=== PATIENT | female | born 1950 | race Caucasian/White ===

== ENCOUNTER 2020-04-24 09:43 | Outpatient (REF) | payer MEDICARE, SELFPAY ==
[2020-04-24 11:15] LABS: MANUAL DIFF FLAG NO
[2020-04-24 11:26] LABS: Basophils Absolute Auto 0.1 X10*3/uL (0.0-0.2); Basophils Percent Auto 0.5 % (0-2); Eosinophils Absolute Auto 0.5 X10*3/uL (0.0-0.4); Eosinophils Percent Auto 4.5 % (0-4); Hematocrit 24.7 % (37-47); Hemoglobin 7.4 g/dl (12.0-16.0); Imm Gran Abs Auto 0.03 X10*3/uL (0.00-0.03); Imm Gran Pct Auto 0.3 % (0.0-0.4); Lymphocytes Absolute Auto 3.1 X10*3/uL (1.2-4.9); Lymphocytes Percent Auto 28.5 % (20-40); Mean Corpuscular Hemoglobin 21.4 pg (27.0-33.0); Mean Corpuscular Volume 71.6 fL (80-98); Mean Platelet Volume 11.3 fL (9.4-12.3); Monocytes Absolute Auto 1.2 X10*3/uL (0.1-1.2); Neutrophils Absolute Auto 6.1 X10*3/uL (2.0-8.3); Neutrophils Percent Auto 55.2 % (45-73); Platelet Count 468 X10*3/uL (160-400); Red Blood Count 3.45 X10*6/uL (4.20-5.50); Red Cell Distribution Width 17.4 % (11.0-16.0)
[2020-04-24 11:39] LABS: Alanine Aminotransferase 18 U/L (0-31); Albumin Level 3.8 g/dL (3.5-5.0); Alkaline Phosphatase 87 U/L (39-117); Anion Gap 11 (12-20); Aspartate Amino Transferase 22 U/L (5-31); Bilirubin Total 0.4 mg/dL (0.0-1.0); Blood Urea Nitrogen 19 mg/dL (9-16); Calcium 9.4 mg/dL (8.4-10.2); Carbon Dioxide 31 mmol/L (22-29); Chloride 101 mmol/L (96-108); Cholesterol 133 mg/dL; Estimated Glomerular Filt Rate > 60; Glucose Fasting 95 mg/dL (60-99); HDL Cholesterol 57 mg/dL; LDL Cholesterol Calculated 64 mg/dl; Potassium 4.6 mmol/l (3.3-5.1); Sodium 138 mmol/L (135-145); Total Protein 6.6 g/dL (6.5-8.0); Triglycerides 60 mg/dL
[2020-04-24 11:49] LABS: Creatinine Urine 53.61 mg/dL
[2020-04-24 12:02] LABS: T4 Thyroxine 9.7 ug/dL (4.5-12.0); Thyroid Stimulating Hormone 2.31 uIU/mL (0.32-4.0); Vitamin D 25-OH Total 76.7 ng/mL (>30)
[2020-04-24 12:51] LABS: Folate > 20.0 ng/mL (> or = 4.0); Vitamin B12 548 pg/mL (200-900)
== END 2020-04-24 09:44 | disposition home or self-care (01) ==
LOC: HO.HMGCLDS 09:43
PROVIDERS: PCP Internal Medicine; Visit Provider Internal Medicine
DX: E11.65 Type 2 diabetes mellitus with hyperglycemia (principal); E78.5 Hyperlipidemia, unspecified; E03.9 Hypothyroidism, unspecified; K21.9 Gastro-esophageal reflux disease without esophagitis; M51.37 Other intervertebral disc degeneration, lumbosacral region; E66.01 Morbid (severe) obesity due to excess calories; I10 Essential (primary) hypertension; M85.89 Other specified disorders of bone density and structure, multiple sites; J45.909 Unspecified asthma, uncomplicated; M19.90 Unspecified osteoarthritis, unspecified site
CPT/HCPCS: 36415; 80053; 80061; 82043; 82306; 82607; 82746; 84436; 84443; 85025

== ENCOUNTER 2020-04-24 20:56 | Emergency (ER) | payer MEDICARE, SELFPAY ==
[2020-04-24 21:09] VITALS: BP 145/69; PULSE 93; RESP 18; TEMP 36.4; O2SAT 98; BMI 48.4
--- NOTE | 2020-04-24 21:56 | ED_ITS ---
HPI - General Adult General Chief complaint: Recheck/Abnormal Lab/Rx <Jarod Tejeda MD - Last Filed: 04/26/20 12:54> Stated complaint: Blood transfusion <Jarod Tejeda MD - Last Filed: 04/26/20 12:54> Time Seen by Provider: 04/24/20 21:56 <Jarod Tejeda MD - Last Filed: 04/26/20 12:54> Source: patient <Jarod Tejeda MD - Last Filed: 04/26/20 12:54> Mode of arrival: ambulatory <Jarod Tejeda MD - Last Filed: 04/26/20 12:54> Limitations: no limitations <Jarod Tejeda MD - Last Filed: 04/26/20 12:54> History of Present Illness HPI narrative: patient has been feeling weak for last few days had lab workup done as outpatient which showed hemoglobin of 7.4 and hematocrit of 24.5, with MCV of 71. denies any black stool or any bleeding problems history of anemia in the past secondary to vaginal bleed but never had any blood transfusion, patient does have some shortness of breath on exertion denies any chest pain patient previous hemoglobin was 13.3 on 03/20. patient never had colonoscopy or endoscopy in the past does get stool for occult blood every year which were negative in the past <Jarod Tejeda MD - Last Filed: 04/26/20 12:54> Related Data Home medications: Previous Rx's Medication Instructions Recorded blood sugar diagnostic 1 strip MISCELLANEOUS TID 90 Days 03/03/20 #300 ea lancets #3 box 03/03/20 omeprazole 20 mg capsule,delayed 20 mg PO DAILY 90 Days #90 cap 03/07/20 release lisinopril 40 mg tablet 40 mg PO DAILY #90 tab 04/10/20 ferrous sulfate 325 mg PO DAILY #30 tab 04/25/20 <Jarod Tejeda MD - Last Filed: 04/26/20 12:54> Allergies/adverse reactions: Allergies Allergy/AdvReac Type Severity Reaction Status Date / Time benzocaine [Benzocaine] Allergy Intermediate HIVES Verified 04/24/20 21:09 Sulfa (Sulfonamide Allergy Intermediate HIVES Verified 04/24/20 21:09 Antibiotics) Penicillins Allergy Mild RASH Verified 04/24/20 21:09 metformin Allergy Unknown diarrhea Verified 04/24/20 21:09 Novocain Allergy Unknown unknown Verified 04/24/20 21:09 oxycodone [OXYCODONE] Allergy Unknown SEVERE Verified 04/24/20 21:09 NAUSEA Vitamin B 12 Allergy Unknown COMPLEX Uncoded 02/02/20 00:00 <Jarod Tejeda MD - Last Filed: 04/26/20 12:54> Review of Systems Review of Systems: REVIEW OF SYSTEMS: Pertinent positives and negatives are stated above in the history. GEN: no fevers, chills, fatigue HEENT: no nasal congestion, sore throat, ear pain NEURO: no headache, dizziness, focal weakness PULM: no cough, mild shortness of breath on exertion CV: no chest pain, palpitations, LE edema ABD: no abdominal pain, nausea, vomiting, diarrhea : no dysuria, urgency, frequency SKIN: no rash ROS otherwise negative x 10 <Jarod Tejeda MD - Last Filed: 04/26/20 12:54> PMF Past Medical History Medical History: Medical History GERD (gastroesophageal reflux disease) <Jarod Tejeda MD - Last Filed: 04/26/20 12:54> Surgical History: Surgical History Back pain with history of spinal surgery History of arthroplasty of left knee History of arthroscopy of left knee History of hysteroscopy History of knee replacement procedure of right knee History of removal of cyst History of splenectomy <Jarod Tejeda MD - Last Filed: 04/26/20 12:54> Family History Family History: Family History Father Diabetes Hypertension Mother Hypertension Liver cancer Brother Liver cancer <Jarod Tejeda MD - Last Filed: 04/26/20 12:54> Social History Social History: Social History Alcohol intake: never Smoking Status: Never smoker Use of substances other than those prescribed or required for medical reasons: No Advance Directives: No Advance Directives Information Provided: Yes <Jarod Tejeda MD - Last Filed: 04/26/20 12:54> Physical Exam Vital Signs: Vital Signs: Last Vital Signs Temp 98.3 F 04/25/20 05:21 Pulse 84 04/25/20 05:21 Resp 14 04/25/20 05:21 BP 135/64 04/25/20 05:21 Pulse Ox 97 04/25/20 05:21 Body Mass Index 48.4 <Jarod Tejeda MD - Last Filed: 04/26/20 12:54> Vital Signs: Last Vital Signs Temp 98.3 F 04/25/20 05:21 Pulse 84 04/25/20 05:21 Resp 14 04/25/20 05:21 BP 135/64 04/25/20 05:21 Pulse Ox 97 04/25/20 05:21 Body Mass Index 48.4 <Waldo Pleitez DO - Last Filed: 04/25/20 04:24> Appearance: Alert. Oriented X3. No acute distress. Eyes: Pupils equal, round and reactive to light. pallor++ ENT: Pharynx normal. Neck: Normal inspection. Neck supple. CVS: Normal heart rate and rhythm. Pulses normal. Respiratory: No respiratory distress. Breath sounds normal. Abdomen: Soft and nontender. no hepatosplenomegaly no mass bowel sounds are present rectal exam; nontender brown color stool, no blood , hemeoccult +ve Skin: Skin warm and dry. Normal skin color. Normal skin turgor. Extremities: No lower extremity edema. Good range of movement Neuro: Oriented X 3. No motor deficit. No sensory deficit. <Jarod Tejeda MD - Last Filed: 04/26/20 12:54> Medical Decision Making MDM Narrative Medical decision making narrative: patient with acute anemia with tiredness and weakness hemoglobin 7.4 guaiac is positive for Hemoccult. Will give patient 1 unit of blood and IV Protonix. Patient orthostatics are stable, patient feeling much better now, blood pressure stable will discharge her home after blood transfusion advised to follow with refractory worker <Jarod Tejeda MD - Last Filed: 04/26/20 12:54> Lab Data Result diagrams: : 04/24/20 22:34 04/24/20 22:34 <Jarod Tejeda MD - Last Filed: 04/26/20 12:54> Labs: Lab Results 11/23/20 11/23/20 11/23/20 Range/Units 22:34 22:34 22:34 WBC 12.4 H (4.8-10.8) X10*3/uL RBC 3.43 L (4.20-5.50) X10*6/uL Hgb 7.4 L (12.0-16.0) g/dl Hct 24.5 L (37-47) % MCV 71.4 L (80-98) fL MCH 21.6 L (27.0-33.0) pg MCHC 30.2 L (31.0-35.0) g/dl RDW 17.7 H (11.0-16.0) % Plt Count 481 H (160-400) X10*3/uL MPV 10.7 (9.4-12.3) fL Immature Gran % (Auto) 0.3 (0.0-0.4) % Neut % (Auto) 58.5 (45-73) % Lymph % (Auto) 23.8 (20-40) % Hawkins % (Auto) 12.2 H (2-11) % Eos % (Auto) 4.6 H (0-4) % Baso % (Auto) 0.6 (0-2) % Lymph # (Auto) 2.9 (1.2-4.9) X10*3/uL Hawkins # (Auto) 1.5 H (0.1-1.2) X10*3/uL Eos # (Auto) 0.6 H (0.0-0.4) X10*3/uL Baso # (Auto) 0.1 (0.0-0.2) X10*3/uL Abs Immat Gran (auto) 0.04 H (0.00-0.03) X10*3/uL Absolute Neuts (auto) 7.2 (2.0-8.3) X10*3/uL Absolute Nucleated RBC 0.000 (0.0-0.012) X10*3/uL Nucleated RBC % (auto) 0.0 (0.0-0.2) /100WBC Smear Tech's Comments VERIFIED PT 11.6 (10.8-13.0) SEC INR 1.0 (0.9-1.1) Sodium 140 (135-145) mmol/L Potassium 4.5 (3.3-5.1) mmol/l Chloride 102 (96-108) mmol/L Carbon Dioxide 29 (22-29) mmol/L Anion Gap 14 (12-20) BUN 24 H (9-16) mg/dL Creatinine 0.93 (0.5-1.4) mg/dL Estim Creat Clear Calc 69.4 Estimated GFR 60 Random Glucose 139 H (60-115) mg/dL Calcium 9.3 (8.4-10.2) mg/dL Iron 18 L (30-160) mcg/dL TIBC 467 H (228-428) mcg/dL % Saturation 4 L (15-50) % Unsat Iron Binding 449 ug/dL Stool Occult Blood (NEG) Blood Type Antibody Screen Crossmatch 04/24/20 04/24/20 Range/Units 22:34 23:33 WBC (4.8-10.8) X10*3/uL RBC (4.20-5.50) X10*6/uL Hgb (12.0-16.0) g/dl Hct (37-47) % MCV (80-98) fL MCH (27.0-33.0) pg MCHC (31.0-35.0) g/dl RDW (11.0-16.0) % Plt Count (160-400) X10*3/uL MPV (9.4-12.3) fL Immature Gran % (Auto) (0.0-0.4) % Neut % (Auto) (45-73) % Lymph % (Auto) (20-40) % Hawkins % (Auto) (2-11) % Eos % (Auto) (0-4) % Baso % (Auto) (0-2) % Lymph # (Auto) (1.2-4.9) X10*3/uL Hawkins # (Auto) (0.1-1.2) X10*3/uL Eos # (Auto) (0.0-0.4) X10*3/uL Baso # (Auto) (0.0-0.2) X10*3/uL Abs Immat Gran (auto) (0.00-0.03) X10*3/uL Absolute Neuts (auto) (2.0-8.3) X10*3/uL Absolute Nucleated RBC (0.0-0.012) X10*3/uL Nucleated RBC % (auto) (0.0-0.2) /100WBC Smear Tech's Comments PT (10.8-13.0) SEC INR (0.9-1.1) Sodium (135-145) mmol/L Potassium (3.3-5.1) mmol/l Chloride (96-108) mmol/L Carbon Dioxide (22-29) mmol/L Anion Gap (12-20) BUN (9-16) mg/dL Creatinine (0.5-1.4) mg/dL Estim Creat Clear Calc Estimated GFR Random Glucose (60-115) mg/dL Calcium (8.4-10.2) mg/dL Iron (30-160) mcg/dL TIBC (228-428) mcg/dL % Saturation (15-50) % Unsat Iron Binding ug/dL Stool Occult Blood POS (NEG) Blood Type A Negative Antibody Screen NEGATIVE Crossmatch See Detail <Jarod Tejeda MD - Last Filed: 04/26/20 12:54> Lab Results 04/24/20 04/24/20 04/24/20 Range/Units 22:34 22:34 22:34 WBC 12.4 H (4.8-10.8) X10*3/uL RBC 3.43 L (4.20-5.50) X10*6/uL Hgb 7.4 L (12.0-16.0) g/dl Hct 24.5 L (37-47) % MCV 71.4 L (80-98) fL MCH 21.6 L (27.0-33.0) pg MCHC 30.2 L (31.0-35.0) g/dl RDW 17.7 H (11.0-16.0) % Plt Count 481 H (160-400) X10*3/uL MPV 10.7 (9.4-12.3) fL Immature Gran % (Auto) 0.3 (0.0-0.4) % Neut % (Auto) 58.5 (45-73) % Lymph % (Auto) 23.8 (20-40) % Hawkins % (Auto) 12.2 H (2-11) % Eos % (Auto) 4.6 H (0-4) % Baso % (Auto) 0.6 (0-2) % Lymph # (Auto) 2.9 (1.2-4.9) X10*3/uL Hawkins # (Auto) 1.5 H (0.1-1.2) X10*3/uL Eos # (Auto) 0.6 H (0.0-0.4) X10*3/uL Baso # (Auto) 0.1 (0.0-0.2) X10*3/uL Abs Immat Gran (auto) 0.04 H (0.00-0.03) X10*3/uL Absolute Neuts (auto) 7.2 (2.0-8.3) X10*3/uL Absolute Nucleated RBC 0.000 (0.0-0.012) X10*3/uL Nucleated RBC % (auto) 0.0 (0.0-0.2) /100WBC Smear Tech's Comments VERIFIED PT 11.6 (10.8-13.0) SEC INR 1.0 (0.9-1.1) Sodium 140 (135-145) mmol/L Potassium 4.5 (3.3-5.1) mmol/l Chloride 102 (96-108) mmol/L Carbon Dioxide 29 (22-29) mmol/L Anion Gap 14 (12-20) BUN 24 H (9-16) mg/dL Creatinine 0.93 (0.5-1.4) mg/dL Estim Creat Clear Calc 69.4 Estimated GFR 60 Random Glucose 139 H (60-115) mg/dL Calcium 9.3 (8.4-10.2) mg/dL Iron 18 L (30-160) mcg/dL TIBC 467 H (228-428) mcg/dL % Saturation 4 L (15-50) % Unsat Iron Binding 449 ug/dL Stool Occult Blood (NEG) Blood Type Antibody Screen Crossmatch 04/24/20 04/24/20 Range/Units 22:34 23:33 WBC (4.8-10.8) X10*3/uL RBC (4.20-5.50) X10*6/uL Hgb (12.0-16.0) g/dl Hct (37-47) % MCV (80-98) fL MCH (27.0-33.0) pg MCHC (31.0-35.0) g/dl RDW (11.0-16.0) % Plt Count (160-400) X10*3/uL MPV (9.4-12.3) fL Immature Gran % (Auto) (0.0-0.4) % Neut % (Auto) (45-73) % Lymph % (Auto) (20-40) % Hawkins % (Auto) (2-11) % Eos % (Auto) (0-4) % Baso % (Auto) (0-2) % Lymph # (Auto) (1.2-4.9) X10*3/uL Hawkins # (Auto) (0.1-1.2) X10*3/uL Eos # (Auto) (0.0-0.4) X10*3/uL Baso # (Auto) (0.0-0.2) X10*3/uL Abs Immat Gran (auto) (0.00-0.03) X10*3/uL Absolute Neuts (auto) (2.0-8.3) X10*3/uL Absolute Nucleated RBC (0.0-0.012) X10*3/uL Nucleated RBC % (auto) (0.0-0.2) /100WBC Smear Tech's Comments PT (10.8-13.0) SEC INR (0.9-1.1) Sodium (135-145) mmol/L Potassium (3.3-5.1) mmol/l Chloride (96-108) mmol/L Carbon Dioxide (22-29) mmol/L Anion Gap (12-20) BUN (9-16) mg/dL Creatinine (0.5-1.4) mg/dL Estim Creat Clear Calc Estimated GFR Random Glucose (60-115) mg/dL Calcium (8.4-10.2) mg/dL Iron (30-160) mcg/dL TIBC (228-428) mcg/dL % Saturation (15-50) % Unsat Iron Binding ug/dL Stool Occult Blood POS (NEG) Blood Type A Negative Antibody Screen NEGATIVE Crossmatch See Detail <Waldo Pleitez, DO - Last Filed: 04/25/20 04:24> Discharge Plan Discharge Clinical Impression: Anemia, GI (gastrointestinal bleed) <Jarod Tejeda MD - Last Filed: 04/26/20 12:54> Patient Disposition: Home, Self-Care <Jarod Tejeda MD - Last Filed: 04/26/20 12:54> Instructions: Gastrointestinal Bleeding (ED), Iron Deficiency Anemia (ED) <Jarod Tejeda MD - Last Filed: 04/26/20 12:54> Additional Instructions: take iron tablets Daily as advised. see refractory worker for further workup including endoscopy and colonoscopy to find the cause of anemia report to the ER if black stool or bleeding from rectum or increased shortness of breath or weakness follow-up with your PCP within a week <Jarod Tejeda MD - Last Filed: 04/26/20 12:54> Prescriptions: New ferrous sulfate 325 mg (65 mg iron) tablet 325 mg PO DAILY Qty: 30 RF: 2 No Action blood sugar diagnostic [OneTouch Ultra Blue Test Strip] Strip 1 strip miscellaneous TID 90 Days Qty: 300 RF: 3 (DME) lancets [OneTouch UltraSoft Lancets] Misc See Rx Instructions .ROUTE .MEDSUPPLY Qty: 3 RF: 3 omeprazole 20 mg capsule,delayed release(DR/EC) 20 mg PO DAILY 90 Days Qty: 90 RF: 0 lisinopril 40 mg tablet 40 mg PO DAILY Qty: 90 RF: 3 <Jarod Tejeda MD - Last Filed: 04/26/20 12:54> Referrals: Cristina Martinez MD [Physician] - 1 week <Jarod Tejeda MD - Last Filed: 04/26/20 12:54> Interventions: ED Discharge Assessment Last Done: 04/25/20 05:22 <Jarod Tejeda MD - Last Filed: 04/26/20 12:54> Discharge Date/Time: 04/25/20 05:24 <Jarod Tejeda MD - Last Filed: 04/26/20 12:54>
[2020-04-24 22:47] LABS: Basophils Absolute Auto 0.1 X10*3/uL (0.0-0.2); Basophils Percent Auto 0.6 % (0-2); Eosinophils Absolute Auto 0.6 X10*3/uL (0.0-0.4); Eosinophils Percent Auto 4.6 % (0-4); Hematocrit 24.5 % (37-47); Hemoglobin 7.4 g/dl (12.0-16.0); Imm Gran Abs Auto 0.04 X10*3/uL (0.00-0.03); Imm Gran Pct Auto 0.3 % (0.0-0.4); Lymphocytes Absolute Auto 2.9 X10*3/uL (1.2-4.9); Lymphocytes Percent Auto 23.8 % (20-40); MANUAL DIFF FLAG SCAN; Mean Corpuscular HGB Conc 30.2 g/dl (31.0-35.0); Mean Corpuscular Hemoglobin 21.6 pg (27.0-33.0); Mean Corpuscular Volume 71.4 fL (80-98); Mean Platelet Volume 10.7 fL (9.4-12.3); Monocytes Absolute Auto 1.5 X10*3/uL (0.1-1.2); Monocytes Percent Auto 12.2 % (2-11); Neutrophils Absolute Auto 7.2 X10*3/uL (2.0-8.3); Neutrophils Percent Auto 58.5 % (45-73); Platelet Count 481 X10*3/uL (160-400); Red Blood Count 3.43 X10*6/uL (4.20-5.50); Red Cell Distribution Width 17.7 % (11.0-16.0); SCAN SMEAR FLAG 1; White Blood Count 12.4 X10*3/uL (4.8-10.8)
[2020-04-24 22:59] LABS: Prothrombin Time 11.6 SEC (10.8-13.0)
[2020-04-24 23:05] LABS: SLIDE REVIEW VERIFIED
[2020-04-24 23:22] VITALS: BP 134/65; BP 141/58; PULSE 89; PULSE 93
[2020-04-24 23:23] VITALS: BP 155/65; PULSE 96
[2020-04-24 23:24] VITALS: BP 134/65; PULSE 89; RESP 16; O2SAT 96
[2020-04-24 23:39] LABS: OBS Int Ctl Valid YES; OBS1 POS (NEG)
[2020-04-24 23:53] LABS: Anion Gap 14 (12-20); Blood Urea Nitrogen 24 mg/dL (9-16); Calcium 9.3 mg/dL (8.4-10.2); Carbon Dioxide 29 mmol/L (22-29); Chloride 102 mmol/L (96-108); Creatinine Clr Calc Pharmacy 69.4; Estimated Glomerular Filt Rate 60; Glucose Random 139 mg/dL (60-115); Iron 18 mcg/dL (30-160); Percent Iron Saturation 4 % (15-50); Potassium 4.5 mmol/l (3.3-5.1); Sodium 140 mmol/L (135-145); Total Iron Binding Capacity 467 mcg/dL (228-428); Unsaturated Iron Binding 449 ug/dL
[2020-04-25] VITALS (11 sets, daily range): BP systolic 100–135; BP diastolic 55–67; PULSE 84–92; RESP 14–16; TEMP 36.7–37.1; O2SAT 95–97
[2020-04-25] MEDS: Pantoprazole Sodium 40 MG/10 ML VIAL 80 MG IVPUSH (00:45)
[2020-04-25] MEDS: Ferrous Sulfate 324 MG TABLET.DR PO (02:19)
== END 2020-04-25 05:24 | disposition home or self-care (01) ==
PROVIDERS: Emergency Provider Internal Medicine; PCP Internal Medicine
DX: K92.2 Gastrointestinal hemorrhage, unspecified (principal); D50.0 Iron deficiency anemia secondary to blood loss (chronic); Z79.899 Other long term (current) drug therapy
CPT/HCPCS: 36415; 80048; 82272; 83540; 85025; 85610; 86850; 86900; 86901; 86920; 86923; 96374; 99284; P9016

== ENCOUNTER 2020-05-09 11:25 | Outpatient (REF) | payer MEDICARE, SELFPAY ==
[2020-05-09 13:52] LABS: MANUAL DIFF FLAG NO
[2020-05-09 13:58] LABS: Basophils Absolute Auto 0.1 X10*3/uL (0.0-0.2); Basophils Percent Auto 0.7 % (0-2); Eosinophils Absolute Auto 0.3 X10*3/uL (0.0-0.4); Eosinophils Percent Auto 3.2 % (0-4); Hematocrit 31.1 % (37-47); Hemoglobin 9.4 g/dl (12.0-16.0); Imm Gran Abs Auto 0.09 X10*3/uL (0.00-0.03); Imm Gran Pct Auto 0.9 % (0.0-0.4); Immature Retic Fraction 35.6 % (3.0-15.9); Lymphocytes Absolute Auto 2.7 X10*3/uL (1.2-4.9); Mean Corpuscular HGB Conc 30.2 g/dl (31.0-35.0); Mean Corpuscular Hemoglobin 23.5 pg (27.0-33.0); Mean Corpuscular Volume 77.8 fL (80-98); Mean Platelet Volume 11.6 fL (9.4-12.3); Monocytes Absolute Auto 1.3 X10*3/uL (0.1-1.2); Monocytes Percent Auto 12.3 % (2-11); Neutrophils Absolute Auto 5.8 X10*3/uL (2.0-8.3); Neutrophils Percent Auto 56.9 % (45-73); Platelet Count 415 X10*3/uL (160-400); Red Cell Distribution Width 25.1 % (11.0-16.0); Retic HGB Equivalent 28.1 pg (30.0-35.0); Reticulocyte Percent 2.3 % (0.5-1.8); Reticulocytes Absolute 0.092 X10*6/uL (0.026-0.095); White Blood Count 10.3 X10*3/uL (4.8-10.8)
[2020-05-09 14:23] LABS: Iron 21 mcg/dL (30-160); Percent Iron Saturation 5 % (15-50); Total Iron Binding Capacity 408 mcg/dL (228-428); Unsaturated Iron Binding 387 ug/dL
[2020-05-09 14:48] LABS: Ferritin 49 ng/mL (10-250)
[2020-05-09 15:16] LABS: Folate > 20.0 ng/mL (> or = 4.0); Vitamin B12 524 pg/mL (200-900)
== END 2020-05-09 11:26 | disposition home or self-care (01) ==
LOC: HO.HMGCLDS 11:25
PROVIDERS: PCP Internal Medicine; Visit Provider Internal Medicine
DX: K92.2 Gastrointestinal hemorrhage, unspecified (principal); D64.9 Anemia, unspecified
CPT/HCPCS: 36415; 82607; 82728; 82746; 83540; 85025; 85045

== ENCOUNTER 2020-06-09 11:48 | Outpatient (REF) | payer MEDICARE, SELFPAY | END 2020-06-09 11:49 | disposition home or self-care (01) | LOC: HO.HMGCX 11:48 | PROVIDERS: PCP Internal Medicine; Visit Provider Internal Medicine | DX: Z13.89 Encounter for screening for other disorder (principal) ==

== ENCOUNTER 2020-06-12 09:24 | Outpatient (REF) | payer MEDICARE, SELFPAY ==
--- NOTE | 2020-06-12 09:30 | XR_ITS ---
EXAMINATION: XR SHOULDER, RIGHT CLINICAL INFORMATION: Fall, pain. COMPARISON: None TECHNIQUE: AP external rotation, Grashey, scapular Y, and axillary views of the right shoulder. FINDINGS: There is no visible acute fracture, dislocation or subluxation seen. There are 2 sclerotic densities in the central right humeral head likely small bone islands. The soft tissues are normal. XR/XR shoulder RT min 2V IMPRESSION: Unremarkable right shoulder exam.
== END 2020-06-12 09:25 | disposition home or self-care (01) ==
LOC: HO.HMGCX 09:24
PROVIDERS: PCP Internal Medicine; Visit Provider Internal Medicine
DX: Z91.81 History of falling (principal)
CPT/HCPCS: 73030

== ENCOUNTER 2020-10-18 07:56 | Outpatient (REF) | payer MEDICARE, SELFPAY ==
[2020-10-18 11:13] LABS: MANUAL DIFF FLAG NO
[2020-10-18 11:44] LABS: Basophils Percent Auto 0.6 % (0-2); Eosinophils Absolute Auto 0.2 X10*3/uL (0.0-0.4); Hemoglobin 11.7 g/dl (12.0-16.0); Imm Gran Abs Auto 0.02 X10*3/uL (0.00-0.03); Imm Gran Pct Auto 0.3 % (0.0-0.4); Immature Retic Fraction 22.4 % (3.0-15.9); Lymphocytes Absolute Auto 1.8 X10*3/uL (1.2-4.9); Lymphocytes Percent Auto 25.3 % (20-40); Mean Corpuscular HGB Conc 31.6 g/dl (31.0-35.0); Mean Corpuscular Volume 85.3 fL (80-98); Mean Platelet Volume 12.2 fL (9.4-12.3); Monocytes Absolute Auto 0.8 X10*3/uL (0.1-1.2); Monocytes Percent Auto 10.9 % (2-11); Neutrophils Absolute Auto 4.4 X10*3/uL (2.0-8.3); Neutrophils Percent Auto 59.9 % (45-73); Platelet Count 376 X10*3/uL (160-400); Red Blood Count 4.34 X10*6/uL (4.20-5.50); Red Cell Distribution Width 15.6 % (11.0-16.0); Retic HGB Equivalent 28.8 pg (30.0-35.0); Reticulocyte Percent 1.8 % (0.5-1.8); Reticulocytes Absolute 0.078 X10*6/uL (0.026-0.095); White Blood Count 7.3 X10*3/uL (4.8-10.8)
[2020-10-18 12:23] LABS: Creatinine Urine 44.37 mg/dL; Microalbumin Urine < 5.0 mg/L
[2020-10-18 12:50] LABS: Folate > 20.0 ng/mL (> or = 4.0); Vitamin B12 430 pg/mL (200-900)
[2020-10-18 13:05] LABS: Alanine Aminotransferase 18 U/L (0-31); Alkaline Phosphatase 86 U/L (39-117); Anion Gap 12 (12-20); Aspartate Amino Transferase 19 U/L (5-31); Bilirubin Total 0.3 mg/dL (0.0-1.0); Blood Urea Nitrogen 27 mg/dL (9-16); Calcium 9.9 mg/dL (8.4-10.2); Carbon Dioxide 31 mmol/L (22-29); Chloride 102 mmol/L (96-108); Cholesterol 142 mg/dL; Estimated Glomerular Filt Rate > 60; Glucose Random 131 mg/dL (60-115); HDL Cholesterol 59 mg/dL; Iron 48 mcg/dL (30-160); LDL Cholesterol Calculated 69 mg/dl; Percent Iron Saturation 13 % (15-50); Potassium 4.8 mmol/L (3.3-5.1); Sodium 140 mmol/L (135-145); Total Iron Binding Capacity 364 mcg/dL (228-428); Triglycerides 74 mg/dL; Unsaturated Iron Binding 316 ug/dL
[2020-10-18 13:08] LABS: Ferritin 34 ng/mL (10-250); Free T4 (Free Thyroxine) 1.21 ng/dL (0.71-1.85); Thyroid Stimulating Hormone 2.92 uIU/mL (0.32-4.0); Vitamin D 25-OH Total 73.1 ng/mL (>30)
== END 2020-10-18 07:57 | disposition home or self-care (01) ==
LOC: HO.HMGCLDS 07:56
PROVIDERS: PCP Internal Medicine; Visit Provider Internal Medicine
DX: I10 Essential (primary) hypertension (principal); D64.9 Anemia, unspecified; E11.65 Type 2 diabetes mellitus with hyperglycemia; E78.00 Pure hypercholesterolemia, unspecified; E03.9 Hypothyroidism, unspecified
CPT/HCPCS: 36415; 80053; 80061; 82043; 82306; 82607; 82728; 82746; 83540; 84439; 84443; 85025; 85045

== ENCOUNTER 2020-11-29 14:18 | Outpatient (REF) | payer MEDICARE, SELFPAY ==
--- NOTE | ~2020-11-29 | US_ITS ---
EXAMINATION: US THYROID CLINICAL INFORMATION: Nontoxic single thyroid nodule. COMPARISON: Ultrasound thyroid soft tissues 08/20/2016. TECHNIQUE: Linear transducer grayscale and color Doppler examination with attention to the region of the thyroid. FINDINGS: SIZE: Measurements of the thyroid lobes and nodules are given in sagittal, anteroposterior and transverse dimensions respectively. Right Thyroid Lobe: 5.72 x 3.73 x 4.26 cm, volume 47.5 mL. Previously 4.2 x 2.7 x 3.8 cm, volume 21.9 mL. Parenchyma: The gland echotexture is heterogeneous. Thyroid vascularity is unknown. Left Thyroid Lobe: 4.80 x 1.72 x 1.26 cm, volume 5.43 mL. Previously 4.6 x 1.9 x 1.4 cm, volume 6.4 mL. Parenchyma: The gland echotexture is heterogeneous. Thyroid vascularity is increased. Isthmus: 0.70 cm in maximum AP dimension. Previously 0.20 cm. Estimated total number of nodules greater than or equal to 1 cm: 2. [employer] nodules are described as follows: 1. Location: Right lobe (entire). Size: 5.5 x 3.3 x 3.9 cm, volume 37.3 mL. Previously: 3.6 x 2.1 x 2.8 cm, volume 11.1 mL. Nodule characteristics: Composition: Mixed cystic and solid (1). Echogenicity: Hypoechoic (2). Shape: Not taller than wide (0). Margins: Smooth (0). Echogenic Foci: None (0). ACR TI-RADS total points: 3 ACR TI-RADS category: 3 Significant change in size (>/= 20% in 2 dimensions and minimal increase of 2 mm or 50% or greater increase in volume): Yes Change in features: No Change in ACR TI-RADS risk category: No 2. Location: Left midpole. Size: 1.0 x 0.5 x 0.6 cm, volume 0.2 mL. Previously: 1.1 x 0.8 x 0.7 cm, volume 0.3 mL. Nodule characteristics: Composition: Solid (2). Echogenicity: Hyperechoic (1). Shape: Not taller than wide (0). Margins: Smooth (0). Echogenic Foci: Punctate echogenic foci (3). ACR TI-RADS total points: 6 ACR TI-RADS category: 4 Significant change in size (>/= 20% in 2 dimensions and minimal increase of 2 mm or 50% or greater increase in volume): No Change in features: No Change in ACR TI-RADS risk category: No NODES: No lymphadenopathy is seen in the tissue surrounding the thyroid gland. US/US thyroid IMPRESSION: 1. There is interim increase in size of a previously biopsied (08/20/2016) complex cystic nodule within the right thyroid lobe. A further left thyroid lobe nodule appears relatively stable from prior. 2. There is heterogeneous thyroid echotexture, which can be associated with thyroiditis. ACR TI-RADS RECOMMENDATION REFERENCE: Ultrasound-guided fine-needle aspiration, followup ultrasound, no further follow up. * TR1 (0 point) and TR 2 (2 points): No FNA or follow up * TR3 (3 points): FNA if more than or equal to 2.5 cm in maximum dimension, followup ultrasound in 1, 3 and 5 years if 1.5 to 2.4 cm in maximum dimension. * TR4 (4-6 points): FNA if more than or equal to 1.5 cm in maximum dimension, followup ultrasound in 1, 2, 3 and 5 years if 1 to 1.4 cm in maximum dimension. * TR5 (more than or equal to 7 points): FNA if more than or equal to 1 cm in maximum dimension, followup ultrasound every year for 5 years if 0.5 to 0.9 cm in maximum dimension. * TR3, TR4 or TR5 nodules that are below the size threshold for follow up receive no follow up.
== END 2020-11-29 14:19 | disposition home or self-care (01) ==
LOC: HO.HMGCX 14:18
PROVIDERS: PCP Internal Medicine; Visit Provider Internal Medicine
DX: E04.1 Nontoxic single thyroid nodule (principal)
CPT/HCPCS: 76536

== ENCOUNTER 2021-03-12 09:10 | Outpatient (REF) | payer MEDICARE, SELFPAY ==
[2021-03-12 11:54] LABS: MANUAL DIFF FLAG NO
[2021-03-12 12:13] LABS: Basophils Absolute Auto 0.1 X10*3/uL (0.0-0.2); Basophils Percent Auto 0.7 % (0-2); Eosinophils Absolute Auto 0.2 X10*3/uL (0.0-0.4); Eosinophils Percent Auto 2.4 % (0-4); Hematocrit 37.2 % (37-47); Hemoglobin 11.8 g/dl (12.0-16.0); Imm Gran Abs Auto 0.03 X10*3/uL (0.00-0.03); Imm Gran Pct Auto 0.4 % (0.0-0.4); Lymphocytes Absolute Auto 2.3 X10*3/uL (1.2-4.9); Lymphocytes Percent Auto 27.9 % (20-40); Mean Corpuscular HGB Conc 31.7 g/dl (31.0-35.0); Mean Corpuscular Hemoglobin 26.9 pg (27.0-33.0); Mean Corpuscular Volume 84.9 fL (80-98); Mean Platelet Volume 12.6 fL (9.4-12.3); Monocytes Absolute Auto 0.9 X10*3/uL (0.1-1.2); Monocytes Percent Auto 10.6 % (2-11); Neutrophils Absolute Auto 4.8 X10*3/uL (2.0-8.3); Platelet Count 367 X10*3/uL (160-400); Red Blood Count 4.38 X10*6/uL (4.20-5.50); Red Cell Distribution Width 15.9 % (11.0-16.0); White Blood Count 8.3 X10*3/uL (4.8-10.8)
[2021-03-12 12:23] LABS: Estimated Average Glucose 128 mg/dL; Hemoglobin A1c % 6.1 %
[2021-03-12 13:09] LABS: Alanine Aminotransferase 19 U/L (0-31); Albumin Level 4.2 g/dL (3.5-5.0); Alkaline Phosphatase 83 U/L (39-117); Anion Gap 9 (12-20); Aspartate Amino Transferase 21 U/L (5-31); Bilirubin Total 0.7 mg/dL (0.0-1.0); Blood Urea Nitrogen 18 mg/dL (9-16); Calcium 9.9 mg/dL (8.4-10.2); Carbon Dioxide 32 mmol/L (22-29); Chloride 104 mmol/L (96-108); Cholesterol 160 mg/dL; Estimated Glomerular Filt Rate > 60; Glucose Fasting 129 mg/dL (60-99); HDL Cholesterol 63 mg/dL; LDL Cholesterol Calculated 82 mg/dl; Potassium 4.2 mmol/L (3.3-5.1); Sodium 141 mmol/L (135-145); Total Protein 7.1 g/dL (6.5-8.0); Triglycerides 78 mg/dL
== END 2021-03-12 09:11 | disposition home or self-care (01) ==
LOC: HO.HMGCLDS 09:10
PROVIDERS: PCP Internal Medicine; Visit Provider Nurse Practitioner Family
DX: D64.9 Anemia, unspecified (principal); E04.1 Nontoxic single thyroid nodule; E78.00 Pure hypercholesterolemia, unspecified; I10 Essential (primary) hypertension; R00.2 Palpitations; E11.9 Type 2 diabetes mellitus without complications
CPT/HCPCS: 36415; 80053; 80061; 83036; 84443; 85025

== ENCOUNTER 2021-03-31 10:21 | Outpatient (REF) | payer MEDICARE, SELFPAY ==
--- NOTE | ~2021-03-31 | MM_ITS ---
EXAMINATION: MM SCREENING DIGITAL BREAST TOMOSYNTHESIS, BILATERAL CLINICAL INFORMATION: Screening. Asymptomatic. Left lumpectomy, 2009. Due for yearly. COMPARISON: Mammography: 02/11/2020, 11/10/2018, 05/11/2018, 10/28/2017 TECHNIQUE: Digital breast tomosynthesis is performed in both the craniocaudal and mediolateral oblique views along with computer-aided detection (CAD). Synthesized 2D images are generated from the tomosynthesis. FINDINGS: There are scattered areas of fibroglandular density (ACR BI-RADS breast composition Category b). There are no significant masses, abnormal calcifications, or other abnormalities. Parenchymal pattern is similar to prior studies. The left breast has post therapy changes with reduced breast size, stable scarring, and benign dystrophic calcification within the scar. There is a biopsy clip marker anterior central scar left breast. Scattered bilateral benign coarse and rim calcifications again seen. No significant changes. MM/MM tomosynthesis screening BI IMPRESSION: No mammographic evidence of malignancy. Post therapy changes left breast. ASSESSMENT: BI-RADS 2: Benign RECOMMENDATION: Routine annual mammography screening. This patient's information was entered into a reminder system with a target due date for their next mammogram.
== END 2021-03-31 10:22 | disposition home or self-care (01) ==
LOC: HO.MAMMO 10:21
PROVIDERS: Visit Provider Internal Medicine
DX: Z12.31 Encounter for screening mammogram for malignant neoplasm of breast (principal)
CPT/HCPCS: 77063; 77067

== ENCOUNTER → 2021-05-18 11:22 | Outpatient (REF) | payer MEDICARE, SELFPAY ==
--- NOTE | 2021-05-18 11:29 | HM_ITS ---
Total monitoring time 3 days and 1 hour. Underlying rhythm is sinus. Minimum heart rate 60/Min. Maximum 112/Min. Average 76/Min. No atrial fibrillation or flutter or AV blocks or pauses. Rare supraventricular ectopy with minimal burden. Rare ventricular ectopy with minimal burden. No sustained arrhythmias. No patient events. MTDD
== END ==
LOC: HO.CARD 11:22
PROVIDERS: PCP Internal Medicine; Visit Provider Internal Medicine
DX: R00.2 Palpitations (principal)
CPT/HCPCS: 93242

== ENCOUNTER 2022-02-14 08:02 | Outpatient (REF) | payer MEDICARE, SELFPAY ==
[2022-02-14 11:04] LABS: MANUAL DIFF FLAG NO
[2022-02-14 11:29] LABS: Basophils Absolute Auto 0.1 X10*3/uL (0.0-0.2); Basophils Percent Auto 1.1 % (0-2); Eosinophils Absolute Auto 0.3 X10*3/uL (0.0-0.4); Eosinophils Percent Auto 3.9 % (0-4); Hematocrit 32.3 % (37.0-47.0); Imm Gran Abs Auto 0.02 X10*3/uL (0.00-0.03); Imm Gran Pct Auto 0.3 % (0.0-0.4); Immature Retic Fraction 30.7 % (3.0-15.9); Lymphocytes Absolute Auto 2.1 X10*3/uL (1.2-4.9); Lymphocytes Percent Auto 30.1 % (20-40); Mean Corpuscular Hemoglobin 24.4 pg (27.0-33.0); Mean Platelet Volume 12.1 fL (9.4-12.3); Monocytes Absolute Auto 0.8 X10*3/uL (0.1-1.2); Monocytes Percent Auto 11.7 % (2-11); Neutrophils Absolute Auto 3.7 x10*3/uL (2.0-8.3); Neutrophils Percent Auto 52.9 % (45-73); Platelet Count 439 X10*3/uL (160-400); Red Blood Count 4.09 X10*6/uL (4.20-5.50); Red Cell Distribution Width 14.5 % (11.0-16.0); Retic HGB Equivalent 25.6 pg (30.0-35.0); Reticulocyte Percent 1.7 % (0.5-1.8); Reticulocytes Absolute 0.071 X10*6/uL (0.026-0.095)
[2022-02-14 11:38] LABS: Alanine Aminotransferase 17 U/L (0-31); Albumin Level 4.1 g/dL (3.5-5.0); Alkaline Phosphatase 81 U/L (39-117); Anion Gap 16 (12-20); Aspartate Amino Transferase 22 U/L (5-31); Bilirubin Total 0.2 mg/dL (0.0-1.0); Blood Urea Nitrogen 22 mg/dL (9-16); Calcium 10.3 mg/dL (8.4-10.2); Carbon Dioxide 27 mmol/L (22-29); Chloride 102 mmol/L (96-108); Estimated Glomerular Filt Rate > 60; Glucose Random 134 mg/dL (60-115); Iron 25 mcg/dL (30-160); Percent Iron Saturation 6 % (15-50); Potassium 4.7 mmol/L (3.3-5.1); Sodium 140 mmol/L (135-145); Total Iron Binding Capacity 454 mcg/dL (228-428); Unsaturated Iron Binding 429 ug/dL
[2022-02-14 12:03] LABS: Ferritin 7 ng/mL (10-250); Free T4 (Free Thyroxine) 1.19 ng/dL (0.71-1.85); Thyroid Stimulating Hormone 2.38 uIU/mL (0.32-4.0); Vitamin D 25-OH Total 88.5 ng/mL (>30)
[2022-02-14 12:04] LABS: Microalbum/Creatinine Ratio Ur 11.9 ug/mg cr
[2022-02-14 12:34] LABS: Folate > 20.0 ng/mL (> or = 4.0); Vitamin B12 492 pg/mL (200-900)
[2022-02-14 12:51] LABS: Estimated Average Glucose 137 mg/dL; Hemoglobin A1c % 6.4 %
== END 2022-02-14 08:03 | disposition home or self-care (01) ==
LOC: HO.HMGCLDS 08:02
PROVIDERS: PCP Internal Medicine; Visit Provider Internal Medicine
DX: E78.00 Pure hypercholesterolemia, unspecified (principal); E11.65 Type 2 diabetes mellitus with hyperglycemia; M81.0 Age-related osteoporosis without current pathological fracture
CPT/HCPCS: 36415; 80053; 82043; 82306; 82607; 82728; 82746; 83036; 83540; 84439; 84443; 85025; 85045

== ENCOUNTER 2022-04-13 10:16 | Outpatient (REF) | payer MEDICARE, SELFPAY ==
--- NOTE | ~2022-04-13 | MM_ITS ---
EXAMINATION: MM SCREENING DIGITAL BREAST TOMOSYNTHESIS, BILATERAL CLINICAL INFORMATION: Screening. Asymptomatic. History left breast cancer status post lumpectomy, 2009. COMPARISON: Mammography: 03/31/2021, 02/11/2020, 11/10/2018 TECHNIQUE: Digital breast tomosynthesis is performed in both the craniocaudal and mediolateral oblique views along with computer-aided detection (CAD). Synthesized 2D images are generated from the tomosynthesis. FINDINGS: There are scattered areas of fibroglandular density (ACR BI-RADS breast composition Category b). Left breast has stable post therapy changes with mild reduced breast size, scarring, biopsy clip marker, and dystrophic calcifications in the scar. Neither breast shows interval mass or architectural abnormality or abnormal calcifications. There are no significant changes from prior studies. MM/MM tomosynthesis screening BI IMPRESSION: -No mammographic evidence of malignancy. -Post therapy changes left breast. ASSESSMENT: BI-RADS 2: Benign RECOMMENDATION: Routine annual mammography screening. This patient's information was entered into a reminder system with a target due date for their next mammogram.
== END 2022-04-13 10:17 | disposition home or self-care (01) ==
LOC: HO.MAMMO 10:16
PROVIDERS: PCP Internal Medicine; Visit Provider Internal Medicine
DX: Z12.31 Encounter for screening mammogram for malignant neoplasm of breast (principal)
CPT/HCPCS: 77063; 77067

== ENCOUNTER 2022-04-18 13:54 | Outpatient (REF) | payer MEDICARE, SELFPAY ==
--- NOTE | ~2022-04-18 | MM_ITS ---
EXAMINATION: BONE DENSITOMETRY CLINICAL INDICATION: Hyperparathyroidism, unspecified. COMPARISON: Previous BD dated 02/11/2020 and baseline BD dated 11/11/2006 for the spine and left hip; this is the baseline for the left forearm radius 33%. TECHNIQUE: Using a [employer] DXA System (software version: 13.1) manufactured by [employer], dual-energy x-ray absorptiometry was performed of the lumbar spine and left hip and left forearm radius 33%. The images are of good technical quality. Summary results are attached. FINDINGS: AP SPINE L1-L4 (excluding L3): The data of L1-L4 has been changed to exclude the L3 vertebral body, because degenerative sclerosis at this level may cause overestimation of lumbar spine density. Current: BMD 1.393 g/cm2, Z-score 2.4, T-score 1.9, normal, 2.7% decrease from previous, 2.5% decrease from baseline (<5% change is not significant). Prior: BMD 1.431 g/cm2. Baseline: BMD 1.428 g/cm2. LEFT FEMUR, NECK: Current: BMD 0.675 g/cm2, Z-score -1.6, T-score -2.6, osteoporosis. Prior: BMD 0.779 g/cm2. Baseline: BMD 0.943 g/cm2. LEFT FEMUR, TOTAL: Current: BMD 0.654 g/cm2, Z-score -2.0, T-score -2.8, osteoporosis, 17.8% decrease from previous, 38.5% decrease from baseline (<5% change is not significant). Prior: BMD 0.796 g/cm2. Baseline: BMD 1.064 g/cm2. LEFT FOREARM RADIUS 33%: BMD 0.840 g/cm2, Z-score 1.6, T-score -0.4, normal. IDENTIFIED RISK FACTORS: Height loss, hyperparathyroid, low calcium intake, menopause, thiazide. HISTORY OF FRACTURE: None listed. MEDICATIONS: Multivitamin. MM/XR DEXA appendicular skeleton IMPRESSION: 1. DIAGNOSIS: Osteoporosis based on the lowest T-score value of -2.8 in the total femur applying World Health Organization criteria. 2. 10-YEAR FRACTURE RISK PREDICTION, FRAX: According to the guidelines, FRAX calculation should only be performed on patients in the osteopenia bone density category. Therefore, FRAX was not performed on this patient. 3. Treatment Recommendations: NOF guidelines recommend consideration for treatment in postmenopausal women and men age 50 and older presenting with the following: -A hip or vertebral (clinical or morphometric) fracture. -T-score less than or equal to -2.5 at the femoral neck or spine after appropriate evaluation to exclude secondary causes. -Low bone mass at the hip or spine and a 10-year fracture probability by FRAX of greater than or equal to 3% for hip fracture or greater than or equal to 20% for major osteoporotic fracture based on the [place] adapted WHO algorithm. 4. Other Recommendations: All treatment decisions require clinical judgment and consideration of individual patient factors, including patient preferences, comorbidities, previous drug use, risk factors not captured in the FRAX model (e.g. frailty, falls, vitamin D deficiency, increased bone turnover, interval significant decline in bone density) and possible under or overestimation of fracture risk by FRAX. Additional medical evaluation for secondary cause of low bone mineral density may be appropriate. FUTURE SCAN RECOMMENDATION: People with diagnosed cases of osteoporosis or at high risk for fracture should have regular bone mineral density tests. For patients eligible for Medicare, routine testing is allowed once every 2 years. The testing frequency can be increased to one year for patients who have rapidly progressing disease, those who are receiving or discontinuing medical therapy to restore bone mass, or have additional risk factors.
== END 2022-04-18 13:55 | disposition home or self-care (01) ==
LOC: HO.MAMMO 13:54
PROVIDERS: PCP Internal Medicine; Visit Provider Internal Medicine Endocrinology, Diabetes & Metabolism
DX: Z13.820 Encounter for screening for osteoporosis (principal); Z78.0 Asymptomatic menopausal state
CPT/HCPCS: 77081

== ENCOUNTER 2022-05-22 14:53 | Outpatient (REF) | payer MEDICARE, SELFPAY ==
--- NOTE | ~2022-05-22 | XR_ITS ---
EXAMINATION: XR CERVICAL SPINE CLINICAL INFORMATION: M54.2 - Cervicalgia COMPARISON: None TECHNIQUE: 7 views of the cervical spine were obtained. FINDINGS: There is rightward tilting cervical spine on coronal view. There is mild reversal cervical lordosis. No vertebral compression or destructive process or prevertebral soft tissue swelling. The odontoid appears intact. There are multilevel degenerative facet changes with bulky osteophytes particularly left mid cervical spine and right lower cervical spine. Prominent degenerative disc changes are present at C5-C6 and lesser at C4/C5 and C6-C7. There is mild spondylolisthesis at C3-C4 and C4-C5 likely related to the changes. Oblique view suggests variable foraminal narrowing left C3 and perhaps C6 and right foraminal spurring greatest at C5. XR/XR cervical spine 3V IMPRESSION: 1. Prominent multilevel degenerative disc and degenerative facet changes with mild spondylolisthesis C3-C4 and C4-C5. 2. No vertebral compression or destructive process.
== END 2022-05-22 14:54 | disposition home or self-care (01) ==
LOC: HO.HMGCX 14:53
PROVIDERS: PCP Internal Medicine; Visit Provider Internal Medicine
DX: M54.2 Cervicalgia (principal)
CPT/HCPCS: 72040

== ENCOUNTER 2022-09-12 11:32 | Outpatient (REF) | payer MEDICARE, SELFPAY ==
[2022-09-12 13:53] LABS: MANUAL DIFF FLAG NO
[2022-09-12 14:06] LABS: Basophils Percent Auto 0.5 % (0-2); Eosinophils Absolute Auto 0.2 X10*3/uL (0.0-0.4); Eosinophils Percent Auto 2.7 % (0-4); Hemoglobin 9.8 g/dl (12.0-16.0); Imm Gran Abs Auto 0.03 X10*3/uL (0.00-0.03); Imm Gran Pct Auto 0.4 % (0.0-0.4); Lymphocytes Absolute Auto 2.4 X10*3/uL (1.2-4.9); Lymphocytes Percent Auto 28.4 % (20-40); Mean Corpuscular HGB Conc 30.6 g/dl (31.0-35.0); Mean Corpuscular Hemoglobin 22.3 pg (27.0-33.0); Mean Corpuscular Volume 72.9 fL (80.0-98.0); Mean Platelet Volume 11.4 fL (9.4-12.3); Monocytes Percent Auto 12.2 % (2-11); Neutrophils Absolute Auto 4.7 x10*3/uL (2.0-8.3); Neutrophils Percent Auto 55.8 % (45-73); Platelet Count 442 X10*3/uL (160-400); Red Blood Count 4.39 X10*6/uL (4.20-5.50); Red Cell Distribution Width 20.1 % (11.0-16.0); White Blood Count 8.5 X10*3/uL (4.8-10.8)
[2022-09-12 14:28] LABS: Alanine Aminotransferase 18 U/L (0-31); Alkaline Phosphatase 93 U/L (39-117); Anion Gap 11 (12-20); Aspartate Amino Transferase 23 U/L (5-31); Bilirubin Total 0.4 mg/dL (0.0-1.0); Blood Urea Nitrogen 22 mg/dL (9-16); Calcium 9.9 mg/dL (8.4-10.2); Carbon Dioxide 29 mmol/L (22-29); Chloride 106 mmol/L (96-108); Cholesterol 143 mg/dL; Estimated Glomerular Filt Rate > 60; Glucose Random 106 mg/dL (60-115); HDL Cholesterol 56 mg/dL; Iron 24 mcg/dL (30-160); LDL Cholesterol Calculated 66 mg/dl; Percent Iron Saturation 6 % (15-50); Potassium 4.4 mmol/L (3.3-5.1); Sodium 142 mmol/L (135-145); Total Iron Binding Capacity 377 mcg/dL (228-428); Total Protein 6.6 g/dL (6.5-8.0); Triglycerides 109 mg/dL; Unsaturated Iron Binding 353 ug/dL
[2022-09-12 14:47] LABS: Ferritin 7 ng/mL (10-250); Folate 16.8 ng/mL (> or = 4.0); Free T4 (Free Thyroxine) 1.47 ng/dL (0.71-1.85); Thyroid Stimulating Hormone 0.72 uIU/mL (0.32-4.0); Vitamin B12 532 pg/mL (200-900)
== END 2022-09-12 11:33 | disposition home or self-care (01) ==
LOC: HO.HMGCLDS 11:32
PROVIDERS: Absent Provider Internal Medicine Endocrinology, Diabetes & Metabolism; PCP Internal Medicine; Referring Provider Internal Medicine Hematology & Oncology; Visit Provider Internal Medicine
DX: E21.0 Primary hyperparathyroidism (principal); E11.65 Type 2 diabetes mellitus with hyperglycemia; C73 Malignant neoplasm of thyroid gland; E78.00 Pure hypercholesterolemia, unspecified
CPT/HCPCS: 36415; 80053; 80061; 82607; 82728; 82746; 83540; 84439; 84443; 85025

== ENCOUNTER 2022-09-13 10:50 | Outpatient (REF) | payer MEDICARE, SELFPAY ==
[2022-09-13 14:35] LABS: Creatinine Urine 105.36 mg/dL
[2022-09-13 14:37] LABS: Creatinine Urine 104.56 mg/dL; Microalbum/Creatinine Ratio Ur 11.4 ug/mg cr
== END 2022-09-13 10:51 | disposition home or self-care (01) ==
LOC: HO.HMGCLNP 10:50
PROVIDERS: PCP Internal Medicine; Visit Provider Internal Medicine
DX: E11.65 Type 2 diabetes mellitus with hyperglycemia (principal)
CPT/HCPCS: 82043

== ENCOUNTER 2022-09-30 08:50 | Outpatient (REF) | payer MEDICARE, SELFPAY ==
--- NOTE | ~2022-09-30 | XR_ITS ---
EXAMINATION: XR LUMBOSACRAL SPINE CLINICAL INFORMATION: Lower back pain. COMPARISON: None available. TECHNIQUE: AP and lateral views of the lumbar spine and lateral view of the lumbosacral junction. FINDINGS: There is bony demineralization. There is a moderate lumbar dextroscoliosis. There is marked degenerative disc disease extending from T12-L1 through L5-S1. At L5-S1, there is a 4 mm anterolisthesis. No acute fracture or spondylolisthesis is seen. There is multi-level thoracolumbar spondylosis and facet arthropathy. There are pelvic phleboliths. Right upper quadrant surgical clips are noted. XR/XR lumbar spine 2-3V IMPRESSION: 1. A moderate lumbar dextroscoliosis is seen. 2. There is multi-level marked degenerative disc disease extending from T11-T12 through L5-S1. 3. There is multi-level thoracolumbar spondylosis and facet arthropathy.
== END 2022-09-30 08:51 | disposition home or self-care (01) ==
LOC: HO.HMGCX 08:50
PROVIDERS: PCP Internal Medicine; Visit Provider Internal Medicine
DX: M54.50 Low back pain, unspecified (principal)
CPT/HCPCS: 72100

== ENCOUNTER 2022-12-12 10:33 | Outpatient (REF) | payer MEDICARE, SELFPAY ==
[2022-12-12 13:14] LABS: MANUAL DIFF FLAG NO
[2022-12-12 13:40] LABS: Basophils Absolute Auto 0.1 X10*3/uL (0.0-0.2); Basophils Percent Auto 0.8 % (0-2); Eosinophils Absolute Auto 0.4 X10*3/uL (0.0-0.4); Eosinophils Percent Auto 4.6 % (0-4); Hematocrit 32.1 % (37.0-47.0); Hemoglobin 10.1 g/dl (12.0-16.0); Imm Gran Abs Auto 0.02 X10*3/uL (0.00-0.03); Imm Gran Pct Auto 0.3 % (0.0-0.4); Immature Retic Fraction 23.5 % (3.0-15.9); Lymphocytes Absolute Auto 2.1 X10*3/uL (1.2-4.9); Lymphocytes Percent Auto 27.4 % (20-40); Mean Corpuscular HGB Conc 31.5 g/dl (31.0-35.0); Mean Corpuscular Volume 82.7 fL (80.0-98.0); Mean Platelet Volume 11.6 fL (9.4-12.3); Monocytes Percent Auto 12.6 % (2-11); Neutrophils Absolute Auto 4.1 x10*3/uL (2.0-8.3); Neutrophils Percent Auto 54.3 % (45-73); Platelet Count 385 X10*3/uL (160-400); Red Blood Count 3.88 X10*6/uL (4.20-5.50); Red Cell Distribution Width 17.9 % (11.0-16.0); Reticulocyte Percent 1.8 % (0.5-1.8); Reticulocytes Absolute 0.068 X10*6/uL (0.026-0.095); White Blood Count 7.6 X10*3/uL (4.8-10.8)
[2022-12-12 13:57] LABS: Alanine Aminotransferase 17 U/L (0-31); Albumin Level 3.9 g/dL (3.5-5.0); Alkaline Phosphatase 83 U/L (39-117); Anion Gap 9 (12-20); Aspartate Amino Transferase 21 U/L (5-31); Bilirubin Total 0.3 mg/dL (0.0-1.0); Blood Urea Nitrogen 23 mg/dL (9-16); Carbon Dioxide 30 mmol/L (22-29); Chloride 105 mmol/L (96-108); Estimated Glomerular Filt Rate > 60; Glucose Random 123 mg/dL (60-115); Iron 31 mcg/dL (30-160); Percent Iron Saturation 9 % (15-50); Potassium 4.3 mmol/L (3.3-5.1); Sodium 140 mmol/L (135-145); Total Iron Binding Capacity 333 mcg/dL (228-428); Total Protein 6.8 g/dL (6.5-8.0); Unsaturated Iron Binding 302 ug/dL
[2022-12-12 14:14] LABS: Ferritin 16 ng/mL (10-250); Free T4 (Free Thyroxine) 1.12 ng/dL (0.71-1.85); Thyroid Stimulating Hormone 3.66 uIU/mL (0.32-4.0)
[2022-12-12 14:29] LABS: Folate 16.2 ng/mL (> or = 4.0); Vitamin B12 463 pg/mL (200-900)
== END 2022-12-12 10:34 | disposition home or self-care (01) ==
LOC: HO.HMGCLDS 10:33
PROVIDERS: PCP Internal Medicine; Visit Provider Internal Medicine
DX: E11.65 Type 2 diabetes mellitus with hyperglycemia (principal); D64.9 Anemia, unspecified; C73 Malignant neoplasm of thyroid gland; E21.0 Primary hyperparathyroidism
CPT/HCPCS: 36415; 80053; 82607; 82728; 82746; 83540; 84439; 84443; 85025; 85045

== ENCOUNTER 2022-12-17 09:45 | Outpatient (REF) | payer MEDICARE, SELFPAY ==
[2022-12-17 14:15] LABS: Creatinine Urine 75.49 mg/dL
== END 2022-12-17 09:46 | disposition home or self-care (01) ==
LOC: HO.HMGCLNP 09:45
PROVIDERS: PCP Internal Medicine; Visit Provider Internal Medicine
DX: Z13.89 Encounter for screening for other disorder (principal)

== ENCOUNTER 2023-01-31 12:20 | Outpatient (AMB) | payer MEDICARE, SELFPAY ==
[2023-01-31 12:30] VITALS: BP 132/78; PULSE 75; O2SAT 96; BMI 42.4
--- NOTE | 2023-01-31 12:30 | A.OFFPC_ITS ---
Vital Signs 01/31/23 12:30 Height 5 ft 4 in Weight 112.037 kg BMI 42.4 BP 132/78 Blood Pressure Location Lt brachial Position Sitting Pulse 75 Pulse Source Pulse Oximeter Pulse Oximetry (%) 96 Oxygen Delivery Method Room Air Intake Visit Reasons: DM Allergies benzocaine [Benzocaine] Allergy (Intermediate, Verified 01/31/23 12:31) HIVES Sulfa (Sulfonamide Antibiotics) Allergy (Intermediate, Verified 01/31/23 12:31) HIVES Penicillins Allergy (Mild, Verified 01/31/23 12:31) RASH cyanocobalamin (vitamin B12) [Vitamin B12] Allergy (Unknown, Verified 01/31/23 12:31) Complex metformin Allergy (Unknown, Verified 01/31/23 12:31) diarrhea oxycodone [OXYCODONE] Allergy (Unknown, Verified 01/31/23 12:31) SEVERE NAUSEA procaine [From Novocain] Allergy (Unknown, Verified 01/31/23 12:31) Unknown Medication List - Last Reconciled 01/31/23 by Ziggy Garcia MD albuterol sulfate 2.5 mg (3 mL) inhalation TID 90 days biotin 5,000 mcg PO DAILY blood sugar diagnostic 1 strip miscellaneous TID 90 days [Diabetic shoes and 3 custom inserts As directed] [DIABETIC SHOES WITH CUSTOM INSERTS As directed] fexofenadine (Adrianne Allergy) 180 mg PO DAILY 90 days gabapentin 300 mg PO BID glimepiride 2 mg PO QAM hydrochlorothiazide 25 mg PO DAILY lancets (OneTouch Delica Lancets) As directed check the BS once a day lancets ([employer]Touch UltraSoft Lancets) check the blood sugars 3 times a day levothyroxine 150 mcg PO DAILY 90 days levothyroxine 150 mcg PO DAILY 90 days lidocaine 5% 1 appl topical QID PRN lisinopril 40 mg PO DAILY metoprolol succinate ER take 100 mg with 50 mg =150 mg daily; metoprolol succinate ER 50 mg PO DAILY miconazole nitrate 2% (Zeasorb AF) 1 appl topical BID montelukast 10 mg PO QPM multivitamin 1 tab PO DAILY nystatin (Nyamyc) 1 appl topical BID-TID omeprazole 20 mg PO BID oxycodone-acetaminophen 5-325 mg (Percocet) 1 tab PO Q6H PRN simvastatin 5 mg PO BEDTIME Tobacco use date assessed: 10/11/22 Fall risk assessment: No Falls in past year Last assessed Fall Risk: 01/31/23 Dental Screening Dental Screen Date: 01/31/23 Did you have a dental visit in the last 12 months?: No Did you have a dental problem in the last 6 months where you did not have access to dental care?: No Was dental information given to patient?: No HPI DM HPI Details 72-year-old morbidly obese female with controlled diabetes mellitus GERD hypertension hypothyroidism hypercholesterolemia asthma with thyroid cancer last seen in September 2022. Patient also has a history of splenectomy. 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 As for the parathyroid consistent with adenoma thyroid cancer had a right lobectomy plan for her is Feraheme 510 mg x 2 1 week apart. For her low back pain with lumbar radiculopathy patient is considering surgical consultation versus for possible lumbar interlaminar injection on the L4-L5 on the left. MRI done October 2022 showing postsurgical changes lumbar spine with central canal stenosis L3-L4 with neural foraminal narrowing most severe on the L eft L3-4 and right L4-5 with compression of exiting left L3 and right L4 nerve roots PFSH Medical History (Updated 10/09/22 @ 18:05 by Ziggy Garcia MD) Asthma DDD (degenerative disc disease), lumbosacral GERD (gastroesophageal reflux disease) History of breast cancer History of cataract History of ITP History of renal calculi Hypercholesterolemia Hypertension Hypothyroid Insomnia Low back pain Obesity Osteoarthritis Peripheral vascular disease Restless leg syndrome Skin cancer Thyroid nodule Surgical History Back pain with history of spinal surgery History of arthroplasty of left knee History of arthroscopy of left knee History of hysteroscopy History of knee replacement procedure of right knee History of removal of cyst History of splenectomy Family History (Updated 03/09/21 @ 14:28 by Misty Nelson) Father Diabetes Hypertension Mother Hypertension Liver cancer Brother Liver cancer Social History Housing: House Alcohol intake: never Patient Tobacco Use Status: Never used Tobacco e-Cigarette/Vaping Use: Never Used Second Hand Smoke Exposure: No service: No Current occupational status: retired Cognitive needs: No Hearing needs: No Vision needs: Yes Questionnaire PHQ-9 Over the last 2 weeks, how often have you been bothered by any of the following problems? 1. Little interest or pleasure in doing things: not at all 2. Feeling down, depressed, or hopeless: not at all 3. Trouble falling or staying asleep, or sleeping too much: not at all 4. Feeling tired or having little energy: not at all 5. Poor appetite or overeating: not at all 6. Feeling bad about yourself - or that you are a failure or have let yourself or your family down: not at all 7. Trouble concentrating on things, such as reading the newspaper or watching television: not at all 8. Moving or speaking so slowly that other people could have noticed. Or the opposite - being so fidgety or restless that you have been moving around a lot more than usual: not at all 9. Thoughts that you would be better off or of hurting yourself in some way: not at all Total score: 0 Depression Screening Interpretation: Negative Source: Developed by Drs. Marlon Carcamo, Jackie Chávez, Luis Jessica and colleagues, with an educational yandel from [employer]. Thrive Questionnaire Date Thrive assessed: 07/05/22 AUDIT C Alcohol Use Questionnaire (AUDIT-C) 1. How often do you have a drink containing alcohol?: Never 2. How many drinks containing alcohol do you have on a typical day when you are drinking?: 1 or 2 3. How often do you have six or more drinks on one occasion?: Never Total Score: 0 ELIO-7 AMB Questionnaire ELIO-7 Date ELIO - 7 assessed: 07/05/22 Source: Developed by Drs. Marlon Carcamo, Jackie Chávez, Luis Jessica and colleagues, with an educational yandel from [employer]. Physical exam (Primary Care) Vital Signs: Last Vital Signs Pulse 75 01/31/23 12:30 BP 132/78 01/31/23 12:30 Pulse Ox 96 01/31/23 12:30 Oxygen Delivery Method Room Air 01/31/23 12:30 BMI result Body Mass Index 42.4 Tobacco/Smoking Status: Tobacco use Status Tobacco use date assessed 10/11/22 01/31/23 12:32 Patient Tobacco Use Status Never used Tobacco 01/31/23 12:32 e-Cigarette/Vaping Use Never Used 01/31/23 12:32 PHQ-9: PHQ-9 Score PHQ-9: Total score 0 01/31/23 12:53 Depression Screening Interpretation: Negative Thrive Assessment: Date of Thrive Assessment Date Thrive assessed 07/05/22 01/31/23 12:32 Const General: alert; No acute distress Eyes Conjunctivae: conjunctivae normal Resp Auscultation: clear to auscultation bilaterally Cardio Rate: regular rate Rhythm: regular rhythm GI Inspection: Yes normal to inspection Extrem General: Yes normal to inspection and No edema Results AMB Hemoglobin A1c AMB Hemoglobin A1c 5.7 % Last Edit by Ava Celaya CMA on 01/31/23 13 :10 Assessment and Plan Assessment & Plan (1) Type 2 diabetes mellitus with hyperglycemia: Code(s): E11.65 - Type 2 diabetes mellitus with hyperglycemia Qualifiers: Diabetes mellitus exterminator termite insulin use: without [place] [facility] use Qualified Code(s): E11.65 - Type 2 diabetes mellitus with hyperglycemia Plan: Decrease the amount of carbohydrate intake, pasta, bread, rice and potatoes are all sugar and that is aside from all the sweet stuff, remember that fruits are good but they are Sweet also. Hemoglobin A1c goal of less than 7.0 patient is on glimepiride 2 mg once a day (2) GERD (gastroesophageal reflux disease): Code(s): K21.9 - Gastro-esophageal reflux disease without esophagitis Qualifiers: Esophagitis presence: without esophagitis Qualified Code(s): K21.9 - Gastro-esophageal reflux disease without esophagitis Plan: Avoid the foods that causes that usually spicy foods, tomato products, juices, coffee, soda and foods that your sensitive to. After eating do not lie down, allow 3-4 hours before in lie down. And keep the head of bed above 30 degrees to avoid the acid from going up. Continue with omeprazole 20 mg twice a day (3) Hypertension: Code(s): I10 - Essential (primary) hypertension Qualifiers: Hypertension type: essential hypertension Qualified Code(s): I10 - Essential (primary) hypertension Plan: Continue with blood pressure medication. Decrease salt intake and exercise patient is taking metoprolol 50 mg once a day lisinopril 40 mg once a day hydrochlorothiazide 25 mg once a day (4) Asthma: Code(s): J45.909 - Unspecified asthma, uncomplicated Plan: Continue with inhaler as needed (5) Obesity: Code(s): E66.9 - Obesity, unspecified Qualifiers: Body mass index: BMI 45.0-49.9 Obesity classification: adult class 3 (BMI >= 40) Obesity type: due to excess calories Serious obesity comorbidity presence: with serious comorbidity Qualified Code(s): E66.01 - Morbid (severe) obesity due to excess calories; Z68.42 - Body mass index [BMI] 45.0-49.9, adult Plan: Diet and exercise (6) Hypothyroid: Comment: Status post right thyroidectomy Code(s): E03.9 - Hypothyroidism, unspecified Qualifiers: Hypothyroidism type: acquired Qualified Code(s): E03.9 - Hypothyroidism, unspecified Plan: Continue with the thyroid medication (7) Hypercholesterolemia: Code(s): E78.00 - Pure hypercholesterolemia, unspecified Plan: Avoid fried foods, chicken skin, eggs, butter margarine, pastries and meat. Be it pork or beef they have a lot of cholesterol LDL goal of less than 100 and triglyceride of less than 150 patient is taking simvastatin 5 mg once a day (8) Thyroid cancer: Comment: s/p R thyroidectomy 02/19/2022 Code(s): C73 - Malignant neoplasm of thyroid gland Plan: Patient follows up with endocrinology and monitoring/surveillance (9) Lumbar degenerative disc disease: Comment: September 2022 A moderate lumbar dextroscoliosis is seen. 2. There is multi-level marked degenerative disc disease extending from T11-T12 through L5-S1. 3. There is multi-level thoracolumbar spondylosis and facet arthropathy. Code(s): M51.36 - Other intervertebral disc degeneration, lumbar region Plan: [facility] notes appreciated considering surgical intervention Orders: Orders AMB Hemoglobin A1c Today Z13.9 - Encounter for screening, unspecified Medications: New levothyroxine 150 mcg PO DAILY 90 days 90 tabs 3RF E03.9 - Hypothyroidism, unspecified fexofenadine (Adrianne Allergy) 180 mg PO DAILY 90 days 90 tabs 3RF Refilled oxycodone-acetaminophen 5-325 mg (Percocet) 1 tab PO Q6H PRN 75 tabs 0RF pain M51.37 - Other intervertebral disc degeneration, lumbosacral region [Diabetic shoes and 3 custom inserts] As directed 1 ea 0RF E11.65 - Type 2 diabetes mellitus with hyperglycemia Coding Level of Care Code Est Pt Level 4 (71391) Diagnoses Type 2 diabetes mellitus with hyperglycemia E11.65 Diabetes mellitus exterminator termite insulin use: without exterminator termite use GERD (gastroesophageal reflux disease) K21.9 Esophagitis presence: without esophagitis Hypertension I10 Hypertension type: essential hypertension Asthma J45.909 Obesity E66.01; Z68.42 Body mass index: BMI 45.0-49.9 Obesity classification: adult class 3 (BMI >= 40) Obesity type: due to excess calories Serious obesity comorbidity presence: with serious comorbidity Hypothyroid E03.9 Hypothyroidism type: acquired Hypercholesterolemia E78.00 Thyroid cancer C73 Lumbar degenerative disc disease M51.36
== END 2023-01-31 13:23 | disposition home or self-care (01) ==
PROVIDERS: PCP Internal Medicine; Visit Provider Internal Medicine
DX: E11.65 Type 2 diabetes mellitus with hyperglycemia (principal); K21.9 Gastro-esophageal reflux disease without esophagitis; I10 Essential (primary) hypertension; E03.9 Hypothyroidism, unspecified; J45.909 Unspecified asthma, uncomplicated; E66.01 Morbid (severe) obesity due to excess calories; Z68.42 Body mass index [BMI] 45.0-49.9, adult; C73 Malignant neoplasm of thyroid gland; E78.00 Pure hypercholesterolemia, unspecified; M51.36 Other intervertebral disc degeneration, lumbar region
CPT/HCPCS: 83036; 99214

== ENCOUNTER 2023-04-01 08:20 | Outpatient (REF) | payer MEDICARE, SELFPAY ==
[2023-04-01 11:10] LABS: MANUAL DIFF FLAG NO
[2023-04-01 11:15] LABS: Basophils Absolute Auto 0.1 X10*3/uL (0.0-0.2); Eosinophils Absolute Auto 0.3 X10*3/uL (0.0-0.4); Hematocrit 30.6 % (37.0-47.0); Hemoglobin 9.3 g/dl (12.0-16.0); Imm Gran Abs Auto 0.04 X10*3/uL (0.00-0.03); Imm Gran Pct Auto 0.6 % (0.0-0.4); Lymphocytes Absolute Auto 1.9 X10*3/uL (1.2-4.9); Lymphocytes Percent Auto 27.2 % (20-40); Mean Corpuscular HGB Conc 30.4 g/dl (31.0-35.0); Mean Corpuscular Hemoglobin 25.9 pg (27.0-33.0); Mean Corpuscular Volume 85.2 fL (80.0-98.0); Monocytes Absolute Auto 0.9 X10*3/uL (0.1-1.2); Monocytes Percent Auto 12.5 % (2-11); Neutrophils Absolute Auto 3.9 x10*3/uL (2.0-8.3); Neutrophils Percent Auto 54.7 % (45-73); Platelet Count 417 X10*3/uL (160-400); Red Blood Count 3.59 X10*6/uL (4.20-5.50); Red Cell Distribution Width 16.2 % (11.0-16.0); Retic HGB Equivalent 24.1 pg (30.0-35.0); Reticulocyte Percent 1.9 % (0.5-1.8); White Blood Count 7.1 X10*3/uL (4.8-10.8)
[2023-04-01 11:37] LABS: Alanine Aminotransferase 14 U/L (0-31); Albumin Level 3.9 g/dL (3.5-5.0); Alkaline Phosphatase 80 U/L (39-117); Anion Gap 13 (12-20); Aspartate Amino Transferase 19 U/L (5-31); Bilirubin Total 0.3 mg/dL (0.0-1.0); Blood Urea Nitrogen 19 mg/dL (9-16); Carbon Dioxide 28 mmol/L (22-29); Chloride 106 mmol/L (96-108); Cholesterol 152 mg/dL (<200); Estimated Glomerular Filt Rate > 60; Glucose Random 131 mg/dL (60-115); HDL Cholesterol 57 mg/dL (>40); Iron 44 mcg/dL (30-160); LDL Cholesterol Calculated 79 mg/dL (<100); Percent Iron Saturation 13 % (15-50); Potassium 4.1 mmol/L (3.3-5.1); Sodium 143 mmol/L (135-145); Total Iron Binding Capacity 345 mcg/dL (228-428); Total Protein 6.6 g/dL (6.5-8.0); Triglycerides 83 mg/dL (<150); Unsaturated Iron Binding 301 ug/dL
[2023-04-01 12:01] LABS: Ferritin 13 ng/mL (10-250); Free T4 (Free Thyroxine) 0.98 ng/dL (0.71-1.85); Thyroid Stimulating Hormone 6.87 uIU/mL (0.32-4.0); Vitamin D 25-OH Total 52.2 ng/mL (>30)
[2023-04-01 12:05] LABS: Folate 14.8 ng/mL (> or = 4.0); Vitamin B12 382 pg/mL (200-900)
== END 2023-04-01 08:21 | disposition home or self-care (01) ==
LOC: HO.HMGCLDS 08:20
PROVIDERS: PCP Internal Medicine; Visit Provider Internal Medicine
DX: C73 Malignant neoplasm of thyroid gland (principal); E78.00 Pure hypercholesterolemia, unspecified; E11.65 Type 2 diabetes mellitus with hyperglycemia; M85.80 Other specified disorders of bone density and structure, unspecified site; E55.9 Vitamin D deficiency, unspecified
CPT/HCPCS: 36415; 80053; 80061; 82306; 82607; 82728; 82746; 83540; 84439; 84443; 85025; 85045

== ENCOUNTER 2023-05-13 11:34 | Outpatient (REF) | payer MEDICARE, SELFPAY ==
--- NOTE | ~2023-05-13 | MM_ITS ---
EXAMINATION: MM SCREENING DIGITAL BREAST TOMOSYNTHESIS, BILATERAL CLINICAL INFORMATION: Screening. Asymptomatic. The patient is status post left breast cancer surgery from 2009. COMPARISON: Mammography: This study is compared with prior exams dating back to 2017. TECHNIQUE: Digital breast tomosynthesis is performed in both the craniocaudal and mediolateral oblique views along with computer-aided detection (CAD). Synthesized 2D images are generated from the tomosynthesis. FINDINGS: There are scattered areas of fibroglandular density (ACR BI-RADS breast composition Category b). There are no significant masses, abnormal calcifications, or other abnormalities. There are postsurgical changes in the retroareolar and inferior portions of the left breast. There is dystrophic calcification in the resection bed which is benign. There is a tissue marker in the lower inner quadrant of the left breast from prior percutaneous biopsy. MM/MM tomosynthesis screening BI IMPRESSION: No mammographic evidence of malignancy. ASSESSMENT: BI-RADS BI-RADS 2 - Benign Findings RECOMMENDATION: Routine annual mammography screening. 1 year F/U This examination should not preclude the clinical evaluation of a suspicious palpable abnormality. This patient's information was entered into a reminder system with a target due date for their next mammogram.
== END 2023-05-13 11:35 | disposition home or self-care (01) ==
LOC: HO.MAMMO 11:34
PROVIDERS: PCP Internal Medicine; Visit Provider Internal Medicine
DX: Z12.31 Encounter for screening mammogram for malignant neoplasm of breast (principal)
CPT/HCPCS: 77063; 77067

== ENCOUNTER → 2023-05-13 11:45 | Outpatient (BNV) | payer MEDICARE, SELFPAY | PROVIDERS: PCP Internal Medicine; Visit Provider Radiology Diagnostic Radiology | DX: Z12.31 Encounter for screening mammogram for malignant neoplasm of breast (principal) | CPT/HCPCS: 77063; 77067 ==

== ENCOUNTER 2023-05-21 09:39 | Outpatient (REF) | payer MEDICARE, SELFPAY ==
--- NOTE | ~2023-05-21 | XR_ITS ---
EXAMINATION: XR HIP, RIGHT CLINICAL INFORMATION: Degenerative joint disease COMPARISON: None available. TECHNIQUE: AP view the pelvis and Two views of the right hip. FINDINGS: No fracture. Alignment is anatomic. There is moderate cartilage space loss of the superior-lateral aspect and central aspect of the right hip joint. The minimal narrowing of the superior-lateral aspect cartilage space of the left hip joint. There is marked enthesopathic changes involving the greater trochanters of both femurs. Soft tissues are unremarkable. Cigarette joints and symphysis pubis are within normal limits. There is marked degenerative change in the lower lumbar spine. XR/XR hip RT w PEL1V IMPRESSION: 1. Moderate osteoarthritis of the right hip. 2. Minimal osteoarthritis of the left hip.
== END 2023-05-21 09:40 | disposition home or self-care (01) ==
LOC: HO.HMGCX 09:39
PROVIDERS: PCP Internal Medicine; Visit Provider Physical Medicine & Rehabilitation
DX: M16.11 Unilateral primary osteoarthritis, right hip (principal)
CPT/HCPCS: 73502

== ENCOUNTER 2023-05-30 12:15 | Outpatient (AMB) | payer MEDICARE, SELFPAY ==
[2023-05-30 12:17] VITALS: BP 112/68; PULSE 84; O2SAT 98; BMI 43.9
--- NOTE | 2023-05-30 12:17 | A.OFFPC_ITS ---
Vital Signs 05/30/23 12:17 Height 5 ft 4 in Weight 255 lb 11.779 oz BMI 43.9 BP 112/68 Blood Pressure Location Lt brachial Position Sitting Pulse 84 Pulse Source Pulse Oximeter Pulse Oximetry (%) 98 Oxygen Delivery Method Room Air Intake Visit Reasons: 3 month f/u Intake Note: Patient is here to follow up on [employer] Required: No Allergies benzocaine [Benzocaine] Allergy (Intermediate, Verified 05/30/23 12:38) HIVES Sulfa (Sulfonamide Antibiotics) Allergy (Intermediate, Verified 05/30/23 12:38) HIVES Penicillins Allergy (Mild, Verified 05/30/23 12:38) RASH cyanocobalamin (vitamin B12) [Vitamin B12] Allergy (Unknown, Verified 05/30/23 12:38) Complex metformin Allergy (Unknown, Verified 05/30/23 12:38) diarrhea oxycodone [OXYCODONE] Allergy (Unknown, Verified 05/30/23 12:38) SEVERE NAUSEA procaine [From Novocain] Allergy (Unknown, Verified 05/30/23 12:38) Unknown Tobacco use date assessed: 05/30/23 Fall risk assessment: No Falls in past year Last assessed Fall Risk: 05/30/23 HPI 3 month f/u HPI Details 72-year-old morbidly obese female with c ontrolled diabetes mellitus GERD hypertension asthma hypothyroidism hypercholesterolemia history of thyroid cancer and lumbar degenerative disc disease last seen in January 2023. Last pneumonia shot was done in July 2018. Patient does have splenectomy history for ITP. Mammograms up-to-date colonoscopy is up-to-date. Patient follows up with [facility] with recent worsening of the right groin pain x- rays requested. X-rays did show moderate right hip minimal osteoarthritis left hip patient also had some blood work done in [facility] 05/07/2023 showing anemia of 8.7 iron showing low. Patient did see orthopedics also for the back pain lumbar degenerative disc problem no radicular symptoms referred to [facility]. [facility] Medical History (Updated 05/30/23 @ 13:06 by Ziggy Garcia MD) Low back pain Skin cancer History of ITP History of cataract History of renal calculi Hypercholesterolemia Hypothyroid Insomnia History of breast cancer Thyroid nodule Obesity DDD (degenerative disc disease), lumbosacral Asthma Restless leg syndrome Osteoarthritis Peripheral vascular disease Hypertension GERD (gastroesophageal reflux disease) Surgical History Back pain with history of spinal surgery History of splenectomy History of arthroplasty of left knee History of removal of cyst History of hysteroscopy History of arthroscopy of left knee History of knee replacement procedure of right knee Family History (Updated 03/09/21 @ 14:28 by Misty Nelson) Father Diabetes Hypertension Mother Hypertension Liver cancer Brother Liver cancer Social History Housing: House Alcohol intake: never Patient Tobacco Use Status: Never used Tobacco e-Cigarette/Vaping Use: Never Used Second Hand Smoke Exposure: No service: No Current occupational status: retired Cognitive needs: No Hearing needs: No Vision needs: Yes Questionnaire Thrive Questionnaire Date Thrive assessed: 07/05/22 AUDIT C Alcohol Use Questionnaire (AUDIT-C) 1. How often do you have a drink containing alcohol?: Never 2. How many drinks containing alcohol do you have on a typical day when you are drinking?: 1 or 2 3. How often do you have six or more drinks on one occasion?: Never Total Score: 0 ELIO-7 AMB Questionnaire ELIO-7 Date ELIO - 7 assessed: 07/05/22 Source: Developed by Drs. Marlon Carcamo, Jackie Chávez, Luis Jessica and colleagues, with an educational yandel from [employer]. Physical exam (Primary Care) Vital Signs: Last Vital Signs Pulse 84 05/30/23 12:17 BP 112/68 05/30/23 12:17 Pulse Ox 98 05/30/23 12:17 Oxygen Delivery Method Room Air 05/30/23 12:17 BMI result Body Mass Index 43.9 Tobacco/Smoking Status: Tobacco use Status Tobacco use date assessed 05/30/23 05/30/23 12:18 Patient Tobacco Use Status Never used Tobacco 05/30/23 12:18 e-Cigarette/Vaping Use Never Used 05/30/23 12:18 Thrive Assessment: Date of Thrive Assessment Date Thrive assessed 07/05/22 05/30/23 12:18 Const General: alert; No acute distress Eyes Conjunctivae: conjunctivae normal Resp Auscultation: clear to auscultation bilaterally Cardio Rate: regular rate Rhythm: regular rhythm GI Inspection: Yes normal to inspection Extrem General: Yes normal to inspection and No edema Results AMB Hemoglobin A1c AMB Hemoglobin A1c 6.2 % Last Edit by MILTON Ferrer on 05/30/23 12:43 Results Reviewed Results Reviewed: Laboratory Last Values Hgb A1c (Clinic) 6.2 % (4.0-6.0) H 05/30/23 12:19 Assessment and Plan Assessment & Plan (1) Type 2 diabetes mellitus with hyperglycemia: Code(s): E11.65 - Type 2 diabetes mellitus with hyperglycemia Qualifiers: Diabetes mellitus bed bug exterminator insulin use: without bed bug exterminator use Qualified Code(s): E11.65 - Type 2 diabetes mellitus with hyperglycemia Plan: Decrease the amount of carbohydrate intake, pasta, bread, rice and potatoes are all sugar and that is aside from all the sweet stuff, remember that fruits are good but they are Sweet also. Hemoglobin A1c goal of less than 7 point (2) GERD (gastroesophageal reflux disease): Code(s): K21.9 - Gastro-esophageal reflux disease without esophagitis Qualifiers: Esophagitis presence: without esophagitis Qualified Code(s): K21.9 - Ga stro-esophageal reflux disease without esophagitis Plan: Avoid the foods that causes that usually spicy foods, tomato products, juices, coffee, soda and foods that your sensitive to. After eating do not lie down, allow 3-4 hours before in lie down. And keep the head of bed above 30 degrees to avoid the acid from going up. (3) Obesity: Code(s): E66.9 - Obesity, unspecified Qualifiers: Obesity type: due to excess calories Obesity classification: adult class 3 (BMI >= 40) Serious obesity comorbidity presence: with serious comorbidity Body mass index: BMI 45.0-49.9 Qualified Code(s): E66.01 - Morbid (severe) obesity due to excess calories; Z68.42 - Body mass index [BMI] 45.0- 49.9, adult Plan: Diet and exercise (4) Asthma: Code(s): J45.909 - Unspecified asthma, uncomplicated Plan: Continue with inhalers (5) Hypothyroid: Comment: Status post right thyroidectomy Code(s): E03.9 - Hypothyroidism, unspecified Qualifiers: Hypothyroidism type: acquired Qualified Code(s): E03.9 - Hypothyroidism, unspecified Plan: Continue with the thyroid Medicaid (6) Hypercholesterolemia: Code(s): E78.00 - Pure hypercholesterolemia, unspecified Plan: Avoid fried foods, chicken skin, eggs, butter margarine, pastries and meat. Be it pork or beef they have a lot of cholesterol LDL goal of less than 100 and triglyceride of less than 150 (7) DDD (degenerative disc disease), lumbosacral: Comment: 11/13/2015 L3 for disc bulge with compression of L4 nerve root Code(s): M51.37 - Other intervertebral disc degeneration, lumbosacral region Plan: Patient has been referred to [facility] (8) Osteoarthritis, hip, bilateral: Comment: Left more than the right Code(s): M16.0 - Bilateral primary osteoarthritis of hip Plan: Keep active patient needs to lose the weight Orders: Orders AMB Hemoglobin A1c Today E11.65 - Type 2 diabetes mellitus with hyperglycemia Medications: New tramadol 50 mg PO TID 30 days PRN 90 tabs 2RF pain M17.9 - Osteoarthritis of knee, unspecified, M51.36 - Other intervertebral disc degeneration, lumbar region Discontinued oxycodone-acetaminophen 5-325 mg (Percocet) Discontinued Reason: Doctor's Order 1 tab PO Q6H PRN 75 tabs 0RF pain M51.37 - Other intervertebral disc degeneration, lumbosacral region Coding Level of Care Code Est Pt Level 4 (74703) Diagnoses Type 2 diabetes mellitus with hyperglycemia, without long-term current use of insulin E11.65 Diabetes mellitus bed bug exterminator insulin use: without bed bug exterminator use Gastroesophageal reflux disease without esophagitis K21.9 Esophagitis presence: without esophagitis Class 3 severe obesity due to excess calories with serious comorbidity and body mass index (BMI) of 45.0 to 49.9 in adult E66.01; Z68.42 Obesity type: due to excess calories Obesity classification: adult class 3 (BMI >= 40) Serious obesity comorbidity presence: with serious comorbidity Body mass index: BMI 45.0-49.9 Asthma J45.909 Acquired hypothyroidism E03.9 Hypothyroidism type: acquired Hypercholesterolemia E78.00 DDD (degenerative disc disease), lumbosacral M51.37 Osteoarthritis, hip, bilateral M16.0
== END 2023-05-30 13:40 | disposition home or self-care (01) ==
PROVIDERS: PCP Internal Medicine; Visit Provider Internal Medicine
DX: E11.65 Type 2 diabetes mellitus with hyperglycemia (principal); K21.9 Gastro-esophageal reflux disease without esophagitis; E66.01 Morbid (severe) obesity due to excess calories; Z68.42 Body mass index [BMI] 45.0-49.9, adult; J45.909 Unspecified asthma, uncomplicated; E03.9 Hypothyroidism, unspecified; E78.00 Pure hypercholesterolemia, unspecified; M51.37 Other intervertebral disc degeneration, lumbosacral region; M16.0 Bilateral primary osteoarthritis of hip
CPT/HCPCS: 83036; 99214

== ENCOUNTER 2023-08-29 12:20 | Outpatient (AMB) | payer MEDICARE, SELFPAY ==
[2023-08-29 12:33] VITALS: BP 112/60; PULSE 75; O2SAT 96; BMI 42.2
--- NOTE | 2023-08-29 12:33 | MHC.PC.OV ---
Vital Signs 08/29/23 12:33 Height 5 ft 4 in Weight 246 lb 0.4 oz BMI 42.2 BP 112/60 Blood Pressure Location Lt brachial Position Sitting Pulse 75 Pulse Source Pulse Oximeter Pulse Oximetry (%) 96 Oxygen Delivery Method Room Air Intake Visit Reasons: DM Small Electric Engine Technician Required: No Allergies benzocaine [Benzocaine] Allergy (Intermediate, Verified 08/29/23 12:33) HIVES Sulfa (Sulfonamide Antibiotics) Allergy (Intermediate, Verified 08/29/23 12:33) HIVES Penicillins Allergy (Mild, Verified 08/29/23 12:33) RASH cyanocobalamin (vitamin B12) [Vitamin B12] Allergy (Unknown, Verified 08/29/23 12:33) Complex metformin Allergy (Unknown, Verified 08/29/23 12:33) diarrhea oxycodone [OXYCODONE] Allergy (Unknown, Verified 08/29/23 12:33) SEVERE NAUSEA procaine [From Novocain] Allergy (Unknown, Verified 08/29/23 12:33) Unknown Medication List - Last Reconciled 08/29/23 by Ziggy Garcia MD albuterol sulfate 2.5 mg (3 mL) inhalation TID 90 days biotin 5,000 mcg PO DAILY blood sugar diagnostic 1 strip miscellaneous TID 90 days blood sugar diagnostic (OneTouch Ultra Test strips) test once per day blood-glucose meter (AlediaTouch Ultra2 Meter) test once per day [Diabetic shoes and 3 custom inserts As directed] [DIABETIC SHOES WITH CUSTOM INSERTS As directed] fexofenadine (Adrianne Allergy) 180 mg PO DAILY 90 days gabapentin 300 mg PO BID glimepiride 2 mg PO QAM hydrochlorothiazide 25 mg PO DAILY lancets (AquaGenesisuch Delica Plus Lancet) As directed check the BS once a day levothyroxine 150 mcg PO DAILY 90 days levothyroxine 150 mcg PO DAILY 90 days lidocaine 5% 1 appl topical QID PRN lisinopril 40 mg PO DAILY metoprolol succinate ER take 100 mg with 50 mg =150 mg daily; metoprolol succinate ER 50 mg PO DAILY miconazole nitrate 2% (Zeasorb AF) 1 appl topical BID montelukast 10 mg PO QPM multivitamin 1 tab PO DAILY nystatin (Nyamyc) 1 appl topical BID-TID omeprazole 20 mg PO BID oxycodone-acetaminophen 5-325 mg (Percocet) 1 tab PO Q6H PRN simvastatin 5 mg PO BEDTIME Tobacco use date assessed: 08/29/23 Fall risk assessment: No Falls in past year Last assessed Fall Risk: 08/29/23 Dental Screening Dental Screen Date: 01/31/23 HPI DM HPI Details 73-year-old morbidly obese female with controlled diabetes mellitus GERD asthma hypothyroid hypercholesterolemia lumbar degenerative disc disease with bilateral hip osteoarthritis last seen in May 2023. Patient has a history of splenectomy for ITP last pneumonia shot 2018. Patient will need 1 today. Mammogram is up-to-date with the low back pain met with [facility] August 2023 advised stimulator trial consultation. PAtient just had an EGD done under Dr. Sharp July 2023 showing medium-sized hiatal hernia with gastric antral vascular ectasia without bleeding and treated with photocoagulation patient was advised repeat upper endoscopy in November 2023. patient is thinking about the spinal stimulator. [facility] Medical History (Updated 05/30/23 @ 13:06 by Ziggy Garcia MD) Low back pain Skin cancer History of ITP History of cataract History of renal calculi Hypercholesterolemia Hypothyroid Insomnia History of breast cancer Thyroid nodule Obesity DDD (degenerative disc disease), lumbosacral Asthma Restless leg syndrome Osteoarthritis Peripheral vascular disease Hypertension GERD (gastroesophageal reflux disease) Surgical History Back pain with history of spinal surgery History of splenectomy History of arthroplasty of left knee History of removal of cyst History of hysteroscopy History of arthroscopy of left knee History of knee replacement procedure of right knee Family History (Updated 03/09/21 @ 14:28 by Misty Nelson) Father Diabetes Hypertension Mother Hypertension Liver cancer Brother Liver cancer Social History Housing: House Alcohol intake: never Patient Tobacco Use Status: Never used Tobacco e-Cigarette/Vaping Use: Never Used Second Hand Smoke Exposure: No service: No Current occupational status: retired Cognitive needs: No Hearing needs: No Vision needs: Yes Questionnaire Thrive Questionnaire Date Thrive assessed: 07/05/22 AUDIT C Alcohol Use Questionnaire (AUDIT-C) 1. How often do you have a drink containing alcohol?: Never 2. How many drinks containing alcohol do you have on a typical day when you are drinking?: 1 or 2 3. How often do you have six or more drinks on one occasion?: Never Total Score: 0 ELIO-7 AMB Questionnaire ELIO-7 Date ELIO - 7 assessed: 07/05/22 Source: Developed by Drs. Marlon Carcamo, Jackie Chávez, Luis Jessica and colleagues, with an educational yandel from [employer]. Physical exam (Primary Care) Vital Signs: Last Vital Signs Pulse 75 08/29/23 12:33 BP 112/60 08/29/23 12:33 Pulse Ox 96 08/29/23 12:33 Oxygen Delivery Method Room Air 08/29/23 12:33 BMI result Body Mass Index 42.2 Tobacco/Smoking Status: Tobacco use Status Tobacco use date assessed 08/29/23 08/29/23 12:34 Patient Tobacco Use Status Never used Tobacco 08/29/23 12:34 e-Cigarette/Vaping Use Never Used 08/29/23 12:34 Thrive Assessment: Date of Thrive Assessment Date Thrive assessed 07/05/22 08/29/23 12:34 Const General: alert; No acute distress Eyes Conjunctivae: conjunctivae normal Resp Auscultation: clear to auscultation bilaterally Cardio Rate: regular rate Rhythm: regular rhythm GI Inspection: Yes normal to inspection Extrem General: Yes normal to inspection and No edema Results AMB Hemoglobin A1c AMB Hemoglobin A1c 6.1 % Last Edit by MILTON Ferrer on 08/29/23 12:44 Immunizations pneumoc 20-young conj-dip cr(PF) 0.5 mL IM syringe Performing Provider: Ziggy Garcia MD [facility] Administered by: Ava Celaya CMA on 08/29/23 13:21 Dose Route Admin Location Dispensed Lot Number Expiration Date NDC Bridal Consultant 0.5 mL IM Left Deltoid 0.5 mL [id number] 07/31/24 6509-3575-17 [employer] VIS Given Date VIS Provided VIS Publication Date 08/29/23 Single Vaccine 21 Eligibility Eligibility Date Funding Source Not VFC Eligible 08/29/23 Private Results Reviewed Results Reviewed: Laboratory Last Values Hgb A1c (Clinic) 6.1 % (4.0-6.0) H 08/29/23 12:34 Assessment and Plan Assessment & Plan (1) Lumbar degenerative disc disease: Comment: September 2022 A moderate lumbar dextroscoliosis is seen. 2. There is multi-level marked degenerative disc disease extending from T11-T12 through L5-S1. 3. There is multi-level thoracolumbar spondylosis and facet arthropathy. Code(s): M51.36 - Other intervertebral disc degeneration, lumbar region Plan: Patient has been seen by [facility] and planned spinal stimulator trial. (2) Type 2 diabetes mellitus with hyperglycemia: Code(s): E11.65 - Type 2 diabetes mellitus with hyperglycemia Qualifiers: Diabetes mellitus termite technician insulin use: without shelter use Qualified Code(s): E11.65 - Type 2 diabetes mellitus with hyperglycemia Plan: Decrease the amount of carbohydrate intake, pasta, bread, rice and potatoes are all sugar and that is aside from all the sweet stuff, remember that fruits are good but they are Sweet also. Hemoglobin A1c goal of less than 7.0 patient is on glimepiride 2 mg once a day and no hypoglycemia episode (3) GERD (gastroesophageal reflux disease): Code(s): K21.9 - Gastro-esophageal reflux disease without esophagitis Qualifiers: Esophagitis presence: without esophagitis Qualified Code(s): K21.9 - Gastro-esophageal reflux disease without esophagitis Plan: Avoid the foods that causes that usually spicy foods, tomato products, juices, coffee, soda and foods that your sensitive to. After eating do not lie down, allow 3-4 hours before in lie down. And keep the head of bed above 30 degrees to avoid the acid from going up. (4) Hypertension: Code(s): I10 - Essential (primary) hypertension Qualifiers: Hypertension type: essential hypertension Qualified Code(s): I10 - Essential (primary) hypertension Plan: Continue with blood pressure medication. Decrease salt intake and exercise patient takes metoprolol 50 mg once a day lisinopril 40 mg once a day hydrochlorothiazide 25 mg once a day (5) Asthma: Code(s): J45.909 - Unspecified asthma, uncomplicated Plan: Continue with the inhaler as needed (6) Hypothyroid: Comment: Status post right thyroidectomy Code(s): E03.9 - Hypothyroidism, unspecified Qualifiers: Hypothyroidism type: acquired Qualified Code(s): E03.9 - Hypothyroidism, unspecified Plan: Continue with thyroid medication (7) Hypercholesterolemia: Code(s): E78.00 - Pure hypercholesterolemia, unspecified Plan: Avoid fried foods, chicken skin, eggs, butter margarine, pastries and meat. Be it pork or beef they have a lot of cholesterol LDL goal of less than 100 and triglyceride of less than 150. March 2023 blood work Orders: Orders AMB Hemoglobin A1c Today E11.65 - Type 2 diabetes mellitus with hyperglycemia Comprehensive Met. Panel Today C73 - Malignant neoplasm of thyroid gland Complete Blood Count Auto Diff Today C73 - Malignant neoplasm of thyroid gland Pneumococcal 20 Immunization Today Z23 - Encounter for immunization Medications: Refilled [DIABETIC SHOES WITH CUSTOM INSERTS] As directed 1 ea 0RF E11.65 - Type 2 diabetes mellitus with hyperglycemia levothyroxine 150 mcg PO DAILY 90 days 90 caps 3RF E03.9 - Hypothyroidism, unspecified glimepiride 2 mg PO QAM 90 tabs 3RF montelukast 10 mg PO QPM 90 tabs 3RF simvastatin 5 mg PO BEDTIME 90 tabs 3RF nystatin (Nyamyc) 1 appl topical BID-TID 6 ea 3RF B35.4 - Tinea corporis gabapentin 300 mg PO BID 180 caps 3RF C73 - Malignant neoplasm of thyroid gland lidocaine 5% 1 appl topical QID PRN 3 ea 3RF pain M51.36 - Other intervertebral disc degeneration, lumbar region Coding Level of Care Code Est Pt Level 4 (08096) Diagnoses Lumbar degenerative disc disease M51.36 Type 2 diabetes mellitus with hyperglycemia, without long-term current use of insulin E11.65 Diabetes mellitus termite technician insulin use: without shelter use Gastroesophageal reflux disease without esophagitis K21.9 Esophagitis presence: without esophagitis Essential hypertension I10 Hypertension type: essential hypertension Asthma J45.909 Acquired hypothyroidism E03.9 Hypothyroidism type: acquired Hypercholesterolemia E78.00
== END 2023-08-29 13:27 | disposition home or self-care (01) ==
PROVIDERS: PCP Internal Medicine; Visit Provider Internal Medicine
DX: M51.36 Other intervertebral disc degeneration, lumbar region (principal); E11.65 Type 2 diabetes mellitus with hyperglycemia; K21.9 Gastro-esophageal reflux disease without esophagitis; I10 Essential (primary) hypertension; J45.909 Unspecified asthma, uncomplicated; E03.9 Hypothyroidism, unspecified; E78.00 Pure hypercholesterolemia, unspecified; Z23 Encounter for immunization
CPT/HCPCS: 83036; 90471; 90677; 99214

== ENCOUNTER 2023-09-08 13:52 | Outpatient (REF) | payer MEDICARE, SELFPAY ==
[2023-09-08 16:06] LABS: MANUAL DIFF FLAG NO
[2023-09-08 16:08] LABS: Basophils Absolute Auto 0.1 X10*3/uL (0.0-0.2); Basophils Percent Auto 0.5 % (0-2); Eosinophils Absolute Auto 0.2 X10*3/uL (0.0-0.4); Eosinophils Percent Auto 1.6 % (0-4); Hematocrit 33.3 % (37.0-47.0); Hemoglobin 10.6 g/dl (12.0-16.0); Imm Gran Abs Auto 0.03 X10*3/uL (0.00-0.03); Imm Gran Pct Auto 0.3 % (0.0-0.4); Lymphocytes Absolute Auto 2.5 X10*3/uL (1.2-4.9); Lymphocytes Percent Auto 26.9 % (20-40); Mean Corpuscular HGB Conc 31.8 g/dl (31.0-35.0); Mean Corpuscular Hemoglobin 25.9 pg (27.0-33.0); Mean Corpuscular Volume 81.4 fL (80.0-98.0); Mean Platelet Volume 11.4 fL (9.4-12.3); Monocytes Absolute Auto 0.9 X10*3/uL (0.1-1.2); Monocytes Percent Auto 9.2 % (2-11); Neutrophils Absolute Auto 5.7 x10*3/uL (2.0-8.3); Neutrophils Percent Auto 61.5 % (45-73); Platelet Count 405 X10*3/uL (160-400); Red Blood Count 4.09 X10*6/uL (4.20-5.50); Red Cell Distribution Width 16.8 % (11.0-16.0); White Blood Count 9.2 X10*3/uL (4.8-10.8)
[2023-09-08 16:49] LABS: Creatinine Urine 82.49 mg/dL; Microalbum/Creatinine Ratio Ur 10.9 ug/mg cr (<30)
[2023-09-08 17:02] LABS: Alanine Aminotransferase 15 U/L (0-31); Albumin Level 3.6 g/dL (3.5-5.0); Alkaline Phosphatase 83 U/L (39-117); Anion Gap 10 (12-20); Aspartate Amino Transferase 17 U/L (5-31); Bilirubin Total 0.1 mg/dL (0.0-1.0); Blood Urea Nitrogen 23 mg/dL (9-16); Calcium 9.9 mg/dL (8.4-10.2); Carbon Dioxide 29 mmol/L (22-29); Chloride 104 mmol/L (96-108); Estimated Glomerular Filt Rate 51; Glucose Random 185 mg/dL (60-115); Potassium 3.9 mmol/L (3.3-5.1); Sodium 139 mmol/L (135-145); Total Protein 6.6 g/dL (6.5-8.0)
[2023-09-08 17:19] LABS: Free T4 (Free Thyroxine) 1.14 ng/dL (0.71-1.85); Thyroid Stimulating Hormone 0.84 uIU/mL (0.32-4.0)
== END 2023-09-08 13:53 | disposition home or self-care (01) ==
LOC: HO.HMGCLDS 13:52
PROVIDERS: PCP Internal Medicine; Visit Provider Internal Medicine
DX: C73 Malignant neoplasm of thyroid gland (principal); E03.9 Hypothyroidism, unspecified; E11.65 Type 2 diabetes mellitus with hyperglycemia
CPT/HCPCS: 36415; 80053; 82043; 82570; 84439; 84443; 85025

== ENCOUNTER 2023-11-27 15:20 | Outpatient (AMB) | payer MEDICARE, SELFPAY ==
[2023-11-27 15:03] VITALS: BP 106/68; PULSE 76; O2SAT 95; BMI 42.7
--- NOTE | 2023-11-27 15:03 | A.OFFPC_ITS ---
Vital Signs 11/27/23 15:03 Height 5 ft 4 in Weight 249 lb 0.2 oz BMI 42.7 BP 106/68 Blood Pressure Location Lt brachial Position Sitting Pulse 76 Pulse Source Pulse Oximeter Pulse Oximetry (%) 95 Oxygen Delivery Method Room Air Intake Visit Reasons: Follow Up Public Administration Teacher Required: No Allergies benzocaine [Benzocaine] Allergy (Intermediate, Verified 11/27/23 15:03) HIVES Sulfa (Sulfonamide Antibiotics) Allergy (Intermediate, Verified 11/27/23 15:03) HIVES Penicillins Allergy (Mild, Verified 11/27/23 15:03) RASH cyanocobalamin (vitamin B12) [Vitamin B12] Allergy (Unknown, Verified 11/27/23 15:03) Complex metformin Allergy (Unknown, Verified 11/27/23 15:03) diarrhea oxycodone [OXYCODONE] Allergy (Unknown, Verified 11/27/23 15:03) SEVERE NAUSEA procaine [From Novocain] Allergy (Unknown, Verified 11/27/23 15:03) Unknown Tobacco use date assessed: 08/29/23 Fall risk assessment: No Falls in past year Last assessed Fall Risk: 11/27/23 Dental Screening Dental Screen Date: 01/31/23 HPI Follow Up HPI Details 73-year-old morbidly obese female with c ontrolled diabetes mellitus lumbar degenerative disc disease GERD hypertension asthma hypothyroid and hypercholesterolemia last seen in 08/20/2023 patient also has a history of splenectomy. Mammogram is up-to-date colonoscopy is up-to-date 06/21/2020. Patient follows up with [facility] for the post laminectomy syndrome has had the spinal cord stimulator patient also follows up with Hematology-Oncology self-referral history of left breast cancer 2010 status post lumpectomy and radiation and 5 years of tamoxifen advised left mammogram diagnostic and ultrasound patient also follows up with orthopedics right hip pain diagnosis of right hip osteoarthritis advised conservative treatment anti- inflammatories with low-impact exercises. And follow-up for possible injection. Patient did have an MRI of the spine 09/20/2023 showing degenerative changes of the thoracic spine with reverse S shaped curvature central canal and foraminal narrowing no cord compression mass within the posterior mediastinal representing paraesophageal hernia. US and mammo done will monitor for now. for the back stimulator- 6 days only but the pain persist. - will see surgeon Dr. Mcguire for the stimulator to be placed in. for the hip injection done. [facility] Medical History (Updated 11/27/23 @ 16:18 by Ziggy Garcia MD) Low back pain Skin cancer History of ITP History of cataract History of renal calculi Hypercholesterolemia Hypothyroid Insomnia History of breast cancer Thyroid nodule Obesity DDD (degenerative disc disease), lumbosacral Asthma Restless leg syndrome Osteoarthritis Peripheral vascular disease Hypertension GERD (gastroesophageal reflux disease) Surgical History Back pain with history of spinal surgery History of splenectomy History of arthroplasty of left knee History of removal of cyst History of hysteroscopy History of arthroscopy of left knee History of knee replacement procedure of right knee Family History (Updated 03/09/21 @ 14:28 by Misty Nelson) Father Diabetes Hypertension Mother Hypertension Liver cancer Brother Liver cancer Social History Housing: House Alcohol intake: never Patient Tobacco Use Status: Never used Tobacco e-Cigarette/Vaping Use: Never Used Second Hand Smoke Exposure: No service: No Current occupational status: retired Cognitive needs: No Hearing needs: No Vision needs: Yes Questionnaire PHQ-9 Over the last 2 weeks, how often have you been bothered by any of the following problems? 1. Little interest or pleasure in doing things: not at all 2. Feeling down, depressed, or hopeless: not at all 3. Trouble falling or staying asleep, or sleeping too much: not at all 4. Feeling tired or having little energy: not at all 5. Poor appetite or overeating: not at all 6. Feeling bad about yourself - or that you are a failure or have let yourself or your family down: not at all 7. Trouble concentrating on things, such as reading the newspaper or watching television: not at all 8. Moving or speaking so slowly that other people could have noticed. Or the opposite - being so fidgety or restless that you have been moving around a lot more than usual: not at all 9. Thoughts that you would be better off or of hurting yourself in some way: not at all Total score: 0 Depression Screening Interpretation: Negative Depression Screening Done: Yes 40456 - PHQ-9 Billing: Yes Source: Developed by Drs. Marlon Carcamo, Jackie Chávez, Luis Jessica and colleagues, with an educational yandel from [employer]. Thrive Questionnaire Date Thrive assessed: 11/27/23 I am a: Patient What is your living situation today?: I have a steady place to live Within the past 12 months, did the food you bought not last and you didn't have the money to get more?: Never true Within the past 12 months, did you worry whether your food would run out before you got money to buy more?: Never true Do you have trouble paying for medicines?: No Do you have trouble getting transportation to medical appointments?: No Do you have trouble paying your heating and electricity bill?: No Do you have trouble taking care of your child, family member or friend?: No Do you have trouble with day-to-day activities such as bathing, preparing meals, shopping, managing finances, etc.?: No Are you currently unemployed and looking for a job?: No Are you interested in more education?: No Please select the resources that you would like help with: None Currently or been in a relationship where the following occur: No concerns reported THRIVE Score: 0 AUDIT C Alcohol Use Questionnaire (AUDIT-C) 1. How often do you have a drink containing alcohol?: Never 2. How many drinks containing alcohol do you have on a typical day when you are drinking?: 1 or 2 3. How often do you have six or more drinks on one occasion?: Never Total Score: 0 ELIO-7 AMB Questionnaire ELIO-7 Date ELIO - 7 assessed: 11/27/23 Feeling nervous, anxious, or on edge: 0 = Not at all Not being able to stop or control worryin = Not at all Worrying too much about different things: 0 = Not at all Trouble relaxin = Not at all Being so restless that it is hard to sit still: 0 = Not at all Becoming easily annoyed or irritable: 0 = Not at all Feeling afraid as if something awful might happen: 0 = Not at all Total ELIO-7 score (0-4 normal; 5-9 mild; 10-14 moderate; 15-21 severe): 0 Source: Developed by Jackie Montes Kurt Kroenke and colleagues, with an educational yandel from [employer]. ELIO-7 Assessment Billing ELIO-7 Assessment Tool: ELIO-7 Assessment 98928 Physical exam (Primary Care) Vital Signs: Last Vital Signs Pulse 76 11/27/23 15:03 BP 106/68 11/27/23 15:03 Pulse Ox 95 11/27/23 15:03 Oxygen Delivery Method Room Air 11/27/23 15:03 BMI result Body Mass Index 42.7 Tobacco/Smoking Status: Tobacco use Status Tobacco use date assessed 08/29/23 11/27/23 15:04 Patient Tobacco Use Status Never used Tobacco 11/27/23 15:04 e-Cigarette/Vaping Use Never Used 11/27/23 15:04 PHQ-9: PHQ-9 Score PHQ-9: Total score 0 11/27/23 15:34 Depression Screening Interpretation: Negative Thrive Assessment: Date of Thrive Assessment Date Thrive assessed 11/27/23 11/27/23 15:04 Currently or been in a relationship where the following occur: No concerns reported Const General: alert; No acute distress Eyes Conjunctivae: conjunctivae normal Resp Auscultation: clear to auscultation bilaterally Cardio Rate: regular rate Rhythm: regular rhythm GI Inspection: Yes normal to inspection Extrem General: Yes normal to inspection and No edema Results AMB Hemoglobin A1c AMB Hemoglobin A1c 5.8 % Last Edit by MILTON Ferrer on 11/27/23 15:36 Results Reviewed Results Reviewed: Laboratory Last Values Hgb A1c (Clinic) 5.8 % (4.0-6.0) 11/27/23 15:01 Assessment and Plan Assessment & Plan (1) Osteoarthritis, hip, bilateral: Comment: Left more than the right Code(s): M16.0 - Bilateral primary osteoarthritis of hip Plan: Patient being followed up by orthopedics conservative management 1st as well as injections considered. (2) Lumbar degenerative disc disease: Comment: September 2022 A moderate lumbar dextroscoliosis is seen. 2. There is multi-level marked degenerative disc disease extending from T11-T12 through L5-S1. 3. There is multi-level thoracolumbar spondylosis and facet arthropathy. Code(s): M51.36 - Other intervertebral disc degeneration, lumbar region Plan: Spinal cord stimulator placed in by [facility] (3) Type 2 diabetes mellitus with hyperglycemia: Code(s): E11.65 - Type 2 diabetes mellitus with hyperglycemia Qualifiers: Diabetes mellitus ferry terminal supervisor insulin use: without half-way use Qualified Code(s): E11.65 - Type 2 diabetes mellitus with hyperglycemia Plan: Decrease the amount of carbohydrate intake, pasta, bread, rice and potatoes are all sugar and that is aside from all the sweet stuff, remember that fruits are good but they are Sweet also. Hemoglobin A1c goal of less than 7.0 on glimepiride 2 mg once a day controlled (4) GERD (gastroesophageal reflux disease): Code(s): K21.9 - Gastro-esophageal reflux disease without esophagitis Qualifiers: Esophagitis presence: without esophagitis Qualified Code(s): K21.9 - Gastro-esophageal reflux disease without esophagitis Plan: Avoid the foods that causes that usually spicy foods, tomato products, juices, coffee, soda and foods that your sensitive to. After eating do not lie down, allow 3-4 hours before in lie down. And keep the head of bed above 30 degrees to avoid the acid from going up. (5) Hypertension: Code(s): I10 - Essential (primary) hypertension Qualifiers: Hypertension type: essential hypertension Qualified Code(s): I10 - Essential (primary) hypertension Plan: Continue with blood pressure medication. Decrease salt intake and exercise on metoprolol lisinopril hydrochlorothiazide (6) Obesity: Code(s): E66.9 - Obesity, unspecified Qualifiers: Obesity type: due to excess calories Obesity classification: adult class 3 (BMI >= 40) Serious obesity comorbidity presence: with serious comorbidity Body mass index: BMI 45.0-49.9 Qualified Code(s): E66.01 - Morbid (severe) obesity due to excess calories; Z68.42 - Body mass index [BMI] 45.0- 49.9, adult Plan: Diet and exercise (7) Hypothyroid: Comment: Status post right thyroidectomy Code(s): E03.9 - Hypothyroidism, unspecified Qualifiers: Hypothyroidism type: acquired Qualified Code(s): E03.9 - Hypothyroidism, unspecified Plan: Continue with thyroid medication (8) Hypercholesterolemia: Code(s): E78.00 - Pure hypercholesterolemia, unspecified Plan: Avoid fried foods, chicken skin, eggs, butter margarine, pastries and meat. Be it pork or beef they have a lot of cholesterol LDL goal of less than 100 and triglyceride of less than 150 on simvastatin 5 mg once a day (9) History of breast cancer: Comment: Lumpectomy with radiation and tamoxifen July 2009 Code(s): Z85.3 - Personal history of malignant neoplasm of breast Plan: Patient has seen hematology oncology and planned mammogram diagnostic and ultrasound Orders: Orders AMB Hemoglobin A1c Today E11.65 - Type 2 diabetes mellitus with hyperglycemia Medications: Refilled oxycodone-acetaminophen 5-325 mg (Percocet) 1 tab PO Q6H PRN 180 tabs 0RF pain M51.37 - Other intervertebral disc degeneration, lumbosacral region Coding Level of Care Code Est Pt Level 4 (76201) Complex EM visit Add On G2211 Diagnoses Osteoarthritis, hip, bilateral M16.0 Lumbar degenerative disc disease M51.36 Type 2 diabetes mellitus with hyperglycemia, without long-term current use of insulin E11.65 Diabetes mellitus ferry terminal supervisor insulin use: without ferry terminal supervisor use Gastroesophageal reflux disease without esophagitis K21.9 Esophagitis presence: without esophagitis Essential hypertension I10 Hypertension type: essential hypertension Class 3 severe obesity due to excess calories with serious comorbidity and body mass index (BMI) of 45.0 to 49.9 in adult E66.01; Z68.42 Obesity type: due to excess calories Obesity classification: adult class 3 (BMI >= 40) Serious obesity comorbidity presence: with serious comorbidity Body mass index: BMI 45.0-49.9 Acquired hypothyroidism E03.9 Hypothyroidism type: acquired Hypercholesterolemia E78.00 History of breast cancer Z85.3 Additional Codes ELIO-7 Assessment Billing - ELIO-7 Assessment Tool: ELIO-7 Assessment [id number] ([id number])
== END 2023-11-27 16:53 | disposition home or self-care (01) ==
PROVIDERS: PCP Internal Medicine; Visit Provider Internal Medicine
DX: M16.0 Bilateral primary osteoarthritis of hip (principal); E11.65 Type 2 diabetes mellitus with hyperglycemia; E66.01 Morbid (severe) obesity due to excess calories; Z68.42 Body mass index [BMI] 45.0-49.9, adult; M51.36 Other intervertebral disc degeneration, lumbar region; K21.9 Gastro-esophageal reflux disease without esophagitis; I10 Essential (primary) hypertension; E03.9 Hypothyroidism, unspecified; E78.00 Pure hypercholesterolemia, unspecified; Z85.3 Personal history of malignant neoplasm of breast
CPT/HCPCS: 83036; 99214; G2211

== ENCOUNTER 2024-04-05 13:02 | Outpatient (AMB) | payer MEDICARE, SELFPAY ==
[2024-04-05 13:07] VITALS: BP 122/60; PULSE 72; O2SAT 98; BMI 41.2
--- NOTE | 2024-04-05 13:07 | A.OFFPC_ITS ---
Vital Signs 3 04/05/24 13:07 Height 5 ft 4 in Weight 240 lb BMI 41.2 BP 122/60 Blood Pressure Location Lt brachial Position Sitting Pulse 72 Pulse Source Pulse Oximeter Pulse Oximetry (%) 98 Oxygen Delivery Method Room Air Intake Visit Reasons: DM Follow Up Intake Note: Patient is here to follow up on [symptoms]. Allergies benzocaine [Benzocaine] Allergy (Intermediate, Verified 04/05/24 13:07) HIVES Sulfa (Sulfonamide Antibiotics) Allergy (Intermediate, Verified 04/05/24 13:07) HIVES Penicillins Allergy (Mild, Verified 04/05/24 13:07) RASH cyanocobalamin (vitamin B12) [Vitamin B12] Allergy (Unknown, Verified 04/05/24 13:07) Complex metformin Allergy (Unknown, Verified 04/05/24 13:07) diarrhea oxycodone [OXYCODONE] Allergy (Unknown, Verified 04/05/24 13:07) SEVERE NAUSEA procaine [From Novocain] Allergy (Unknown, Verified 04/05/24 13:07) Unknown Tobacco use date assessed: 08/29/23 Fall risk assessment: No Falls in past year Last assessed Fall Risk: 04/05/24 Dental Screening Dental Screen Date: 04/05/24 HPI DM Follow Up 2 HPI0 Details 73-year-old morbidly obese female with m ultiple medical problems from diabetes mellitus controlled GERD hypertension hypothyroid hypercholesterolemia history of breast cancer lumbar degenerative disc disease bilateral hip osteoarthritis coming in for follow-up. 11/20/2023 last seen patient had history of splenectomy for ITP mammogram is up-to-date colonoscopy up-to-date in 2020. Aware that patient is very anxious as is very sick. Spinal Stimulator [address] Granados. neuropathy better, EGD 06/2024. [facility] Medical History (Updated 04/05/24 @ 13:38 by Ziggy Garcia MD) Low back pain Skin cancer History of ITP History of cataract History of renal calculi Hypercholesterolemia Hypothyroid Insomnia History of breast cancer Thyroid nodule DDD (degenerative disc disease), lumbosacral Asthma Restless leg syndrome Osteoarthritis Peripheral vascular disease Hypertension GERD (gastroesophageal reflux disease) Surgical History (Updated 04/05/24 @ 13:18 by Ziggy Garcia MD) Back pain with history of spinal surgery History of splenectomy History of arthroplasty of left knee History of removal of cyst History of hysteroscopy History of arthroscopy of left knee History of knee replacement procedure of right knee Family History (Updated 03/09/21 @ 14:28 by Misty Nelson) Father Diabetes Hypertension Mother Hypertension Liver cancer Brother Liver cancer Social History Housing: House Alcohol intake: never Patient Tobacco Use Status: Never used Tobacco e-Cigarette/Vaping Use: Never Used Second Hand Smoke Exposure: No service: No Current occupational status: retired Cognitive needs: No Hearing needs: No Vision needs: Yes Questionnaire Thrive Questionnaire Date Thrive assessed: 11/27/23 AUDIT C Alcohol Use Questionnaire (AUDIT-C) 1. How often do you have a drink containing alcohol?: Never 2. How many drinks containing alcohol do you have on a typical day when you are drinking?: 1 or 2 3. How often do you have six or more drinks on one occasion?: Never Total Score: 0 ELIO-7 AMB Questionnaire ELIO-7 Date ELIO - 7 assessed: 11/27/23 Source: Developed by Drs. Marlon Carcamo, Jackie Chávez, Luis Jessica and colleagues, with an educational yandel from [employer]. Physical exam (Primary Care) Vital Signs: Last Vital Signs Pulse 72 04/05/24 13:07 BP 122/60 04/05/24 13:07 Pulse Ox 98 04/05/24 13:07 Oxygen Delivery Method Room Air 04/05/24 13:07 BMI result Body Mass Index 41.2 Tobacco/Smoking Status: Tobacco use Status Tobacco use date assessed 08/29/23 04/05/24 13:08 Patient Tobacco Use Status Never used Tobacco 04/05/24 13:08 e-Cigarette/Vaping Use Never Used 04/05/24 13:08 Thrive Assessment: Date of Thrive Assessment Date Thrive assessed 11/27/23 04/05/24 13:08 Const General: alert; No acute distress Eyes Conjunctivae: conjunctivae normal Resp Auscultation: clear to auscultation bilaterally Cardio Rate: regular rate Rhythm: regular rhythm GI Inspection: Yes normal to inspection Skin Full body images: 2 1. Incisional scars for the spinal stimulators. 2. Extrem Other: Bilateral lower extremity edema +2 General: Yes edema Results AMB Hemoglobin A1c 2 AMB Hemoglobin A1c 5.8 % Last Edit by MILTON Ferrer on 04/05/24 13:20 Coding Level of Care Code Est Pt Level 4 (65539) Complex EM visit Add On G2211 Diagnoses Thyroid cancer C73 Acquired hypothyroidism E03.9 Hypothyroidism type: acquired History of breast cancer Z85.3 Morbid obesity E66.01 Type 2 diabetes mellitus with hyperglycemia, without long-term current use of insulin E11.65 Diabetes mellitus termite exterminator helper insulin use: without residential use Gastroesophageal reflux disease without esophagitis K21.9 Esophagitis presence: without esophagitis Essential hypertension I10 Hypertension type: essential hypertension Mild intermittent asthma without complication J45.20 Asthma complication type: uncomplicated Asthma persistence: intermittent Asthma severity: mild Anemia, unspecified type D64.9 Anemia type: unspecified type History of splenectomy Z90.81 Degeneration of intervertebral disc of lumbar region with discogenic back pain and lower extremity pain M51.362 Disc-related pain type: discogenic back pain and lower extremity pain Peripheral vascular disease I73.9 Assessment & Plan Assessment & Plan (1) Thyroid cancer: Comment: s/p R thyroidectomy 02/19/2022 Code(s): C73 - Malignant neoplasm of thyroid gland Category: Medical Plan: Continuing to monitor thyroid (2) Hypothyroid: Comment: Status post right thyroidectomy Code(s): E03.9 - Hypothyroidism, unspecified Category: Medical Qualifiers: Hypothyroidism type: acquired Qualified Code(s): E03.9 - Hypothyroidism, unspecified Plan: Request for blood work done (3) History of breast cancer: Comment: Lumpectomy with radiation and tamoxifen July 2009 Code(s): Z85.3 - Personal history of malignant neoplasm of breast Category: Medical Plan: Up-to-date with mammogram (4) Morbid obesity: Code(s): E66.01 - Morbid (severe) obesity due to excess calories Category: Medical Plan: Diet and exercise (5) Type 2 diabetes mellitus with hyperglycemia: Comment: [facility] Code(s): E11.65 - Type 2 diabetes mellitus with hyperglycemia Category: Medical Qualifiers: Diabetes mellitus residential insulin use: without termite exterminator helper use Q ualified Code(s): E11.65 - Type 2 diabetes mellitus with hyperglycemia Plan: Decrease the amount of carbohydrate intake, pasta, bread, rice and potatoes are all sugar and that is aside from all the sweet stuff, remember that fruits are good but they are Sweet also. Hemoglobin A1c goal of less than 7.0 patient on glimepiride 2 mg once a day only and discussed about hypoglycemia (6) GERD (gastroesophageal reflux disease): Code(s): K21.9 - Gastro-esophageal reflux disease without esophagitis Category: Medical Qualifiers: Esophagitis presence: without esophagitis Qualified Code(s): K21.9 - Gastro-esophageal reflux disease without esophagitis Plan: Avoid the foods that causes that usually spicy foods, tomato products, juices, coffee, soda and foods that your sensitive to. After eating do not lie down, allow 3-4 hours before in lie down. And keep the head of bed above 30 degrees to avoid the acid from going up. (7) Hypertension: Code(s): I10 - Essential (primary) hypertension Category: Medical Qualifiers: Hypertension type: essential hypertension Qualified Code(s): I10 - Essential (primary) hypertension Plan: Continue with blood pressure medication. Decrease salt intake and exercise metoprolol , lisinopril 40 mg once a day (8) Asthma: Code(s): J45.909 - Unspecified asthma, uncomplicated Category: Medical Qualifiers: Asthma complication type: uncomplicated Asthma persistence: i ntermittent Asthma severity: mild Qualified Code(s): J45.20 - Mild intermittent asthma, uncomplicated Plan: On albuterol inhaler as needed and montelukast (9) Anemia: Code(s): D64.9 - Anemia, unspecified Category: Medical Qualifiers: Anemia type: unspecified type Qualified Code(s): D64.9 - Anemia, unspecified Plan: Chronic and will need follow-up blood work (10) History of splenectomy: Comment: ITP Code(s): Z90.81 - Acquired absence of spleen Category: Surgical Plan: Up-to-date with pneumonia shot 08/20/2023 (11) Lumbar degenerative disc disease: Comment: September 2022 A moderate lumbar dextroscoliosis is seen. 2. There is multi-level marked degenerative disc disease extending from T11-T12 through L5-S1. 3. There is multi-level thoracolumbar spondylosis and facet arthropathy. Spinal stimulator Dr. Granados 03/2024 Code(s): M51.36 - Other intervertebral disc degeneration, lumbar region Category: Medical Qualifiers: Disc-related pain type: discogenic back pain and lower extremity pain Q ualified Code(s): M51.362 - Other intervertebral disc degeneration, lumbar region with discogenic back pain and lower extremity pain Plan: Seeing Dr. Granados and spinal stimulator placed (12) Peripheral vascular disease: Code(s): I73.9 - Peripheral vascular disease, unspecified Category: Medical Plan: When sitting down elevate the legs, exercise, and support stockings will also refer to the vascular surgeon Orders: Orders 2 AMB Hemoglobin A1c Today E11.65 - Type 2 diabetes mellitus with hyperglycemia Thyroid Stimulating Hormone Today E11.65 - Type 2 diabetes mellitus with hyperglycemia Lipid Panel Today E11.65 - Type 2 diabetes mellitus with hyperglycemia, E78.00 - Pure hypercholesterolemia, unspecified Ferritin Today E11.65 - Type 2 diabetes mellitus with hyperglycemia IRON PROFILE Today E11.65 - Type 2 diabetes mellitus with hyperglycemia Vitamin D 25-OH Total Today E11.65 - Type 2 diabetes mellitus with hyperglycemia UA CC w/rflx Micro + Cult Today E11.65 - Type 2 diabetes mellitus with hyperglycemia, R30.0 - Dysuria Microalbumin, Random (w Creat) Today E11.65 - Type 2 diabetes mellitus with hyperglycemia Magnesium Today E11.65 - Type 2 diabetes mellitus with hyperglycemia Complete Blood Count Auto Diff Today E11.65 - Type 2 diabetes mellitus with hyperglycemia Comprehensive Met. Panel Today E11.65 - Type 2 diabetes mellitus with hyperglycemia Free T4 (Free Thyroxine) Today E11.65 - Type 2 diabetes mellitus with hyperglycemia Vitamin B12 and Folate Today E11.65 - Type 2 diabetes mellitus with hyperglycemia Hemoglobin A1c Today E11.65 - Type 2 diabetes mellitus with hyperglycemia Reticulocyte Count Today E11.65 - Type 2 diabetes mellitus with hyperglycemia Creatinine Urine Today E11.65 - Type 2 diabetes mellitus with hyperglycemia B Type Natriuretic Peptide Today E11.65 - Type 2 diabetes mellitus with hyperglycemia Referrals 2 Vascular Surgery Referral I73.9 - Peripheral vascular disease, unspecified
== END 2024-04-05 13:41 | disposition home or self-care (01) ==
LOC: HO.HMCH 13:05
PROVIDERS: PCP Internal Medicine; Visit Provider Internal Medicine
DX: E11.65 Type 2 diabetes mellitus with hyperglycemia (principal); C73 Malignant neoplasm of thyroid gland; Z68.41 Body mass index [BMI] 40.0-44.9, adult; E66.01 Morbid (severe) obesity due to excess calories; I73.9 Peripheral vascular disease, unspecified; E03.9 Hypothyroidism, unspecified; Z85.3 Personal history of malignant neoplasm of breast; K21.9 Gastro-esophageal reflux disease without esophagitis; I10 Essential (primary) hypertension; J45.20 Mild intermittent asthma, uncomplicated; D64.9 Anemia, unspecified; Z90.81 Acquired absence of spleen

== ENCOUNTER → 2024-04-05 13:02 | Outpatient (BNVA) | payer MEDICARE, SELFPAY | PROVIDERS: PCP Internal Medicine; Visit Provider Internal Medicine | DX: E11.65 Type 2 diabetes mellitus with hyperglycemia (principal); C73 Malignant neoplasm of thyroid gland; E03.9 Hypothyroidism, unspecified; E66.01 Morbid (severe) obesity due to excess calories; K21.9 Gastro-esophageal reflux disease without esophagitis; I10 Essential (primary) hypertension; Z85.3 Personal history of malignant neoplasm of breast | CPT/HCPCS: 83036; 99212 ==

== ENCOUNTER 2024-04-19 07:43 | Outpatient (REF) | payer MEDICARE, SELFPAY ==
[2024-04-19 10:02] LABS: MANUAL DIFF FLAG NO
[2024-04-19 10:05] LABS: Appearance Urine Clear; Color Urine Yellow; Glucose Urine UA Negative (Negative); Leukocyte Esterase Urine Small (1+) (Negative); Nitrite Urine Negative (Negative); PH 6.5 (5.0-9.0); UMIC TRIGGER UACC YES; Urine Blood Negative (Negative); Urine Ketones Negative (Negative); Urine Protein Negative (Neg-Trace)
[2024-04-19 10:20] LABS: Bacteria Urine None Seen (None Seen); Hyaline Casts Urine 0-2 /LPF (0-2); RBC Urine 0-2 /HPF (0-2); UACC Culture Trigger YES; WBC Urine 0-5 /HPF (0-5)
[2024-04-19 10:23] LABS: Basophils Absolute Auto 0.1 X10*3/uL (0.0-0.2); Basophils Percent Auto 0.8 % (0-2); Eosinophils Absolute Auto 0.3 X10*3/uL (0.0-0.4); Eosinophils Percent Auto 3.5 % (0-4); Hematocrit 23.7 % (37.0-47.0); Hemoglobin 7.3 g/dl (12.0-16.0); Imm Gran Abs Auto 0.02 X10*3/uL (0.00-0.03); Imm Gran Pct Auto 0.3 % (0.0-0.4); Immature Retic Fraction 29.7 % (3.0-15.9); Lymphocytes Absolute Auto 1.5 X10*3/uL (1.2-4.9); Lymphocytes Percent Auto 19.4 % (20-40); Mean Corpuscular HGB Conc 30.8 g/dl (31.0-35.0); Mean Corpuscular Volume 87.8 fL (80.0-98.0); Monocytes Absolute Auto 0.9 X10*3/uL (0.1-1.2); Monocytes Percent Auto 11.8 % (2-11); Neutrophils Percent Auto 64.2 % (45-73); Platelet Count 418 X10*3/uL (160-400); Red Cell Distribution Width 15.9 % (11.0-16.0); Retic HGB Equivalent 23.5 pg (30.0-35.0); Reticulocyte Percent 3.8 % (0.5-1.8); Reticulocytes Absolute 0.102 X10*6/uL (0.026-0.095); White Blood Count 7.7 X10*3/uL (4.8-10.8)
[2024-04-19 10:27] LABS: Estimated Average Glucose 117 mg/dL; Hemoglobin A1C 76.6386 umol/L; Hemoglobin A1c % 5.7 % (<6.0); Total Hemoglobin (HGBA1C) 1989.3874 umol/L
[2024-04-19 10:38] LABS: Alanine Aminotransferase 10 U/L (0-31); Albumin Level 3.7 g/dL (3.5-5.0); Alkaline Phosphatase 69 U/L (39-117); Anion Gap 9 (12-20); Aspartate Amino Transferase 19 U/L (5-31); Bilirubin Total 0.3 mg/dL (0.0-1.0); Blood Urea Nitrogen 31 mg/dL (9-16); Calcium 10.3 mg/dL (8.4-10.2); Carbon Dioxide 30 mmol/L (22-29); Chloride 105 mmol/L (96-108); Cholesterol 123 mg/dL (<200); Estimated Glomerular Filt Rate 55; Glucose Random 106 mg/dL (60-115); HDL Cholesterol 49 mg/dL (>40); Iron 30 mcg/dL (30-160); LDL Cholesterol Calculated 61 mg/dL (<100); Magnesium 1.8 mg/dL (1.6-2.6); Percent Iron Saturation 10 % (15-50); Potassium 4.4 mmol/L (3.3-5.1); Sodium 140 mmol/L (135-145); Total Iron Binding Capacity 306 mcg/dL (228-428); Total Protein 6.4 g/dL (6.5-8.0); Triglycerides 68 mg/dL (<150); Unsaturated Iron Binding 276 ug/dL
[2024-04-19 10:53] LABS: B Type Natriuretic Peptide 221 pg/mL (<100)
[2024-04-19 10:58] LABS: Folate 12.4 ng/mL (> or = 4.0); Vitamin B12 349 pg/mL (200-900)
[2024-04-19 11:01] LABS: Ferritin 38 ng/mL (10-250); Free T4 (Free Thyroxine) 1.19 ng/dL (0.71-1.85); Thyroid Stimulating Hormone 1.77 uIU/mL (0.32-4.0); Vitamin D 25-OH Total 40.3 ng/mL (>30)
[2024-04-19 11:08] LABS: Creatinine Urine 72.66 mg/dL
== END 2024-04-19 07:44 | disposition home or self-care (01) ==
LOC: HO.HMGCLDS 07:43
PROVIDERS: PCP Internal Medicine; Visit Provider Internal Medicine
DX: E11.65 Type 2 diabetes mellitus with hyperglycemia (principal); E78.00 Pure hypercholesterolemia, unspecified
CPT/HCPCS: 36415; 80053; 80061; 81001; 81003; 82043; 82306; 82570; 82607; 82728; 82746; 83036; 83540; 83735; 83880; 84439; 84443; 85025; 85045; 87086

== ENCOUNTER 2024-04-20 08:56 | Emergency (ER) | payer MEDICARE, SELFPAY ==
[2024-04-20] VITALS (7 sets, daily range): BP systolic 106–120; BP diastolic 40–66; PULSE 64–77; RESP 15–18; TEMP 36.6–36.7; O2SAT 98–99; BMI 44.2
[2024-04-20 09:38] LABS: MANUAL DIFF FLAG NO
[2024-04-20 09:39] LABS: Basophils Absolute Auto 0.1 X10*3/uL (0.0-0.2); Basophils Percent Auto 0.6 % (0-2); Eosinophils Absolute Auto 0.2 X10*3/uL (0.0-0.4); Eosinophils Percent Auto 2.8 % (0-4); Hematocrit 23.8 % (37.0-47.0); Hemoglobin 7.5 g/dl (12.0-16.0); Imm Gran Abs Auto 0.03 X10*3/uL (0.00-0.03); Imm Gran Pct Auto 0.4 % (0.0-0.4); Lymphocytes Absolute Auto 1.4 X10*3/uL (1.2-4.9); Lymphocytes Percent Auto 17.3 % (20-40); Mean Corpuscular HGB Conc 31.5 g/dl (31.0-35.0); Mean Corpuscular Hemoglobin 27.1 pg (27.0-33.0); Mean Corpuscular Volume 85.9 fL (80.0-98.0); Mean Platelet Volume 10.8 fL (9.4-12.3); Monocytes Absolute Auto 0.8 X10*3/uL (0.1-1.2); Monocytes Percent Auto 10.5 % (2-11); Neutrophils Absolute Auto 5.5 x10*3/uL (2.0-8.3); Neutrophils Percent Auto 68.4 % (45-73); Platelet Count 415 X10*3/uL (160-400); Red Blood Count 2.77 X10*6/uL (4.20-5.50); Red Cell Distribution Width 15.9 % (11.0-16.0)
[2024-04-20 09:53] LABS: Anion Gap 10 (12-20); Blood Urea Nitrogen 26 mg/dL (9-16); Carbon Dioxide 29 mmol/L (22-29); Chloride 107 mmol/L (96-108); Creatinine Clr Calc Pharmacy 61.9; Estimated Glomerular Filt Rate 59; Glucose Random 136 mg/dL (60-115); Potassium 4.5 mmol/L (3.3-5.1); Sodium 141 mmol/L (135-145)
--- NOTE | 2024-04-20 10:48 | ECG_ITS ---
Test Reason : anemia Blood Pressure : / mmHG Vent. Rate : 062 BPM Atrial Rate : 062 BPM P-R Int : 176 ms QRS Dur : 118 ms QT Int : 400 ms P-R-T Axes : 036 007 -15 degrees QTc Int : 406 ms Normal sinus rhythm Incomplete right bundle branch block Nonspecific ST abnormality Abnormal ECG When compared with ECG of 11-AUG-2017 14:29, No significant change was found Referred By: Darya Persaud Electronically Signed By:LIZZ FREEMAN MD
--- NOTE | 2024-04-20 10:57 | ED_ITS ---
HPI - Recheck/Abnormal Lab/Rx General Chief Complaint: Recheck/Abnormal Lab/Rx Stated Complaint: Sent by for blood transfusion Time Seen by Provider: 04/20/24 10:47 Source: patient and old records reviewed Mode of arrival: ambulatory Limitations: no limitations History of Present Illness ED Provider: AVIVA TRIVEDI narrative: 73 yo female with PMH of PVD, back pain, hyperparathyroidism, splenectomy, anemia, GI bleed from stomach lesions - sees [facility] due for another EGD with argon laser in June, HLD, asthma, HTN, GERD, DM2 here with c/o weakness, fatigue PCP demond blood yesterday and hemoglobin 7.3. Ching has dark stools at baseline, she reports ROSAS and fatigue. Referred here by PCP. She is on Fe but no thinners,nsaids,aspirin. She plans to follow up closer with her [facility]. She is refusing admission and states she has to leave by 130pm no matter what to get her grandson. complaint: abnormal lab Initial visit (ago): day(s) (1) Initial visit for: other Returns today for: called because of abnormal lab/test Description of abnormal result: hemoglobin 7.3 Symptoms since prior visit: no new symptoms Context: called for abnormal lab result Associated symptoms: other (ROSAS) Related Data Home Medications ?Medication ?Instructions ?Recorded ?Confirmed biotin 5,000 mcg disintegrating 5,000 mcg PO DAILY 05/03/20 08/29/23 tablet multivitamin 1 tab PO DAILY 05/03/20 08/29/23 Previous Rx's ?Medication ?Instructions ?Recorded albuterol sulfate 2.5 mg/3 mL 2.5 mg (3 mL) inhalation TID 09/13/20 (0.083 %) solution for nebulization days #810 mL blood sugar diagnostic 1 strip miscellaneous TID 90 days 04/29/22 #300 ea miconazole nitrate 2 % topical 1 appl topical BID #85 grams 01/10/23 powder (Zeasorb AF) Diabetic shoes and 3 custom #1 ea 01/31/23 inserts fexofenadine 180 mg tablet 180 mg PO DAILY 90 days #90 tabs 01/31/23 (Adrianne Allergy) blood sugar diagnostic (OneTouch #100 ea 04/18/23 Ultra Test strips) blood-glucose meter (OneTouch #1 ea 04/18/23 Ultra2 Meter) hydrochlorothiazide 25 mg tablet 25 mg PO DAILY #90 tabs 06/17/23 metoprolol succinate 100 mg See Rx Instructions .Route DAILY 06/17/23 tablet,extended release 24 hr #90 tabs metoprolol succinate 50 mg 50 mg PO DAILY #90 tabs 06/17/23 tablet,extended release 24 hr DIABETIC SHOES WITH CUSTOM INSERTS #1 ea 08/29/23 gabapentin 300 mg capsule 300 mg PO BID #180 caps 08/29/23 glimepiride 2 mg tablet 2 mg PO QAM #90 tabs 08/29/23 levothyroxine 150 mcg capsule 150 mcg PO DAILY 90 days #90 caps 08/29/23 lidocaine 5 % topical ointment 1 appl topical QID PRN pain #3 ea 08/29/23 montelukast 10 mg tablet 10 mg PO QPM #90 tabs 08/29/23 nystatin 100,000 unit/gram topical 1 appl topical BID-TID #6 ea 08/29/23 [place] [place] simvastatin 5 mg tablet 5 mg PO BEDTIME #90 tabs 08/29/23 lancets 33 gauge (OneTouch Delica #100 ea 10/01/23 Plus Lancet) levothyroxine 150 mcg tablet 150 mcg PO DAILY 90 days #90 tabs 02/20/24 oxycodone-acetaminophen 5 mg-325 1 tab PO Q6H PRN pain #180 tabs 02/20/24 mg tablet (Percocet) lisinopril 40 mg tablet 40 mg PO DAILY #90 tabs 04/15/24 omeprazole 20 mg capsule,delayed 20 mg PO BID #180 caps 04/15/24 release Allergies Allergy/AdvReac Type Severity Reaction Status Date / Time benzocaine [Benzocaine] Allergy Intermediate HIVES Verified 04/20/24 09:19 Sulfa (Sulfonamide Allergy Intermediate HIVES Verified 04/20/24 09:19 Antibiotics) Penicillins Allergy Mild RASH Verified 04/20/24 09:19 cyanocobalamin (vitamin B12) Allergy Unknown Complex Verified 04/20/24 09:19 [Vitamin B12] metformin Allergy Unknown diarrhea Verified 04/20/24 09:19 oxycodone [OXYCODONE] Allergy Unknown SEVERE Verified 04/20/24 09:19 NAUSEA procaine [From Novocain] Allergy Unknown Unknown Verified 04/20/24 09:19 Review of Systems 2 Review of Systems: Constitutional : No Fever, No Chills, pos Fatigue ENT/Mouth : No sore throat, No Rhinorrhea Eyes: No Eye Pain, No Swelling, No Redness Cardiovascular : No Chest Pain, No SOB, pos Dyspnea on Exertion Respiratory : No Cough, No Sputum Gastrointestinal : No Nausea, No Vomiting, No Diarrhea, No abdominal Pain, pos melena Genitourinary : No Dysuria, No Urinary Frequency, No Hematuria, Musculoskeletal : No joint pain, No Myalgias, No Joint Swelling Skin : No Skin Lesions, No rash Neuro : No Weakness, No Numbness, No Dizziness, no Headache Psych : No Anxiety/Panic, No Depression All other systems reviewed and are negative PMFSH Past Medical History Attestation statement: The following information was validated with the patient. Source: old records reviewed Medical History Low back pain Skin cancer History of ITP History of cataract History of renal calculi Hypercholesterolemia Hypothyroid Insomnia History of breast cancer Thyroid nodule DDD (degenerative disc disease), lumbosacral Asthma Restless leg syndrome Osteoarthritis Peripheral vascular disease Hypertension GERD (gastroesophageal reflux disease) Surgical History Back pain with history of spinal surgery History of splenectomy History of arthroplasty of left knee History of removal of cyst History of hysteroscopy History of arthroscopy of left knee History of knee replacement procedure of right knee Family History Family History (Updated 03/09/21 @ 14:28 by Misty Nelson) Father Diabetes Hypertension Mother Hypertension Liver cancer Brother Liver cancer Social History Social History Housing: House Alcohol intake: never Patient Tobacco Use Status: Never used Tobacco Smoked in Last 30 Days: No e-Cigarette/Vaping Use: Never Used Second Hand Smoke Exposure: No Use of substances other than those prescribed or required for medical reasons: No Advance Directives: Yes Advance Directives Information Provided: Yes Advance Directives on File: No Do you have a plan to hurt others: No Plan service: No Current occupational status: retired Cognitive needs: No Hearing needs: No Vision needs: Yes Physical Exam 2 Vital Signs: Vital Signs: Last Vital Signs Temp 97.9 F 04/20/24 14:02 Pulse 67 04/20/24 14:02 Resp 15 04/20/24 14:02 BP 114/66 04/20/24 14:02 Pulse Ox 99 04/20/24 11:07 O2 Del Method Room Air 04/20/24 11:07 BMI result Body Mass Index 44.2 Appearance: Alert. Oriented X3. No acute distress. Eyes: Pupils equal, round and reactive to light. ENT: Pharynx normal. Neck: Normal inspection. Neck supple. CVS: Normal heart rate and rhythm. Pulses normal. Respiratory: No respiratory distress. Breath sounds normal. Abdomen: Soft and nontender. Skin: Skin warm and dry. pale skin color. Normal skin turgor. Extremities: No lower extremity edema. No calf ttp Neuro: Oriented X 3. No motor deficit. No sensory deficit. Course Course Course Narrative: no GI bleed here appropriate rise in hemoglobin feels much better stable for DC Medical Decision Making Medical Decision Making MDM Narrative: 73 yo female with PMH of PVD, back pain, hyperparathyroidism, splenectomy, anemia, GI bleed, HLD, asthma, HTN, GERD, DM2 here with c/o chronic anemia from chronic GI bleed managed by [facility] - she is not on any thinners c/o ROSAS and found to have hemoglobin 7.3 yesterday. She does not want admission states her symptoms are chronic and she wants to follow up with her GI at [facility]. Will transfuse 1UPRBC. She also wants to leave to get her grandson so we are trying to help her with finding a ride for him Differential Diagnosis Differential Diagnoses: The differential diagnosis associated with the presentation includes chronic blood loss, UGIB, anemia Admission/Observation Consideration of admission/observation: Escalation of care including admission/observation considered has had transfusions before refuses admission states she has to leave at 130pm Lab Data MDM Lab Attestation statement: I reviewed the patient's lab results. 04/20/24 14:50 04/20/24 09:32 Labs: Lab Results 04/20/24 04/20/24 04/20/24 Range/Units 09:32 09:33 14:50 WBC 8.0 9.6 (4.8-10.8) X10*3/uL RBC 2.77 L 3.02 L (4.20-5.50) X10*6/uL Hgb 7.5 L 8.4 L (12.0-16.0) g/dl Hct 23.8 L 26.0 L (37.0-47.0) % MCV 85.9 86.1 (80.0-98.0) fL MCH 27.1 27.8 (27.0-33.0) pg MCHC 31.5 32.3 (31.0-35.0) g/dl RDW 15.9 15.3 (11.0-16.0) % Plt Count 415 H 395 (160-400) X10*3/uL MPV 10.8 11.1 (9.4-12.3) fL Immature Gran % (Auto) 0.4 (0.0-0.4) % Neut % (Auto) 68.4 (45-73) % Lymph % (Auto) 17.3 L (20-40) % Braxton % (Auto) 10.5 (2-11) % Eos % (Auto) 2.8 (0-4) % Baso % (Auto) 0.6 (0-2) % Lymph # (Auto) 1.4 (1.2-4.9) X10*3/uL Braxton # (Auto) 0.8 (0.1-1.2) X10*3/uL Eos # (Auto) 0.2 (0.0-0.4) X10*3/uL Baso # (Auto) 0.1 (0.0-0.2) X10*3/uL Abs Immat Gran (auto) 0.03 (0.00-0.03) X10*3/uL Absolute Neuts (auto) 5.5 (2.0-8.3) x10*3/uL Absolute Nucleated RBC 0.000 0.000 (0.0-0.012) X10*3/uL Nucleated RBC % (auto) 0.0 0.0 (0.0-0.2) /100WBC Sodium 141 (135-145) mmol/L Potassium 4.5 (3.3-5.1) mmol/L Chloride 107 (96-108) mmol/L Carbon Dioxide 29 (22-29) mmol/L Anion Gap 10 L (12-20) BUN 26 H (9-16) mg/dL Creatinine 0.93 (0.5-1.4) mg/dL Estim Creat Clear Calc 61.9 Estimated GFR 59 Random Glucose 136 H (60-115) mg/dL Calcium 10.0 (8.4-10.2) mg/dL Blood Type A Negative Antibody Screen NEGATIVE Crossmatch See Detail Independent Interpretation I performed an independent interpretation of an: EKG Interpretation: Rate: 62 Rhythm: NSR Volin: left Normal P waves. Normal MAIDA. RBBB ST T wave : inverted t waves V1, V3, III, no JAMIL qTC: 406 prior studies: no change from prior The study has been interpreted contemporaneously by me. . External Record Review External record reviewed: Outpatient record and Prior outpatient labs Discharge Plan Discharge Clinical Impression: Anemia in chronic illness Patient Disposition: Home, Self-Care Instructions: Anemia (ED), Blood Transfusion (DC) Additional Instructions: hemoglobin today 7.5 you were offered admission for further work up and management but declined repeat blood count improved would check next count by you are welcome to return any time call your doctor and your GI doctor please return for weakness pain dizziness faitning or any other concerns Prescriptions: No Action albuterol sulfate 2.5 mg /3 mL (0.083 %) solution for nebulization 2.5 mg inhalation TID 90 Days Qty: 810 3RF blood sugar diagnostic Strip 1 strip miscellaneous TID 90 Days Qty: 300 3RF miconazole nitrate [Zeasorb AF] 2 % powder 1 appl topical BID Qty: 85 11RF (DME) blood-glucose meter [OneTouch Ultra2 Meter] Mis See Rx Instructions .Route Qty: 1 0RF Rx Instructions: test once per day (DME) OneTouch Ultra Test Strip See Rx Instructions .Route Qty: 100 4RF Rx Instructions: test once per day hydrochlorothiazide 25 mg tablet 25 mg PO DAILY Qty: 90 3RF metoprolol succinate 100 mg tablet extended release 24 hr See Rx Instructions .ROUTE DAILY Qty: 90 3RF Rx Instructions: take 100 mg with 50 mg =150 mg daily; metoprolol succinate 50 mg tablet extended release 24 hr 50 mg PO DAILY Qty: 90 3RF (DME) lancets [OneTouch Delica Plus Lancet] 33 gauge misc See Rx Instructions .Route Qty: 100 3RF Rx Instructions: As directed check the BS once a day levothyroxine 150 mcg tablet 150 mcg PO DAILY 90 Days Qty: 90 3RF oxycodone-acetaminophen [Percocet] 5-325 mg tablet 1 tab PO Q6H PRN (Reason: pain) Qty: 180 0RF omeprazole 20 mg capsule,delayed release(DR/EC) 20 mg PO BID Qty: 180 2RF lisinopril 40 mg tablet 40 mg PO DAILY Qty: 90 3RF multivitamin Tablet 1 tab PO DAILY biotin 5,000 mcg tablet,disintegrating 5,000 mcg PO DAILY (DME) Diabetic shoes and 3 custom inserts See Rx Instructions .Route .MEDSUPPLY Qty: 1 0RF Rx Instructions: As directed fexofenadine [Adrianne Allergy] 180 mg tablet 180 mg PO DAILY 90 Days Qty: 90 3RF (DME) DIABETIC SHOES WITH CUSTOM INSERTS See Rx Instructions .Route .MEDSUPPLY Qty: 1 0RF Rx Instructions: As directed levothyroxine 150 mcg capsule 150 mcg PO DAILY 90 Days Qty: 90 3RF glimepiride 2 mg tablet 2 mg PO QAM Qty: 90 3RF montelukast 10 mg tablet 10 mg PO QPM Qty: 90 3RF simvastatin 5 mg tablet 5 mg PO BEDTIME Qty: 90 3RF gabapentin 300 mg capsule 300 mg PO BID Qty: 180 3RF lidocaine 5 % ointment 1 appl topical QID PRN (Reason: pain) Qty: 3 3RF nystatin [Nyamyc] 100,000 unit/gram powder 1 appl topical BID-TID Qty: 6 3RF Referrals: Po,Ziggy Antunez MD [Primary Care Provider] - 1 Week Print Language: Martiniquais
--- NOTE | 2024-04-20 11:41 | PC.NURSE ---
Pt alert and oriented, breathing even and unlabored, skin pale. No pain. Reports her doctor told her to come in due to low H/H, has had blood transfusions in the past.
--- NOTE | 2024-04-20 11:44 | PC.NURSE ---
2 IVs started, NSR on bedside monitor. VSS. Blood transfusions started with 2 RNs verifying.
--- NOTE | 2024-04-20 11:55 | PC.NURSE ---
This RN remained in room with first 15 mins blood transfusion, tolerating well, no transfusion related reactions. VSS
[2024-04-20 14:56] LABS: Hemoglobin 8.4 g/dl (12.0-16.0); Mean Corpuscular HGB Conc 32.3 g/dl (31.0-35.0); Mean Corpuscular Hemoglobin 27.8 pg (27.0-33.0); Mean Corpuscular Volume 86.1 fL (80.0-98.0); Mean Platelet Volume 11.1 fL (9.4-12.3); Platelet Count 395 X10*3/uL (160-400); Red Blood Count 3.02 X10*6/uL (4.20-5.50); Red Cell Distribution Width 15.3 % (11.0-16.0); White Blood Count 9.6 X10*3/uL (4.8-10.8)
== END 2024-04-20 15:40 | disposition home or self-care (01) ==
PROVIDERS: Emergency Provider Emergency Medicine; PCP Internal Medicine
DX: K92.2 Gastrointestinal hemorrhage, unspecified (principal); D63.8 Anemia in other chronic diseases classified elsewhere; R53.1 Weakness; E11.9 Type 2 diabetes mellitus without complications; I10 Essential (primary) hypertension; E78.00 Pure hypercholesterolemia, unspecified; K21.9 Gastro-esophageal reflux disease without esophagitis; E21.0 Primary hyperparathyroidism; Z90.81 Acquired absence of spleen; Z85.3 Personal history of malignant neoplasm of breast; Z85.850 Personal history of malignant neoplasm of thyroid; Z79.899 Other long term (current) drug therapy; Z79.02 Long term (current) use of antithrombotics/antiplatelets
CPT/HCPCS: 36415; 36430; 80048; 85025; 85027; 86850; 86900; 86901; 86923; 93005; 99285; P9016

== ENCOUNTER → 2024-04-20 10:48 | Outpatient (BNV) | payer MEDICARE, SELFPAY | PROVIDERS: Emergency Provider Emergency Medicine; PCP Internal Medicine; Visit Provider Internal Medicine Cardiovascular Disease | DX: D64.9 Anemia, unspecified (principal) | CPT/HCPCS: 93010 ==

== ENCOUNTER 2024-04-23 10:47 | Outpatient (REF) | payer MEDICARE, SELFPAY ==
[2024-04-23 13:05] LABS: MANUAL DIFF FLAG NO
[2024-04-23 13:19] LABS: Basophils Absolute Auto 0.1 X10*3/uL (0.0-0.2); Basophils Percent Auto 0.6 % (0-2); Eosinophils Absolute Auto 0.4 X10*3/uL (0.0-0.4); Eosinophils Percent Auto 3.9 % (0-4); Hematocrit 27.5 % (37.0-47.0); Hemoglobin 8.8 g/dl (12.0-16.0); Imm Gran Abs Auto 0.03 X10*3/uL (0.00-0.03); Imm Gran Pct Auto 0.3 % (0.0-0.4); Immature Retic Fraction 29.5 % (3.0-15.9); Lymphocytes Percent Auto 21.2 % (20-40); Mean Corpuscular Hemoglobin 27.8 pg (27.0-33.0); Mean Platelet Volume 11.8 fL (9.4-12.3); Monocytes Absolute Auto 1.2 X10*3/uL (0.1-1.2); Monocytes Percent Auto 12.4 % (2-11); Neutrophils Absolute Auto 5.7 x10*3/uL (2.0-8.3); Neutrophils Percent Auto 61.6 % (45-73); Platelet Count 406 X10*3/uL (160-400); Red Blood Count 3.16 X10*6/uL (4.20-5.50); Red Cell Distribution Width 15.5 % (11.0-16.0); Retic HGB Equivalent 23.3 pg (30.0-35.0); Reticulocyte Percent 3.7 % (0.5-1.8); Reticulocytes Absolute 0.115 X10*6/uL (0.026-0.095); White Blood Count 9.3 X10*3/uL (4.8-10.8)
[2024-04-23 13:51] LABS: Alanine Aminotransferase 11 U/L (0-31); Albumin Level 3.8 g/dL (3.5-5.0); Alkaline Phosphatase 72 U/L (39-117); Anion Gap 10 (12-20); Aspartate Amino Transferase 21 U/L (5-31); Bilirubin Total 0.2 mg/dL (0.0-1.0); Blood Urea Nitrogen 31 mg/dL (9-16); Calcium 10.1 mg/dL (8.4-10.2); Carbon Dioxide 27 mmol/L (22-29); Chloride 105 mmol/L (96-108); Estimated Glomerular Filt Rate 52; Glucose Random 88 mg/dL (60-115); Iron 19 mcg/dL (30-160); Percent Iron Saturation 6 % (15-50); Potassium 4.1 mmol/L (3.3-5.1); Sodium 138 mmol/L (135-145); Total Iron Binding Capacity 324 mcg/dL (228-428); Total Protein 6.5 g/dL (6.5-8.0); Unsaturated Iron Binding 305 ug/dL
[2024-04-23 13:54] LABS: Ferritin 33 ng/mL (10-250); Free T4 (Free Thyroxine) 1.23 ng/dL (0.71-1.85); Thyroid Stimulating Hormone 3.12 uIU/mL (0.32-4.0)
[2024-04-23 14:09] LABS: Folate 12.9 ng/mL (> or = 4.0); Vitamin B12 419 pg/mL (200-900)
== END 2024-04-23 10:48 | disposition home or self-care (01) ==
LOC: HO.HMGCLDS 10:47
PROVIDERS: PCP Internal Medicine; Visit Provider Internal Medicine
DX: C73 Malignant neoplasm of thyroid gland (principal)
CPT/HCPCS: 36415; 80053; 82607; 82728; 82746; 83540; 84439; 84443; 85025; 85045

== ENCOUNTER 2024-05-20 11:49 | Outpatient (REF) | payer MEDICARE, SELFPAY ==
--- OUTSIDE RECORDS SUMMARY | 2024-05-20 11:51 | XMS_ITS | Continuity of Care Document ---
Author Organization [facility] Address [address] [place] [address]- Care Team Providers Care Underwear Welter Name Role Phone Ziggy Garcia MD Primary Care Physician [phone] [id number] Date(s): 04/14/24 - 04/21/24 [facility] [address] [place] [id number] [[email or web address]] Encounter Diagnosis Leg swelling(Discharge Diagnosis) - 04/14/24 Attending Physician: Jonathan Jauregui MD Admitting Physician: Jonathan Jauregui MD Referring Physician: Ziggy Garcia MD Encounter Type: Office Visit Allergies, Adverse Reactions, Alerts Substance Criticality Severity Reaction Reaction Severity Status sulfa drugs Itching Hives Active penicillins Hives Active Novocain Itching Hives Active Benzocaine RASH, BLISTER Activ e metFORMIN upset stomach Active Immunizations Given and Recorded Vaccine Date Status Refusal Reason pneumococcal 23-valent vaccine 08/04/13 Given Medications acetaminophen-oxyCODONE 325 mg-5 mg oral tablet See Instructions, PRN, 1- 2 tablet By Mouth Every 6 hours not to exceed 4000 mg acetaminophen per day, # 56 tablet, Refills 0, Tot. Refills 0, Maintenance, Pain , Moderate, 12/07/15 10:04:31 AM EDT, Instructions Replace Required Details, Print Requisition, Tablet Start Date: 12/07/15 Status: Ordered Quantity: 56.0 Unit: tablet Repeat number: 1 Biotin By Mouth, Daily, 0 Refills, Maintenance, 06/22/21 9:59:00 AM EST, Partial fill upon patient request if the prescription is for a schedule II opioid drug. Start Date: 06/22/21 Status: Ordered Repeat number: 1 Calcium 600 +D oral tablet 1 tablet, By Mouth, Daily in AM, 0 Refills, Maintenance, 06/22/21 9:58:00 AM EST, Partial fill upon patient request if the prescription is for a schedule II opioid drug. Start Date: 06/22/21 Status: Ordered Repeat number: 1 Colace Liquid By Mouth, 2 times a day, 0 Refills, Maintenance, 09/22/23 12:58:00 PM EDT, Partial fill upon patientrequest if the prescription is for a schedule II opioid drug. Start Date: 09/22/23 Status: Ordered Repeat number: 1 gabapentin 300 mg oral capsule 300 mg, 1, capsule, By Mouth, 2 times a day, # 60 tablet, Refills 1, Tot. Refills 1, Maintenance, 12/29/15 9:58:49 AM EDT, Route to Pharmacy Electronically, [facility] [id number] Start Date: 12/29/15 Status: Ordered Quantity: 60.0 Unit: tablet Repeat number: 2 glimepiride 2 mg oral tablet 1 tablet = 2 mg, By Mouth, Daily, # 30 tablet, 0 Refills, Maintenance, 10/11/21 8:39:00 AM EDT, Tablet, Partial fill upon patient request if the prescription is for a schedule II opioid drug. Start Date: 10/11/21 Status: Ordered Quantity: 30.0 Unit: tablet Repeat number: 1 lisinopril 40 mg oral tablet 1 tablet = 40 mg, By Mouth, Daily at supper, 0 Refills, Maintenance, 07/12/13 10:21:39 AM EST Start Date: 07/12/13 Status: Ordered Repeat number: 1 Metoprolol Succinate ER 100 mg oral tablet, extended release 1.5 tablet = 150 mg, By Mouth, Daily, 0 Refills, Maintenance, 09/21/21 9:53:00 AM EDT, Partial fill upon patient request if the prescription is for a schedule II opioid drug. Start Date: 09/21/21 Status: Ordered Repeat number: 1 Nystop 632386 u/gm powder 1 application, Topically, 2 times a day, # 15 Gm, 0 Refills, Maintenance, 11/23/15 3:58:49 PM EDT, Powder Start Date: 11/23/15 Status: Ordered Quantity: 15.0 Unit: g Repeat number: 1 omeprazole 20 mg oral enteric coated capsule 1 capsule = 20 mg, By Mouth, 2 times a day, # 30 capsule, 0 Refills, Maintenance, 06/22/21 9:57:00 AM EST, EC Capsule, Partial fill upon patient request if the prescription is for a schedule II opioiddrug. Start Date: 06/22/21 Status: Ordered Quantity: 30.0 Unit: capsule Repeat number: 1 Oretic = 25 mg, By Mouth, Daily in AM, 0 Refills, Maintenance, 07/12/13 10:22:01 AM EST Start Date: 07/12/13 Status: Ordered Repeat number: 1 Simvastatin = 5 mg, By Mouth, Daily at bedtime, 0 Refills, Maintenance, 11/23/15 3:56:25 PM EDT Start Date: 11/23/15 Status: Ordered Repeat number: 1 Singulair 10 mg oral tablet 1 tablet = 10 mg, By Mouth, Daily in AM, 0 Refills, Maintenance, 07/12/13 10:20:53 AM EST Start Date: 07/12/13 Status: Ordered Repeat number: 1 Synthroid 157 mcg, By Mouth, Daily, Maintenance, 07/12/13 10:23:17 AM EST Start Date: 07/12/13 Status: Ordered Repeat number: 1 Vitamin D3 = 1,000 International_Units, By Mouth, Daily, 0 Refills, Maintenance, 07/12/13 10:26:34 AM EST Start Date: 07/12/13 Status: Ordered Repeat number: 1 ZyrTEC 10 mg oral tablet 1 tablet = 10 mg, By Mouth, Daily, 0 Refills, Maintenance, 10/29/23 2:44:00 PM EDT, Partial fill upon patient request if the prescription is for a schedule II opioid drug. Start Date: 10/29/23 Status: Ordered Repeat number: 1 Problem List Condition Confirmation Course Effective Dates Status H ealth Status Informant Asthma Confirmed Active Diabetes mellitus type 2 1 Confirmed Active Disorder of lower leg Confirmed Active Gastroesophageal reflux disease Confirmed Active Hypertensive disorder Confirmed Active Hypothyroidism Confirmed Active Low back pain Confirmed Active Breast cancer 2 Confirmed Active Morbid obesity Confirmed Active Osteoarthritis Confirmed Active Severe obesity Confirmed Active 1diet controlled 2Lef2009 Diagnosis Diagnosis Type Effective Dates [facility] Informant Leg swelling Discharge Diagnosis 04/14/24 Vital Signs Most recent to oldest [Reference Range]: 1 Height 158 cm (04/14/24 1:18 PM) Weight 109 kg (04/14/24 1:18 PM) Oxygen Saturation [94-100 %] 98 % (04/14/24 1:18 PM) Pulse Rate [55-90 bpm] 81 bpm (04/14/24 1:18 PM) Body Mass Index [18.5-24.99 kg/m2] 43.66 kg/m2 *>HHI* (04/14/24 1:18 PM) Blood Pressure [90-138/55-84 mm Hg] 100/ 60mm Hg (04/14/24 1:18 PM) Weight Obtained Via Patient/family state d (04/14/24 1:18 PM) Social History Social History Type Response Smoking Status Never smoker entered on: 10/18/13 Sex Sex Representation Female (finding) Note * Lia Castillo: PERFORM Event Display: Patient Education/Instruction Authored Date: Ambulatory Adult Visit Summary [address] [address] Name: EPIFANIO HUNTLEY : 1950?? Visit: 04/14/2024 12:49?? Ambulatory Visit Instructions ?? Your Care Team Primary Care Provider Ziggy Garcia MD? This Visit Provider Jonathan Jauregui MD Your Diagnosis Leg swelling Vitals Signs Pulse Rate: 81 bpm Height: 158 cm Systolic Blood Pressure: 100 mm Hg Weight: 109 kg Diastolic Blood Pressure: 60 mm Hg Body Mass Index:??43.66 kg/m2??Critical Oxygen Saturation: 98 % Body surface area: 2.19 What to do next Scheduled Follow-Up Appointments Friday 10:45 AM EST ?? Where: [facility] Radiology [facility] [address] [place] [address], [address] [place] [address]- Status: Pending Friday 8:30 AM EST ?? With: Gladys MARTINEZ, Charleen Singh Where: [facility] [address] [place] [address]- Status: Pending Friday 10:30 AM EST ?? Where: [facility] [address] [place] [address]- Status: Pending Friday 1:40 PM EST ?? With: Shania QUILES, Jonathan Covarrubias Where: [facility] [address] [facility] [place] [address]- Status: Pending Future Orders CBC w/ Differential - Once, *Est. 08/01/23 every 2 months (+/- 14 days) for 4 months, Single or Recurring Future Order?? Iron + Iron Binding Capacity - Once, *Est. 08/01/23 every 2 months (+/- 14 days) for 4 months, Single or Recurring Future Order?? Ferritin - Once, *Est. 08/01/23 every 2 months (+/- 14 days) for 4 months, Single or Recurring Future Order?? CBC - Routine, Once, 03/17/24 3:00:00 EDT, Single or Recurring Future Order, [facility], Blood?? Iron + Iron Binding Capacity - Routine, Once, 03/17/24 3:00:00 EDT, Single or Recurring Future Order, [facility], Blood?? Ferritin - Routine, Once, 03/17/24 3:00:00 EDT, Single or Recurring Future Order, [facility], Blood?? Medications The list below reflects the information in our records and provided by you today along with any changes made during this visit. Please continue your medications until treatment is completed or stopped by your provider. If this is different from the information you have or there are other questions,please contact the prescribing provider. What How Much When Instructions Unchanged Biotin Oral Daily Unchanged Calcium And Vitamin D Combination (Calcium 600 +D oral tablet) 1 tab(s) Oral Daily in the morning Unchanged Cetirizine (ZyrTEC 10 mg oral tablet) 1 tab(s) Oral Daily Unchanged Cholecalciferol (Vitamin D3) 1,000 International Unit Oral Daily Unchanged Docusate (Colace Liquid) Oral Twice a day Unchanged Gabapentin (gabapentin 300 mg oral capsule) 1 capsule Oral Twice a day Unchanged Glimepiride (glimepiride 2 mg oral tablet) 1 tab(s) Oral Daily Unchanged Hydrochlorothiazide (Oretic) 25 Milligram Oral Daily in the morning Unchanged Levothyroxine (Synthroid) 157 Microgram Oral Daily Unchanged Lisinopril (lisinopril 40 mg oral tablet) 1 tab(s) Oral Daily at supper Unchanged Metoprolol (Metoprolol Succinate ER 100 mg oral tablet, extended release) 1.5 tab(s) Oral Daily Unchanged Montelukast (Singulair 10 mg oral tablet) 1 tab(s) Oral Daily in the morning Unchanged Nystatin Topical (Nystop 880658 u/ gm powder) 1 taya Topically Twice a day Unchanged Omeprazole (omeprazole 20 mg oral enteric coated capsule) 1 capsule Oral Twice a day Unchanged Oxycodone / Acetaminophen (acetaminophen-oxyCODONE 325 mg-5 mg oral tablet) See instructions 1- 2 tablet By Mouth Every 6 hours not to exceed 4000 mg acetaminophen per day, As needed for Pain , Moderate ?? Unchanged Senna (Senna 8.6 mg oral tablet) 1 tab(s) Oral Daily at Bedtime with plenty of water. while taking narcotic ?? Unchanged Simvastatin 5 Milligram Oral Daily at Bedtime Medications and Immunizations Administered Medications Given During Visit No medications given during this visit.?? Allergies (NKA means No Known Allergies) Benzocaine??(RASH, BLISTER) Novocain??(Itching, Hives) metFORMIN??(upset stomach) penicillins??(Hives) sulfa drugs??(Itching, Hives) Common Emergency Awareness Tips IS IT A STROKE? Act FAST and Check for these signs: FACE Does the face look uneven? ARM Does one arm drift down? SPEECH Does their speech sound strange? TIME Call at any sign of stroke ?? Heart Attack Signs Chest discomfort: Most heart attacks involve discomfort in the center of the chest and lasts more than a few minutes, or goes away and comes back. It can feel like uncomfortable pressure, squeezing, fullness or pain. Discomfort in upper body: Symptoms can include pain or discomfort in one or both arms, back, neck, jaw or stomach. Shortness of breath: With or without discomfort. Other signs: Breaking out in a cold sweat, nausea, or lightheaded. Remember, MINUTES DO MATTER. If you experience any of these heart attack warning signs, call to get immediate medical attention! ?? Smoking can increase your chances of developing chronic health problems and can cause harmful effects to other family members in your house. If you smoke, you are strongly encouraged to quit. Please call [employer] [facility] at [phone] or [phone] ([phone]) or log in to [email or web address] for referrals to smoking cessation programs. ?? The National Suicide Prevention Hotline is available 23/12 if you or someone you know needs to find a reason to keep living. By calling 5-144-442-[employer] (5815) you'll be connected to a skilled, trained counselor at a crisis center in your area. [facility] Hot Dot Portal You can view and manage your care through the patient portal or by using a health care taya of your choosing. Mint is a website that allows you to securely view your medical information including your hospital discharge summary, office visit summaries, medications and follow-up visits. You can also request appointments, renew medications, and request access to your medical information using a health care taya of your choosing, or just ask a question. You can enroll at [email or web address] or register during your next office visit. [facility], in keeping with [facility] guidance, no longer requires face masks for staff, patientsor visitors in most situations. Similiar to time spent indoors at other locations, there is the chance that you were exposed to repiratory viruses during your time with us (such as flu or COVID-19). If you develop symptoms concerning for a viral respiratory infection, please seek testing (and treatment if indicated) from your medical provider or home test kit. ?? Disclaimer: The information provided is of a general nature and is intended to be used in conjunction with the recommendations and advice of your health care practitioner. Every effort has been made to ensure that the information provided is accurate and complete at the time it is provided to you however, as your needs change, or, as new information becomes available, different or additional instructions may be required. ?? If you have questions, please consult with your primary care provider or pharmacist, as appropriate. This information is not intended to serve as substitution for assessment and evaluation by a qualified health care provider. If you do not have a primary care provider, you may find a [facility] provider by calling [employer] at [phone]. Patient Care team information Care Team Personnel Name: Bre Owens RN Position: [facility] RN Member Role: Primary Care Nurse Name: Ziggy Garcia MD Position: Reference Physician Member Role: PCP Address: [address] [place], [place] [address] [[email or web address]] Telecom: Name: Milady Art RN Position: [facility] Regional Planner Member Role: Primary Care Nurse Care Team Related Persons Name: KOMAL HUNTLEY Insurance Providers Guarantor name: EPIFANIO HUNTLEY Health Plan Information #: 1 Payer: NA Member Number: [id number] Policy Number: NA Group Number: [id number] Health Plan Information #: 2 Payer: NA Member Number: [id number] Policy Number: NA Group Number: [id number]
--- OUTSIDE RECORDS SUMMARY | 2024-05-20 11:51 | XMS_ITS | Patient Health Record ---
Author Organization [facility] Address [address] [place] [address] Care Team Providers Care Metal Tester Name Role Phone Ziggy Garcia Primary Care Provider Ra Greenwood Unavailable [phone] Allergies Allergen (clinical drug ingredient) Drug/Non Drug Allergy documented on EMR Reaction Allergy Type Onset Date Status Yogurt Yogurt (uncoded) Unknown Allergy Act juan Novocain welts, itching, ozzing...but states CAN have Lidocaine Drug Allergy Active Penicillin rash Drug Allergy Active Metformin ER & Diagnostic Test stomach upset Drug Allergy Active Substance with sulfonamide structure and antibacterial mechanism of action (substance) Sulfa Antibiotics Unknown Drug Allergy Active Reason For Referral No Information Medications Medication SIG (Take, Route, Frequency, Duration) Notes Start Date End Date Status Albuterol Active Magnesium 100 MG 1 tablet with food Orally Four times a day for 30 day(s) Not-Taking Advair Diskus Not-Ta damaris Erythromycin Not-Luis Antonio ing Probiotic Not-Taking Melatonin Not-Taking traMADol HCl Not-Luis Antonio ing Simvastatin Active oxyCODONE-Acetaminophen PRN Active Metoprolol Succinate 150 Active Pramipexole Dihydrochloride Not-Taking Lisinopril 40 MG Orally Act juan Tamoxifen Citrate No t-Taking hydroCHLOROthiazide Active tiZANidine HCl Not-T aking Gabapentin Active Vitamin B6 250 MG 1 tablet Orally Once a day for 30 day(s) Not-Taking Lidocaine 5 % as directed Externally Three times a day for 30 days Active Vitamin D3 Not-Takin g Vitamin C Not-Taking Iron Not-Taking Synthroid 150 MCG 1 tablet in the morning on an empty stomach Orally Active Singulair 10 MG 1 tablet in the evening Orally Once a day for 30 day(s) Active Cfggki-Ypdmxakdm-RSU Complex Orally Not-Taking metFORMIN HCl Not-Ta damaris Voltaren topical/oin tment Not-Taking CeleBREX 200 MG Orally Once a day Not-Taking Adrianne Not-Taking Extra Depth Diabetic Shoes with 3 Pair Custom heat-molded multi-density innersoles for 1 year Dx: 12/22/2019 Not-Taking Immunizations Vaccine Route Administration Date Status Comme nts COVID-19 Pfizer BioNTech Vaccine Unknown 01/13/2021 Administered 1st 12/23/2020 Influenza Unknown 03/06/2015 Administered Influenza Unknown 08/07/2015 Administered Influenza Unknown 04/02/2017 Administered Influenza Unknown 02/16/2018 Administered Influenza Unknown 02/16/2021 Administered Pneumococcal Unknown 03/31/2013 Administered Social History Tobacco Use: Social History Observation Description Date Details (start date - stop date) Never Smoker NA - NA Tobacco Use/Smoking Question Answer Notes Are you a: nonsmoker Additional Findings: Tobacco Non-User Current no n-smoker Alcohol Screen Question Answer Notes Did you have a drink containing alcohol in the p ast year? No Points 0 Interpretation Negative Tobacco use other than smoking: Question Answer Notes Are you an other tobacco user? No Problems Problem Type SNOMED Code ICD Code Onset Dates Problem Status W/U Status Risk Notes Problem Neurologic disorder associated with type II diabetes mellitus (723744242) Type 2 diabetes mellitus with other diabetic neurological complication (E11.49) Active confirmed Problem Localized, primary osteoarthritis of the ankle and/or foot (646601827) Primary osteoarthritis, right ankle and foot (M19.071) Active confirmed Problem Localized, primary osteoarthritis of the ankle and/or foot (139943040) Primary osteoarthritis, left ankle and foot (M19.072) Active confirmed Problem Acquired hammer toe of right foot (0029648526635865) Other hammer toe(s) (acquired), right foot (M20.41) Active confirmed Problem Acquired hammer toe of left foot (2902396838571218) Other hammer toe(s) (acquired), left foot (M20.42) Active confirmed Plan Of Treatment Pending Test Test Name Order Date X ray : Foot, left 2V 08/08/2016 X ray : Foot, right 2V 08/08/2016 X ray : Foot, left 3V 10/03/2021 X ray : Foot, right 3V 10/03/2021 X ray : Foot, right 3V 05/18/2018 X ray : Foot, right 3V 06/24/2018 X ray : Foot, right 3V 09/23/2018 X ray : Foot, right 3V 06/18/2011 X ray : Foot, right 3V 11/27/2012 23409-UBFNUTA NAIL, 6 OR MORE 02/26/2013 73664-LAUNQSL NAIL, 6 OR MORE 08/25/2012 64814-SIOPAQR NAIL, 6 OR MORE 11/27/2012 01281-NRLLKHX NAIL, 6 OR MORE 03/03/2012 68200-MMSEXEV NAIL, 6 OR MORE 05/19/2012 06146-KHLZTHV NAIL, 6 OR MORE 09/17/2011 47190-FKUQDBL NAIL, 6 OR MORE 12/17/2011 68856-JQSPGFE NAIL, 6 OR MORE 06/11/2013 05769-GALOGNP NAIL, 6 OR MORE 09/14/2013 90347-SZBMMYL NAIL, 6 OR MORE 03/29/2014 56901-EARXXNG NAIL, 6 OR MORE 12/21/2013 89877-KCZAGAL NAIL, 6 OR MORE 10/13/2014 16012-NMNEAYS NAIL, 6 OR MORE 02/13/2015 98180-TJRAERN NAIL, 6 OR MORE 05/18/2015 01305-QJMIGHV NAIL, 6 OR MORE 12/25/2017 33009-TTCISBF NAIL, 6 OR MORE 05/22/2017 95050-AYOIPOC NAIL, 6 OR MORE 09/22/2017 68750-ZBCMRJZ NAIL, 6 OR MORE 06/18/2011 84538-KWMJRHX NAIL, 6 OR MORE 12/11/2016 49587-UXRGUIT NAIL, 6 OR MORE 03/03/2017 00015-ILBVYMC NAIL, 6 OR MORE 08/23/2015 17018-EUKHHDM NAIL, 6 OR MORE 11/27/2015 52621-KQNDEFA NAIL, 6 OR MORE 04/08/2016 98916-XNXQDDY NAIL, 6 OR MORE 08/08/2016 11140-XSOTMZF NAIL, 6 OR MORE 04/06/2018 45954-Sweablgp Plate 02/13/2015 52105-Zfrleodv Plate 10/13/2014 68342-Ezctlunr Plate 12/21/2013 40632-Uxooltwu Plate 03/29/2014 73532-Ufonrofl Plate 09/14/2013 65025-Iqefcbgd Plate 06/11/2013 25736-Afyjhjcy Plate 12/17/2011 31439-Ndgtuoui Plate 05/19/2012 27445-Qeyynfzb Plate 09/17/2011 77660-Iaksoprh Plate 11/27/2012 71884-Czxuiwnt Plate 08/25/2012 49151-Ybtoujvr Plate 02/26/2013 16333-Nnvvcgat Plate Each Additional 36855-Hkudjmej Plate Each Additional 65040-Nrxkbvzn Plate Each Additional 30086-Rurmxamz Plate Each Additional 91372-Enfewkkk Plate Each Additional 03/2014 88897-Hghitqad Plate Each Additional 44678-Dsxtxcfr Plate Each Additional 90549-Slxxfwrb Plate Each Additional 36452-GOHP SKIN LESIONS, OVER 4 08/09/19 17 80294-TVKC SKIN LESIONS, OVER 4 04/08/20 16 09864-ZMVI SKIN LESIONS, OVER 4 11/27/19 16 74388-AXSH SKIN LESIONS, OVER 4 05/22/20 17 67125-VHIL SKIN LESIONS, OVER 4 03/03/20 17 34366-RITR SKIN LESIONS, OVER 4 12/12/19 17 75096-NFPP SKIN LESIONS, OVER 4 09/23/19 18 94250-CWQF SKIN LESIONS, OVER 4 04/06/20 18 20800-QPME SKIN LESIONS, OVER 4 06/24/19 19 26028-EGHU SKIN LESIONS, OVER 4 09/24/19 19 15293-JXFX SKIN LESIONS, OVER 4 12/22/19 19 88712-VZTX SKIN LESIONS, OVER 4 03/22/20 19 44990-ZKCM SKIN LESIONS, OVER 4 06/28/19 20 03109-TRFB SKIN LESIONS, OVER 4 12/22/19 20 37607-ECFA SKIN LESIONS, OVER 4 04/03/20 20 77251-AVWT SKIN LESIONS, OVER 4 08/01/19 21 18412-PQDT SKIN LESIONS, OVER 4 11/16/19 21 58402-MVED SKIN LESIONS, OVER 4 03/29/20 21 91600-CLAG SKIN LESIONS, OVER 4 06/28/19 22 64964-EJSM SKIN LESIONS, OVER 4 05/04/20 22 79007-ACZJ SKIN LESIONS, 2 TO 4 12/26/19 18 47230-YITG SKIN LESIONS, 2 TO 4 08/23/19 16 16635-OMRI SKIN LESIONS, 2 TO 4 10/14/19 15 81098-NVGD SKIN LESIONS, 2 TO 4 02/14/20 15 25407-TGSQ SKIN LESIONS, 2 TO 4 05/18/20 15 74589-VSVX SKIN LESIONS, 2 TO 4 03/29/20 14 15062,L0624-BXA TENDON SHEATH/LIGAMENT 0 12/25/2012 92153,O8390-ATM TENDON SHEATH/LIGAMENT 0 01/12/2013 Next Appt Details Provider Name:Ra Kruse , 07/20/2024 10:00:00 AM, [address] [place], [address], Insurance Providers Payer Name Payer Address Payer Phone Subscriber Number Group Number Insured Name Patient Relationship to Insured Coverage Start Date Coverage End Date [facility] Medicare Preferred [address] [place] [address] [phone] [id number] Rain Martinez Self - patient is the insured Medical (General) History Medical History History ICD Code Arthritis asthma back, knee pain cancer cataracts hypertension reflux sciatica sinus conditions thyroid disorder chicken pox Type 2 Diabetes (borderline) kidney stones Surgical History Surgery Date(Month/Year) breast cancer surgery 10/13/2009 back surgery 11/2008 gall bladder 1989 splenectomy 1968 kidney stones 04/2009, 04/2010 left and right meniscus 7735-5149 kidney surgery for kidney stones 01/2012 back surgery 08/03/2013 knee replacement surgery, right 02/08/20 14 knee replacement surgery, left 08/01/2014 Palp removed from uterus 11/18/2016 cataract surgery 09/09/2016 colonoscopy 06/13/2020 endoscopy 06/13/2020 Thyroid surgery 02/21 Hospitalization History Reason Date(Month/Year) [facility]- blood transfusion 04/24/2020
[2024-05-20 13:46] LABS: Basophils Absolute Auto 0.1 X10*3/uL (0.0-0.2); Basophils Percent Auto 0.4 % (0-2); Eosinophils Absolute Auto 0.4 X10*3/uL (0.0-0.4); Eosinophils Percent Auto 3.1 % (0-4); Hematocrit 21.8 % (37.0-47.0); Imm Gran Abs Auto 0.03 X10*3/uL (0.00-0.03); Imm Gran Pct Auto 0.2 % (0.0-0.4); Immature Retic Fraction 25.8 % (3.0-15.9); Lymphocytes Absolute Auto 2.8 X10*3/uL (1.2-4.9); Lymphocytes Percent Auto 23.1 % (20-40); MANUAL DIFF FLAG SCAN; Mean Corpuscular HGB Conc 30.7 g/dl (31.0-35.0); Mean Corpuscular Hemoglobin 24.9 pg (27.0-33.0); Mean Platelet Volume 11.7 fL (9.4-12.3); Monocytes Absolute Auto 1.3 X10*3/uL (0.1-1.2); Monocytes Percent Auto 10.9 % (2-11); NRBC Pct Auto 0.2 /100WBC (0.0-0.2); Neutrophils Absolute Auto 7.5 x10*3/uL (2.0-8.3); Neutrophils Percent Auto 62.3 % (45-73); Platelet Count 478 X10*3/uL (160-400); Red Blood Count 2.69 X10*6/uL (4.20-5.50); Red Cell Distribution Width 16.6 % (11.0-16.0); Retic HGB Equivalent 19.3 pg (30.0-35.0); Reticulocyte Percent 2.6 % (0.5-1.8); SCAN SMEAR FLAG 1; White Blood Count 12.1 X10*3/uL (4.8-10.8)
[2024-05-20 13:51] LABS: Hemoglobin 6.7 g/dl (12.0-16.0)
[2024-05-20 14:01] LABS: Iron 16 mcg/dL (30-160); Percent Iron Saturation 5 % (15-50); Total Iron Binding Capacity 330 mcg/dL (228-428); Unsaturated Iron Binding 314 ug/dL
[2024-05-20 14:13] LABS: SLIDE REVIEW VERIFIED
[2024-05-20 14:16] LABS: Ferritin 15 ng/mL (10-250)
[2024-05-20 14:27] LABS: Folate 14.2 ng/mL (> or = 4.0); Vitamin B12 342 pg/mL (200-900)
== END 2024-05-20 11:50 | disposition home or self-care (01) ==
LOC: HO.HMGCLR 11:49
PROVIDERS: PCP Internal Medicine; Visit Provider Internal Medicine
DX: D64.9 Anemia, unspecified (principal)
CPT/HCPCS: 36415; 82607; 82728; 82746; 83540; 85025; 85045

== ENCOUNTER 2024-05-21 09:00 | Emergency (ER) | payer MEDICARE, SELFPAY ==
[2024-05-21] VITALS (13 sets, daily range): BP systolic 88–142; BP diastolic 30–68; PULSE 63–78; RESP 14–20; TEMP 36.2–37.2; O2SAT 97–98; BMI 44.4
--- NOTE | ~2024-05-21 | XR_ITS ---
EXAMINATION: XR CHEST CLINICAL INFORMATION: Exertional dyspnea. Pedal edema COMPARISON: X-ray dated July 01, 2019 TECHNIQUE: 2 views of the chest were obtained. FINDINGS: Pulmonary reticular pattern. No gross consolidation pleural effusion or pneumothorax. Cardiomediastinal silhouette demonstrates a tortuous thoracic aorta with the questionable hiatal hernia. Altered level thoracic spondylosis. XR/XR chest 2V IMPRESSION: No acute airspace disease. Hiatal hernia. Electronically signed by: Bart Damon MD 05/21/2024 12:54 PM EST
--- OUTSIDE RECORDS SUMMARY | 2024-05-21 09:28 | XMS_ITS | Patient Health Record ---
[facility] Address [address] [place] [address] Care Team Providers Care Design Engineer Products Name Role Phone Ziggy Garcia Primary Care Provider Ra Greenwood Unavailable [phone] Allergies Allergen (clinical drug ingredient) Drug/Non Drug [...] Once a day for 30 day(s) Active Osemzo-Xutaizbga-XSZ Complex Orally Not-Taking metFORMIN HCl Not-Ta damaris [...] disorder associated with type II diabetes mellitus (869038900) Type 2 diabetes mellitus with other diabetic neurological complication (E11.49) Active confirmed Problem Localized, primary osteoarthritis of the ankle and/or foot (064954785) Primary osteoarthritis, right ankle and foot (M19.071) Active confirmed Problem Localized, primary osteoarthritis of the ankle and/or foot (963094106) Primary osteoarthritis, left ankle and foot (M19.072) Active confirmed Problem Acquired hammer toe of right foot (8729186423008063) Other hammer toe(s) (acquired), right foot (M20.41) Active confirmed Problem Acquired hammer toe of left foot (2512559798904209) Other hammer toe(s) (acquired), left foot (M20.42) [...] X ray : Foot, right 3V 11/27/2012 64720-NWRWXVR NAIL, 6 OR MORE 02/26/2013 32621-BKUUXSX NAIL, 6 OR MORE 08/25/2012 40331-XNXWDKD NAIL, 6 OR MORE 11/27/2012 13433-NAVUZMA NAIL, 6 OR MORE 03/03/2012 93519-OLEKGQD NAIL, 6 OR MORE 05/19/2012 54583-EGAFWET NAIL, 6 OR MORE 09/17/2011 82734-PJUWLOR NAIL, 6 OR MORE 12/17/2011 97293-XAHUJRN NAIL, 6 OR MORE 06/11/2013 94086-SMPEWZE NAIL, 6 OR MORE 09/14/2013 55607-MTZZSHO NAIL, 6 OR MORE 03/29/2014 27694-YFFJNKR NAIL, 6 OR MORE 12/21/2013 19881-DNGNHHQ NAIL, 6 OR MORE 10/13/2014 94330-SVKDTRC NAIL, 6 OR MORE 02/13/2015 12390-QVCZQQA NAIL, 6 OR MORE 05/18/2015 09473-AJCHKXU NAIL, 6 OR MORE 12/25/2017 05074-BRCEPMR NAIL, 6 OR MORE 05/22/2017 33256-JXPQYLH NAIL, 6 OR MORE 09/22/2017 10924-MSHWSTU NAIL, 6 OR MORE 06/18/2011 83739-GDGMIBH NAIL, 6 OR MORE 12/11/2016 69053-LFLZPVR NAIL, 6 OR MORE 03/03/2017 83564-GJIUCYA NAIL, 6 OR MORE 08/23/2015 66276-FFVTZYK NAIL, 6 OR MORE 11/27/2015 83677-CWISOBN NAIL, 6 OR MORE 04/08/2016 71139-TPDGMHI NAIL, 6 OR MORE 08/08/2016 77815-BFXWYRA NAIL, 6 OR MORE 04/06/2018 13604-Empkdkmq Plate 02/13/2015 51190-Yindkvdb Plate 10/13/2014 48042-Gpphawov Plate 12/21/2013 29138-Vkjdoufa Plate 03/29/2014 50935-Gcvojyqf Plate 09/14/2013 33761-Tpmzggte Plate 06/11/2013 98926-Ptlohmxa Plate 12/17/2011 23942-Euxhqncm Plate 05/19/2012 83030-Xxkcelnz Plate 09/17/2011 89385-Zpyybndc Plate 11/27/2012 28473-Jizxcane Plate 08/25/2012 43059-Uovlcscc Plate 02/26/2013 75334-Jdugawnl Plate Each Additional 55932-Sifpefhd Plate Each Additional 80879-Ahuykxgm Plate Each Additional 37518-Yfbnzfhr Plate Each Additional 67915-Duzyuggj Plate Each Additional 03/2014 45922-Jkjpqifw Plate Each Additional 44487-Vahxftya Plate Each Additional 25280-Ejnkiafx Plate Each Additional 59401-RKCQ SKIN LESIONS, OVER 4 08/09/19 17 53720-NONX SKIN LESIONS, OVER 4 04/08/20 16 33056-YMVH SKIN LESIONS, OVER 4 11/27/19 16 09965-UGQZ SKIN LESIONS, OVER 4 05/22/20 17 62292-JHII SKIN LESIONS, OVER 4 03/03/20 17 98893-ZEDJ SKIN LESIONS, OVER 4 12/12/19 17 31835-TVDS SKIN LESIONS, OVER 4 09/23/19 18 73057-AIRS SKIN LESIONS, OVER 4 04/06/20 18 50992-BINI SKIN LESIONS, OVER 4 06/24/19 19 84736-ONIT SKIN LESIONS, OVER 4 09/24/19 19 83713-SSFG SKIN LESIONS, OVER 4 12/22/19 19 48106-IROR SKIN LESIONS, OVER 4 03/22/20 19 15279-UPDG SKIN LESIONS, OVER 4 06/28/19 20 35476-TAVH SKIN LESIONS, OVER 4 12/22/19 20 03481-RMIH SKIN LESIONS, OVER 4 04/03/20 20 89668-EWPF SKIN LESIONS, OVER 4 08/01/19 21 90266-VMKA SKIN LESIONS, OVER 4 11/16/19 21 14993-WQYR SKIN LESIONS, OVER 4 03/29/20 21 85885-VTGF SKIN LESIONS, OVER 4 06/28/19 22 43758-MNGP SKIN LESIONS, OVER 4 05/04/20 22 65133-GAJJ SKIN LESIONS, 2 TO 4 12/26/19 18 92642-WONN SKIN LESIONS, 2 TO 4 08/23/19 16 16526-JYJH SKIN LESIONS, 2 TO 4 10/14/19 15 05199-PLEN SKIN LESIONS, 2 TO 4 02/14/20 15 92117-FQOM SKIN LESIONS, 2 TO 4 05/18/20 15 58226-FXBO SKIN LESIONS, 2 TO 4 03/29/20 14 07495,S9900-LXI TENDON SHEATH/LIGAMENT 0 12/25/2012 99282,R0914-CMY TENDON SHEATH/LIGAMENT 0 01/12/2013 Next Appt Details Provider Name:Ra Kruse , 07/20/2024 10:00:00 AM, [address] [place], [address], Insurance Providers Payer Name Payer Address Payer Phone Subscriber Number Group Number Insured Name Patient Relationship to Insured Coverage Start Date Coverage End Date [facility] 65 Medicare Preferred [address] [place] [address] [id number] Rain Martinez Self - patient is the insured Medical (General) History Medical History History ICD Code Arthritis asthma back, knee pain cancer cataracts hypertension reflux sciatica sinus conditions thyroid disorder chicken pox Type 2 Diabetes (borderline) kidney stones Surgical History Surgery Date(Month/Year) breast cancer surgery 10/13/2009 back surgery 11/2008 gall bladder 1989 splenectomy 1968 kidney stones 04/2009, 04/2010 left and right meniscus [id number] kidney surgery for kidney stones 01/2012 back surgery 08/03/2013 knee replacement surgery, right 02/08/20 14 knee replacement surgery, left 08/01/2014 Palp removed from uterus 11/18/2016 cataract surgery 09/09/2016 colonoscopy 06/13/2020 endoscopy 06/13/2020 Thyroid surgery 02/21 Hospitalization History Reason Date(Month/Year) [facility]- blood transfusion 04/24/2020
--- NOTE | 2024-05-21 09:38 | PC.NURSE ---
18G to LAC. Tolerated well. Good blood return.
[2024-05-21 09:42] LABS: MANUAL DIFF FLAG NO
--- NOTE | 2024-05-21 09:48 | PC.NURSE ---
pt a&ox3, vss, iv inserted, labs drawn, monitoring analyst applied- sinus ajay on monitor, rr equal/non labored- lungs clear throughout. pt awaiting lab results and re-eval of provider.
--- NOTE | 2024-05-21 09:57 | ED.RECABL ---
HPI - Recheck/Abnormal Lab/Rx General Chief Complaint: Recheck/Abnormal Lab/Rx Stated Complaint: low iron Time Seen by Provider: 05/21/24 09:45 Source: patient, RN notes reviewed and old records reviewed History of Present Illness ED Provider: Nika Gaines PA-C HPI narrative: 73-year-old female with a past medical history of PVD, hyperparathyroidism, splenectomy, anemia, GI bleed from stomach lesions - follows with [facility], due for another EGD with argon laser at the end of this month, HLD, asthma, HTN, GERD, diabetes, presenting to the ED complaining of exertional dyspnea, LE edema, and low H&H (6.7/21.8) on outpatient labs yesterday. Reports last transfusion at our facility on 04/20/24. Denies bloody stools, melena, hematemesis, abdominal pain Related Data Home Medications ?Medication ?Instructions ?Recorded ?Confirmed biotin 5,000 mcg disintegrating 5,000 mcg PO DAILY 05/03/20 08/29/23 tablet multivitamin 1 tab PO DAILY 05/03/20 08/29/23 Previous Rx's ?Medication ?Instructions ?Recorded albuterol sulfate 2.5 mg/3 mL 2.5 mg (3 mL) inhalation TID 09/13/20 (0.083 %) solution for nebulization days #810 mL blood sugar diagnostic 1 strip miscellaneous TID 90 days 04/29/22 #300 ea miconazole nitrate 2 % topical 1 appl topical BID #85 grams 01/10/23 powder (Zeasorb AF) Diabetic shoes and 3 custom #1 ea 01/31/23 inserts fexofenadine 180 mg tablet 180 mg PO DAILY 90 days #90 tabs 01/31/23 (Adrianne Allergy) blood sugar diagnostic (OneTouch #100 ea 04/18/23 Ultra Test strips) blood-glucose meter (OneTouch #1 ea 04/18/23 Ultra2 Meter) hydrochlorothiazide 25 mg tablet 25 mg PO DAILY #90 tabs 06/17/23 metoprolol succinate 100 mg See Rx Instructions .Route DAILY 06/17/23 tablet,extended release 24 hr #90 tabs metoprolol succinate 50 mg 50 mg PO DAILY #90 tabs 06/17/23 tablet,extended release 24 hr DIABETIC SHOES WITH CUSTOM INSERTS #1 ea 08/29/23 gabapentin 300 mg capsule 300 mg PO BID #180 caps 08/29/23 glimepiride 2 mg tablet 2 mg PO QAM #90 tabs 08/29/23 levothyroxine 150 mcg capsule 150 mcg PO DAILY 90 days #90 caps 08/29/23 lidocaine 5 % topical ointment 1 appl topical QID PRN pain #3 ea 08/29/23 montelukast 10 mg tablet 10 mg PO QPM #90 tabs 08/29/23 nystatin 100,000 unit/gram topical 1 appl topical BID-TID #6 ea 08/29/23 powder (Wyamy) simvastatin 5 mg tablet 5 mg PO BEDTIME #90 tabs 08/29/23 lancets 33 gauge (OneTouch Delica #100 ea 10/01/23 Plus Lancet) levothyroxine 150 mcg tablet 150 mcg PO DAILY 90 days #90 tabs 02/20/24 oxycodone-acetaminophen 5 mg-325 1 tab PO Q6H PRN pain #180 tabs 02/20/24 mg tablet (Percocet) lisinopril 40 mg tablet 40 mg PO DAILY #90 tabs 04/15/24 omeprazole 20 mg capsule,delayed 20 mg PO BID #180 caps 04/15/24 release Allergies Allergy/AdvReac Type Severity Reaction Status Date / Time benzocaine [Benzocaine] Allergy Intermediate HIVES Verified 05/21/24 09:05 Sulfa (Sulfonamide Allergy Intermediate HIVES Verified 05/21/24 09:05 Antibiotics) Penicillins Allergy Mild RASH Verified 05/21/24 09:05 cyanocobalamin (vitamin B12) Allergy Unknown Complex Verified 05/21/24 09:05 [Vitamin B12] metformin Allergy Unknown diarrhea Verified 05/21/24 09:05 oxycodone [OXYCODONE] Allergy Unknown SEVERE Verified 05/21/24 09:05 NAUSEA procaine [From Novocain] Allergy Unknown Unknown Verified 05/21/24 09:05 Review of Systems Review of Systems: Yes all other systems are reviewed and are negative Constitutional: Constitutional: Reports as per [facility] Past Medical History Attestation statement: The following information was validated with the patient. Source: old records reviewed Medical History Low back pain Skin cancer History of ITP History of cataract History of renal calculi Hypercholesterolemia Hypothyroid Insomnia History of breast cancer Thyroid nodule DDD (degenerative disc disease), lumbosacral Asthma Restless leg syndrome Osteoarthritis Peripheral vascular disease Hypertension GERD (gastroesophageal reflux disease) Surgical History Back pain with history of spinal surgery History of splenectomy History of arthroplasty of left knee History of removal of cyst History of hysteroscopy History of arthroscopy of left knee History of knee replacement procedure of right knee Family History Family History Father Diabetes Hypertension Mother Hypertension Liver cancer Brother Liver cancer Social History Social History Housing: House Alcohol intake: never Patient Tobacco Use Status: Never used Tobacco Smoked in Last 30 Days: No e-Cigarette/Vaping Use: Never Used Second Hand Smoke Exposure: No Use of substances other than those prescribed or required for medical reasons: No Advance Directives: No Advance Directives Information Provided: Yes service: No Current occupational status: retired Cognitive needs: No Hearing needs: No Vision needs: Yes Physical Exam Vital Signs: Vital Signs: Last Vital Signs Temp 98.4 F 05/21/24 14:12 Pulse 70 05/21/24 14:12 Resp 18 05/21/24 14:12 BP 100/43 L 05/21/24 14:12 Pulse Ox 98 05/21/24 13:40 O2 Del Method Room Air 05/21/24 13:40 BMI result Body Mass Index 44.4 Const: Other: Mildly pale General: cooperative and no acute distress Nutritional Appearance: obese Orientation/consciousness: patient oriented x3 Limitations: no limitations HEENT: Head: Yes normal to inspection and Yes atraumatic Ears: hearing grossly normal bilaterally General nose exam: Normal external nose present Face and sinus: Yes normal facial exam Eyes: General: appearance normal, both eyes and all related structures EOM: EOMs intact bilaterally Neck: Neck: Yes normal visual inspection and Yes no meningeal signs Resp: Effort & Inspection: normal respiratory effort and no respiratory distress Auscultation: clear to auscultation bilaterally, no crackles and no wheezes Cardio: Rate: regular rate Heart sounds: S1 normal heart sound present and S2 normal heart sound present GI: Inspection: Yes normal to inspection Palpation (GI): Soft to palpation, nontender, no guarding and not rigid : General: Yes no CVA tenderness Back/Spine/Pelvis: Back: no CVA tenderness Skin: Rashes: no rashes Wounds: no wounds Neuro: General: patient oriented x3, tone normal and no meningeal signs Cranial nerves: Yes CN's II-XII intact bilaterally Gait exam (Neuro): Normal gait present Extrem: Other: + bilateral LE edema General: Yes normal to inspection Course Course Course Narrative: -1030--H/H low at 6.4/20.3 > drops from yesterday. Will transfuse 2 units RBCs. Blood consent signed & in inpatients chart. -labs otherwise reassuring -BNP 256 -1130--ED care transferred to [facility] pending CXR, transfusion, and re-evaluation. Reevaluation(s) Reevaluation #1: CXR unremarkable. No airspace disease. Hiatal hernia noted. Patient feeling better. Systolic pressure 111. Patient a & O x 4 no signs of hemodynamic instabillity. Will dc home after second unit. Time: 13:31 Reevaluation #2: Patient's CBC much improved hemoglobin 7.1, initially was 6.4 this was after 1 unit of PRBCs. Another unit is going to be hung at this time. Blood pressure improving. Patient feeling much better. Will discharge after she receives blood. Educated patient on diagnosis and treatment plan, answered all question, patient verbalizes understanding. At this time patient will be discharged home, advised to return with new or worsening symptoms. Educated on worrisome signs and symptoms and when to return. At this time I feel comfortable discharge home. Time: 14:56 Medical Decision Making Medical Decision Making MDM Narrative: 73-year-old female with a past medical history of PVD, hyperparathyroidism, splenectomy, anemia, GI bleed from stomach lesions - follows with [facility], due for another EGD with argon laser at the end of this month, HLD, asthma, HTN, GERD, diabetes, presenting to the ED complaining of exertional dyspnea, LE edema, and low H&H (6.7/21.8) on outpatient labs yesterday. On exam BP soft, NAD, nontoxic appearing, abdomen soft/nontender, bilateral LE edema appreciated, lungs CTA. Concern for acute on chronic GI bleed vs CHF. Lower suspicion for ACS/PE or DVT. Rule out pneumonia. Plan: EKG, labs, CXR, type and screen, transfusion Please refer to course for remaining clinical decision making, interpretation of labs/imaging results, and discussions with consultants and/or family members. Differential Diagnosis Differential Diagnoses: The differential diagnosis associated with the presentation includes As above Admission/Observation Consideration of admission/observation: Escalation of care including admission/observation considered Lab Data MDM Lab Attestation statement: I reviewed the patient's lab results. 05/21/24 14:43 05/21/24 09:36 Labs: Lab Results 05/21/24 05/21/24 05/21/24 Range/Units 09:36 10:25 14:43 WBC 8.9 8.8 (4.8-10.8) X10*3/uL RBC 2.54 L 2.74 L (4.20-5.50) X10*6/uL Hgb 6.4 L* 7.1 L (12.0-16.0) g/dl Hct 20.3 L* 22.4 L (37.0-47.0) % MCV 79.9 L 81.8 (80.0-98.0) fL MCH 25.2 L 25.9 L (27.0-33.0) pg MCHC 31.5 31.7 (31.0-35.0) g/dl RDW 16.3 H 16.1 H (11.0-16.0) % Plt Count 474 H 425 H (160-400) X10*3/uL MPV 11.3 10.7 (9.4-12.3) fL Immature Gran % (Auto) 0.5 H 0.5 H (0.0-0.4) % Neut % (Auto) 60.8 59.4 (45-73) % Lymph % (Auto) 23.3 24.9 (20-40) % Hamilton % (Auto) 11.4 H 10.7 (2-11) % Eos % (Auto) 3.2 3.7 (0-4) % Baso % (Auto) 0.8 0.8 (0-2) % Lymph # (Auto) 2.1 2.2 (1.2-4.9) X10*3/uL Hamilton # (Auto) 1.0 0.9 (0.1-1.2) X10*3/uL Eos # (Auto) 0.3 0.3 (0.0-0.4) X10*3/uL Baso # (Auto) 0.1 0.1 (0.0-0.2) X10*3/uL Abs Immat Gran (auto) 0.04 H 0.04 H (0.00-0.03) X10*3/uL Absolute Neuts (auto) 5.4 5.2 (2.0-8.3) x10*3/uL Absolute Nucleated RBC 0.020 H 0.020 H (0.0-0.012) X10*3/uL Nucleated RBC % (auto) 0.2 0.2 (0.0-0.2) /100WBC PT 11.8 (10.9-12.4) SEC INR 1.0 (0.9-1.1) Sodium 141 (135-145) mmol/L Potassium 4.0 (3.3-5.1) mmol/L Chloride 106 (96-108) mmol/L Carbon Dioxide 26 (22-29) mmol/L Anion Gap 13 (12-20) BUN 32 H (9-16) mg/dL Creatinine 1.14 (0.5-1.4) mg/dL Estim Creat Clear Calc 50.7 Estimated GFR 47 Random Glucose 108 (60-115) mg/dL Calcium 9.6 (8.4-10.2) mg/dL Magnesium 1.7 (1.6-2.6) mg/dL Total Bilirubin 0.2 (0.0-1.0) mg/dL AST 20 (5-31) U/L ALT 13 (0-31) U/L Alkaline Phosphatase 81 (39-117) U/L B-Natriuretic Peptide 256 H (<100) pg/mL Total Protein 6.3 L (6.5-8.0) g/dL Albumin 3.6 (3.5-5.0) g/dL Lipase 25 (8-78) U/L Blood Type A Negative Antibody Screen NEGATIVE Crossmatch See Detail Independent Interpretation I performed an independent interpretation of an: EKG Radiology Impression Discussion of test interpretation with radiology: I have reviewed the radiologist's reading. External Record Review External record reviewed: Inpatient record, Office record, Outpatient record, Prior outpatient labs, Prior outpatient radiology, Primary care record and Outside ED record Tests considered The following testing was considered but not selected: As above Prescription Management I considered prescription management with: Other Chronic Conditions Patient?s care impacted by: Diabetes, Hypertension and Other Social Determinants Patient?s care significantly limited by Social Determinants of Health including: Other Social Determinant of Health Critical Care Time Critical Care Time Critical Care Time: Yes Total Critical Care Time: 40 Attestation: I have personally provided critical care time exclusive of time spent on separately billable procedures. Time includes review of lab data, radiology results, discussion with consultants, and monitoring for potential decompensation. Intervention performed as documented. Discharge Plan Discharge Clinical Impression: Anemia, Hernia, hiatal Patient Disposition: Home, Self-Care Instructions: Anemia (ED) Additional Instructions: Take your medications as prescribed. If you were prescribed antibiotics today, it is important that you take your medication to their entirety, do not skip any doses, do not finish them early. Follow-up with your primary care provider this week. Return to the emergency department with new or worsening symptoms. Such as fevers, chills, chest pain, shortness of breath, nausea, vomiting, dizziness, headache, vision changes, lethargy In case of emergency call 911 Please follow-up with your PCP. XR/XR chest 2V IMPRESSION: No acute airspace disease. Hiatal hernia. Electronically signed by: Bart Damon MD 05/21/2024 12:54 PM [facility] [place] Prescriptions: No Action albuterol sulfate 2.5 mg /3 mL (0.083 %) solution for nebulization 2.5 mg inhalation TID 90 Days Qty: 810 3RF blood sugar diagnostic Strip 1 strip miscellaneous TID 90 Days Qty: 300 3RF miconazole nitrate [Zeasorb AF] 2 % powder 1 appl topical BID Qty: 85 11RF (DME) blood-glucose meter [OneTouch Ultra2 Meter] Mis See Rx Instructions .Route Qty: 1 0RF Rx Instructions: test once per day (DME) OneTouch Ultra Test Strip See Rx Instructions .Route Qty: 100 4RF Rx Instructions: test once per day hydrochlorothiazide 25 mg tablet 25 mg PO DAILY Qty: 90 3RF metoprolol succinate 100 mg tablet extended release 24 hr See Rx Instructions .ROUTE DAILY Qty: 90 3RF Rx Instructions: take 100 mg with 50 mg =150 mg daily; metoprolol succinate 50 mg tablet extended release 24 hr 50 mg PO DAILY Qty: 90 3RF (DME) lancets [OneTouch Delica Plus Lancet] 33 gauge misc See Rx Instructions .Route Qty: 100 3RF Rx Instructions: As directed check the BS once a day levothyroxine 150 mcg tablet 150 mcg PO DAILY 90 Days Qty: 90 3RF oxycodone-acetaminophen [Percocet] 5-325 mg tablet 1 tab PO Q6H PRN (Reason: pain) Qty: 180 0RF omeprazole 20 mg capsule,delayed release(DR/EC) 20 mg PO BID Qty: 180 2RF lisinopril 40 mg tablet 40 mg PO DAILY Qty: 90 3RF multivitamin Tablet 1 tab PO DAILY biotin 5,000 mcg tablet,disintegrating 5,000 mcg PO DAILY (DME) Diabetic shoes and 3 custom inserts See Rx Instructions .Route .MEDSUPPLY Qty: 1 0RF Rx Instructions: As directed fexofenadine [Adrianne Allergy] 180 mg tablet 180 mg PO DAILY 90 Days Qty: 90 3RF (DME) DIABETIC SHOES WITH CUSTOM INSERTS See Rx Instructions .Route .MEDSUPPLY Qty: 1 0RF Rx Instructions: As directed levothyroxine 150 mcg capsule 150 mcg PO DAILY 90 Days Qty: 90 3RF glimepiride 2 mg tablet 2 mg PO QAM Qty: 90 3RF montelukast 10 mg tablet 10 mg PO QPM Qty: 90 3RF simvastatin 5 mg tablet 5 mg PO BEDTIME Qty: 90 3RF gabapentin 300 mg capsule 300 mg PO BID Qty: 180 3RF lidocaine 5 % ointment 1 appl topical QID PRN (Reason: pain) Qty: 3 3RF nystatin [Nyamyc] 100,000 unit/gram powder 1 appl topical BID-TID Qty: 6 3RF Referrals: Po,Ziggy Antunez MD [Primary Care Provider] - 2 days Print Language: South Korean
--- NOTE | 2024-05-21 10:03 | ECG_ITS ---
Test Reason : EXERCIAL DYSPNEA Blood Pressure : / mmHG Vent. Rate : 063 BPM Atrial Rate : 063 BPM P-R Int : 158 ms QRS Dur : 112 ms QT Int : 430 ms P-R-T Axes : 043 012 -11 degrees QTc Int : 440 ms Normal sinus rhythm Incomplete right bundle branch block ST & T wave abnormality, consider inferior ischemia Abnormal ECG When compared with ECG of 20-APR-2024 11:00, No significant change was found Referred By: Nika Gaines Electronically Signed By:AMOS NELSON
[2024-05-21 10:05] LABS: Basophils Absolute Auto 0.1 X10*3/uL (0.0-0.2); Basophils Percent Auto 0.8 % (0-2); Eosinophils Absolute Auto 0.3 X10*3/uL (0.0-0.4); Eosinophils Percent Auto 3.2 % (0-4); Imm Gran Abs Auto 0.04 X10*3/uL (0.00-0.03); Imm Gran Pct Auto 0.5 % (0.0-0.4); Lymphocytes Absolute Auto 2.1 X10*3/uL (1.2-4.9); Lymphocytes Percent Auto 23.3 % (20-40); Mean Corpuscular HGB Conc 31.5 g/dl (31.0-35.0); Mean Corpuscular Hemoglobin 25.2 pg (27.0-33.0); Mean Corpuscular Volume 79.9 fL (80.0-98.0); Mean Platelet Volume 11.3 fL (9.4-12.3); Monocytes Percent Auto 11.4 % (2-11); NRBC Pct Auto 0.2 /100WBC (0.0-0.2); Neutrophils Absolute Auto 5.4 x10*3/uL (2.0-8.3); Neutrophils Percent Auto 60.8 % (45-73); Platelet Count 474 X10*3/uL (160-400); Red Blood Count 2.54 X10*6/uL (4.20-5.50); Red Cell Distribution Width 16.3 % (11.0-16.0); White Blood Count 8.9 X10*3/uL (4.8-10.8)
[2024-05-21 10:06] LABS: Albumin Level 3.6 g/dL (3.5-5.0); Anion Gap 13 (12-20); Aspartate Amino Transferase 20 U/L (5-31); Bilirubin Total 0.2 mg/dL (0.0-1.0); Blood Urea Nitrogen 32 mg/dL (9-16); Calcium 9.6 mg/dL (8.4-10.2); Carbon Dioxide 26 mmol/L (22-29); Chloride 106 mmol/L (96-108); Creatinine Clr Calc Pharmacy 50.7; Estimated Glomerular Filt Rate 47; Glucose Random 108 mg/dL (60-115); Sodium 141 mmol/L (135-145); Total Protein 6.3 g/dL (6.5-8.0)
[2024-05-21 10:11] LABS: Hemoglobin 6.4 g/dl (12.0-16.0)
[2024-05-21 10:12] LABS: Hematocrit 20.3 % (37.0-47.0)
[2024-05-21 10:32] LABS: Alanine Aminotransferase 13 U/L (0-31); Alkaline Phosphatase 81 U/L (39-117)
[2024-05-21 10:35] LABS: Lipase 25 U/L (8-78); Magnesium 1.7 mg/dL (1.6-2.6)
--- NOTE | 2024-05-21 10:39 | PC.NURSE ---
provider is aware of lower BP, pt asymptomatic of it and states she has been lower recently
[2024-05-21 10:41] LABS: Prothrombin Time 11.8 SEC (10.9-12.4)
[2024-05-21 10:53] LABS: B Type Natriuretic Peptide 256 pg/mL (<100)
--- NOTE | 2024-05-21 12:07 | PC.NURSE ---
blood was late being started as patient was moving around in the bed and this nurse was unable to obtain a BPx2, pt was asked to sit without moving until the BP was completed.
--- NOTE | 2024-05-21 12:34 | PC.NURSE ---
patient a&ox3, pt continues to be asymptomatic of the mild hypotension, personnel monitor intact, pt tolerating transfusion well, call grewal within reach, plan of care ongoing.
--- NOTE | 2024-05-21 13:17 | PC.NURSE ---
pt ambulated to bathroom with steady gait with wheeled walker that she uses at baseline. pt also asking if we can make the blood transfusions go quicker so she could get back home to her who she cares for. This nurse notified the patient of the procedure of getting the blood as well as the repeat blood work that will be required after she obtains the 2 units. pt agreeable to it at this time.
--- NOTE | 2024-05-21 13:41 | PC.NURSE ---
due to the patient wanting to discharge as soon as she can, the patient will have a repeat H&H after her 1st unit per request of provider, then a decision will be made if she needs the second unit at that point. will notify tech of this.
[2024-05-21 14:47] LABS: Basophils Absolute Auto 0.1 X10*3/uL (0.0-0.2); Basophils Percent Auto 0.8 % (0-2); Eosinophils Absolute Auto 0.3 X10*3/uL (0.0-0.4); Eosinophils Percent Auto 3.7 % (0-4); Hematocrit 22.4 % (37.0-47.0); Hemoglobin 7.1 g/dl (12.0-16.0); Imm Gran Abs Auto 0.04 X10*3/uL (0.00-0.03); Imm Gran Pct Auto 0.5 % (0.0-0.4); Lymphocytes Absolute Auto 2.2 X10*3/uL (1.2-4.9); Lymphocytes Percent Auto 24.9 % (20-40); MANUAL DIFF FLAG NO; Mean Corpuscular HGB Conc 31.7 g/dl (31.0-35.0); Mean Corpuscular Hemoglobin 25.9 pg (27.0-33.0); Mean Corpuscular Volume 81.8 fL (80.0-98.0); Mean Platelet Volume 10.7 fL (9.4-12.3); Monocytes Absolute Auto 0.9 X10*3/uL (0.1-1.2); Monocytes Percent Auto 10.7 % (2-11); NRBC Pct Auto 0.2 /100WBC (0.0-0.2); Neutrophils Absolute Auto 5.2 x10*3/uL (2.0-8.3); Neutrophils Percent Auto 59.4 % (45-73); Platelet Count 425 X10*3/uL (160-400); Red Blood Count 2.74 X10*6/uL (4.20-5.50); Red Cell Distribution Width 16.1 % (11.0-16.0); White Blood Count 8.8 X10*3/uL (4.8-10.8)
--- NOTE | 2024-05-21 15:44 | PC.NURSE ---
pt a&ox3, vss, pt 2nd unit rbc has been started, per request of provider, pts blood will run at 200 per hr. pt aware to ring if she begins having any sob or other s/s of reaction. frickertron checker intact, call grewal within reach, plan of care ongoing.
== END 2024-05-21 18:17 | disposition home or self-care (01) ==
PROVIDERS: Physician Assistant; Emergency Provider Emergency Medicine Emergency Medical Services; PCP Internal Medicine
DX: D64.9 Anemia, unspecified (principal); K44.9 Diaphragmatic hernia without obstruction or gangrene; R06.00 Dyspnea, unspecified; I10 Essential (primary) hypertension; E11.9 Type 2 diabetes mellitus without complications; K21.9 Gastro-esophageal reflux disease without esophagitis; I73.9 Peripheral vascular disease, unspecified; Z79.899 Other long term (current) drug therapy
CPT/HCPCS: 36415; 36430; 71046; 80053; 83690; 83735; 83880; 85025; 85610; 86850; 86900; 86901; 86923; 93005; 99285; P9016

== ENCOUNTER → 2024-05-21 10:00 | Outpatient (BNV) | payer MEDICARE, SELFPAY | PROVIDERS: Emergency Provider Emergency Medicine Emergency Medical Services; PCP Internal Medicine; Visit Provider Radiology Diagnostic Radiology | DX: K44.9 Diaphragmatic hernia without obstruction or gangrene (principal); R06.09 Other forms of dyspnea | CPT/HCPCS: 71046 ==

== ENCOUNTER → 2024-05-21 10:03 | Outpatient (BNV) | payer MEDICARE, SELFPAY | PROVIDERS: Emergency Provider Emergency Medicine Emergency Medical Services; PCP Internal Medicine; Visit Provider Internal Medicine | DX: R06.09 Other forms of dyspnea (principal); I45.19 Other right bundle-branch block; R94.31 Abnormal electrocardiogram [ECG] [EKG] | CPT/HCPCS: 93010 ==

== ENCOUNTER 2024-07-26 12:59 | Outpatient (AMB) | payer MEDICARE, SELFPAY ==
[2024-07-26 13:01] VITALS: BP 134/68; PULSE 74; O2SAT 96; BMI 44.6
--- NOTE | 2024-07-26 13:01 | A.OFFPC_ITS ---
Vital Signs 07/26/24 13:01 Height 5 ft 2 in Weight 244 lb BMI 44.6 BP 134/68 Blood Pressure Location Lt brachial Position Sitting Pulse 74 Pulse Source Pulse Oximeter Pulse Oximetry (%) 96 Oxygen Delivery Method Room Air Intake Visit Reasons: DM Allergies benzocaine [Benzocaine] Allergy (Intermediate, Verified 07/26/24 13:01) HIVES Sulfa (Sulfonamide Antibiotics) Allergy (Intermediate, Verified 07/26/24 13:01) HIVES Penicillins Allergy (Mild, Verified 07/26/24 13:01) RASH cyanocobalamin (vitamin B12) [Vitamin B12] Allergy (Unknown, Verified 07/26/24 13:01) Complex metformin Allergy (Unknown, Verified 07/26/24 13:01) diarrhea oxycodone [OXYCODONE] Allergy (Unknown, Verified 07/26/24 13:01) SEVERE NAUSEA procaine [From Novocain] Allergy (Unknown, Verified 07/26/24 13:01) Unknown Tobacco use date assessed: 07/26/24 Fall risk assessment: No Falls in past year Last assessed Fall Risk: 07/26/24 Dental Screening Dental Screen Date: 07/26/24 Did you have a dental visit in the last 12 months?: Yes Did you have a dental problem in the last 6 months where you did not have access to dental care?: No Was dental information given to patient?: Patient has dentist HPI DM HPI Details 74-year-old morbidly obese female with a weight of 09/02/2043 and a BMI of 44.6 having diabetes mellitus controlled GERD hypertension asthma hypothyroidism hypercholesterolemia history of thyroid cancer 2021 status post thyroidectomy history of breast cancer 2009 with a history of splenectomy for ITP also. Patient comes in for follow-up last seen in 04/21/2024. Colon test last done in 2020. Bone density osteopenia 2019 and mammogram last done in 05/21/2023. Review of the notes last saw orthopedics in July 15 for right hip osteoarthritis ultrasound guided intra-articular hip injection done right patient also has the back pain with the spinal cord stimulator. Patient was in the ER in May 21 because of the low H&H 6.7 and 21.8 patient had 2 units of packed RBC transfused. Patient states that she has seen the Gastroenterology and has had a EGD done notes not available yet, patient has also seen a vascular for leg swelling and was told that the veins were normal and that we have done blood work with the liver function and renal function normal. Patient was advised to have a cardiac workup. Otherwise no other complaints. [facility]LY [facility] Medical History Low back pain Skin cancer History of ITP History of cataract History of renal calculi Hypercholesterolemia Hypothyroid Insomnia History of breast cancer Thyroid nodule DDD (degenerative disc disease), lumbosacral Asthma Restless leg syndrome Osteoarthritis Peripheral vascular disease Hypertension GERD (gastroesophageal reflux disease) Surgical History Back pain with history of spinal surgery History of splenectomy History of arthroplasty of left knee History of removal of cyst History of hysteroscopy History of arthroscopy of left knee History of knee replacement procedure of right knee Family History Father Diabetes Hypertension Mother Hypertension Liver cancer Brother Liver cancer Social History Housing: House Alcohol intake: never Patient Tobacco Use Status: Never used Tobacco Tobacco use type: Cigarette e-Cigarette/Vaping Use: Never Used Second Hand Smoke Exposure: No service: No Current occupational status: retired Cognitive needs: No Hearing needs: No Vision needs: Yes Questionnaire PHQ-9 Over the last 2 weeks, how often have you been bothered by any of the following problems? 1. Little interest or pleasure in doing things: not at all 2. Feeling down, depressed, or hopeless: not at all 3. Trouble falling or staying asleep, or sleeping too much: not at all 4. Feeling tired or having little energy: not at all 5. Poor appetite or overeating: not at all 6. Feeling bad about yourself - or that you are a failure or have let yourself or your family down: not at all 7. Trouble concentrating on things, such as reading the newspaper or watching television: not at all 8. Moving or speaking so slowly that other people could have noticed. Or the opposite - being so fidgety or restless that you have been moving around a lot more than usual: not at all 9. Thoughts that you would be better off or of hurting yourself in some way: not at all Total score: 0 Depression Screening Interpretation: Negative Depression Screening Done: Yes 78612 - PHQ-9 Billing: Yes Source: Developed by Drs. Marlon Carcamo, Jackie Chávez, Luis Jessica and colleagues, with an educational yandel from [employer]. Thrive Questionnaire Date Thrive assessed: 07/26/24 I am a: Patient What is your living situation today?: I have a steady place to live Within the past 12 months, did the food you bought not last and you didn't have the money to get more?: Never true Within the past 12 months, did you worry whether your food would run out before you got money to buy more?: Never true Do you have trouble paying for medicines?: No Do you have trouble getting transportation to medical appointments?: No Do you have trouble paying your heating and electricity bill?: No Do you have trouble taking care of your child, family member or friend?: No Do you have trouble with day-to-day activities such as bathing, preparing meals, shopping, managing finances, etc.?: No Are you currently unemployed and looking for a job?: No Are you interested in more education?: No Currently or been in a relationship where the following occur: No concerns repo rted THRIVE Score: 0 AUDIT C Alcohol Use Questionnaire (AUDIT-C) 1. How often do you have a drink containing alcohol?: Never 2. How many drinks containing alcohol do you have on a typical day when you are drinking?: 1 or 2 3. How often do you have six or more drinks on one occasion?: Never Total Score: 0 ELIO-7 AMB Questionnaire ELIO-7 Date ELIO - 7 assessed: 07/26/24 Feeling nervous, anxious, or on edge: 0 = Not at all Not being able to stop or control worryin = Not at all Worrying too much about different things: 0 = Not at all Trouble relaxin = Not at all Being so restless that it is hard to sit still: 0 = Not at all Becoming easily annoyed or irritable: 0 = Not at all Feeling afraid as if something awful might happen: 0 = Not at all Total ELIO-7 score (0-4 normal; 5-9 mild; 10-14 moderate; 15-21 severe): 0 Source: Developed by Drs. Marlon Carcamo, Jackie Chávez, Luis Jessica and colleagues, with an educational yandel from [employer]. Physical exam (Primary Care) Vital Signs: Last Vital Signs Pulse 74 07/26/24 13:01 BP 134/68 07/26/24 13:01 Pulse Ox 96 07/26/24 13:01 Oxygen Delivery Method Room Air 07/26/24 13:01 BMI result Body Mass Index 44.6 Tobacco/Smoking Status: Tobacco use Status Tobacco use date assessed 07/26/24 07/26/24 13:02 Patient Tobacco Use Status Never used Tobacco 07/26/24 13:02 Tobacco use type Cigarette 07/26/24 13:02 e-Cigarette/Vaping Use Never Used 07/26/24 13:02 PHQ-9: PHQ-9 Score PHQ-9: Total score 0 07/26/24 13:02 Depression Screening Interpretation: Negative Thrive Assessment: Date of Thrive Assessment Date Thrive assessed 07/26/24 07/26/24 13:02 Currently or been in a relationship where the following occur: No concerns reported Const General: alert; No acute distress Eyes Conjunctivae: conjunctivae normal Resp Auscultation: clear to auscultation bilaterally Cardio Rate: regular rate Rhythm: regular rhythm GI Inspection: Yes normal to inspection Extrem General: Yes normal to inspection and No edema Results AMB Hemoglobin A1c AMB Hemoglobin A1c 4.7 % Last Edit by Ava Celaya CMA on 07/26/24 13 :35 Results Reviewed Results Reviewed: Laboratory Last Values Hgb A1c (Clinic) 4.7 % (4.0-6.0) 07/26/24 13:03 Coding Level of Care Code Est Pt Level 4 (24802) Complex EM visit Add On G2211 Diagnoses Morbid obesity E66.01 History of breast cancer Z85.3 Thyroid cancer C73 Acquired hypothyroidism E03.9 Hypothyroidism type: acquired Essential hypertension I10 Hypertension type: essential hypertension Gastroesophageal reflux disease without esophagitis K21.9 Esophagitis presence: without esophagitis Type 2 diabetes mellitus with hyperglycemia, without long-term current use of insulin E11.65 Diabetes mellitus mcc insulin use: without exterminator helper termite use Mild intermittent asthma without complication J45.20 Asthma severity: mild Asthma persistence: intermittent Asthma complication type: uncomplicated Anemia, unspecified type D64.9 Anemia type: unspecified type Additional Codes PHQ-9 - 32939 - PHQ-9 Billing: Yes ([id number]) Assessment & Plan Assessment & Plan (1) Morbid obesity: Code(s): E66.01 - Morbid (severe) obesity due to excess calories Category: Medical Plan: Diet and exercise (2) History of breast cancer: Comment: Lumpectomy with radiation and tamoxifen July 2009 Code(s): Z85.3 - Personal history of malignant neoplasm of breast Category: Medical Plan: Continue with mammogram regularly (3) Thyroid cancer: Comment: s/p R thyroidectomy 02/19/2022 Code(s): C73 - Malignant neoplasm of thyroid gland Category: Medical Plan: Continue to follow-up with endocrinology to monitor (4) Hypothyroid: Comment: Status post right thyroidectomy Code(s): E03.9 - Hypothyroidism, unspecified Category: Medical Qualifiers: Hypothyroidism type: acquired Qualified Code(s): E03.9 - Hypothyroidism, unspecified Plan: Continue with thyroid medication at 150 mcg once a day (5) Hypertension: Code(s): I10 - Essential (primary) hypertension Category: Medical Qualifiers: Hypertension type: essential hypertension Qualified Code(s): I10 - Essential (primary) hypertension Plan: Continue with blood pressure medication. Decrease salt intake and exercise on hydrochlorothiazide, lisinopril and metoprolol (6) GERD (gastroesophageal reflux disease): Code(s): K21.9 - Gastro-esophageal reflux disease without esophagitis Category: Medical Qualifiers: Esophagitis presence: without esophagitis Qualified Code(s): K21.9 - Gastro-esophageal reflux disease without esophagitis Plan: Avoid the foods that causes that usually spicy foods, tomato products, juices, coffee, soda and foods that your sensitive to. After eating do not lie down, allow 3-4 hours before in lie down. And keep the head of bed above 30 degrees to avoid the acid from going up. (7) Type 2 diabetes mellitus with hyperglycemia: Comment: [facility] Code(s): E11.65 - Type 2 diabetes mellitus with hyperglycemia Category: Medical Qualifiers: Diabetes mellitus mcc insulin use: without exterminator helper termite use Qualified Code(s): E11.65 - Type 2 diabetes mellitus with hyperglycemia Plan: Decrease the amount of carbohydrate intake, pasta, bread, rice and potatoes are all sugar and that is aside from all the sweet stuff, remember that fruits are good but they are Sweet also. On glimepiride. Discussed about hypoglycemic episodes and if occurring will have to discontinue glimepiride. (8) Asthma: Code(s): J45.909 - Unspecified asthma, uncomplicated Category: Medical Qualifiers: Asthma severity: mild Asthma persistence: intermittent Asthma compl ication type: uncomplicated Qualified Code(s): J45.20 - Mild intermittent asthma, uncomplicated Plan: Patient on albuterol inhaler as needed (9) Anemia: Comment: May 2024 blood transfusion 2 units Code(s): D64.9 - Anemia, unspecified Category: Medical Qualifiers: Anemia type: unspecified type Qualified Code(s): D64.9 - Anemia, unspecified Plan: Advised continue to monitor blood work. Will have to monitor with repeat blood work. Patient has seen gastroenterology and has had an EGD done. Awaiting notes. Orders: Orders Vitamin D 25-OH Total Today Z90.81 - Acquired absence of spleen CA echo transthoracic complete Today I10 - Essential (primary) hypertension AMB Hemoglobin A1c Today Z13.9 - Encounter for screening, unspecified Comprehensive Met. Panel Today Z90.81 - Acquired absence of spleen Thyroid Stimulating Hormone Today Z90.81 - Acquired absence of spleen Medications: Refilled oxycodone-acetaminophen 5-325 mg (Percocet) 1 tab PO Q6H PRN 120 tabs 0RF pain M51.37 - Other intervertebral disc degeneration, lumbosacral region
--- OUTSIDE RECORDS SUMMARY | 2024-07-26 14:45 | XMS_ITS | Clinical Summary ---
Author Organization [facility] Address [address] [place] [address] Care Team Providers Care Insurance Follow Up Representative Name Role Phone Po, Ziggy Antunez MD Primary Care Provider [phone] Allergies Active Allergy Reactions Criticality Noted Date Comments Benzocaine 08/18/2020 Procaine 08/18/2020 Penicillins 10/10/2017 Sulfa Antibiotics 10/10/2017 Medications Medication Sig Dispensed Refills Start Date End Date Status celecoxib (CELEBREX) 200 MG capsule 0 09/29/2017 Active gabapentin (NEURONTIN) 300 MG capsule 0 09/29/2017 Active glimepiride (AMARYL) tablet 2 mg TK 1 T PO QD WITH RHETT OR THE FIRST MAIN MEAL OF THE DAY 3 09/23/2017 Active hydrochlorothiazide (HYDRODIURIL) tablet 25 mg 0 09/06/2017 Active SYNTHROID 137 MCG tablet 0 09/29/2017 Active lisinopril (PRINIVIL,ZESTRIL) tablet 40 mg 0 09/29/2017 Active metFORMIN (GLUCOPHAGE) tablet 500 mg TK 1 T PO BID WC 2 09/17/2017 Active TOPROL XL 100 MG 24 hr tablet 0 09/06/2017 Active montelukast (SINGULAIR) 10 MG tablet 0 09/06/2017 Active omeprazole (PRILOSEC) 20 MG capsule 0 09/29/2017 Active oxyCODONE-acetaminoph en (PERCOCET) 5-325 MG per tablet TK 1 T PO Q 6 H PRN 0 08/23/2017 Active simvastatin (ZOCOR) tablet 5 mg 0 08/27/2017 Active metoprolol succinate (TOPROL-XL) 24 hr tablet 50 mg 0 08/07/2020 Active LORazepam (ATIVAN) 1 MG tablet Take 1 tablet 1 hour prior to MRI imaging study. Please make sure to have somebody take you to and from study. Do not drive while taking this medication. 1 tablet 0 08/18/2020 Active albuterol (PROVENTIL) (2.5 MG/3ML) 0.083% nebulizer solution 0 09/13/2020 Active Active Problems Problem Noted Date Diagnosed Date Pain due to total left knee replacement 10/18/19 21 Traumatic complete tear of right rotator cuff Social History Tobacco Use Types Packs/Day Years Used Date Smoking Tobacco: Never Assessed Sex and Gender Information Value Date Recorded Sex Assigned at Not on file Gender Identity Not on file Sexual Orientation Not on file Job Start Date Occupation Industry Not on file Not on file Not on file Last Filed Vital Signs Vital Sign Reading Time Taken Comments Blood Pressure - - Pulse - - Temperature - - Respiratory Rate - - Oxygen Saturation - - Inhaled Oxygen Concentration - - Weight 120.2 kg (265 lb) 10/24/2020 9:36 AM EDT Height 160 cm (5' 3 ) 10/24/2020 9:36 AM EDT Body Mass Index 46.94 10/24/2020 9:36 AM EDT Plan of Treatment Health Maintenance Due Date Last Done Comments Hepatitis C Screening 1950 COVID-19 Vaccine (#1) 01/23/1951 Depression Screening 1961 BMI Counseling 1967 Preventative Health Evaluation 1967 DTap / Tdap / Td (1 - Tdap) 1968 Colon Cancer Screening (Colonoscopy) 1994 Breast Cancer Screening (Mammogram) 1999 Shingrix-Zoster Vaccine (1 of 2) 1999 Fall Risk Assessment 2014 Osteoporosis Screening (DEXA Scan) 2014 Pneumococcal Vaccine (1 of 1 - PCV) 2014 Influenza Vaccine (#1) 2024 RSV Adult > 60+ Yrs or Pregn ant (1 - 1-dose 75+ series) 2024 Hepatitis B Vaccines Aged Out No long er eligible based on patient's age to complete this topic RSV Ped < 20 months Aged Out No longe r eligible based on patient's age to complete this topic Care Teams Insurance Follow Up Representative Relationship Specialty Start Date End Date Ziggy Garcia MD [address] [place] [address] [address] [facility] [place] [address] PCP - General Internal Medicine 03/24/17
--- OUTSIDE RECORDS SUMMARY | 2024-07-26 14:45 | XMS_ITS | Clinical Summary ---
Author Organization [facility] Address [address] [place] [address] Phone Care Team Providers Care Instructor Business Education Name Role Phone Ziggy Garcia MD Primary Care Provider [phone] Allergies Active Allergy Reactions Criticality Noted Date Comments Benzocaine Rash 08/18/2020 Metformin Nausea Only 05/20/2024 Penicillin Hives 05/20/2024 Sulfa (Sulfonamide Antibiotics) Hives 09/30 Medications lisinopril (PRINIVIL,ZESTR IL) 40 mg tablet Take 1 tablet (40 mg total) by mouth 1 (one) time each day. 09/29/2017 Active omeprazole (PriLOSEC) [address] capsule Take 1 capsule (20 mg total) by mouth 2 (two) times a day. 09/29/2017 Active metoprolol succinate (Toprol XL) 100 mg 24 hr tablet Take 1 tablet (100 mg total) by mouth 1 (one) time each day. 09/06/2017 Active metoprolol succinate (TOPROL-XL) 50 mg 24 hr tablet Take 1 tablet (50 mg total) by mouth 1 (one) time each day. 08/07/2020 Active levothyroxine (Synthroid) 137 mcg tablet Take 1 tablet (137 mcg total) by mouth 1 (one) time each day before breakfast. 09/29/2017 Active glimepiride (AMARYL) 2 mg tablet Take 1 tablet (2 mg total) by mouth 1 (one) time each day before breakfast. 09/23/2017 Active gabapentin (NEURONTIN) 300 mg capsule Take 1 capsule (300 mg total) by mouth 2 (two) times a day. 09/29/2017 Active hydroCHLOROthia zide (HYDRODIURIL) 25 mg tablet Take 1 tablet (25 mg total) by mouth 1 (one) time each day. 09/06/2017 Active montelukast (SINGULAIR) 10 mg tablet Take 1 tablet (10 mg total) by mouth at bedtime. 09/06/2017 Active oxyCODONE-aceta minophen (PERCOCET) 5-325 mg per tablet Take 1 tablet by mouth every 8 (eight) hours if needed. 08/23/2017 Active simvastatin (ZOCOR) 5 mg tablet Take 1 tablet (5 mg total) by mouth at bedtime. 08/27/2017 Active Encounters Date Type Department Care Team Description 06/01/2024 8:57 AM EST Anesthesia Event [facility] Endoscopy [address] [place] [address] Artem Eason MD 06/01/2024 7:43 AM EST - 06/01/2024 11:59 PM EST Hospital Encounter [facility] Endoscopy [address] [place] [address] Bernie Sharp MD Anemia Discharge Disposition: Home or Self Care from Last 3 Months Surgical History Surgery Date Site/Laterality Comments JOINT REPLACEMENT PROCEDURE:JOINT REPLACEMENT BACK SURGERY PROCEDURE:BACK SURGERY OTHER SURGICAL HISTORY PROCEDURE:kidney stone OTHER SURGICAL HISTORY PROCEDURE:breast surgery CHOLECYSTECTOMY PROCEDURE:CHOLECYSTECTOMY Medical History Medical History Date Comments Diabetes mellitus (CMS/HCC) DX:D iabetes mellitus (HCC) Hypertension DX:Hypertension Arthritis DX:Arthritis Cancer (CMS/HCC) DX:Cancer (HCC) GERD (gastroesophageal reflux disease) DX:GERD (gastroesophageal reflux disease) Anemia DX:Anemia Asthma DX:Asthma Thyroid disorder DX:Thyroid diso rder Osteoporosis DX:Osteoporosis Kidney damage DX:Kidney damage Social History Tobacco Use Types Packs/Day Years Used Date Smoking Tobacco: Never Assessed Comments No Sex and Gender Information Value Date Recorded Sex Assigned at Female 05/21/2024 2:20 PM EST Legal Sex Female 2:30 PM EST Gender Identity Female 05/21/2024 2:20 PM EST Sexual Orientation Straight 05/21/2024 2: 20 PM EST Obstetrics History Last Filed Vital Signs Vital Sign Reading Time Taken Comments Blood Pressure 107/78 06/01/2024 9:44 AM EST Pulse 67 06/01/2024 9:44 AM EST Temperature 36.1 ??C (96.9 ??F) 06/01/2024 9:44 AM ES T Respiratory Rate 18 06/01/2024 9:44 AM EST Oxygen Saturation 100% 06/01/2024 9:44 AM EST Inhaled Oxygen Concentration - - Weight 110 kg (243 lb) 06/01/2024 8:51 AM EST Height 157.5 cm (5' 2 ) 06/01/2024 8:51 AM EST Body Mass Index 44.45 06/01/2024 8:51 AM EST Plan of Treatment Health Maintenance Due Date Last Done Comments Diabetes: Annual GFR (Glomerular Filtration Rate) 1950 Diabetes: Annual Foot Exam 1959 Diabetes: Annual Retina Eye Exam 1959 DTaP,Tdap,and Td Vaccines (1 - Tdap) 1968 Zoster Vaccines (1 of 2) 1968 COVID-19 Vaccine (3 - Pfizer risk series) 02/10/2021 01/13/2021, 12/23/2020 Cholesterol Screening (Lipid Panel) 05/01/2022 Colorectal Cancer Screening: Colonoscopy 05/01/2022 Depression Screening 05/01/2022 Hepatitis C Screening 05/01/2022 Medicare Annual Wellness Visit 05/01/2022 Osteoporosis Screening (Bone Density Screening) 05/01/2022 Social Influencers of Health Screening 05/01/2022 Influenza Vaccine (#1) 2024 , 03/08/2022, 05/03/2021, Additional history exists Diabetes: Annual Urine Albumin-Creatinine Ratio (uACR) 06/01/2024 Diabetes: Blood Sugar Control Test (HGBA1C) 06/01/2024 Hypertension/CHF/CAD Annual BMP Blood Test 06/01/2024 RSV Immunization Patients 60+ Years Old (1 - 1-dose 75+ series) 2024 Falls Risk Assessment 06/01/2025 06/01/2024 Pneumococcal Vaccine: 50+ Years Completed 08/29/2023, 07/06/2018, 11/18/2017, Additional history exists HIB Vaccines Aged Out No longer eligi ble based on patient's age to complete this topic HPV Vaccines Aged Out No longer eligi ble based on patient's age to complete this topic Hepatitis A Vaccines Aged Out No long er eligible based on patient's age to complete this topic Hepatitis B Vaccines Aged Out No long er eligible based on patient's age to complete this topic IPV Vaccines Aged Out No longer eligi ble based on patient's age to complete this topic MMR Vaccines Aged Out No longer eligi ble based on patient's age to complete this topic Meningococcal ACWY Vaccine Aged Out N o longer eligible based on patient's age to complete this topic Meningococcal B Vacine Aged Out No lo nger eligible based on patient's age to complete this topic RSV Immunization Patients Under 20 months Aged Out No longer eligible based on patient's age to complete this topic Varicella Vaccines Aged Out No longer eligible based on patient's age to complete this topic Procedures Procedure Name Priority Date/Time Associated Diagnosis Comments EGD Routine 06/01/2024 9:23 AM EST Anemia from Last 3 Months Results * EGD Anesthesia - MAC; [facility] ENDOSCOPY (06/01/2024 9:23 AM EST) Anatomical Region Laterality Modality Other 06/01/2024 9:04 AM EST Impressions 06/01/2024 9:25 AM EST - Medium-sized hiatal hernia. ? - Normal mucosa was found in the entire esophagus. ? - Gastric antral vascular ectasia without bleeding. ? Treated with argon plasma coagulation (APC). ? - Normal examined duodenum. ? - No specimens collected. Recommendation: ?- Repeat upper endoscopy in 3 months for retreatment. Narrative 06/01/2024 9:25 AM EST [facility] GI Patient Name: Rain Martinez Procedure Date: 06/01/2024 9:04 AM Date of : 1950 Age: 73 Gender: Female Note Status: Finalized Attending MD: Bernie Sharp MD, Procedure Date No Time: 06/01/2024 Procedure: ? Upper GI endoscopy Indications: ? Watermelon stomach (GAVE syndrome), Patient with ? continued transfusion requirement. Last EGD with APC ? 01/2024. Providers: ? Bernie Sharp MD Referring MD: ?Ziggy Garcia MD Medicines: ? Propofol per Anesthesia Complications: ? No immediate complications. Estimated Blood Loss: ? Estimated blood loss: none. Procedure: ? Pre-Anesthesia Assessment: ? - ASA Grade Assessment: III - A patient with severe ? systemic disease. ? After obtaining informed consent, the endoscope was ? passed under direct vision. Throughout the procedure, ? the patient's blood pressure, pulse, and oxygen ? saturations were monitored continuously.The Endoscope ? was introduced through the mouth, and advanced to the ? second part of duodenum. The upper GI endoscopy was ? accomplished without difficulty. The patient tolerated ? the procedure well. Findings: ?A medium-sized hiatal hernia was present. ? Normal mucosa was found in the entire esophagus. ? There is no endoscopic evidence of erosion in the ? cardia and in the gastric fundus. ? Moderate gastric antral vascular ectasia without ? bleeding was present in the gastric antrum. ? Coagulation for bleeding prevention using argon plasma ? was successful. ? The examined duodenum was normal. Procedure Code(s): ? --- Professional --- ? 92201, Esophagogastroduodenoscopy, flexible, ? transoral; with control of bleeding, any method Diagnosis Code(s): ? --- Professional --- ? K31.819, Angiodysplasia of stomach and duodenum ? without bleeding CPT copyright 2020 [employer]. All rights reserved. The codes documented in this report are preliminary and upon conservation engineer review may be revised to meet current compliance requirements. Bernie Sharp MD 06/01/2024 9:25:20 AM This report has been signed electronically.Bernie Sharp MD Number of Addenda: 0 Note Initiated On: 06/01/2024 9:04 AM Scope In: Scope Out: ? Endoscopy Department at [facility] - [address] [place] [address], ? [place] [address] Procedure Note Bernie Sharp MD - 06/01/2024 [facility] GI Patient Name: Rain Martinez Procedure Date: 06/01/2024 9:04 AM Date of : 1950 Age: 73 Gender: Female Note Status: Finalized Attending MD: Bernie Sharp MD, Procedure Date No Time: 06/01/2024 Procedure: Upper GI endoscopy Indications: Watermelon stomach (GAVE syndrome), Patient with continued transfusion requirement. [facility] Providers: Bernie Sharp MD Referring MD: Ziggy Garcia MD Medicines: Propofol per Anesthesia Complications: No immediate complications. Estimated Blood Loss: Estimated blood loss: none. Procedure: Pre-Anesthesia Assessment: - ASA Grade Assessment: III - A patient with severe systemic disease. After obtaining informed consent, the endoscope was passed under direct vision. Throughout theprocedure, the patient's blood pressure, pulse, and oxygen saturations were monitored continuously.TheEndoscope was introduced through the mouth, and advanced tothe second part of duodenum. The upper GI endoscopy was accomplished without difficulty. The patienttolerated the procedure well. Findings: A medium-sized hiatal hernia was present. Normal mucosa was found in the entire esophagus. There is no endoscopic evidence of erosion in the cardia and in the gastric fundus. 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 Coagulation for bleeding prevention using argonplasma was successful. The examined duodenum was normal. Procedure Code(s): --- Professional --- 72730, Esophagogastroduodenoscopy, flexible, transoral; with control of bleeding, any method Diagnosis Code(s): --- Professional --- K31.819, Angiodysplasia of stomach and duodenum without bleeding CPT copyright 2020 [employer]. All rights reserved. The codes documented in this report are preliminary and upon conservation engineer reviewmay be revised to meet current compliance requirements. Bernie Sharp MD 06/01/2024 9:25:20 AM This report has been signed electronically.Bernie Sharp MD Number of Addenda: 0 Note Initiated On: 06/01/2024 9:04 AM Scope In: Scope Out: Endoscopy Department at [facility] - [address] [place] [id number] IMPRESSION: - Medium-sized hiatal hernia. - Normal mucosa was found in the entireesophagus. - Gastric antral vascular ectasia without bleeding. Treated with argon plasma coagulation (APC). - Normal examined duodenum. - No specimens collected. Recommendation: - Repeat upper endoscopy in 3 months forretreatment. Bernie Sharp MD GI~PROCEDURE ORDERABLES Final Result from Last 3 Months Insurance [place] - [place] MEDICARE ADVANTAGE Care Teams Instructor Business Education Relationship Specialty Start Date End Date Ziggy Garcia MD [address] [place] [address] [address] [facility] In Internal [place] [address] PCP - General Internal Medicine 10/23/17
--- OUTSIDE RECORDS SUMMARY | 2024-07-26 14:45 | XMS_ITS | Patient Health Record ---
Author Organization [facility] Address [address] [place] [address] Care Team Providers Care Perianesthesia Nurse Name Role Phone Ziggy Garcia Primary Care Provider Ra Greenwood Unavailable [phone] Allergies Allergen (clinical drug ingredient) Drug/Non Drug [...] (substance) Sulfa Antibiotics Unknown Drug Allergy Active Results Component Value Reference Range Notes HEMOGLOBIN A1C (GLYCOHEMOGLO BIN) Reviewed date:07/20/2024 09:47:02 AM Interpretation: Performing Lab: Notes/Report: HEMOGLOBIN A1C % (HH) 5.6 Reason For Referral No Information Medications Medication SIG (Take, Route, Frequency, Duration) Notes Start Date End Date Status Dntyzk-Vqodsnrkt-KDP Complex Orally Not-Taking Metoprolol Succinate 150 Active Adrianne Not-Taking Simvastatin Active oxyCODONE-Acetaminophen PRN Active Extra Depth Orthopedic Shoes (1 Pair) with Customized Heat Molded Multidensity Innersoles (3 Pair) as directed Dx: NIDDM/Polyneuropathy (E11.42), Hammertoe Foot Deformity (M20.41,M20.42), Preulcerative Skin Lesion(s) (L85.1 07/20/2024 Active Synthroid 150 MCG 1 tablet in the morning on an empty stomach Orally Active Singulair 10 MG 1 tablet in the evening Orally Once a day for 30 day(s) Active Iron Not-Taking Lidocaine 5 % as directed Externally Three times a day for 30 days Active Vitamin D3 Not-Takin g Vitamin C Not-Taking traMADol HCl Not-Luis Antonio ing metFORMIN HCl Not-Ta Lisinopril 40 MG Orally Act juan hydroCHLOROthiazide Active Probiotic Not-Taking Melatonin Not-Taking Magnesium 100 MG 1 tablet with food Orally Four times a day for 30 day(s) Not-Taking Advair Diskus Not-Ta [place] Activ e tiZANidine HCl Not-T aking Vitamin B6 250 MG 1 tablet Orally Once a day for 30 day(s) Not-Taking Gabapentin Active Pramipexole Dihydrochloride Not-Taking Albuterol Active Tamoxifen Citrate No t-Taking Immunizations Vaccine Route Administration Date Status Comme nts COVID-19 Pfizer BioNTech Vaccine Unknown 01/13/2021 Administered 1st 12/23/2020 Influenza Unknown 03/06/2015 Administered Influenza Unknown 08/07/2015 Administered Influenza Unknown 04/02/2017 Administered Influenza Unknown 02/16/2018 Administered Influenza Unknown 02/16/2021 Administered Pneumococcal Unknown 03/31/2013 Administered Social History Tobacco Use: Social History Observation Description Date Details (start date - stop date) Never Smoker NA - NA Tobacco use other than smoking: Question Answer Notes Are you an other tobacco user? No Tobacco Control (Standard) Question Answer Notes Tobacco use: Nonsmoker Additional Findings: Tobacco non-user Current no nsmoker AUDIT-C (Standard) Question Answer Notes Did you have a drink containing alcohol in the p ast year? No Points 0 Interpretation Negative Problems Problem Type SNOMED Code ICD Code Onset Dates Problem Status W/U Status Risk Notes Problem Acquired hammer toe of right foot (2722210659677904 ) Other hammer toe(s) (acquired), right foot (M20.41) Active confirmed Problem Acquired hammer toe of left foot (8393858923569926 ) Other hammer toe(s) (acquired), left foot (M20.42) Active confirmed Problem Polyneuropathy due to type 2 diabetes mellitus (905385298) Type 2 diabetes mellitus with diabetic polyneuropathy (E11.42) Active confirmed Vital Signs Blood pressure diastolic 70 mm Hg 07/20/2024 Height 5 ft 4 in in 07/20/2024 Blood pressure systolic 130 mm Hg 07/20/2024 Weight 247 lbs 07/20/2024 BMI 42.39 kg/m2 07/20/2024 Procedures Procedure Date Ordered Date Performed Result Body Sit e 64573-BNHKSXO NAIL, 6 OR MORE 07/20/2024 N/A 46699-PRVL SKIN LESIONS, 2 TO 4 07/20/2024 N/A Encounters Encounter Location Date Provider Diagnosis [facility] [address] [place] [address] 07/20/2024 [place] JettUriah Type 2 diabetes mellitus with diabetic polyneuropathy E11.42 ; Tinea unguium B35.1 ; Other hammer toe(s) (acquired), right foot M20.41 and Other hammer toe(s) (acquired), left foot M20.42 Assessments Encounter Date Diagnosis (ICD Code) Assessment Notes Treatment Notes Treatment Clinical Notes Section Notes 07/20/2024 Type 2 diabetes mellitus with diabetic polyneuropathy (ICD-10 - E11.42) 07/20/2024 Tinea unguium (ICD-10 - B35.1) 07/20/2024 Other hammer toe(s) (acquired), right foot (ICD-10 - M20.41) Patient Educated with: DIABETIC FOOT CARE INSTRUCTIONS. pdf (DIABETIC FOOT CARE INSTRUCTIONS. pdf) 07/20/2024 Other hammer toe(s) (acquired), left foot (ICD-10 - M20.42) Plan Of Treatment Pending Test Test Name [...] X ray : Foot, right 3V 11/27/2012 73041-VTFRZOB NAIL, 6 OR MORE 02/26/2013 29392-LJLCYXK NAIL, 6 OR MORE 08/25/2012 48125-XWMUWAC NAIL, 6 OR MORE 11/27/2012 99628-YNREGQX NAIL, 6 OR MORE 03/03/2012 43269-ODYFFLR NAIL, 6 OR MORE 05/19/2012 78870-OGASYHO NAIL, 6 OR MORE 09/17/2011 08862-XRRDWOO NAIL, 6 OR MORE 12/17/2011 13904-BODLHYZ NAIL, 6 OR MORE 06/11/2013 25664-HOJWMUF NAIL, 6 OR MORE 09/14/2013 10860-PDBTIOU NAIL, 6 OR MORE 03/29/2014 35502-KVZJZMJ NAIL, 6 OR MORE 12/21/2013 00199-WUGOCOD NAIL, 6 OR MORE 10/13/2014 92896-PWYAWUS NAIL, 6 OR MORE 02/13/2015 78502-XQFGMGN NAIL, 6 OR MORE 05/18/2015 07540-GZLBRAG NAIL, 6 OR MORE 12/25/2017 78524-PQVETVH NAIL, 6 OR MORE 05/22/2017 00731-ZEMCXYF NAIL, 6 OR MORE 09/22/2017 61326-FREIEXV NAIL, 6 OR MORE 06/18/2011 02960-ZXVMVYY NAIL, 6 OR MORE 12/11/2016 24169-VMHYERW NAIL, 6 OR MORE 03/03/2017 45126-CGWMYPP NAIL, 6 OR MORE 08/23/2015 61053-ZCOQOIC NAIL, 6 OR MORE 11/27/2015 10376-WHARFUJ NAIL, 6 OR MORE 04/08/2016 92985-KIEHOMB NAIL, 6 OR MORE 08/08/2016 32757-DWKTEIK NAIL, 6 OR MORE 04/06/2018 13384-WFWOFJP NAIL, 6 OR MORE 07/20/2024 64300-Dpzwdibu Plate 02/13/2015 16127-Eutzbprn Plate 10/13/2014 47481-Sveuyozj Plate 12/21/2013 54281-Zuqphivp Plate 03/29/2014 44238-Izjsglvf Plate 09/14/2013 12748-Yynudiro Plate 06/11/2013 29801-Njdbergc Plate 12/17/2011 83470-Rvfqsrxo Plate 05/19/2012 00555-Afvgqawf Plate 09/17/2011 09375-Ciecqard Plate 11/27/2012 46034-Dwesujfq Plate 08/25/2012 79479-Aaploqhm Plate 02/26/2013 73282-Ixgjdcpl Plate Each Additional 84099-Uteeqkev Plate Each Additional 21036-Fqknjohv Plate Each Additional 44773-Blwdnmnz Plate Each Additional 80489-Vrfxiaxy Plate Each Additional 03/2014 71953-Xtdrogpf Plate Each Additional 99235-Aocsdwiz Plate Each Additional 06155-Olxcikgv Plate Each Additional 44704-OTOP SKIN LESIONS, OVER 4 08/09/19 17 35637-RQPD SKIN LESIONS, OVER 4 04/08/20 16 86597-XMMU SKIN LESIONS, OVER 4 11/27/19 16 94168-QRVI SKIN LESIONS, OVER 4 05/22/20 17 97690-BOJU SKIN LESIONS, OVER 4 03/03/20 17 68167-WTAO SKIN LESIONS, OVER 4 12/12/19 17 96158-VSTG SKIN LESIONS, OVER 4 09/23/19 18 53743-TTAB SKIN LESIONS, OVER 4 04/06/20 18 17903-BNYM SKIN LESIONS, OVER 4 06/24/19 19 91291-BHSJ SKIN LESIONS, OVER 4 09/24/19 19 30673-XOCC SKIN LESIONS, OVER 4 12/22/19 19 32020-EOMH SKIN LESIONS, OVER 4 03/22/20 19 85658-DRNO SKIN LESIONS, OVER 4 06/28/19 20 24553-NNGG SKIN LESIONS, OVER 4 12/22/19 20 94897-FWFS SKIN LESIONS, OVER 4 04/03/20 20 89347-HMBB SKIN LESIONS, OVER 4 08/01/19 21 82734-GFKO SKIN LESIONS, OVER 4 11/16/19 21 44180-KPPR SKIN LESIONS, OVER 4 03/29/20 21 10322-AWUS SKIN LESIONS, OVER 4 06/28/19 22 58815-FWBW SKIN LESIONS, OVER 4 10/04/19 22 81747-IXWR SKIN LESIONS, 2 TO 4 07/20/19 25 12667-CWYQ SKIN LESIONS, 2 TO 4 12/26/19 18 45609-NKIP SKIN LESIONS, 2 TO 4 08/23/19 16 91901-TDKP SKIN LESIONS, 2 TO 4 10/14/19 15 72383-DXND SKIN LESIONS, 2 TO 4 02/14/20 15 58954-YEFG SKIN LESIONS, 2 TO 4 05/18/20 15 42718-RSVE SKIN LESIONS, 2 TO 4 03/29/20 14 18114,F3112-CZB TENDON SHEATH/LIGAMENT 0 12/25/201218395,A1121-WGI TENDON SHEATH/LIGAMENT 0 01/12/2013 Next Appt Details Provider Name:Ra Kruse , 10/26/2024 10:00:00 AM, [address] [facility], [place], [address], Insurance Providers Payer Name Payer Address Payer Phone Subscriber Number Group Number Insured Name Patient Relationship to Insured Coverage Start Date Coverage End Date [facility] 65 Medicare Preferred [address] [place] [address] [id number] Rain Martinez Self - patient is the insured Medical (General) History Medical History History ICD Code Arthritis asthma back, knee pain cancer cataracts hypertension reflux sciatica sinus conditions thyroid disorder chicken pox Type 2 Diabetes (borderline) kidney stones Surgical History Surgery Date(Month/Year) breast cancer surgery 10/13/2009 back surgery 11/2008 gall bladder 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
--- OUTSIDE RECORDS SUMMARY | 2024-07-26 14:45 | XMS_ITS | Continuity of Care Document ---
Author Organization [facility] Address [address] [place] [id number]- Care Team Providers Care Auto Headlight Mechanic Name Role Phone Ziggy Garcia MD [id number] Date[facility]s): [facility]/28[facility] - 07/05/24 [facility] [address], [place] [address] Attending Physician: Jonathan Jauregui MD Admitting Physician: Jonathan Jauregui MD Referring Physician: Ziggy Garcia MD Encounter Type: Office Visit Allergies, Adverse Reactions, Alerts Substance Criticality Severity Reaction Reaction Severity Status penicillins Hives Active sulfa drugs Itching Hives Active Novocain Itching Hives Active Benzocaine [...] 9:58:49 AM EDT, Route to Pharmacy Electronically, [id number] Start Date: 12/29/15 Status: Ordered Quantity: 60.0 [...] Date: 09/21/21 Status: Ordered Repeat number: 1 Nutritional Supplements Maintenance, Horse chestnut,lymph support system,regrow for hair loss, 06/30/24 11:16:00 AM EST, Supply Start Date: 06/30/24 Status: Ordered Repeat number: 1 Nystop 004533 u/gm powder 1 application, Topically, 2 times [...] Active Severe obesity Confirmed Active 1diet controlled 2Left - 2009 Vital Signs Most recent to oldest [Reference Range]: 1 Height 158 cm (06/28/24 1:47 PM) Weight 111 kg (06/28/24 1:47 PM) Oxygen Saturation [94-100 %] 97 % (06/28/24 1:47 PM) Pulse Rate [55-90 bpm] 77 bpm (06/28/24 1:47 PM) Body Mass Index [18.5-24.99 kg/m2] 44.46 kg/m2 *>HHI* (06/28/24 1:47 PM) Blood Pressure [90-138/55-84 mm Hg] 120/ 60mm Hg (06/28/24 1:47 PM) Blood pressure sites Arm, left (06/28/24 1:47 PM) Weight Obtained Via Patient/family state d (06/28/24 1:47 PM) Social History Social History Type Response Smoking Status Never smoker entered on: 10/18/13 Sex Sex Representation Female (finding) Note * Jolie Sanchez: PERFORM Event Display: Patient Education/Instruction Authored Date: Ambulatory Adult Visit Summary [facility] [id number] [place] [address] Name: EPIFANIO HUNTLEY : 1950?? Visit: 06/28/2024 13:31?? Ambulatory Visit Instructions ?? Your Care Team Primary Care Provider Ziggy Garcia MD? This Visit Provider Jonathan Jauregui MD Vitals Signs Pulse Rate: 77 bpm Height: 158 cm Systolic Blood Pressure: 120 mm Hg Weight: 111 kg Diastolic Blood Pressure: 60 mm Hg Body Mass Index:??44.46 kg/m2??Critical Oxygen Saturation: 97 % Body surface area: 2.21 What to do next Scheduled Follow-Up Appointments Friday 10:15 AM EST ?? Where: [facility] Radiology [facility] [address], [address] [place] [address]- Status: Pending Follow-Up Appointments Follow up Appointment - Ordered?-- 06/28/24 13:57:00 EST Future Orders CBC w/ Differential - Once, [...] Single or Recurring Future Order, [facility], Blood?? CBC - Routine, Once, 08/18/24 3:00:00 EDT, Single or Recurring Future Order, [facility], Blood?? Ferritin - Routine, Once, 08/18/24 3:00:00 EDT, Single or Recurring Future Order, [facility], Blood?? Iron + Iron Binding Capacity - Routine, Once, 08/18/24 3:00:00 EDT, Single or Recurring Future Order, [...] (Colace Liquid) Oral Twice a day Unchanged Durable Medical Equipment (Nutritional Supplements) Horse chestnut,lymph support system,regrow for hair loss ?? Unchanged Gabapentin (gabapentin 300 mg oral capsule) [...] in the morning Unchanged Nystatin Topical (Nystop 674236 u/ gm powder) 1 taya Topically Twice a day Unchanged Omeprazole (omeprazole 20 mg oral enteric coated capsule) 1 capsule Oral Twice a day Unchanged Oxycodone / Acetaminophen (acetaminophen-oxyCODONE 325 mg-5 mg oral tablet) See instructions 1- 2 tablet By Mouth Every 6 hours not to exceed 4000 mg acetaminophen per day, As needed for Pain , Moderate ?? Unchanged Simvastatin 5 Milligram Oral Daily [...] are strongly encouraged to quit. Please call [employer] [facility] at [phone] or [phone] ([phone]) or log in to [email or web address] for referrals to smoking cessation programs. ?? The National Suicide Prevention Hotline is available 23/12 if you or someone you know needs to find a reason to keep living. By calling 5-035-585-[employer] (7452) you'll be connected to a skilled, trained counselor at a crisis center in your area. [facility] You can view and manage your care through the patient portal or by using a health care taya of your choosing. [employer] is a website that allows you to securely view your medical information including your hospital discharge summary, office visit summaries, medications and follow-up visits. You can also request appointments, renew medications, and request access to your medical information using a health care taya of your choosing, or just ask a question. You can enroll at [email or web address] or register during your next office visit. [facility], in keeping with [facility] guidance, no longer requires face masks [...] primary care provider, you may find a [facility] provider by calling [facility] at [phone]. Patient Care team information Care Team Personnel Name: Bre Owens RN Position: S RN Member Role: Primary Care Nurse Name: Ziggy Garcia MD Position: Reference Physician Member Role: PCP Address: [address] [place] [address]- Telecom: Name: Milady Art RN Position: [facility] Cut Off Saw Operator Pipe Blanks Member Role: Primary Care Nurse Care Team Related Persons Name: KOMAL HUNTLEY Insurance Providers Guarantor name: EPIFANIO HUNTLEY Health Plan Information #: 1 Payer: NA Member Number: [id number] Policy Number: NA Group Number: [id number] Health Plan Information #: 2 Payer: NA Member Number: [id number] Policy Number: NA Group Number: [id number]
--- OUTSIDE RECORDS SUMMARY | 2024-07-26 14:45 | XMS_ITS | Continuity of Care Document ---
Author Organization [facility] Address [address] [place] [address]- Care Team Providers Care Surgical Consultant Name Role Phone Po Ziggy QUILES Primary Care Physician [place] [facility] [place]/23[place]24 - 07/23/24 [facility] [address] [place], [place] [address] Attending Physician: Talha Acevedo Admitting Physician: AdmTalha valles Referring Physician: Admtr ArHenry Encounter Type: Triage Allergies, Adverse Reactions, Alerts Substance Criticality Severity [...] 9:58:49 AM EDT, Route to Pharmacy Electronically, [facility] [id number] Start Date: 12/29/15 Status: Ordered Quantity: 60.0 [...] 06/30/24 Status: Ordered Repeat number: 1 Nystop 460140 u/gm powder 1 application, Topically, 2 times [...] Confirmed Active 1diet controlled 2Left - 2009 Social History Social History Type Response Smoking Status Never smoker entered on: 10/18/13 Sex Sex Representation Female (finding) Laboratory * Event Display: Non [facility] Lab Results Authored Date: * Event Display: Non [facility] Lab Results Authored Date: Patient Care team information Care Team Personnel Name: Odalys Boothe RN Position: [facility] RN Member Role: Primary Care Nurse Name: Bre Owens RN Position: [facility] RN Member Role: Primary Care Nurse Name: Ziggy Garcia MD Position: Reference Physician Member Role: PCP Address: [address] [place] [address] Telecom: Name: Milady Art RN Position: [facility] Dental Technician Apprentice Member Role: Primary Care Nurse Care Team Related Persons Name: KOMAL HUNTLEY Insurance Providers Guarantor name: EPIFANIO HUNTLEY Health Plan Information #: 1 Payer: NA Member Number: NA Policy Number: NA Group Number: NA
--- OUTSIDE RECORDS SUMMARY | 2024-07-26 14:45 | XMS_ITS ---
Author Organization [facility] Address [address] [place] [address] Care Team Providers Care Mysql Database Administrator Name Role Phone Ziggy Garcia Primary Care Provider Ra Greenwood Unavailable [phone] Allergies Allergen (clinical drug ingredient) Drug/Non Drug [...] (substance) Sulfa Antibiotics Unknown Drug Allergy Active REASON FOR VISIT At Risk Footcare, Toe Irritation Medications Medication SIG (Take, Route, Frequency, Duration) Notes Start Date End Date Status Lisinopril 40 MG Orally Act juan hydroCHLOROthiazide Active Metoprolol Succinate 150 Active Simvastatin Active oxyCODONE-Acetaminophen PRN Active Epmxtt-Vkuaqztyw-TFW Complex Orally Not-Taking Extra Depth Orthopedic Shoes (1 Pair) with Customized Heat Molded Multidensity Innersoles (3 Pair) as directed Dx: NIDDM/Polyneuropathy (E11.42), Hammertoe Foot Deformity (M20.41,M20.42), Preulcerative Skin Lesion(s) (L85.1 07/20/2024 Active Horse [place] Activ e Gabapentin Active Albuterol Active Magnesium 100 MG 1 tablet with food Orally Four times a day for 30 day(s) Not-Taking tiZANidine HCl Not-T aking Vitamin B6 250 MG 1 tablet Orally Once a day for 30 day(s) Not-Taking Pramipexole Dihydrochloride Not-Taking Tamoxifen Citrate No t-Taking traMADol HCl Not-Luis Antonio ing metFORMIN HCl Not-Ta damaris Probiotic Not-Taking Melatonin Not-Taking Advair Diskus Not-Ta damaris Adrianne Not-Taking Iron Not-Taking Lidocaine 5 % as directed Externally Three times a day for 30 days Active Vitamin D3 Not-Takin g Vitamin C Not-Taking Synthroid 150 MCG 1 tablet in the morning on an empty stomach Orally Active Singulair 10 MG 1 tablet in the evening Orally Once a day for 30 day(s) Active Social History Tobacco Use: Social History Observation [...] Problem Status W/U Status Risk Notes Problem Polyneuropathy due to type 2 diabetes mellitus (653550965) Type 2 diabetes mellitus with diabetic polyneuropathy (E11.42) Active confirmed Problem Acquired hammer toe of right foot (1836250046529702 ) Other hammer toe(s) (acquired), right foot (M20.41) Active confirmed Problem Acquired hammer toe of left foot (0484892703918065 ) Other hammer toe(s) (acquired), left foot (M20.42) Active confirmed Vital Signs Height 5 ft 4 in in 07/20/2024 Weight 247 lbs 07/20/2024 BMI 42.39 kg/m2 07/20/2024 Blood pressure systolic 130 mm Hg 07/20/19 25 Blood pressure diastolic 70 mm Hg 025 Procedures Procedure Date Ordered Date Performed Result Body Sit e 28836-QDOHXWG NAIL, 6 OR MORE 07/20/2024 N/A 73819-JOTD SKIN LESIONS, 2 TO 4 07/20/2024 N/A Encounters Encounter Location Date Provider Diagnosis [facility] [employer] [address] [place] [address] 07/20/2024 Ra Kruse Type 2 diabetes mellitus with diabetic polyneuropathy [...] foot (ICD-10 - M20.42) Plan Of Treatment Medication Medication Name Sig Start Date Stop Date Notes Extra Depth Orthopedic Shoes (1 Pair) with Customized Heat Molded Multidensity Innersoles (3 Pair) as directed Dx: NIDDM/Polyneuropathy (E11.42), Hammertoe Foot Deformity (M20.41,M20.42), Preulcerative Skin Lesion(s) (L85.1 07/20/2024 Treatment Notes Assessment Notes Other hammer toe(s) (acquired), right fo ot Patient Educated with: DIABETIC FOOT CARE INSTRUCTIONS.pdf (DIABETIC FOOT CARE INSTRUCTIONS.pdf) Pending Test Test Name Order Date 11470-GUFCKVP NAIL, 6 OR MORE 07/20/2024 40081-KORA SKIN LESIONS, 2 TO 4 07/20/19 25 Next Appt Details Follow Up: prn, Reason: Provider Name:Ra Kruse , 10/26/2024 10:00:00 AM, [address] [place] [address], [id number], Procedure Notes * Category Sub-Category Detail Notes Debride Nail 6-10 Nail debridement Due to the cl inical pathology outlined in the exam findings, performance of this nail treatment is medically necessary as its management by an unskilled/untrained nonprofessional would put this patients foot and overall health at risk. Therefore, debridement to affected nail(s), as described in exam ( TA, T2, T3, T4, T5, T8, T9 ), was performed exclusively by the physician of record to reduce/remove overall nail length, girth, thickness, subungual debris, and necrotic tissue, by manual and/or electrical means through the use of a nail nipper and/or dremel-type soap grinder, to a more viable healthy nail plate or bed tissue 6-10 nails in total. Silver nitrate was used for any petechial bleeding as necessary. Definitive antifungal treatment options, both pharmaceutical and surgical, have been reviewed and discussed with the patient. The patient solely prefers the use of intermittent/as needed professional debridement services for their nail condition and understands the need for additional periodic treatments to maintain effectiveness in symptomatic relief - 63116 Keratoma Treatment Parring or Cutting o f Benign Hyperkeratotic Lesion(s) (-56) 2-4 Lesions - Due to the at risk nature of the patients medical condition as documented in the exam findings, performance of this keratoderma treatment is medically necessary as its management by an unskilled/untrained nonprofessional would put this patients foot and overall health at risk. Therefore, the benign hyperkeratotic lesions, ( 4 ) in total, locations as stated and described in the exam ( SUB MTH (s), 3, Left, SUB MTH (s), 5, Right, Plantar, Heel(s), B/L ), were pared, and/or cut utilizing a sterile 15 blade, tissue nippers, and/or power dremel instrumentation by the physician of record - 33356 Progress Notes * AUDIPrincessh ADOB: 0 (73 yo F)Acc No.[id number]:07/20/2024 Progress Note Patient:?Rain HUNTLEY A Provider:?Ra Kruse DPM :1950???Age:73 Y???Sex:Female D ate:07/20/2024 Address:[address] [place] [id number] Pcp:Ziggy Garcia Subjective: * Chief Complaints: * ???At Risk FootcareToe Irrit ation * HPI: ???At Risk footcare:?Pt States Last PCP Visit:?Date?04/14/2024 ???Toe pain:?Location:?B/L feet.?Duration:?several years.?Course:?worse.?Aggravated by:?shoes, any pressure.?Treatments:?change in shoes.? * ROS:?General/Constitutional:?Nausea?denies.?Vomiting?denies.?Hunger Thirst?denies.?Loss appetite?denies.?Chills?denies.?Fatigue?denies.?Fever?denies.?Night Sweats?denies.?Unexplained weight loss?denies.?Unexplained weight gain?denies.?HEENTM:?Dentures?denies.?Dizziness?denies.?Glasses/contacts?admits.?Retinopathy?den ies.?Blurred/double vision?denies.?TMJ?denies.?Discharge/drainage?denies.?Implants?denies.?Sore throat?denies.?Dental implants?denies.?Hard of hearing ?denies.?Difficulty chewing/swallowing/speaking?denies.?Nose bleeds?denies.?Sore mouth?denies.?Respiratory:?On O xygen?denies.?Pneumonia/pleurisy?denies.?Bronchitis?denies.?Emphysema?denies.?Co ughing?denies.?Cough blood?denies.?Shortness of breath?denies.?Wheezing?denies.?Cardiovascular:?Pacemaker?denies.?MVP?denies.?WPW?denies.?CHF?denies.?Heart attack?denies.?Septal defect?denies.?Rapid beat?denies.?Chest pain ?denies.?Atrial Fib.?denies.?Murmur/Palpitations?denies.?Gastrointestinal:?Hemorrhoids?denies.?Stomach/Abdominal pain?denies.?Dark blood stool?denies.?Irritable bowel ?denies.?Constipation?denies.?Diarrhea?denies.?Hematology:?Swelling?admits.?Clots?denies.?Varicose Veins?denies.?Bruising?denies.?Bleeding problem?denies.?Genitourinary:?Blood urine?denies.?Frequent/Painfu/urination/bladder control?denies.?Kidney stones?denies.?Infection (UTI)?denies.?Nephropathy?denies.?sex trans dis (STD)?denies.?Prostate?denies.?Musculoskeletal:?Hammertoes?admits.?Bunions?denies.?Back Pain?denies.?Muscle Cramps/ Resting?denies.?Muscle cramps / walking?denies.?Generalized aches and pains?denies.?Weakness?denies.?Integ.:?Dobson?denies.?Scars?denies.?Corns/calluses?admits.?Ingrown nails?admits.?Painful nails?denies.?Open Sores?denies.?Rashes?denies.?Neurologic:?Difficulty sleeping?denies.?Brain disorder?denies.?Numbness?denies.?Balance t rouble?denies.?Confusion?denies.?Fainting/blackouts?denies.?Tingling?denies.?Regan mors?denies.? * Medical History:? * Surgical History:?breast can cer surgery 10/13/2009ack surgery 11/2008gall bladder 1989splenectomy 1968kidney stones 04/2009, 04/2010left and right meniscus 2007-2009kidney surgery for kidney stones ack surgery 08/03/2013knee replacement surgery, right 02/07/2014knee replacement surgery, left 08/01/2014Palp removed from uterus 11/18/2016cataract surgery 09/09/2016colonoscopy 1endoscopy 06/13/2020Thyroid surgery 02/21 * Hospitalization/Major Diagno stic Procedure:?[facility] [place]- blood transfusion 04/24/2020 * Family History:?Mother: dece ased, hyperlipidemia, epilepsy, diagnosed with Other malignant neoplasm of unspecified site, Unspecified essential hypertension.?Father: , hyperlipidemia, diagnosed with Diabetic - NIDDM, Unspecified essential hypertension, Unspecified heart disease.?Siblings: cancer, diabetes, hyperlipidemia.? * Social History:?Tobacco Use:?Tobacco use other than smoking?Are you an other tobacco user??No ?Tobacco Control (Standard)?Tobacco use:?Nonsmoker ?Additional Findings: Tobacco non-user?Current nonsmoker ???Drugs/Alcohol:?Drugs?Have you used drugs other than those for medical reasons in the past 12 months??No ???Miscellaneous:?Caffeine: no. ?Children: yes, 2. ?Exercise: yes, housework, yard work. ?Marital status: . ?Occupation: retired-[employer]. ???Drug/Alcohol:?AUDIT-C (Standard)?Did you have a drink containing alcohol in the past year??No ?Points?0 ?Interpretation?Negative * Medications:?TakingHorse Arely stnut Albuterol Gabapentin hydroCHLOROthiazide Lisinopril 40 MG Tablet Orally Metoprolol Succinate 150 MG oxyCODONE-Acetaminophen , Notes to Pharmacist: PRNSimvastatin Singulair 10 MG Tablet 1 tablet in the evening Orally Once a day Synthroid 150 MCG Tablet 1 tablet in the morning on an empty stomach Orally Lidocaine 5 % Cream as directed Externally Three times a day Taking Horse [place] Taking Albuterol Taking Gabapentin Taking hydroCHLOROthiazide Taking Lisinopril 40 MG Tablet Orally Taking Metoprolol Succinate 150 MG Taking oxyCODONE-Acetaminophen , Notes to Pharmacist: PRNTaking Simvastatin Taking Singulair 10 MG Tablet 1 tablet in the evening Orally Once a day Taking Synthroid 150 MCG Tablet 1 tablet in the morning on an empty stomach Orally Taking Lidocaine 5 % Cream as directed Externally Three times a day Not-Taking/PRNIron Vitamin C Vitamin D3 Adrianne metFORMIN HCl traMADol HCl Melatonin Probiotic Advair Diskus Magnesium 100 MG Tablet 1 tablet with food Orally Four times a day Vitamin B6 250 MG Tablet 1 tablet Orally Once a day tiZANidine HCl Tamoxifen Citrate Pramipexole Dihydrochloride Zbghfq-Qqoxjyizl-ANC Complex Tablet Orally Medication List reviewed and reconciled with the patientNot-Taking/PRN Iron Not-Taking/PRN Vitamin C Not-Taking/PRN Vitamin D3 Not-Taking/PRN Adrianne Not-Taking/PRN metFORMIN HCl Not-Taking/PRN traMADol HCl Not-Taking/PRN Melatonin Not-Taking/PRN Probiotic Not-Taking/PRN Advair Diskus Not-Taking/PRN Magnesium 100 MG Tablet 1 tablet with food Orally Four times a day Not-Taking/PRN Vitamin B6 250 MG Tablet 1 tablet Orally Once a day Not- Taking/PRN tiZANidine HCl Not-Taking/PRN Tamoxifen Citrate Not-Taking/PRN Pramipexole Dihydrochloride Not-Taking/PRN Ehxcjs-Aqtqmzcgm-TNP Complex Tablet Orally Medication List reviewed and reconciled with the patient * Allergies:?Penicillin: rashM etformin ER & Diagnostic Test: stomach upsetNovocain: welts, itching, ozzing...but states CAN have LidocaineSulfa AntibioticsYogurtyes[Allergies Verified] Objective: * Vitals:?Ht:5 ft 4 in, Wt:247 , BMI:42.39, Shoe size:10, BP:130/70mm Hg, BS:109, Ht-cm: 162.56 cm, Wt-k.04 kg. * ???Past Orders: ???Lab:HEMOGLOBIN A1C (GLYCO HEMOGLOBIN) (Order Date - 04/02/2024) (Collection Date & Time - 07/20/2024 09:46 AM) ? Value Reference Range ?HEMOGLOBIN A1C % (HH) 5.6 * Examination: ???Ophthalmology Referral: ?DIABETES EYE EXAM?Neurological: ?SENSORY:? Neurological exam demonstrates, reduced light touch sensation, reduced sharp/dull pin prick discrimination , B/L, 5.07 monofilament test performed at plantar aspects of 5 varied sites per foot shows sensation, reduced , B/L.?Nails: ?NAILS are:?Elongated, overgrown, dystrophic, lytic, greater than 3mm thick, discolored and friable with crumbly malodorous subungual debris, TA, T2, T3,?T4, T5, T8, T9, all other nails not described with characteristics as possessing mycosis are elongated, overgrown, and dystrophic.?Dermatologic: ?SKIN FINDINGS:?Skin exam reveals Keratotic lesion(s) located at, SUB MTH (s), 3, Left, SUB MTH (s), 5, Right,?Plantar, Heel(s), B/L.?Vascular: ?DP PULSES (B):?0/4, RIGHT, 1/4, LEFT.?PT PULSES (B):?0/4, B/L.?CAPILLARY FILL TIME:?3 secs. per digit, B/L.?TROPHIC CONDITION-TEXTURE/ELASTICITY/TURGOR/HAIR GROWTH (B):?decreased, with sparse to absent hair growth, B/L.?TEMPERTURE GRADIENT (C):?decreased, cool to cool, proximal to distal, B/L.?PIGMENTATION:?rubrous, B/L.?EDEMA (C):?3/4, pitting, without aching pain, Leg(s), Ankle(s), Foot, B/L.?CLAUDICATION (C):?denies, B/L.?REST PAIN:?denies, B/L.?Orthopedic: ?MUSCLE STRENGTH:?5/5 all groups in a symmetrical fashion, B/L.?GAIT ABNORMALITY:?apropulsive, walker-assisted.?FOOT MORPHOLOGY:?Pes Planus structure, (-) Charcot collapse/destruction noted at MTJ.?DIGITAL DEFORMITIES:?Digital contracture, PIPJ, 2-5 B/L, incompl-reducible to push-up test, no over, nor underlapping,?there is?evidence of shoe producing skin irritation.?FOOTWEAR:?worn, non-supportive, shoe gear properties exacerbate patient's foot/toe deformity.?General Examination: ?GENERAL APPEARANCE:?Reveals a pleasant, alert, well nourished, well- developed, well hydrated individual, who demonstrates proper attention to hygiene/body habitus, and is in no acute distress, Pt serves as own historian for office visit today.?ORIENTED:?person, place, and time.?FOOT EXAM:?Footwear Evaluation? Assessment: * Assessment: 1.?Type 2 diabetes mellitus with diabetic polyneuropathy - E11.42 (Primary)???2.?Tinea unguium - B35.1???3.?Other hammer toe(s) (acquired), right foot - M20.41???Specify :Chronic problem, Worse (4),Rx Management (4)???4.?Other hammer toe(s) (acquired), left foot - M20.42???Specify :Chronic problem, Worse (4),Rx Management (4)??? Plan: * Treatment: 2.?Other hammer toe(s) (acqu ired), right foot? Start Extra Depth Orthopedic Shoes (1 Pair) with Customized Heat Molded Multidensity Innersoles (3 Pair), as directed, Dx: NIDDM/Polyneuropathy (E11.42), Hammertoe Foot Deformity (M20.41,M20.42), Preulcerative Skin Lesion(s) (L85.1, 1, Refills 0.?? Notes: Patient Educated with: DIABETIC FOOT CARE INSTRUCTIONS.pdf (DIABETIC FOOT CARE INSTRUCTIONS.pdf)?? * Procedures:?Debride Nail 6-10:?Nail debridement?Due to the clinical pathology outlined in the exam findings, performance of this nail treatment is medically necessary as its management by an unskilled/untrained nonprofessional would put this patients foot and overall health at risk. Therefore, debridement to affected nail(s), as described in exam (?TA,?T2, T3,?T4,?T5,?T8,?T9?), was performed exclusively by the physician of record to reduce/remove overall nail length, girth, thickness, subungual debris, and necrotic tissue, by manual and/or electrical means through the use of a nail nipper and/or dremel-type soap grinder, to a more viable healthy nail plate or bed tissue 6-10 nails in total. Silver nitrate was used for any petechial bleeding as necessary. Definitive antifungal treatment options, both pharmaceutical and surgical, have been reviewed and discussed with the patient. The patient solely prefers the use of intermittent/as needed professional debridement services for their nail condition and understands the need for additional periodic treatments to maintain effectiveness in symptomatic relief - 00491.?Keratoma Treatment:?Parring or Cutting of Benign Hyperkeratotic Lesion(s)?(-56) 2-4 Lesions - Due to the at risk nature of the patients medical condition as documented in the exam findings, performance of this keratoderma treatment is medically necessary as its management by an unskilled/untrained nonprofessional would put this patients foot and overall health at risk. Therefore, the benign hyperkeratotic lesions, ( 4 ) in total, locations as stated and described in the exam (?SUB MTH (s),?3,?Left,?SUB MTH (s),?5,?Right,?Plantar,?Heel(s),?B/L?), were pared, and/or cut utilizing a sterile 15 blade, tissue nippers, and/or power dremel instrumentation by the physician of record - 28984.? * Procedure Codes:?19526 DEBRI DE NAIL, 6 OR MORE, Modifiers: XS 68527 TRIM SKIN LESIONS, 2 TO 4, Modifiers: XS * Preventive Medicine:? ??Counseling:?Discussion:?-14: Office or other outpatient visit for the evaluation and management of an established patient, which required a medically appropriate history and/or examination and MODERATE level of DECISION MAKING for: 1 OR MORE CHRONIC PROBLEM(S) THATS WORSENING, 2 STABLE CHRONIC PROBLEMS, A NEWLY DIAGNOSED PROBLEM WITH UNCERTAIN PROGNOSIS, AN ACUTE COMPLICATED INJURY WITH MULTIPLE TREATMENT OPTIONS, OR AN ACUTE PROBLEM WITH ACCOMPANYING SYSTEMIC SYMPTOMS, THAT POSE(S) A MODERATE RISK OF MORBIDITY. THIS CONDITION MAY ALSO INCLUDE RX DRUG MANAGEMENT, OR A DECISON FOR MINOR SURGERY. The visit on the day of the encounter encompassed interpreting the data and educating the patient as to the nature of their condition, treatment options available according to their individual PMH, meds, allergies, and overall health/living conditions, as well as any potential risks or complications that may occur from a failure to adhere to, and participate in, the recommended course of therapy. The discussion included a complete verbal, and/or written explanation of the examination results, any x-rays taken, the proposed diagnosis, and outline of the treatment plan. A schedule for future care needs was also explained. The patient verbalized an understanding of the instructions at this time and agreed to be an active participant in their treatment. If the patient should think of any questions or concerns after the visit, I have encouraged the patient to call the office.?Digital Surgery:?Digital surgery was discussed with the patient, We elected to try conservative treatment at the present time, due to the patients medical history and increased asssociated post-operative risks.?Digital Treatment:?HT- I explained to the patient the possible etiologies of Hammertoes, including genetics/foot type/shoegear/activity level/exercise routine and the risks/benefits of all the different treatment options for their pain including: No treatment at all, Rest, Ice, New/supportive/wider/deeper Shoegear, Digital Padding/Strapping/Taping/Bracing/Gel protective sleeves, Foot/Ankle AFO Bracing, Stretching exercises, Deep Tissue Massage, Arch support/shoe inserts with splay metatarsal padding, and Custom orthoses. I insisted that any digital devices be removed daily and not worn overnight for safety. The patient is to carefully examine the toes daily for any skin irritation while using any splinting or padding device. The advantages and disadvantages of each option were discussed and the patients questions re: shoegear, padding, custom vs prefabricated inserts, activity level, and consistency in home treatment regimens for optimal success were answered to their verbally confirmed satisfaction.?Shoe Gear Counseling:?SHOE Rx - The patient was counseled in great detail on their muscoloskeletal foot and toe deformities which coincided with the dermatological presentations visualized on exam. We discussed how their deformities put the integrity of their feet at risk for potential pedal complications which makes the accomidative diabetic shoes and cutomizable inserts medically necessary. We discussed the different shoe and insert treatment types and options, as well as the important advantages for adhering to regularly wearing these accomidative devices daily. The patient was made aware of the fact that a failure to abide by these recommedations may be deleterious to their foot health as they are able to prevent many pedal complications such as skin irritation, skin ulceration, infection, and even loss of toe/foot/leg/or life. Time was also spent with the patient dispensing and discussing proper diabetic footcare techniques including daily skin moisturization, daily foot inspection for any interruption in skin integrity including open lesions, or sign of infection such as redness/malodor/drainage/swelling. Also discussed and recommended were procedures regarding daily shoe inspection for the presence of internal foreign bodies as well as any visualized irregular shoe or insert wear. Patient questions re: shoes, inserts, and self foot inspections were answered to their satisfaction as the patient verbally confirmed a full understanding of the above information. A Rx for Extra Depth Orthopedic Shoes with 3 pair of custom heat-molded inserts was dispensed.? ??Screening/Special Tests:?Fall Risk?Screening:?No falls in the past year ?FALLS: Screening for Future Fall Risk?Have you had any falls with injury in the past year??No * Follow Up:?prn * Images: * Sign off status: Completed true * Provider:?Ra Kruse DPM Date:?2024 Generated for Sreekanth meadows/Keyonna/eTransmitting on:?2024 02:44 PM EST History and Physical Notes * HPI (History of Present Illness) Category Sub-Category Detail Notes Category Not es Toe pain Location: B/L feet Duration: several years Course: worse Aggravated by: shoes, any pressure Treatments: change in shoes At Risk footcare Pt States Last PCP Visit: Date: 4 Examination Category Sub-Category Detail Notes Category Not es Neurological SENSORY: Neurological exa m demonstrates, reduced light touch sensation, reduced sharp/dull pin prick discrimination , B/L, 5.07 monofilament test performed at plantar aspects of 5 varied sites per foot shows sensation, reduced , B/L Dermatologic SKIN FINDINGS: Skin exam reveal s Keratotic lesion(s) located at, SUB MTH (s), 3, Left, SUB MTH (s), 5, Right, Plantar, Heel(s), B/L Orthopedic GAIT ABNORMALITY: apropulsive, walker-ass isted FOOT MORPHOLOGY: Pes Planus structure , (-) Charcot collapse/destruction noted at MTJ FOOTWEAR: worn, non-supportive , shoe gear properties exacerbate patient's foot/toe deformity DIGITAL DEFORMITIES: Digital contracture , PIPJ, 2-5 B/L, incompl-reducible to push-up test, no over, nor underlapping, there is evidence of shoe producing skin irritation MUSCLE STRENGTH: 5/5 all groups in a symmetrical fashion, B/L General Examination GENERAL APPEARANCE: Reveals a pleasant, alert, well nourished, well-developed, well hydrated individual, who demonstrates proper attention to hygiene/body habitus, and is in no acute distress, Pt serves as own historian for office visit today FOOT EXAM: Lower Extremity Neurological Exa m performed:: Yes Date Visual exam of foot performed:: Yes Date: 07/20/2024 ORIENTED: person, place, and t [place] Footwear Evaluation Footwear Evaluation performe d:: Yes Ophthalmology Referral DIABETES EYE EXAM Procedure Perform ed:: Yes ?Date of Exam Performed: 05/06/2023 Diabetic Retinopathy Screening:: Yes Retinal Screening Performed:: Yes Findings of Diabetic Eye Exam:: no retin opathy Vascular DP PULSES (B): 0/4, RIGHT, 1/4, LEFT PT PULSES (B): 0/4, B/L CAPILLARY FILL TIME: 3 secs. per digit, B/L TEMPERTURE GRADIENT (C): decreased, cool to cool, proximal to distal, B/L TROPHIC CONDITION-TEXTURE/ELASTICITY/TURGOR/HAIR GROWTH (B): decreased, with sparse to absent hair gr owth, B/L EDEMA (C): 3/4, pitting, withou t aching pain, Leg(s), Ankle(s), Foot, B/L CLAUDICATION (C): denies, B/L REST PAIN: denies, B/L PIGMENTATION: rubrous, B/L Nails NAILS are: Elongated, overg rown, dystrophic, lytic, greater than 3mm thick, discolored and friable with crumbly malodorous subungual debris, TA, T2, T3, T4, T5, T8, T9, all other nails not described with characteristics as possessing mycosis are elongated, overgrown, and dystrophic
--- OUTSIDE RECORDS SUMMARY | 2024-07-26 14:45 | XMS_ITS | Continuity of Care Document ---
Author Organization [facility] Address [address] [place] [address]- Care Team Providers Care Inspector Experimental Assembly Name Role Phone Po Ziggy QUILES Primary Care Physician [phone] Encounter [facility] [place] Date(s): 05/27/24 - 06/26/24 [facility] [address], [place] [address] Encounter Type: Triage Allergies, Adverse Reactions, Alerts Substance Criticality Severity Reaction Reaction Severity Status penicillins Hives Active sulfa drugs Itching Hives Active Benzocaine RASH, BLISTER Activ e metFORMIN upset stomach Active Novocain Itching Hives Active Immunizations Given and Recorded Vaccine Date [...] 9:58:49 AM EDT, Route to Pharmacy Electronically, [facility] [id number] Start Date: 12/29/15 Status: Ordered Quantity: 60.0 [...] 09/21/21 Status: Ordered Repeat number: 1 Nystop 946280 u/gm powder 1 application, Topically, 2 times [...] on: 10/18/13 Sex Sex Representation Female (finding) Patient Care team information Care Team Personnel Name: Bre Owens RN Position: [facility] RN Member Role: Primary Care Nurse Name: Ziggy Garcia MD Position: Reference Physician Member Role: PCP Address: [address] [place] [address]- [place] Telecom: Name: Milady Art RN Position: [facility] Outpatient Coordinator Member Role: Primary Care Nurse Care Team Related Persons Name: KOMAL HUNTLEY Insurance Providers Guarantor name: EPIFANIO HUNTLEY Health Plan Information #: 1 Payer: ANASTASIA Member Number: NA Policy Number: NA Group Number: NA
--- OUTSIDE RECORDS SUMMARY | 2024-07-26 14:45 | XMS_ITS | Continuity of Care Document ---
Author Organization [facility] Address [address] [place] [address]- Care Team Providers Care Clinical Psychologist Licensed Name Role Phone Po Ziggy QUILES Primary Care Physician Encounter [facility] [place](s): 06/23/24 - 07/23/24 [facility] [address] [place], [place] [address] Attending Physician: Talha Acevedo Admitting Physician: AdmTalha valles Referring Physician: AdmtrTalha Encounter Type: Triage Allergies, Adverse Reactions, Alerts [...] 9:58:49 AM EDT, Route to Pharmacy Electronically, [facility] [id number] Start Date: 12/29/15 Status: Ordered Quantity: 60.0 [...] 06/30/24 Status: Ordered Repeat number: 1 Nystop 723486 u/gm powder 1 application, Topically, 2 times [...] Severe obesity Confirmed Active 1diet controlled 2Left 2009 Social History Social History Type Response Smoking Status Never smoker entered on: 10/18/13 Sex Sex Representation Female (finding) Patient Care team information Care Team Personnel Name: Odalys Boothe RN Position: [facility] RN Member Role: Primary Care Nurse Name: Bre Owens RN Position: [facility] RN Member Role: Primary Care Nurse Name: Ziggy Garcia MD Position: Reference Physician Member Role: PCP Address: [address] [place] [address] Telecom: Name: Milady Art RN Position: [facility] Optometric Tech Member Role: Primary Care Nurse Care Team Related Persons Name: KOMAL HUNTLEY Insurance Providers Guarantor name: EPIFANIO AUDI Health Plan Information #: 1 Payer: ANASTASIA Member Number: ANASTASIA Policy Number: NA Group Number: NA
== END 2024-07-26 14:21 | disposition home or self-care (01) ==
PROVIDERS: PCP Internal Medicine; Visit Provider Internal Medicine
DX: E11.65 Type 2 diabetes mellitus with hyperglycemia (principal); E66.01 Morbid (severe) obesity due to excess calories; C73 Malignant neoplasm of thyroid gland; Z68.41 Body mass index [BMI] 40.0-44.9, adult; I10 Essential (primary) hypertension; Z85.3 Personal history of malignant neoplasm of breast; E03.9 Hypothyroidism, unspecified; K21.9 Gastro-esophageal reflux disease without esophagitis; J45.20 Mild intermittent asthma, uncomplicated; D64.9 Anemia, unspecified

== ENCOUNTER → 2024-07-26 12:59 | Outpatient (BNVA) | payer MEDICARE, SELFPAY | PROVIDERS: PCP Internal Medicine; Visit Provider Internal Medicine | DX: E66.01 Morbid (severe) obesity due to excess calories (principal); C73 Malignant neoplasm of thyroid gland; E03.9 Hypothyroidism, unspecified; I10 Essential (primary) hypertension; K21.9 Gastro-esophageal reflux disease without esophagitis; E11.65 Type 2 diabetes mellitus with hyperglycemia; J45.20 Mild intermittent asthma, uncomplicated; D64.9 Anemia, unspecified; Z85.3 Personal history of malignant neoplasm of breast | CPT/HCPCS: 83036; 96127; 99212 ==

== ENCOUNTER 2024-11-04 14:46 | Outpatient (AMB) | payer MEDICARE, SELFPAY ==
[2024-11-04 14:56] VITALS: BP 82/38; PULSE 75; O2SAT 95; BMI 44.3
--- NOTE | 2024-11-04 14:56 | A.OFFPC_ITS ---
Vital Signs 11/04/24 14:56 11/04/24 16:08 Height 5 ft 2 in Weight 242 lb 8 oz BMI 44.3 BP 82/38 L 100/60 Blood Pressure Location Lt brachial Lt brachial Position Sitting Pulse 75 Pulse Source Pulse Oximeter Pulse Oximetry (%) 95 Oxygen Delivery Method Room Air Intake Visit Reasons: 3 month f/u Carboy Filler Required: No Accompanied by: Spouse Allergies benzocaine [Benzocaine] Allergy (Intermediate, Verified 11/04/24 15:22) HIVES Sulfa (Sulfonamide Antibiotics) Allergy (Intermediate, Verified 11/04/24 15:22) HIVES Penicillins Allergy (Mild, Verified 11/04/24 15:22) RASH cyanocobalamin (vitamin B12) [Vitamin B12] Allergy (Unknown, Verified 11/04/24 15:22) Complex metformin Allergy (Unknown, Verified 11/04/24 15:22) diarrhea oxycodone [OXYCODONE] Allergy (Unknown, Verified 11/04/24 15:22) SEVERE NAUSEA procaine [From Novocain] Allergy (Unknown, Verified 11/04/24 15:22) Unknown Medication List - Last Reconciled 11/04/24 by Florinda Medina PA-C albuterol sulfate 2.5 mg (3 mL) inhalation TID 90 days biotin 5,000 mcg PO DAILY blood sugar diagnostic 1 strip miscellaneous TID 90 days blood sugar diagnostic (OneTouch Ultra Test strips) test once per day blood-glucose meter (OneTouch Ultra2 Meter) test once per day [Diabetic shoes and 3 custom inserts As directed] [DIABETIC SHOES WITH CUSTOM INSERTS As directed] fexofenadine (Adrianne Allergy) 180 mg PO DAILY 90 days gabapentin 300 mg PO BID glimepiride 2 mg PO QAM hydrochlorothiazide 25 mg PO DAILY lancets (EchoFirstTouch Delica Plus Lancet) As directed check the BS once a day levothyroxine 150 mcg PO DAILY 90 days lidocaine 5% 1 appl topical QID PRN lisinopril 40 mg PO DAILY metoprolol succinate ER 50 mg PO DAILY metoprolol succinate ER take 100 mg with 50 mg =150 mg daily; miconazole nitrate 2% (Zeasorb AF) 1 appl topical BID montelukast 10 mg PO QPM multivitamin 1 tab PO DAILY nystatin (Nyamyc) 1 appl topical BID-TID omeprazole 20 mg PO BID oxycodone-acetaminophen 5-325 mg (Percocet) 1 tab PO Q6H PRN simvastatin 5 mg PO BEDTIME Tobacco use date assessed: 11/04/24 Fall risk assessment: No Falls in past year Last assessed Fall Risk: 11/04/24 Dental Screening Dental Screen Date: 11/04/24 Did you have a dental visit in the last 12 months?: No Did you have a dental problem in the last 6 months where you did not have access to dental care?: No Was dental information given to patient?: No HPI 3 month f/u HPI Details 74-year-old female with past medical his tory of diabetes mellitus, GERD, hypertension, asthma, hypothyroid, hypercholesterolemia, hyperparathyroid, thyroid cancer last seen by Dr. Garcia 07/2024 coming in for follow up. Patient tells us today she has been having low blood pressures at home as she has been taking oxycodone from her orthopedic provider. She has decreased her metoprolol to 100 mg daily and lisinopril to 20 mg daily and continues to have low blood pressures. [facility] Medical History Low back pain Skin cancer History of ITP History of cataract History of renal calculi Hypercholesterolemia Hypothyroid Insomnia History of breast cancer Thyroid nodule DDD (degenerative disc disease), lumbosacral Asthma Restless leg syndrome Osteoarthritis Peripheral vascular disease Hypertension GERD (gastroesophageal reflux disease) Surgical History Back pain with history of spinal surgery History of splenectomy History of arthroplasty of left knee History of removal of cyst History of hysteroscopy History of arthroscopy of left knee History of knee replacement procedure of right knee Family History Father Diabetes Hypertension Mother Hypertension Liver cancer Brother Liver cancer Social History Housing: House Alcohol intake: never Patient Tobacco Use Status: Never used Tobacco Tobacco use type: Cigarette e-Cigarette/Vaping Use: Never Used Second Hand Smoke Exposure: No service: No Current occupational status: retired Cognitive needs: No Hearing needs: No Vision needs: Yes Questionnaire PHQ-9 Over the last 2 weeks, how often have you been bothered by any of the following problems? 1. Little interest or pleasure in doing things: not at all 2. Feeling down, depressed, or hopeless: not at all 3. Trouble falling or staying asleep, or sleeping too much: not at all 4. Feeling tired or having little energy: not at all 5. Poor appetite or overeating: not at all 6. Feeling bad about yourself - or that you are a failure or have let yourself or your family down: not at all 7. Trouble concentrating on things, such as reading the newspaper or watching television: not at all 8. Moving or speaking so slowly that other people could have noticed. Or the opposite - being so fidgety or restless that you have been moving around a lot more than usual: not at all 9. Thoughts that you would be better off or of hurting yourself in some way: not at all Total score: 0 Depression Screening Interpretation: Negative Depression Screening Done: Yes 57819 - PHQ-9 Billing: Yes Source: Developed by Drs. Marlon Carcamo, Jackie Chávez, Luis Jessica and colleagues, with an educational yandel from [employer]. Thrive Questionnaire Date Thrive assessed: 11/04/24 I am a: Patient What is your living situation today?: I have a steady place to live Within the past 12 months, did the food you bought not last and you didn't have the money to get more?: Never true Within the past 12 months, did you worry whether your food would run out before you got money to buy more?: Never true Do you have trouble paying for medicines?: No Do you have trouble getting transportation to medical appointments?: No Do you have trouble paying your heating and electricity bill?: No Do you have trouble taking care of your child, family member or friend?: No Do you have trouble with day-to-day activities such as bathing, preparing meals, shopping, managing finances, etc.?: No Are you currently unemployed and looking for a job?: No Are you interested in more education?: No Currently or been in a relationship where the following occur: No concerns reported THRIVE Score: 0 AUDIT C Alcohol Use Questionnaire (AUDIT-C) 1. How often do you have a drink containing alcohol?: Never 2. How many drinks containing alcohol do you have on a typical day when you are drinking?: 1 or 2 3. How often do you have six or more drinks on one occasion?: Never Total Score: 0 ELIO-7 AMB Questionnaire ELIO-7 Date ELIO - 7 assessed: 11/04/24 Feeling nervous, anxious, or on edge: 0 = Not at all Not being able to stop or control worryin = Not at all Worrying too much about different things: 0 = Not at all Trouble relaxin = Not at all Being so restless that it is hard to sit still: 0 = Not at all Becoming easily annoyed or irritable: 0 = Not at all Feeling afraid as if something awful might happen: 0 = Not at all Total ELIO-7 score (0-4 normal; 5-9 mild; 10-14 moderate; 15-21 severe): 0 Source: Developed by Drs. Marlon Carcamo, Jackie Chávez, Luis Jessica and colleagues, with an educational yandel from [employer]. Review of Systems Const Denies body aches, Denies chills, Denies fever(s), Denies headache(s) and Denies poor appetite Eyes Reports no additional complaints ENT Denies dysphagia, Reports dizziness, Denies headache(s) and Denies odynophagia Card Denies chest pain, Denies syncope, Denies edema, Denies irregular heart rhythm, Reports lightheadedness (w/ HoTN ) and Denies dyspnea Resp Denies cough and Denies dyspnea GI Denies abdominal pain, Denies constipation, Denies dysphagia, Denies diarrhea, Denies nausea, Denies odynophagia and Denies vomiting Reports no additional complaints Musc Reports no additional complaints and Denies abnormal gait Skin/Breast Reports system reviewed and no additional complaints, except as documented Neuro Denies abnormal gait, Reports dizziness, Denies syncope and Denies headache(s) Psych Reports no additional complaints Physical exam (Primary Care) Vital Signs: Last Vital Signs Pulse 75 11/04/24 14:56 BP 100/60 11/04/24 16:08 Pulse Ox 95 11/04/24 14:56 Oxygen Delivery Method Room Air 11/04/24 14:56 BMI result Body Mass Index 44.3 Tobacco/Smoking Status: Tobacco use Status Tobacco use date assessed 11/04/24 11/04/24 14:58 Patient Tobacco Use Status Never used Tobacco 11/04/24 14:58 Tobacco use type Cigarette 11/04/24 14:58 e-Cigarette/Vaping Use Never Used 11/04/24 14:58 PHQ-9: PHQ-9 Score PHQ-9: Total score 0 11/04/24 15:47 Depression Screening Interpretation: Negative Thrive Assessment: Date of Thrive Assessment Date Thrive assessed 11/04/24 11/04/24 14:58 Currently or been in a relationship where the following occur: No concerns reported Const General: cooperative, healthy appearing, comfortable and no acute distress Orientation/consciousness: patient oriented x3 HENMT Head: Yes normocephalic Ears: hearing grossly normal bilaterally General nose exam: Normal external nose present Eyes General: appearance normal, both eyes and all related structures Conjunctivae: conjunctivae normal Neck Neck: Yes full ROM and Yes no lymphadenopathy Resp Effort & Inspection: normal respiratory effort Auscultation: clear to auscultation bilaterally, no crackles, no rales, no rhonchi and no wheezes Cardio Rate: regular rate Rhythm: regular rhythm Skin General skin exam: no rashes or lesions noted Neuro General: patient oriented x3 Gait exam (Neuro): Normal gait present Extrem General: Yes normal to inspection, Yes full ROM and No edema Psych Affect: normal affect Attitude: cooperative Insight: Good insight present (Psych) Judgement: Good judgement present (Psych) Results AMB Hemoglobin A1c AMB Hemoglobin A1c 5.6 % Last Edit by Ava Celaya CMA on 11/04/24 15 :45 Results Reviewed Results Reviewed: Laboratory Last Values Hgb A1c (Clinic) 5.6 % (4.0-6.0) 11/04/24 15:43 Coding Level of Care Code Est Pt Level 4 (59611) Diagnoses Morbid obesity E66.01 Thyroid cancer C73 Hypercholesterolemia E78.00 Essential hypertension I10 Hypertension type: essential hypertension Gastroesophageal reflux disease without esophagitis K21.9 Esophagitis presence: without esophagitis Type 2 diabetes mellitus with hyperglycemia, without long-term current use of insulin E11.65 Diabetes mellitus mcfp insulin use: without mcfp use Additional Codes PHQ-9 - 77633 - PHQ-9 Billing: Yes ([id number]) Assessment & Plan Assessment & Plan (1) Morbid obesity: Code(s): E66.01 - Morbid (severe) obesity due to excess calories Category: Medical Plan: Healthy diet and regular exercise is encouraged. (2) Thyroid cancer: Comment: s/p R thyroidectomy 02/19/2022 Code(s): C73 - Malignant neoplasm of thyroid gland Category: Medical Plan: Patient's computer engineering technologist recently moved to [place] she was unable to follow her to her practice. Referral was placed to [facility] endocrinology at patient request. (3) Hypercholesterolemia: Code(s): E78.00 - Pure hypercholesterolemia, unspecified Category: Medical Plan: Avoid foods that are high in cholesterol such as red meat, fried foods, eggs and baked goods. Triglyceride goal of less than 150 and LDL goal of less than 100. Ordered for updated blood work (4) Hypertension: Code(s): I10 - Essential (primary) hypertension Category: Medical Qualifiers: Hypertension type: essential hypertension Qualified Code(s): I10 - Essential (primary) hypertension Plan: Blood pressures at home have been low in the 110/60 range, when she takes her oxycodone the blood pressure drops further and patient becomes lightheaded and dizzy. She has already cut back her metoprolol to 100 mg daily and lisinopril to 20 mg daily. Blood pressure remains low in the office today 100/60 plan to discontinue lisinopril at this time. Patient to continue taking blood pressures and reach out to the office if they are consistently low and consider decreasing metoprolol. Avoid salt intake and encourage healthy diet and regular exercise. (5) GERD (gastroesophageal reflux disease): Code(s): K21.9 - Gastro-esophageal reflux disease without esophagitis Category: Medical Qualifiers: Esophagitis presence: without esophagitis Qualified Code(s): K21.9 - Gastro-esophageal reflux disease without esophagitis Plan: Avoid trigger foods such as citrus, tomato products, soda, caffeine, spicy foods and other foods that may be irritating to your stomach. Avoid laying flat 3-4 hours after eating and elevate the head of the bed 30 degrees to prevent acid from moving into the esophagus. (6) Type 2 diabetes mellitus with hyperglycemia: Comment: [facility] Code(s): E11.65 - Type 2 diabetes mellitus with hyperglycemia Category: Medical Qualifiers: Diabetes mellitus superintendent marine oil terminal insulin use: without superintendent marine oil [employer] use Qualified Code(s): E11.65 - Type 2 diabetes mellitus with hyperglycemia Plan: Decrease the amount of carbohydrates such as pasta, bread, rice, and potatoes and limit the amount of sweets. Although fruits are generally healthy they should be eaten in moderation as they are still high in sugar. Hemoglobin A1c goal of less than 7%. A1c in the office today 5.6% plan to discontinue glimepiride at this time as A1c has been well controlled for several months. Plan This note was constructed using voice recognition software. While every effort has been made to ensure accuracy and worm raiser, still areas may have been included sometimes these areas may affect the content or meeting of the given symptoms. Total time spent caring for the patient today was 20 minutes. This includes time spent before the visit reviewing the chart, time spent during the visit, and time spent after the visit and documentation. Patient was informed and verbally consented to the use of an ambient scribe for clinic note documentation during this visit. Orders: Orders Lipid Panel 11/04/24 E78.00 - Pure hypercholesterolemia, unspecified AMB Hemoglobin A1c 11/04/24 Z13.9 - Encounter for screening, unspecified Referrals Endocrinology Referral C73 - Malignant neoplasm of thyroid gland, E21.0 - Primary hyperparathyroidism Medications: Refilled levothyroxine 150 mcg PO DAILY 90 days 90 tabs 3RF E03.9 - Hypothyroidism, unspecified nystatin (Nyamyc) 1 appl topical BID-TID 6 ea 3RF B35.4 - Tinea corporis blood sugar diagnostic (OneTouch Ultra Test strips) test once per day 100 ea 4RF E11.65 - Type 2 diabetes mellitus with hyperglycemia lancets (OneTouch Delica Plus Lancet) As directed check the BS once a day 100 ea 3RF E11.65 - Type 2 diabetes mellitus with hyperglycemia simvastatin 5 mg PO BEDTIME 90 tabs 3RF montelukast 10 mg PO QPM 90 tabs 3RF hydrochlorothiazide 25 mg PO DAILY 90 tabs 3RF C73 - Malignant neoplasm of thyroid gland [DIABETIC SHOES WITH CUSTOM INSERTS] As directed 1 ea 0RF E11.65 - Type 2 diabetes mellitus with hyperglycemia Discontinued lisinopril Discontinued Reason: Patient no longer taking 40 mg PO DAILY 90 tabs 3RF metoprolol succinate ER Discontinued Reason: Patient no longer taking 50 mg PO DAILY 90 tabs 3RF C73 - Malignant neoplasm of thyroid gland On Hold glimepiride Hold Comment: Doctor's Order 2 mg PO QAM 90 tabs 3RF
[2024-11-04 16:08] VITALS: BP 100/60
--- OUTSIDE RECORDS SUMMARY | 2024-11-04 17:24 | XMS_ITS | Patient Health Record ---
Author Organization [facility] Address [address] [place] [address] Care Team Providers Care Plastic Installer Name Role Phone Ziggy Garcia Primary Care Provider Ra Greenwood Unavailable [phone] Allergies Allergen (clinical drug ingredient) Drug/Non Drug [...] Range Notes HEMOGLOBIN A1C (GLYCOHEMOGLO BIN) Reviewed date:10/26/2024 10:17:46 AM Interpretation: Performing Lab: Notes/Report: HEMOGLOBIN A1C % (HH) 5.6 HEMOGLOBIN A1C (GLYCOHEMOGLO BIN) Reviewed date:07/20/2024 09:47:02 AM Interpretation: Performing Lab: Notes/Report: HEMOGLOBIN A1C % (HH) 5.6 Reason For Referral No Information Medications Medication SIG (Take, Route, Frequency, Duration) Notes Start Date End Date Status Lidocaine 5 % as directed Externally Three times a day for 30 days Active Synthroid 150 MCG 1 tablet in the morning on an empty stomach Orally Active Iron Not-Taking Extra Depth Orthopedic Shoes (1 Pair) with Customized Heat Molded Multidensity Innersoles (3 Pair) as directed Dx: NIDDM/Polyneuropathy (E11.42), Hammertoe Foot Deformity (M20.41,M20.42), Preulcerative Skin Lesion(s) (L85.1 07/20/2024 Active Vitamin D3 Active Vitamin C Not-Taking metFORMIN HCl Not-Ta damaris Adrianne Not-Taking Melatonin Not-Taking traMADol HCl Not-Luis Antonio ing Probiotic Not-Taking Fexofenadine HCl Act juan Magnesium 100 MG 1 tablet with food Orally Four times a day for 30 day(s) Not-Taking Advair Diskus Not-Ta damaris Albuterol Active tiZANidine HCl Not-T aking Horse Mitchell Activ e Vitamin B6 250 MG 1 tablet Orally Once a day for 30 day(s) Not-Taking hydroCHLOROthiazide Active Pramipexole Dihydrochloride Not-Taking Gabapentin Active Tamoxifen Citrate No t-Taking Metoprolol Succinate 100 MG 1 capsule Or ally Once a day Active Lisinopril 20 MG 1 tablet Orally Once a day Active Blnyqc-Qrsdpezkm-QKV Complex Orally Not-Taking Simvastatin Active oxyCODONE-Acetaminophen PRN Active Singulair 10 MG 1 tablet in the evening Orally Once a day for 30 day(s) Active Immunizations Vaccine Route Administration Date Status Comme [...] Problem Acquired hammer toe of right foot (8590148849915097 ) Other hammer toe(s) (acquired), right foot (M20.41) Active confirmed Problem Acquired hammer toe of left foot (6926919949500972 ) Other hammer toe(s) (acquired), left foot (M20.42) Active confirmed Problem Polyneuropathy due to type 2 diabetes mellitus (578930115) Type 2 diabetes mellitus with diabetic polyneuropathy (E11.42) Active confirmed Vital Signs Blood pressure diastolic 64 mm Hg 10/26/2024 Height 5 ft 4 in in 10/26/2024 Blood pressure systolic 128 mm Hg 10/26/2024 Weight 241 lbs 10/26/2024 BMI 41.36 kg/m2 10/26/2024 Procedures Procedure Date Ordered Date Performed Result Body Sit e 52967-GMTYHGT NAIL, 6 OR MORE 07/20/2024 N/A 71548-NSIW SKIN LESIONS, 2 TO 4 07/20/2024 N/A 12285-NWAIOZO NAIL, 6 OR MORE 10/26/2024 N/A 02354-PYGM SKIN LESIONS, 2 TO 4 10/26/2024 N/A Encounters Encounter [facility] Date [facility] [address] [facility] Ra Kruse Type 2 diabetes mellitus with diabetic polyneuropathy E11.42 ; Tinea unguium B35.1 ; Other hammer toe(s) (acquired), right foot M20.41 and Other hammer toe(s) (acquired), left foot M20.42 [facility] [address] 10/26/2024 Ra Kruse Type 2 diabetes mellitus with diabetic polyneuropathy E11.42 ; Tinea unguium B35.1 ; Other hammer toe(s) (acquired), right foot M20.41 and Other hammer toe(s) (acquired), left foot M20.42 Assessments Encounter Date Diagnosis (ICD Code) Assessment Notes Treatment Notes Treatment Clinical Notes Section Notes 07/20/2024 Type 2 diabetes mellitus with diabetic polyneuropathy (ICD-10 - E11.42) 07/20/2024 Tinea unguium (ICD-10 - B35.1) 10/26/2024 Type 2 diabetes mellitus with diabetic polyneuropathy (ICD-10 - E11.42) 10/26/2024 Tinea unguium (ICD-10 - B35.1) 07/20/2024 Other hammer toe(s) (acquired), right foot (ICD-10 - M20.41) Patient Educated with: DIABETIC FOOT CARE INSTRUCTIONS. pdf (DIABETIC FOOT CARE INSTRUCTIONS. pdf) 10/26/2024 Other hammer toe(s) (acquired), right foot (ICD-10 - M20.41) 10/26/2024 Other hammer toe(s) (acquired), left foot (ICD-10 - M20.42) 07/20/2024 Other hammer toe(s) (acquired), left foot [...] X ray : Foot, right 3V 11/27/2012 56820-ZAFBAUO NAIL, 6 OR MORE 02/26/2013 51203-PWMSKZV NAIL, 6 OR MORE 08/25/2012 15580-SAVZFMO NAIL, 6 OR MORE 11/27/2012 14846-NVHPAYG NAIL, 6 OR MORE 03/03/2012 75147-AOEAMOD NAIL, 6 OR MORE 05/19/2012 05676-ALBZDMP NAIL, 6 OR MORE 09/17/2011 57766-FTQZFIR NAIL, 6 OR MORE 12/17/2011 29419-EPJRELI NAIL, 6 OR MORE 06/11/2013 53832-TDLCCUD NAIL, 6 OR MORE 09/14/2013 10193-HCQYPCR NAIL, 6 OR MORE 03/29/2014 70639-MNMXYRB NAIL, 6 OR MORE 12/21/2013 29105-ZNULSDM NAIL, 6 OR MORE 10/13/2014 63630-YNEXPJJ NAIL, 6 OR MORE 02/13/2015 58798-MIUVLVK NAIL, 6 OR MORE 05/18/2015 44497-SZTBIAN NAIL, 6 OR MORE 12/25/2017 96230-DEFSBGR NAIL, 6 OR MORE 05/22/2017 88030-WFQZRWD NAIL, 6 OR MORE 09/22/2017 53731-JPNVREH NAIL, 6 OR MORE 06/18/2011 92920-FMYWCCX NAIL, 6 OR MORE 12/11/2016 27124-VQQYSQY NAIL, 6 OR MORE 03/03/2017 23584-QCZWNJY NAIL, 6 OR MORE 08/23/2015 24304-SNJXDUX NAIL, 6 OR MORE 11/27/2015 05981-RNFDGAQ NAIL, 6 OR MORE 04/08/2016 55366-OOCPQNP NAIL, 6 OR MORE 08/08/2016 46802-BQFOITZ NAIL, 6 OR MORE 04/06/2018 22514-LLLFWPO NAIL, 6 OR MORE 07/20/2024 29462-VYQKSND NAIL, 6 OR MORE 10/26/2024 54468-Xefcsgkj Plate 02/13/2015 10618-Zjgfkluh Plate 10/13/2014 92218-Kwkqcjrs Plate 12/21/2013 05455-Qgkfozvb Plate 03/29/2014 49406-Tmkjimjm Plate 09/14/2013 74807-Qwmpztrf Plate 06/11/2013 80921-Jdzpdtic Plate 12/17/2011 15304-Mjoingdc Plate 05/19/2012 47262-Tftcxdae Plate 09/17/2011 84412-Coetwawu Plate 11/27/2012 49716-Zxqzotqm Plate 08/25/2012 70521-Kzqnvaje Plate 02/26/2013 75569-Wtvdvfic Plate Each Additional 26378-Eglxqgxa Plate Each Additional 86065-Fbhwfxvd Plate Each Additional 15390-Pherketp Plate Each Additional 17859-Ldrzzyvx Plate Each Additional 03/2014 50449-Vnikucon Plate Each Additional 72589-Jtfguycg Plate Each Additional 31019-Futrxbpg Plate Each Additional 83881-QSLT SKIN LESIONS, OVER 4 08/09/19 17 39536-MQEI SKIN LESIONS, OVER 4 04/08/20 16 95058-VDBG SKIN LESIONS, OVER 4 11/27/19 16 45509-AMQX SKIN LESIONS, OVER 4 05/22/20 17 41095-PSUF SKIN LESIONS, OVER 4 03/03/20 17 79046-MWZF SKIN LESIONS, OVER 4 12/12/19 17 83849-ZAID SKIN LESIONS, OVER 4 09/23/19 18 93369-YSJG SKIN LESIONS, OVER 4 04/06/20 18 90237-ETKR SKIN LESIONS, OVER 4 06/24/19 19 29199-KUMN SKIN LESIONS, OVER 4 09/24/19 19 57727-BHHN SKIN LESIONS, OVER 4 12/22/19 19 91114-FOZR SKIN LESIONS, OVER 4 03/22/20 19 58980-CUCN SKIN LESIONS, OVER 4 06/28/19 20 88986-FOTQ SKIN LESIONS, OVER 4 12/22/19 20 99416-DZAZ SKIN LESIONS, OVER 4 04/03/20 51200-TDFZ SKIN LESIONS, OVER 4 08/01/19 21 02763-AGLL SKIN LESIONS, OVER 4 11/16/19 81554-DWDE SKIN LESIONS, OVER 4 03/29/20 21 58374-CTRM SKIN LESIONS, OVER 4 06/28/19 22 69858-NHNT SKIN LESIONS, OVER 4 10/04/19 39843-MSTD SKIN LESIONS, 2 TO 4 10/27/19 25 60041-NAVQ SKIN LESIONS, 2 TO 4 07/20/19 25 93359-ORHP SKIN LESIONS, 2 TO 4 12/26/19 18 56733-JPLS SKIN LESIONS, 2 TO 4 08/23/19 16 70710-RMGG SKIN LESIONS, 2 TO 4 10/14/19 15 71615-REYE SKIN LESIONS, 2 TO 4 02/14/20 15 89923-QUHJ SKIN LESIONS, 2 TO 4 05/18/20 15 63188-YOAI SKIN LESIONS, 2 TO 4 03/29/20 14 24425,M3201-FEY TENDON SHEATH/LIGAMENT 0 12/25/2012 07150,D7319-SJA TENDON SHEATH/LIGAMENT 0 01/12/2013 Next Appt Details Provider Name:Ra Kruse , 01/25/2025 04:00:00 PM, [address] [place], [address], Insurance Providers Payer Name Payer Address Payer Phone Subscriber Number Group Number Insured Name Patient Relationship to Insured Coverage Start Date Coverage End Date BlueCare 65 Medicare Preferred [address] [place] [address] [phone] [id number] Rain Martinez Self - patient is the insured Medical (General) History Medical History History ICD Code Arthritis asthma back, knee pain cancer cataracts hypertension reflux sciatica sinus conditions thyroid disorder chicken pox Type 2 Diabetes (borderline) kidney stones Surgical History Surgery Date(Month/Year) breast cancer surgery 10/13/2009 back surgery 11/2008 gall bladder 1989 splenectomy 1968 kidney stones 04/2009, 04/2010 left and right meniscus 2322-7299 kidney surgery for kidney stones 01/2012 back surgery 08/03/2013 knee replacement surgery, right 02/08/20 14 knee replacement surgery, left 08/01/2014 Palp removed from uterus 11/18/2016 cataract surgery 09/09/2016 colonoscopy 06/13/2020 endoscopy 06/13/2020 Thyroid surgery 02/21 Hospitalization History Reason Date(Month/Year) [facility] [place]- blood transfusion 04/24/2020
== END 2024-11-04 16:22 | disposition home or self-care (01) ==
LOC: HO.HMCH 14:47
PROVIDERS: PCP Internal Medicine
DX: Z13.9 Encounter for screening, unspecified (principal)

== ENCOUNTER → 2024-11-04 14:46 | Outpatient (BNVA) | payer MEDICARE, SELFPAY | PROVIDERS: PCP Internal Medicine | DX: E11.65 Type 2 diabetes mellitus with hyperglycemia (principal); K21.9 Gastro-esophageal reflux disease without esophagitis; I10 Essential (primary) hypertension; J45.909 Unspecified asthma, uncomplicated; E03.9 Hypothyroidism, unspecified; E78.00 Pure hypercholesterolemia, unspecified; E21.3 Hyperparathyroidism, unspecified; E66.01 Morbid (severe) obesity due to excess calories; C73 Malignant neoplasm of thyroid gland; B35.4 Tinea corporis; Z68.41 Body mass index [BMI] 40.0-44.9, adult | CPT/HCPCS: 83036; 96127; 99212 ==

== ENCOUNTER 2025-01-21 14:18 | Outpatient (AMB) | payer MEDICARE, SELFPAY ==
--- OUTSIDE RECORDS SUMMARY | 2025-01-21 14:22 | XMS_ITS | Encounter Summary ---
Author Organization [facility] [place] [address] Care Team Providers Care Channel Marketing Manager Name Role Phone Ziggy Garcia MD Primary Care Provider [phone] Encounter Details Date Type Department Care Team (Late Contact Info) Description 12/25/2024 Lab Requisition [facility] - Main Lab [address] [facility] [place] [address] Sandra Ulloa MD [address] [place] [address] Polyosteoarthritis, unspecified; Anemia, unspecified Social History Tobacco Use Types Packs/Day Years Used Date Smoking Tobacco: Never Alcohol Use Standard Drinks/Week Comments Never 0 (1 standard drink = 0.6 oz pur e alcohol) Interpersonal Safety Answer Date Record ed Physical Abuse 10/07/2024 Verbal Abuse 10/07/2024 Comments No Sex and Gender Information Value Date Recorded Sex Assigned at Female 05/21/2024 2:20 PM EST Legal Sex Female 2:30 PM EST Gender Identity Female 05/21/2024 2:20 PM EST Sexual Orientation Straight 05/21/2024 2: 20 PM EST documented as of this encounter Plan of Treatment Upcoming Encounters Date Type Department Care Team (Late Contact Info) Description 04/21/2025 9:[address] [facility] [address] [place] [address] Bernie Sharp MD [address] [address] documented as of this encounter Procedures Procedure Name Priority Date/Time Associated Diagnosis Comments COMPLETE BLOOD COUNT Routine 12/25/2024 5:09 AM EDT Polyosteoarthritis, unspecified Anemia, unspecified documented in this encounter Results * (ABNORMAL) Complete blood count (12/25/2024 5:09 AM EDT) [facility] WBC 8.0 4.8 - 10.8 K/mcL LAB HEMETOLOGY METHOD 12/25/2024 10:40 AM [facility] RBC 2.90(L) 3.80 - 4.80 M/mcL LAB HEMETOLOGY METHOD 12/25/2024 10:40 AM [facility] Hemoglobin 8.0(L) 11.5 - 16.0 g/dL LAB HEMETOLOGY METHOD 12/25/2024 10:40 AM [facility] Hematocrit 27.3(L) 35.0 - 47.0 % LAB HEMETOLOGY METHOD 12/25/2024 10:40 AM [facility] MCV 94.1 79.0 - 98.0 FL LAB HEMETOLOGY METHOD 12/25/2024 10:40 AM [facility] MCH 27.6 27.0 - 32.0 pcg LAB HEMETOLOGY METHOD 12/25/2024 10:40 AM [facility] MCHC 29.3(L) 32.0 - 37.0 g/dL LAB HEMETOLOGY METHOD 12/25/2024 10:40 AM [facility] RDW 20.1(H) 11.0 - 15.0 % LAB HEMETOLOGY METHOD 12/25/2024 10:40 AM [facility] Platelets 489(H) 130 - 400 K/mcL LAB HEMETOLOGY METHOD 12/25/2024 10:40 AM EDT [facility] MPV 11.2(H) 7.0 - 11.0 FL LAB HEMETOLOGY METHOD 12/25/2024 10:40 AM EDT [facility] NRBC 0.0 <1.0 % LAB HEMETOLOGY METHOD 12/25/2024 10:40 AM EDT [facility] NRBC Absolute 0.00 <0.10 K/mcL LAB HEMETOLOGY METHOD 12/25/2024 10:40 AM EDT [facility] Blood Venous blood specimen / Unknown Venipuncture / Unknown 12/25/2024 5:09 AM EDT 12/25/2024 9:37 AM EDT us Sandra Ulloa MD LAB BLOOD ORDERABLES Final Resul t [facility] [address] [place] [address], [place] [phone] documented in this encounter Visit Diagnoses Diagnosis Polyosteoarthritis, unspecified Anemia, unspecified documented in this encounter Care Teams Channel Marketing Manager Relationship Specialty Start Date End Date Ziggy Garcia MD [address] [place] [address] [address] [facility] [place] [address] PCP - General Internal Medicine 03/24/17 documented as of this encounter
--- OUTSIDE RECORDS SUMMARY | 2025-01-21 14:22 | XMS_ITS | Clinical Summary ---
Author Organization [facility] Address [address] [place] [address] Care Team Providers Care Welcome Center Agent Name Role Phone Po, Ziggy Antunez MD Primary Care Provider [phone] Allergies Active Allergy Reactions Criticality Noted Date [...] Tdap) 1968 Colon Cancer Screening (Colonoscopy) 1994 Shingrix-Zoster Vaccine (1 of 2) 1999 Fall Risk Assessment 2014 Osteoporosis Screening (DEXA Scan) 2014 Pneumococcal Vaccine (1 of 1 - PCV) 2014 RSV Adult > 60+ Yrs or Pregn ant (1 - 1-dose 75+ series) 2024 Influenza Vaccine (#1) 2025 Hepatitis B Vaccines Aged Out No long er eligible based on patient's age to complete this topic RSV Ped < 20 months Aged Out No longe r eligible based on patient's age to complete this topic Care Teams Welcome Center Agent Relationship Specialty Start Date End Date Ziggy Garcia MD [address] [place] [address] [address] [facility] [place] [address] PCP - General Internal Medicine 03/24/17
--- OUTSIDE RECORDS SUMMARY | 2025-01-21 14:22 | XMS_ITS | Patient Health Record ---
Author Organization [facility] Address [address] [place] [address] Care Team Providers Care Armored Service Technician Name Role Phone Ziggy Garcia Primary Care Provider Ra Greenwood Unavailable [phone] Allergies Allergen (clinical drug ingredient) Drug/Non Drug [...] (HH) 5.6 HEMOGLOBIN A1C (GLYCOHEMOGLO BIN) Reviewed date:10/26/2024 10:17:46 AM Interpretation: Performing Lab: Notes/Report: HEMOGLOBIN A1C % (HH) 5.6 Reason For Referral No Information Medications Medication SIG (Take, Route, Frequency, Duration) Notes Start Date End Date Status Lidocaine 5 % as directed Externally Three times a day; Duration: 30 days Active Synthroid 150 MCG 1 [...] tablet with food Orally Four times a day; Duration: 30 day(s) Not-Taking Advair Diskus Not-Ta damaris Albuterol Active tiZANidine HCl Not-T aking Horse [place] Activ e Vitamin B6 250 MG 1 tablet Orally Once a day; Duration: 30 day(s) Not-Taking hydroCHLOROthiazide Active Pramipexole Dihydrochloride Not-Taking Gabapentin Active Tamoxifen Citrate No t-Taking Metoprolol Succinate 100 MG 1 capsule Or ally Once a day Active Lisinopril 20 MG 1 tablet Orally Once a day Active Wstlbk-Ydjcmtzfu-RNR Complex Orally Not-Taking Simvastatin Active oxyCODONE-Acetaminophen PRN Active Singulair 10 MG 1 tablet in the evening Orally Once a day; Duration: 30 day(s) Active Immunizations Vaccine Route Administration [...] Problem Acquired hammer toe of right foot ([id number] ) Other hammer toe(s) (acquired), right foot (M20.41) Active confirmed Problem Other hammer toe(s) (acquired), left foot (M20.42) Active confirmed Problem Polyneuropathy due to type 2 diabetes mellitus (438649196) Type 2 diabetes mellitus with diabetic polyneuropathy (E11.42) Active confirmed Vital Signs Blood pressure diastolic 64 mm Hg 10/26/2024 Height 5 ft 4 in in 10/26/2024 Blood pressure systolic 128 mm Hg 10/26/2024 Weight 241 lbs 10/26/2024 BMI 41.36 kg/m2 10/26/2024 Procedures Procedure Date Ordered Date Performed Result Body Sit e 22223-HCZMTAY NAIL, 6 OR MORE 07/20/2024 N/A 10775-WQOP SKIN LESIONS, 2 TO 4 07/20/2024 N/A 74455-YMVLONR NAIL, 6 OR MORE 10/26/2024 N/A 03509-FJST SKIN LESIONS, 2 TO 4 10/26/2024 N/A Encounters Encounter Location Date Provider Diagnosis [facility] [address] 07/20/2024 Ra Kruse Type 2 diabetes mellitus with diabetic polyneuropathy E11.42 ; Tinea unguium B35.1 ; Other hammer toe(s) (acquired), right foot M20.41 and Other hammer toe(s) (acquired), left foot M20.[address] [address] 10/26/2024 Ra Kruse Type 2 diabetes mellitus [...] X ray : Foot, right 3V 11/27/2012 41335-ELUUUUU NAIL, 6 OR MORE 02/26/2013 02511-IFZRFNQ NAIL, 6 OR MORE 08/25/2012 65457-NOVEWGZ NAIL, 6 OR MORE 11/27/2012 41451-AAVGVPI NAIL, 6 OR MORE 03/03/2012 69407-UYVBKJE NAIL, 6 OR MORE 05/19/2012 36977-JGSQVIL NAIL, 6 OR MORE 09/17/2011 70475-MQNJCQY NAIL, 6 OR MORE 12/17/2011 14219-YBGIWYC NAIL, 6 OR MORE 06/11/2013 37549-KIRSWIO NAIL, 6 OR MORE 09/14/2013 08765-FGZKRHA NAIL, 6 OR MORE 03/29/2014 07713-KRNLMLO NAIL, 6 OR MORE 12/21/2013 58956-QQQGLCB NAIL, 6 OR MORE 10/13/2014 20741-BVECVOP NAIL, 6 OR MORE 02/13/2015 59598-EWJZUEJ NAIL, 6 OR MORE 05/18/2015 84233-HTAUWNA NAIL, 6 OR MORE 12/25/2017 48054-CWMPXCG NAIL, 6 OR MORE 05/22/2017 01881-CEBKMYM NAIL, 6 OR MORE 09/22/2017 31636-DTCYODM NAIL, 6 OR MORE 06/18/2011 49021-OXXKVII NAIL, 6 OR MORE 12/11/2016 44124-BJRERKZ NAIL, 6 OR MORE 03/03/2017 55605-FUMGTBF NAIL, 6 OR MORE 08/23/2015 70115-QSEXOBG NAIL, 6 OR MORE 11/27/2015 05960-RNCUKMZ NAIL, 6 OR MORE 04/08/2016 06013-COQUTCB NAIL, 6 OR MORE 08/08/2016 62120-UPVZZVG NAIL, 6 OR MORE 04/06/2018 71804-HUFQOFX NAIL, 6 OR MORE 07/20/2024 71390-KECULZF NAIL, 6 OR MORE 10/26/2024 31730-Qzseuuux Plate 02/13/2015 65949-Focwrree Plate 10/13/2014 44128-Ngtwrqmg Plate 12/21/2013 64935-Ierftvlf Plate 03/29/2014 43384-Fhpbdxch Plate 09/14/2013 04229-Spwhzgwt Plate 06/11/2013 28130-Kxqowlig Plate 12/17/2011 59306-Qfnwdqsz Plate 05/19/2012 81897-Rotsvina Plate 09/17/2011 98265-Hmhyviry Plate 11/27/2012 48513-Rlpubzgx Plate 08/25/2012 62973-Yrlyiexl Plate 02/26/2013 57744-Umytxhhw Plate Each Additional 30574-Jimmoxzy Plate Each Additional 12390-Qtpyyjyk Plate Each Additional 71614-Djxuptdz Plate Each Additional 46098-Qncalfmp Plate Each Additional 03/2014 32132-Oworieml Plate Each Additional 12335-Qbvtpdpf Plate Each Additional 20315-Lqrwbeia Plate Each Additional 58060-LFIV SKIN LESIONS, OVER 4 08/09/19 17 39276-BEHM SKIN LESIONS, OVER 4 04/08/20 16 21592-ABCI SKIN LESIONS, OVER 4 11/27/19 16 03276-PCDL SKIN LESIONS, OVER 4 05/22/20 17 15736-EPTM SKIN LESIONS, OVER 4 03/03/20 17 66159-PYJE SKIN LESIONS, OVER 4 12/12/19 17 78629-NGGJ SKIN LESIONS, OVER 4 09/23/19 18 61545-RSDC SKIN LESIONS, OVER 4 04/06/20 18 64540-PDQF SKIN LESIONS, OVER 4 06/24/19 19 20587-KVMZ SKIN LESIONS, OVER 4 09/24/19 19 73201-EYJL SKIN LESIONS, OVER 4 12/22/19 19 40488-ZSKE SKIN LESIONS, OVER 4 03/22/20 19 40126-NGHO SKIN LESIONS, OVER 4 06/28/19 20 62462-QBQF SKIN LESIONS, OVER 4 12/22/19 20 95329-RZGL SKIN LESIONS, OVER 4 04/03/20 57495-VUBT SKIN LESIONS, OVER 4 08/01/19 83433-YGVS SKIN LESIONS, OVER 4 11/16/19 69234-RVPH SKIN LESIONS, OVER 4 03/29/20 21 21215-ENRD SKIN LESIONS, OVER 4 06/28/19 22 06862-NOWS SKIN LESIONS, OVER 4 10/04/19 37154-PIIG SKIN LESIONS, 2 TO 4 10/27/19 25 10310-KLHK SKIN LESIONS, 2 TO 4 07/20/19 25 58064-FNFM SKIN LESIONS, 2 TO 4 12/26/19 18 86489-OQBR SKIN LESIONS, 2 TO 4 08/23/19 16 27741-DBML SKIN LESIONS, 2 TO 4 10/14/19 15 05500-PAQV SKIN LESIONS, 2 TO 4 02/14/20 15 84032-TBIR SKIN LESIONS, 2 TO 4 05/18/20 15 57789-BLGG SKIN LESIONS, 2 TO 4 03/29/20 14 02525,J9920-CPZ TENDON SHEATH/LIGAMENT 0 12/25/2012 48308,V0066-KGV TENDON SHEATH/LIGAMENT 0 01/12/2013 Next Appt Details Provider Name:Ra Kruse , 01/25/2025 04:00:00 PM, [address] [place], [address], Insurance Providers Payer Name Payer Address Payer Phone Subscriber Number Group Number Insured Name Patient Relationship to Insured Coverage Start Date Coverage End Date BlueCare 65 Medicare Preferred [address] [place] [address] [phone] [id number] Rain Martinez Self - patient is the insured Medical (General) History Medical History History ICD Code Arthritis asthma back, knee pain cancer cataracts hypertension reflux sciatica sinus conditions thyroid disorder chicken pox Type 2 Diabetes (borderline) kidney stones Surgical History Surgery Date(Month/Year) breast cancer surgery 10/13/2009 back surgery 11/2008 gall bladder 1989 splenectomy 1968 kidney stones 04/2009, 04/2010 left and right meniscus 6469-4752 kidney surgery for kidney stones 01/2012 back surgery 08/03/2013 knee replacement surgery, right 02/08/20 14 knee replacement surgery, left 08/01/2014 Palp removed from uterus 11/18/2016 cataract surgery 09/09/2016 colonoscopy 06/13/2020 endoscopy 06/13/2020 Thyroid surgery 02/21 Hospitalization History Reason Date(Month/Year) [facility] 04/24/2020
--- NOTE | 2025-01-21 14:24 | A.OFFPC_ITS ---
Vital Signs 3 01/21/25 14:30 Height 5 ft 2 in Weight 239 lb 2 oz BMI 43.7 BP 140/60 H Blood Pressure Location Lt brachial Position Sitting Pulse 86 Pulse Source Pulse Oximeter Temp 97.3 F Temp Source Temporal Artery Scan Pulse Oximetry (%) 97 Oxygen Delivery Method Room Air Intake Visit Reasons: [facility] 01/02 Intake Note: Patient is here for hospital discharge follow up. Patient was discharged from [facility] on 01/02/25. Outside Sales Representative Insurance Required: No Accompanied by: Self / Same As Patient Allergies benzocaine (Benzocaine) Allergy (Intermediate, Verified 01/21/25 14:29) HIVES Sulfa (Sulfonamide Antibiotics) Allergy (Intermediate, Verified 01/21/25 14:29) HIVES Penicillins Allergy (Mild, Verified 01/21/25 14:29) RASH cyanocobalamin (vitamin B12) (Vitamin B12) Allergy (Unknown, Verified 01/21/25 14:29) Complex metformin Allergy (Unknown, Verified 01/21/25 14:29) diarrhea oxycodone (OXYCODONE) Allergy (Unknown, Verified 01/21/25 14:29) SEVERE NAUSEA procaine (From Novocain) Allergy (Unknown, Verified 01/21/25 14:29) Unknown Tobacco use date assessed: 01/21/25 Fall risk assessment: No Falls in past year Last assessed Fall Risk: 01/21/25 Dental Screening Dental Screen Date: 11/04/24 HPI HPI Comments 2 History of Present Illness0 Details 74 y/o Female patient [facility]. She was admitted at [facility] on 12/22 - 01/02 for PT/OT after MADDY surgery on 12/16/24. She continues to receive PT/OT Outpatient at [facility]. Wound is Healing well, no infection or Pain. Today Pt c/o B/L LE Edema - chronic Issue. She has had Negative work-up for this and continues to have Edema. She is currently on HCTZ for HTN, she is wondering if she can Lasix. Advised against it due risk for Electrolyte imbalance. Discussed Compression stockings, but states she will not be able to put them on by herself - requiring assistance. Denies SOB, or CP. [facility] Medical History (Updated 01/21/25 @ 15:16 by Fadumo Quiñonez NP) Peripheral edema Low back pain Skin cancer History of ITP History of cataract History of renal calculi Hypercholesterolemia Hypothyroid Insomnia History of breast cancer Thyroid nodule DDD (degenerative disc disease), lumbosacral Asthma Restless leg syndrome Osteoarthritis Peripheral vascular disease Hypertension GERD (gastroesophageal reflux disease) Surgical History (Updated 01/21/25 @ 15:16 by Fadumo Quiñonez NP) Status post total hip replacement, right History of total right hip replacement Back pain with history of spinal surgery History of splenectomy History of arthroplasty of left knee History of removal of cyst History of hysteroscopy History of arthroscopy of left knee History of knee replacement procedure of right knee Family History Father Diabetes Hypertension Mother Hypertension Liver cancer Brother Liver cancer Social History Housing: House Alcohol intake: never Patient Tobacco Use Status: Never used Tobacco Tobacco use type: Cigarette e-Cigarette/Vaping Use: Never Used Second Hand Smoke Exposure: No service: No Current occupational status: retired Cognitive needs: No Hearing needs: No Vision needs: Yes Questionnaire PHQ-9 Over the last 2 weeks, how often have you been bothered by any of the following problems? 3. Trouble falling or staying asleep, or sleeping too much: not at all 4. Feeling tired or having little energy: more than half the days 5. Poor appetite or overeating: several days 6. Feeling bad about yourself - or that you are a failure or have let yourself or your family down: not at all 7. Trouble concentrating on things, such as reading the newspaper or watching television: not at all 8. Moving or speaking so slowly that other people could have noticed. Or the opposite - being so fidgety or restless that you have been moving around a lot more than usual: not at all 9. Thoughts that you would be better off or of hurting yourself in some way: not at all Depression Screening Interpretation: Positive Depression Screening Done: Yes Source: Developed by Drs. Marlon Carcamo, Jackie Chávez, Luis Jessica and colleagues, with an educational yandel from [employer]. Thrive Questionnaire Date Thrive assessed: 01/21/25 I am a: Patient What is your living situation today?: I have a steady place to live Within the past 12 months, did the food you bought not last and you didn't have the money to get more?: I choose not to answer this question Within the past 12 months, did you worry whether your food would run out before you got money to buy more?: I choose not to answer this question Do you have trouble paying for medicines?: Yes Do you have trouble getting transportation to medical appointments?: No Do you have trouble paying your heating and electricity bill?: No Do you have trouble taking care of your child, family member or friend?: I choose not to answer this question Do you have trouble with day-to-day activities such as bathing, preparing meals, shopping, managing finances, etc.?: No Are you currently unemployed and looking for a job?: I choose not to answer this question Are you interested in more education?: I choose not to answer this question Please select the resources that you would like help with: None Currently or been in a relationship where the following occur: No concerns reported THRIVE Score: 0 AUDIT C Alcohol Use Questionnaire (AUDIT-C) 1. How often do you have a drink containing alcohol?: Never Total Score: 0 ELIO-7 AMB Questionnaire ELIO-7 Date ELIO - 7 assessed: 11/04/24 Source: Developed by Drs. Marlon Carcamo, Jackie Chávez, Luis Jessica and colleagues, with an educational yandel from [employer]. Review of Systems Const All systems reviewed & are unremarkable except as noted in HPI and below Physical exam (Primary Care) Vital Signs: Last Vital Signs Temp 97.3 F 01/21/25 14:30 Pulse 86 01/21/25 14:30 BP 140/60 H 01/21/25 14:30 Pulse Ox 97 01/21/25 14:30 Oxygen Delivery Method Room Air 01/21/25 14:30 BMI result Body Mass Index 43.7 Tobacco/Smoking Status: Tobacco use Status Tobacco use date assessed 01/21/25 01/21/25 14:37 Patient Tobacco Use Status Never used Tobacco 01/21/25 14:24 Tobacco use type Cigarette 01/21/25 14:24 e-Cigarette/Vaping Use Never Used 01/21/25 14:24 Depression Screening Interpretation: Positive Thrive Assessment: Date of Thrive Assessment Date Thrive assessed 01/21/25 01/21/25 14:24 Currently or been in a relationship where the following occur: No concerns reported Const General: no acute distress Nutritional Appearance: obese morbidly obese Orientation/consciousness: patient oriented x3 Resp Effort & Inspection: normal respiratory effort Auscultation: clear to auscultation bilaterally Cardio Heart sounds: S1 normal heart sound present and S2 normal heart sound present Neuro General: patient oriented x3 and moves all extremities Extrem Upper/lower leg/hip images: 2 1. Large Surgical well healed Wound, no drainage no infection. Mild TTP Coding Level of Care Code Est Pt Level 4 (01311) Diagnoses Status post total hip replacement, right Z96.641 Peripheral edema R60.0 Time Spent (min) 20 Assessment & Plan Assessment & Plan (1) Status post total hip replacement, right: Code(s): Z96.641 - Presence of right artificial hip joint Category: Surgical Plan: Stable. Managed by Ortho - [facility] Continue with PT (2) Peripheral edema: Code(s): R60.0 - Localized edema Category: Medical Plan: Discusses Compression stockings. Advised Raising Limbs when sitting More activity F/U with PCP.
[2025-01-21 14:30] VITALS: BP 140/60; PULSE 86; TEMP 36.3; O2SAT 97; BMI 43.7
== END 2025-01-21 15:59 | disposition home or self-care (01) ==
LOC: HO.HMCH 14:19
PROVIDERS: PCP Internal Medicine; Visit Provider Nurse Practitioner Family
DX: Z96.641 Presence of right artificial hip joint (principal); R60.0 Localized edema

== ENCOUNTER → 2025-01-21 14:18 | Outpatient (BNVA) | payer MEDICARE, SELFPAY | PROVIDERS: PCP Internal Medicine; Visit Provider Nurse Practitioner Family | DX: R60.0 Localized edema (principal); I10 Essential (primary) hypertension; Z96.641 Presence of right artificial hip joint; Z79.899 Other long term (current) drug therapy | CPT/HCPCS: 99212 ==

== ENCOUNTER 2025-02-28 14:10 | Outpatient (AMB) | payer MEDICARE, SELFPAY ==
[2025-02-28 14:16] VITALS: BP 130/62; PULSE 82; O2SAT 98; BMI 43.2
--- NOTE | 2025-02-28 14:16 | MHC.PC.OV ---
Vital Signs 02/28/25 14:16 Height 5 ft 2 in Weight 236 lb BMI 43.2 BP 130/62 Blood Pressure Location Lt brachial Position Sitting Pulse 82 Pulse Source Pulse Oximeter Pulse Oximetry (%) 98 Oxygen Delivery Method Room Air Intake Visit Reasons: 3mth f/u - see comments Allergies benzocaine (Benzocaine) Allergy (Intermediate, Verified 02/28/25 14:16) HIVES Sulfa (Sulfonamide Antibiotics) Allergy (Intermediate, Verified 02/28/25 14:16) HIVES Penicillins Allergy (Mild, Verified 02/28/25 14:16) RASH cyanocobalamin (vitamin B12) (Vitamin B12) Allergy (Unknown, Verified 02/28/25 14:16) Complex metformin Allergy (Unknown, Verified 02/28/25 14:16) diarrhea oxycodone (OXYCODONE) Allergy (Unknown, Verified 02/28/25 14:16) SEVERE NAUSEA procaine (From Novocain) Allergy (Unknown, Verified 02/28/25 14:16) Unknown Tobacco use date assessed: 01/21/25 Fall risk assessment: No Falls in past year Last assessed Fall Risk: 02/28/25 Dental Screening Dental Screen Date: 11/04/24 HPI 3mth f/u - see comments HPI Details History of Present Illness The patient is a 74-year-old female presenting for routine follow-up and management of chronic conditions. She has a history of diabetes mellitus, which is currently managed with diet control and glimepiride, with a hemoglobin A1c goal of less than 7.0%. Her hypertension is managed with hydrochlorothiazide 25 mg and metoprolol 100 mg daily. The patient has asthma and is on albuterol as needed. She also has hypothyroidism, for which she continues with thyroid medication and regular blood work is requested. Her hypercholesterolemia is managed with a goal of LDL less than 100 mg/dL and triglycerides less than 150 mg/dL. The patient has a history of lumbar degenerative disc disease and has undergone a right hip replacement. She has a history of thyroid cancer, treated with thyroidectomy in 2021, and breast cancer, treated with lumpectomy in 2009 followed by tamoxifen therapy. 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 She has a history of anemia noted in May 2020 blood work. Preventative care measures include a pneumonia vaccination in August 2023, a mammogram in May 2023, and a colonoscopy showing tubular adenoma in June 2020. Health Maintenance - Pneumonia vaccination in August 2023 - Mammogram in May 2023 - Colonoscopy showing tubular adenoma in June 2020 Social History Review of Systems Physical Exam Results - Labs: Anemia noted in May 2020 blood work - Tests: Colonoscopy showing tubular adenoma in June 2020 Plan Patient was informed and verbally consented to the use of an ambient scribe for clinic note documentation during this visit. 1. Diabetes Mellitus The patient's diabetes mellitus is managed with diet control and glimepiride, aiming for a hemoglobin A1c goal of less than 7.0%. 2. Hypertension Hypertension is managed with hydrochlorothiazide 25 mg and metoprolol 100 mg daily. 3. Asthma Asthma management includes the use of albuterol as needed. 4. Hypothyroidism Hypothyroidism is managed with thyroid medication, and regular blood work is requested to monitor thyroid function. 5. Hypercholesterolemia The management plan for hypercholesterolemia includes maintaining an LDL goal of less than 100 mg/dL and triglycerides less than 150 mg/dL. 6. Lumbar Degenerative Disc Disease The patient has a history of lumbar degenerative disc disease and has undergone a right hip replacement. 7. History Of Thyroid Cancer The patient has a history of thyroid cancer treated with thyroidectomy in 2021. 8. History Of Breast Cancer The patient has a history of breast cancer treated with lumpectomy in 2009 followed by tamoxifen therapy. 9. 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 10. Anemia Anemia was noted in the patient's May 2020 blood work, and further blood work is needed. 11. Preventative Care Preventative care includes a pneumonia vaccination in August 2023, a mammogram in May 2023, and a colonoscopy showing tubular adenoma in June 2020. Discussion Notes Patient Instructions [facility] Medical History (Updated 01/21/25 @ 15:16 by Fadumo Quiñonez NP) Peripheral edema Low back pain Skin cancer History of ITP History of cataract History of renal calculi Hypercholesterolemia Hypothyroid Insomnia History of breast cancer Thyroid nodule DDD (degenerative disc disease), lumbosacral Asthma Restless leg syndrome Osteoarthritis Peripheral vascular disease Hypertension GERD (gastroesophageal reflux disease) Surgical History (Updated 01/21/25 @ 15:16 by Fadumo Quiñonez NP) Status post total hip replacement, right History of total right hip replacement Back pain with history of spinal surgery History of splenectomy History of arthroplasty of left knee History of removal of cyst History of hysteroscopy History of arthroscopy of left knee History of knee replacement procedure of right knee Family History Father Diabetes Hypertension Mother Hypertension Liver cancer Brother Liver cancer Social History Housing: House Alcohol intake: never Patient Tobacco Use Status: Never used Tobacco Tobacco use type: Cigarette e-Cigarette/Vaping Use: Never Used Second Hand Smoke Exposure: No service: No Current occupational status: retired Cognitive needs: No Hearing needs: No Vision needs: Yes Questionnaire Thrive Questionnaire Date Thrive assessed: 01/21/25 I am a: Patient What is your living situation today?: I have a steady place to live Within the past 12 months, did the food you bought not last and you didn't have the money to get more?: I choose not to answer this question Within the past 12 months, did you worry whether your food would run out before you got money to buy more?: I choose not to answer this question Do you have trouble paying for medicines?: Yes Do you have trouble getting transportation to medical appointments?: No Do you have trouble paying your heating and electricity bill?: No Do you have trouble taking care of your child, family member or friend?: I choose not to answer this question Do you have trouble with day-to-day activities such as bathing, preparing meals, shopping, managing finances, etc.?: No Are you currently unemployed and looking for a job?: I choose not to answer this question Are you interested in more education?: I choose not to answer this question Please select the resources that you would like help with: None Currently or been in a relationship where the following occur: No concerns reported THRIVE Score: 0 ELIO-7 AMB Questionnaire ELIO-7 Date ELIO - 7 assessed: 11/04/24 Feeling nervous, anxious, or on edge: 0 = Not at all Source: Developed by Drs. Marlon Carcamo, Jackie Chávez, Luis Jessica and colleagues, with an educational yandel from [employer]. Physical exam (Primary Care) Vital Signs: Last Vital Signs Pulse 82 02/28/25 14:16 BP 130/62 02/28/25 14:16 Pulse Ox 98 02/28/25 14:16 Oxygen Delivery Method Room Air 02/28/25 14:16 BMI result Body Mass Index 43.2 Tobacco/Smoking Status: Tobacco use Status Tobacco use date assessed 01/21/25 02/28/25 14:17 Patient Tobacco Use Status Never used Tobacco 02/28/25 14:17 Tobacco use type Cigarette 02/28/25 14:17 e-Cigarette/Vaping Use Never Used 02/28/25 14:17 Thrive Assessment: Date of Thrive Assessment Date Thrive assessed 01/21/25 02/28/25 14:17 Currently or been in a relationship where the following occur: No concerns reported Const General: alert; No acute distress Eyes Conjunctivae: conjunctivae normal Resp Auscultation: clear to auscultation bilaterally Cardio Rate: regular rate Rhythm: regular rhythm GI Inspection: Yes normal to inspection Extrem General: Yes normal to inspection and No edema Results AMB Hemoglobin A1c AMB Hemoglobin A1c 4.5 % Last Edit by Ava Celaya CMA on 02/28/25 14:36 Immunizations Tenivac (PF) 5 Lf unit-2 Lf unit/0.5 mL intramuscular suspension Performing Provider: Ziggy Garcia MD Performing Location[facility] Administered by: Ava Celaya CMA on 02/28/25 15:06 Dose Route Admin Location Dispensed Lot Number Expiration Date [employer] It Infrastructure Manager 0.5 mL IM Left Deltoid 0.5 mL [id number] 08/31/26 04845-598-26 [employer] Total Dispensed Waste 0.5 mL 0 % VIS Given Date VIS Provided VIS Publication Date 02/28/25 Single Vaccine 21 Eligibility Eligibility Date Funding Source Not [facility] Eligible 02/28/25 Private Results Reviewed Results Reviewed: Laboratory Last Values Hgb A1c (Clinic) 4.5 % (4.0-6.0) 02/28/25 14:17 Coding Level of Care Code Est Pt Level 4 (19273) Complex EM visit Add On G2211 Diagnoses Essential hypertension I10 Hypertension type: essential hypertension Type 2 diabetes mellitus with hyperglycemia, without long-term current use of insulin E11.65 Diabetes mellitus intermediate insulin use: without terminal carman use Hypercholesterolemia E78.00 Acquired hypothyroidism E03.9 Hypothyroidism type: acquired Morbid obesity E66.01 Gastroesophageal reflux disease without esophagitis K21.9 Esophagitis presence: without esophagitis History of splenectomy Z90.81 History of breast cancer Z85.3 Degeneration of intervertebral disc of lumbar region with discogenic back pain and lower extremity pain M51.362 Disc-related pain type: discogenic back pain and lower extremity pain Mild intermittent asthma without complication J45.20 Asthma severity: mild Asthma persistence: intermittent Asthma complication type: uncomplicated Gastrointestinal hemorrhage associated with angiodysplasia of stomach and duodenum K31.811 GI bleed type/associated pathology: angiodysplasia of stomach and duodenum Assessment & Plan Assessment & Plan (1) Hypertension: Code(s): I10 - Essential (primary) hypertension Category: Medical Qualifiers: Hypertension type: essential hypertension Qualified Code(s): I10 - Essential (primary) hypertension Plan: Continue with blood pressure medication. Decrease salt intake and exercise patient is on hydrochlorothiazide 25 mg once a day metoprolol 100 mg once a day (2) Type 2 diabetes mellitus with hyperglycemia: Comment: [facility] Code(s): E11.65 - Type 2 diabetes mellitus with hyperglycemia Category: Medical Qualifiers: Diabetes mellitus terminal carman insulin use: without terminal carman use Qualified Code(s): E11.65 - Type 2 diabetes mellitus with hyperglycemia Plan: Decrease the amount of carbohydrate intake, pasta, bread, rice and potatoes are all sugar and that is aside from all the sweet stuff, remember that fruits are good but they are Sweet also. Hemoglobin A1c goal of less than 7.0 patient is on glimepiride (3) Hypercholesterolemia: Code(s): E78.00 - Pure hypercholesterolemia, unspecified Category: Medical Plan: Avoid fried foods, chicken skin, eggs, butter margarine, pastries and meat. Be it pork or beef they have a lot of cholesterol LDL goal of less than 100 and triglyceride of less than 150 (4) Hypothyroid: Comment: Status post right thyroidectomy Code(s): E03.9 - Hypothyroidism, unspecified Category: Medical Qualifiers: Hypothyroidism type: acquired Qualified Code(s): E03.9 - Hypothyroidism, unspecified Plan: Continue with thyroid medication and blood work requested (5) Morbid obesity: Code(s): E66.01 - Morbid (severe) obesity due to excess calories Category: Medical Plan: Diet and exercise (6) GERD (gastroesophageal reflux disease): Code(s): K21.9 - Gastro-esophageal reflux disease without esophagitis Category: Medical Qualifiers: Esophagitis presence: without esophagitis Qualified Code(s): K21.9 - Gastro-esophageal reflux disease without esophagitis Plan: Avoid the foods that causes that usually spicy foods, tomato products, juices, coffee, soda and foods that your sensitive to. After eating do not lie down, allow 3-4 hours before in lie down. And keep the head of bed above 30 degrees to avoid the acid from going up. (7) History of splenectomy: Comment: ITP Code(s): Z90.81 - Acquired absence of spleen Category: Surgical Plan: Pneumonia shot is up-to-date (8) History of breast cancer: Comment: Lumpectomy with radiation and tamoxifen July 2009 Code(s): Z85.3 - Personal history of malignant neoplasm of breast Category: Medical Plan: Discussed with the patient regarding mammogram (9) Lumbar degenerative disc disease: Comment: September 2022 A moderate lumbar dextroscoliosis is seen. 2. There is multi-level marked degenerative disc disease extending from T11-T12 through L5-S1. 3. There is multi-level thoracolumbar spondylosis and facet arthropathy. Spinal stimulator Dr. Granados 03/2024 Code(s): M51.36 - Other intervertebral disc degeneration, lumbar region Category: Medical Qualifiers: Disc-related pain type: discogenic back pain and lower extremity pain Qualified Code(s): M51.362 - Other intervertebral disc degeneration, lumbar region with discogenic back pain and lower extremity pain Plan: Narcotic pain meds: Is being prescribed with the understanding that these medications are potentially addictive and should be used only when absolutely necessary and must always be secured. Any remaining pills should be safely disposed off appropriately. Patient is advised that narcotics can impaired judgment and one should not drive or operate heavy machinery while taking these medications. Never share these medications with anybody and do not leave them unattended. They will not be replaced under any circumstances. (10) Asthma: Code(s): J45.909 - Unspecified asthma, uncomplicated Category: Medical Qualifiers: Asthma severity: mild Asthma persistence: intermittent Asthma complication type: uncomplicated Qualified Code(s): J45.20 - Mild intermittent asthma, uncomplicated Plan: On albuterol as needed (11) GI bleed: Code(s): K92.2 - Gastrointestinal hemorrhage, unspecified Category: Medical Qualifiers: GI bleed type/associated pathology: angiodysplasia of stomach and duodenum Qualified Code(s): K31.811 - Angiodysplasia of stomach and duodenum with bleeding Plan History of Present Illness The patient is a 74-year-old female 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 She was hospitalized from February 05 to for gastrointestinal bleeding, during which she received three units of blood transfusion and underwent an endoscopy. The endoscopy revealed gastric antral vascular ectasia, and a new treatment involving radio waves was attempted instead of the usual Argon laser therapy. The patient also has a history of thyroid cancer, for which her medication dosage was recently increased. She is scheduled for an ultrasound to monitor her condition and is under the care of an lead clinical research coordinator at [facility]. Additionally, a polyp was identified and clipped during a previous procedure, and her blood counts are being monitored due to the risk of bleeding. Despite the bleeding episodes, no active bleeding was observed during the last endoscopic examination. The patient reports osteoarthritis in her hands, which limits her ability to use compression socks effectively. She has been prescribed compression socks with a lower compression level to accommodate her condition. Health Maintenance - Tetanus vaccination discussed and planned Social History - The patient experiences limitations in daily activities due to osteoarthritis in her hands. Review of Systems - Gastrointestinal: Reports history of gastrointestinal bleeding, denies current active bleeding. - Musculoskeletal: Reports osteoarthritis in hands, causing difficulty with certain tasks. Physical Exam Results - Endoscopy: Revealed gastric antral vascular ectasia, no active bleeding observed. - Blood work: Hemoglobin levels were critically low at 4.0 g/dL during hospitalization. Plan Patient was informed and verbally consented to the use of an ambient scribe for clinic note documentation during this visit. 1. Gastric Antral Vascular Ectasia The patient will continue to be monitored for gastrointestinal bleeding, with regular follow-up appointments to assess the effectiveness of the radio wave treatment. Blood transfusions will be considered if hemoglobin levels drop significantly. 2. Thyroid Cancer The patient's thyroid medication dosage has been increased, and she will undergo an ultrasound to monitor her condition. She is under the care of an lead clinical research coordinator at [facility] for ongoing management. 3. Polyp With Metal Clip Placement The polyp has been clipped, and the patient will have regular monitoring of her blood counts to ensure no further bleeding occurs. 4. Anemia Due To Gastrointestinal Bleeding The patient's anemia is being managed with blood transfusions as needed, and her hemoglobin levels are closely monitored. 5. Osteoarthritis Of The Hands The patient has been prescribed compression socks with a lower compression level to accommodate her osteoarthritis. Discussion Notes During the visit, we discussed the management of gastric antral vascular ectasia, including the recent radio wave treatment and the need for ongoing monitoring of hemoglobin levels. We also reviewed the patient's thyroid cancer management plan, including the increased medication dosage and upcoming ultrasound. The importance of regular blood count monitoring due to the polyp and anemia was emphasized. Patient Instructions - Continue with regular follow-up appointments to monitor gastrointestinal bleeding and hemoglobin levels. - Follow the lead clinical research coordinator's recommendations for thyroid cancer management, including medication adherence and scheduled ultrasound. - Use prescribed compression socks to manage osteoarthritis symptoms. Orders: Orders AMB Hemoglobin A1c Today Z13.9 - Encounter for screening, unspecified Complete Blood Count Auto Diff Today E03.9 - Hypothyroidism, unspecified Comprehensive Met. Panel Today E03.9 - Hypothyroidism, unspecified Free T4 (Free Thyroxine) Today E03.9 - Hypothyroidism, unspecified Thyroid Stimulating Hormone Today E03.9 - Hypothyroidism, unspecified Vitamin D 25-OH Total Today E03.9 - Hypothyroidism, unspecified Hemoglobin A1c Today E03.9 - Hypothyroidism, unspecified Reticulocyte Count Today E03.9 - Hypothyroidism, unspecified UA CC w/rflx Micro + Cult Today E03.9 - Hypothyroidism, unspecified, R30.0 - Dysuria Lipid Panel Today E03.9 - Hypothyroidism, unspecified, E78.00 - Pure hypercholesterolemia, unspecified Vitamin B12 and Folate Today E03.9 - Hypothyroidism, unspecified Ferritin Today E03.9 - Hypothyroidism, unspecified IRON PROFILE Today E03.9 - Hypothyroidism, unspecified Td Immunization Today Z23 - Encounter for immunization Medications: New compress.stocking,knee,reg,lrg As directed 10-20 mm HG 12 ea 0RF I73.9 - Peripheral vascular disease, unspecified Refilled oxycodone-acetaminophen 5-325 mg (Percocet) 1 tab PO Q6H PRN 120 tabs 0RF pain M51.37 - Other intervertebral disc degeneration, lumbosacral region
--- OUTSIDE RECORDS SUMMARY | 2025-02-28 16:00 | XMS_ITS | Encounter Summary ---
Author Organization [facility] Address [address] [place] [address] Care Team Providers Care Converter Skimmer Name Role Phone Ziggy Garcia MD Primary Care Provider [phone] Encounter Details Date Type Department Care Team (Late Contact Info) Description 12/27/2024 Lab Requisition [facility] - Main Lab [address] [facility] [place] [address] Sandra Ulloa MD [address] [place] [address] Polyosteoarthritis, unspecified; Anemia, unspecified Social History Tobacco Use Types Packs/Day Years Used Date Smoking Tobacco: Never Alcohol Use Standard Drinks/Week Comments Never 0 (1 standard drink = 0.6 oz pur e alcohol) Interpersonal Safety Answer Date Record ed Physical Abuse Unrecognized value 10/07/2024 Verbal Abuse Unrecognized value 10/07/2024 Comments No Sex and Gender Information Value Date Recorded Sex Assigned at Female 05/21/2024 2:20 PM EST Legal Sex Female 2:30 PM EST Gender Identity Female 05/21/2024 2:20 PM EST Sexual Orientation Straight 05/21/2024 2: 20 PM EST documented as of this encounter Plan of Treatment Upcoming Encounters Date Type Department Care Team ([facility] Contact Info) Description 04/21/2025 9:00 AM EST Appointment [facility] Endoscopy [address] [place] [address] Bernie Sharp MD [address] [address] documented as of this encounter Procedures Procedure Name Priority Date/Time Associated Diagnosis Comments COMPLETE BLOOD COUNT Routine 12/28/2024 4:57 AM EDT Polyosteoarthritis, unspecified Anemia, unspecified documented in this encounter Results * (ABNORMAL) Complete blood count (12/28/2024 4:57 AM EDT) [facility] WBC 9.0 4.8 - 10.8 K/mcL LAB HEMETOLOGY METHOD 12/28/2024 9:24 AM [facility] RBC 2.90(L) 3.80 - 4.80 M/mcL LAB HEMETOLOGY METHOD 12/28/2024 9:24 AM [facility] Hemoglobin 8.1(L) 11.5 - 16.0 g/dL LAB HEMETOLOGY METHOD 12/28/2024 9:24 AM [facility] Hematocrit 26.3(L) 35.0 - 47.0 % LAB HEMETOLOGY METHOD 12/28/2024 9:24 AM [facility] MCV 90.1 79.0 - 98.0 FL LAB HEMETOLOGY METHOD 12/28/2024 9:24 AM [facility] MCH 27.7 27.0 - 32.0 pcg LAB HEMETOLOGY METHOD 12/28/2024 9:24 AM [facility] MCHC 30.8(L) 32.0 - 37.0 g/dL LAB HEMETOLOGY METHOD 12/28/2024 9:24 AM [facility] RDW 19.3(H) 11.0 - 15.0 % LAB HEMETOLOGY METHOD 12/28/2024 9:24 AM [facility] Platelets 560(H) 130 - 400 K/mcL LAB HEMETOLOGY METHOD 12/28/2024 9:24 AM EDT [facility] MPV 11.0 7.0 - 11.0 FL LAB HEMETOLOGY METHOD 12/28/2024 9:24 AM EDT [facility] NRBC 0.0 <1.0 % LAB HEMETOLOGY METHOD 12/28/2024 9:24 AM EDT [facility] NRBC Absolute 0.00 <0.10 K/mcL LAB HEMETOLOGY METHOD 12/28/2024 9:24 AM EDT [facility] Blood Venous blood specimen / Unknown Venipuncture / Unknown 12/28/2024 4:57 AM EDT 12/28/2024 9:09 AM EDT us Sandra Ulloa MD LAB BLOOD ORDERABLES Final Resul t [facility] [address] [place] [address], [place] [phone] documented in this encounter Visit Diagnoses Diagnosis Polyosteoarthritis, unspecified Anemia, unspecified documented in this encounter Care Teams Converter Skimmer Relationship Specialty Start Date End Date Ziggy Garcia MD [address] [place] [address] [address] [facility] [place] [address] PCP - General Internal Medicine 03/24/17 documented as of this encounter
--- OUTSIDE RECORDS SUMMARY | 2025-02-28 16:00 | XMS_ITS | Encounter Summary ---
Author Organization [facility] Address [address] [place] [address] Care Team Providers Care Health Unit Coordinator Name Role Phone Ziggy Garcia MD Primary Care Provider [phone] Encounter Details Date Type Department Care Team (Late Contact Info) Description 12/25/2024 Lab Requisition [facility] - Main Lab [address] [facility] [place] [address] Sandra Ulloa MD [address] [place] [address] Polyosteoarthritis, unspecified; Anemia, unspecified Social History Tobacco [...] Department Care Team ([facility] Contact Info) Description 04/21/2025 9:00 AM EST Appointment [facility] Endoscopy [address] [place] [address] Bernie Sharp MD [address] [address] documented as of this encounter Procedures Procedure Name Priority Date/Time Associated Diagnosis Comments COMPLETE BLOOD COUNT Routine 12/27/2024 5:11 AM EDT Polyosteoarthritis, unspecified Anemia, unspecified documented in this encounter Results * (ABNORMAL) Complete blood count (12/27/2024 5:11 AM EDT) [facility] WBC 9.3 4.8 - 10.8 K/mcL LAB HEMETOLOGY METHOD 12/27/2024 11:29 AM [facility] LAB RBC 3.00(L) 3.80 - 4.80 M/mcL LAB HEMETOLOGY METHOD 12/27/2024 11:29 AM [facility] LAB Hemoglobin 8.2(L) 11.5 - 16.0 g/dL LAB HEMETOLOGY METHOD 12/27/2024 11:29 AM [facility] LAB Hematocrit 28.2(L) 35.0 - 47.0 % LAB HEMETOLOGY METHOD 12/27/2024 11:29 AM [facility] LAB MCV 94.6 79.0 - 98.0 FL LAB HEMETOLOGY METHOD 12/27/2024 11:29 AM [facility] LAB MCH 27.5 27.0 - 32.0 pcg LAB HEMETOLOGY METHOD 12/27/2024 11:29 AM [facility] LAB MCHC 29.1(L) 32.0 - 37.0 g/dL LAB HEMETOLOGY METHOD 12/27/2024 11:29 AM [facility] RDW 19.7(H) 11.0 - 15.0 % LAB HEMETOLOGY METHOD 12/27/2024 11:29 AM [facility] LAB Platelets 553(H) 130 - 400 K/mcL LAB HEMETOLOGY METHOD 12/27/2024 11:29 AM EDT [facility] MPV 10.9 7.0 - 11.0 FL LAB HEMETOLOGY METHOD 12/27/2024 11:29 AM EDT [facility] NRBC 0.0 <1.0 % LAB HEMETOLOGY METHOD 12/27/2024 11:29 AM EDT [facility] NRBC Absolute 0.00 <0.10 K/mcL LAB HEMETOLOGY METHOD 12/27/2024 11:29 AM EDT [facility] Blood Venous blood specimen / Unknown Venipuncture / Unknown 12/27/2024 5:11 AM EDT 12/27/2024 10:14 AM EDT us Sandra Ulloa MD LAB BLOOD ORDERABLES Final Resul t [facility] [address] [place] [address], documented in this encounter Visit Diagnoses Diagnosis Polyosteoarthritis, unspecified Anemia, unspecified documented in this encounter Care Teams Health Unit Coordinator Relationship Specialty Start Date End Date Ziggy Garcia MD [address] [place] [address] Dr Milan [address] [facility] [place] [address] PCP - General Internal Medicine 03/24/17 documented as of this encounter
--- OUTSIDE RECORDS SUMMARY | 2025-02-28 16:00 | XMS_ITS | Clinical Summary ---
Author Organization [facility] Address [address] [place] [address] Phone Care Team Providers Care Steaming Machine Operator Name Role Phone Ziggy Garcia MD Primary Care Provider [phone] Allergies Active Allergy Reactions Criticality Noted Date Comments Benzocaine Rash 08/18/2020 Metformin Nausea Only 05/20/2024 Procaine Swelling 09/29/2024 blisters Penicillin Hives 05/20/2024 Sulfa (Sulfonamide Antibiotics) Hives [...] Encounters Date Type Department Care Team Description 01/17/2025 Telephone Gastroenterology - [address] [phone] Bernie Sharp MD 12/30/2024 Telephone Gastroenterology - [address] [phone] Provider, Not In System 12/28/2024 Lab Requisition [facility] Lab [address] [place] [phone] Sandra Ulloa MD Polyosteoarthritis, unspecified; Anemia, unspecified 12/27/2024 Lab Requisition [facility] Lab [address] [place] [phone] Sandra Ulloa MD Polyosteoarthritis, unspecified; Anemia, unspecified 12/25/2024 Lab Requisition [facility] Lab [address] [place] [phone] Sandra Ulloa MD Polyosteoarthritis, unspecified; Anemia, unspecified 12/25/2024 Lab Requisition [facility] Lab [address] [place] [phone] Sandra Ulola MD Polyosteoarthritis, unspecified; Anemia, unspecified 12/25/2024 Lab Requisition [facility] Lab [address] [place] [phone] Sandra Ulloa MD Polyosteoarthritis, unspecified; Anemia, unspecified 12/23/2024 Lab Requisition [facility] Lab [address] [place] [address] Sandra Ulloa MD Polyosteoarthritis, unspecified; Anemia, unspecified 12/23/2024 Lab Requisition [facility] Lab [address] [place] [address] Sandra Ulloa MD Polyosteoarthritis, unspecified; Anemia, unspecified 12/07/2024 Telephone Gastroenterology - 299 [place] [address] [facility] [address] [place] [address] Caron Padgett PA from Last 3 Months Surgical History Surgery Date Site/Laterality Comments JOINT REPLACEMENT PROCEDURE:JOINT REPLACEMENT BACK SURGERY PROCEDURE:BACK SURGERY OTHER SURGICAL HISTORY PROCEDURE:kidney stone OTHER SURGICAL HISTORY PROCEDURE:breast surgery CHOLECYSTECTOMY PROCEDURE:CHOLECYSTECTOMY SPINAL CORD STIMULATOR IMPLANT Medical History Medical History Date Comments Diabetes mellitus ([facility] V 24, [facility] V28) DX:Diabetes mellitus ([facility]) Hypertension DX:Hypertension Arthritis DX:Arthritis Cancer ([facility] V24, [facility] V28) DX:Cancer ([facility]) GERD (gastroesophageal reflux disease) DX:GERD (gastroesophageal reflux disease) Anemia DX:Anemia Asthma DX:Asthma Thyroid disorder DX:Thyroid diso rder Osteoporosis DX:Osteoporosis Kidney damage DX:Kidney damage Social History Tobacco Use Types Packs/Day Years Used Date Smoking Tobacco: Never Tobacco Cessation:Counseling Given: Not Answered Alcohol Use Standard Drinks/Week Comments Never 0 [...] Sign Reading Time Taken Comments Blood Pressure 121/56 10/07/2024 10:49 AM EDT Pulse 69 10/07/2024 10:49 AM EDT Temperature 36.7 C (98 F) 10/07/2024 10:29 AM EDT Respiratory Rate 18 10/07/2024 10:49 AM EDT Oxygen Saturation 97% 10/07/2024 10:49 AM EDT Inhaled Oxygen Concentration - - Weight 110 kg (242 lb) 09/29/2024 2:00 PM EDT Height 157.5 cm (5' 2 ) 09/29/2024 2:00 PM EDT Body Mass Index 44.26 09/29/2024 2:00 PM EDT Plan of Treatment Upcoming Encounters Date Type Department Care Team (Late st Contact Info) Description 04/21/2025 9:00 AM EST Appointment [facility] Endoscopy [address] [place] [phone] Bernie Sharp MD [address] [address] Health Maintenance Due Date Last Done Comments Diabetes: Annual Foot Exam 1959 Diabetes: Annual Retina Eye Exam 1959 DTaP,Tdap,and Td Vaccines (1 - Tdap) 1968 Zoster Vaccines (1 of 2) 1968 COVID-19 Vaccine (3 - Pfizer risk series) 02/10/2021 01/13/2021, 12/23/2020 Cholesterol Screening (Lipid Panel) 05/01/2022 Colorectal Cancer Screening: Colonoscopy 05/01/2022 Hepatitis C Screening 05/01/2022 Medicare Annual Wellness Visit 05/01/2022 Osteoporosis Screening (Bone Density Screening) 05/01/2022 Social Influencers of Health Screening 05/01/2022 Diabetes: Annual Urine Albumin-Creatinine Ratio (uACR) 06/01/2024 Diabetes: Blood Sugar Control Test (HGBA1C) 06/01/2024 Depression Screening 06/02/2024 RSV Immunization Adult Patients (1 - 1-dose 75+ series) 2024 Influenza Vaccine (#1) 2025 , 04/30/2023, 03/08/2022, Additional history exists Falls Risk Assessment 10/07/2025 10/07/2024 Diabetes: Annual GFR (Glomerular Filtration Rate) 12/23/2025 12/23/2024 Hypertension/CHF/CAD Annual BMP Blood Test 12/23/2025 12/23/2024 Pneumococcal Vaccine: 50+ Years Completed 08/29/2023, 07/06/2018, [...] age to complete this topic Meningococcal B Vaccine Aged Out No l onger eligible based on patient's age to complete this topic RSV Immunization Patients Under 20 months Aged Out No longer eligible based on patient's age to complete this topic Varicella Vaccines Aged Out No longer eligible based on patient's age to complete this topic Procedures Procedure Name Priority Date/Time Associated Diagnosis Comments COMPLETE BLOOD COUNT Routine 12/29/2024 4:42 AM EDT Polyosteoarthritis, unspecified Anemia, unspecified COMPLETE BLOOD COUNT Routine 12/28/2024 4:57 AM EDT Polyosteoarthritis, unspecified Anemia, unspecified COMPLETE BLOOD COUNT Routine 12/27/2024 5:11 AM EDT Polyosteoarthritis, unspecified Anemia, unspecified COMPLETE BLOOD COUNT Routine 12/26/2024 6:11 AM EDT Polyosteoarthritis, unspecified Anemia, unspecified COMPLETE BLOOD COUNT Routine 12/25/2024 5:09 AM EDT Polyosteoarthritis, unspecified Anemia, unspecified COMPLETE BLOOD COUNT Routine 12/24/2024 4:59 AM EDT Polyosteoarthritis, unspecified Anemia, unspecified COMPREHENSIVE METABOLIC PANEL Routine 12/23/2024 7:45 AM EDT Polyosteoarthritis, unspecified Anemia, unspecified COMPLETE BLOOD COUNT Routine 12/23/2024 7:45 AM EDT Polyosteoarthritis, unspecified Anemia, unspecified from Last 3 Months Results * (ABNORMAL) Complete blood count (12/29/2024 4:42 AM EDT) Only the most recent of7 resultswithin the time period is included. WBC 10.6 4.8 - 10.8 K/mcL LAB HEMETOLOGY METHOD 12/29/2024 8:08 AM [facility] RBC 3.50(L) 3.80 - 4.80 M/mcL LAB HEMETOLOGY METHOD 12/29/2024 8:08 AM [facility] Hemoglobin 9.4(L) 11.5 - 16.0 g/dL LAB HEMETOLOGY METHOD 12/29/2024 8:08 AM [facility] LAB Hematocrit 31.2(L) 35.0 - 47.0 % LAB HEMETOLOGY METHOD 12/29/2024 8:08 AM [facility] MCV 90.4 79.0 - 98.0 FL LAB HEMETOLOGY METHOD 12/29/2024 8:08 AM [facility] MCH 27.2 27.0 - 32.0 pcg LAB HEMETOLOGY METHOD 12/29/2024 8:08 AM [facility] MCHC 30.1(L) 32.0 - 37.0 g/dL LAB HEMETOLOGY METHOD 12/29/2024 8:08 AM [facility] RDW 19.0(H) 11.0 - 15.0 % LAB HEMETOLOGY METHOD 12/29/2024 8:08 AM EDT [facility] LAB Platelets 658(H) 130 - 400 K/mcL LAB HEMETOLOGY METHOD 12/29/2024 8:08 AM EDT [facility] MPV 10.8 7.0 - 11.0 FL LAB HEMETOLOGY METHOD 12/29/2024 8:08 AM EDT [facility] NRBC 0.0 <1.0 % LAB HEMETOLOGY METHOD 12/29/2024 8:08 AM EDT [facility] NRBC Absolute 0.00 <0.10 K/mcL LAB HEMETOLOGY METHOD 12/29/2024 8:08 AM EDT [facility] Blood Venous blood specimen / Unknown Venipuncture / Unknown 12/29/2024 4:42 AM EDT 12/29/2024 8:00 AM EDT us Sandra Ulloa MD LAB BLOOD ORDERABLES Final Resul t [facility] LAB [address] [place] [address], * (ABNORMAL) Comprehensive metabolic panel (12/23/2024 7:45 AM EDT) Sodium 140 133 - 145 mmol/L LAB CHEMISTRY METHOD 12/23/2024 10:50 AM EDT [facility] Potassium 4.5 3.5 - 5.5 mmol/L LAB CHEMISTRY METHOD 12/23/2024 10:50 AM EDT [facility] Chloride 104 96 - 110 mmol/L LAB CHEMISTRY METHOD 12/23/2024 10:50 AM EDT [facility] CO2 29 21 - 32 mmol/L LAB CHEMISTRY METHOD 12/23/2024 10:50 AM EDT [facility] Anion Gap 7 3 - 11 LAB CHEMISTRY METHOD 12/23/2024 10:50 AM [facility] Glucose 106(H) 70 - 100 mg/dL LAB CHEMISTRY METHOD 12/23/2024 10:50 AM [facility] BUN 12 5 - 25 mg/dL LAB CHEMISTRY METHOD 12/23/2024 10:50 AM [facility] Creatinine 0.69 0.50 - 1.10 mg/dL LAB CHEMISTRY METHOD 12/23/2024 10:50 AM [facility] eGFR 91 >=60 mL/min/1. 73m2 LAB CHEMISTRY METHOD 12/23/2024 10:50 AM [facility] Comment:Calculation based on the Chronic Kidney Disease Epidemiology Collaboration (CKD-EPI) equation refit without adjustment for race. BUN/Creatinine Ratio 17.4 LAB CHEMISTRY METHOD 12/23/2024 10:50 AM [facility] Calcium 10.3 8.5 - 10.5 mg/dL LAB CHEMISTRY METHOD 12/23/2024 10:50 AM [facility] AST (SGOT) 23 10 - 42 unit/L LAB CHEMISTRY METHOD 12/23/2024 10:50 AM [facility] ALT (SGPT) 19 10 - 60 unit/L LAB CHEMISTRY METHOD 12/23/2024 10:50 AM [facility] Alkaline Phosphatase 81 42 - 121 unit/L LAB CHEMISTRY METHOD 12/23/2024 10:50 AM [facility] Total Protein 5.9(L) 6.0 - 8.0 g/dL LAB CHEMISTRY METHOD 12/23/2024 10:50 AM [facility] Albumin 3.1(L) 3.2 - 5.0 g/dL LAB CHEMISTRY METHOD 12/23/2024 10:50 AM [facility] Total Bilirubin 0.4 0.0 - 1.4 mg/dL LAB CHEMISTRY METHOD 12/23/2024 10:50 AM EDT [facility] Blood Venous blood specimen / Unknown Venipuncture / Unknown 12/23/2024 7:45 AM EDT 12/23/2024 9:57 AM EDT us Sandra Ulloa MD LAB BLOOD ORDERABLES Final Resul t [facility] LAB [address] [place] [address], from Last 3 Months Insurance [employer] - [place] MEDICARE ADVANTAGE Care Teams Steaming Machine Operator Relationship Specialty Start Date End Date Ziggy Garcia MD [address] [place] [address] [address] [facility] [place] [address] PCP - General Internal Medicine 03/24/17
--- OUTSIDE RECORDS SUMMARY | 2025-02-28 16:00 | XMS_ITS | Encounter Summary ---
[facility] Organization [facility] Address [address] [place] [address] Care Team Providers Care Ladle Operator Name Role Phone Ziggy Garcia MD Primary Care Provider Encounter Details Date Type Department Care Team (Late Contact Info) Description 12/25/2024 Lab Requisition [facility] - Main Lab 299 [facility] [place] [address] Sandra Ulloa MD [address] [place] [address] Polyosteoarthritis, unspecified; Anemia, unspecified Social History Tobacco [...] Upcoming Encounters Date Type Department Care Team ([facility] Contact Info) Description 04/21/2025 9:00 AM EST Appointment [facility] Endoscopy [address] [place] [address] Bernie Sharp MD [address] [address] documented as of this encounter Procedures Procedure Name Priority Date/Time Associated Diagnosis Comments COMPLETE BLOOD COUNT Routine 12/25/2024 5:09 AM EDT Polyosteoarthritis, unspecified Anemia, unspecified documented in this encounter Results * (ABNORMAL) Complete blood count (12/25/2024 5:09 AM EDT) [facility] WBC 8.0 4.8 - 10.8 K/mcL LAB HEMETOLOGY METHOD 12/25/2024 10:40 AM [facility] RBC 2.90(L) 3.80 - 4.80 M/mcL LAB HEMETOLOGY METHOD 12/25/2024 10:40 AM [facility] Hemoglobin 8.0(L) 11.5 - 16.0 g/dL LAB HEMETOLOGY METHOD 12/25/2024 10:40 AM [facility] Hematocrit 27.3(L) 35.0 - 47.0 % LAB HEMETOLOGY METHOD 12/25/2024 10:40 AM [facility] MCV 94.1 79.0 - 98.0 FL LAB HEMETOLOGY METHOD 12/25/2024 10:40 AM [facility] MCH 27.6 27.0 - 32.0 pcg LAB HEMETOLOGY METHOD 12/25/2024 10:40 AM [facility] MCHC 29.3(L) 32.0 - 37.0 g/dL LAB HEMETOLOGY METHOD 12/25/2024 10:40 AM [facility] RDW 20.1(H) 11.0 - 15.0 % LAB HEMETOLOGY METHOD 12/25/2024 10:40 AM [facility] Platelets 489(H) 130 - 400 K/mcL LAB HEMETOLOGY METHOD 12/25/2024 10:[address] [facility] MPV 11.2(H) 7.0 - 11.0 FL LAB HEMETOLOGY METHOD 12/25/2024 10:[address] [facility] NRBC 0.0 <1.0 % LAB HEMETOLOGY METHOD 12/25/2024 10:[address] [facility] NRBC Absolute 0.00 <0.10 K/mcL LAB HEMETOLOGY METHOD 12/25/2024 10:[address] [facility] Blood Venous blood specimen / Unknown Venipuncture / Unknown 12/25/2024 5:09 AM EDT 12/25/2024 9:37 AM EDT us Sandra Ulloa MD LAB BLOOD ORDERABLES Final Resul t [facility] LAB [address] [place] [address], documented in this encounter Visit Diagnoses Diagnosis Polyosteoarthritis, unspecified Anemia, unspecified documented in this encounter Care Teams Ladle Operator Relationship Specialty Start Date End Date Ziggy Garcia MD [address] [place] [address] Dr Milan 101 [facility] [place] [address] PCP - General Internal Medicine 03/24/17 documented as of this encounter
--- OUTSIDE RECORDS SUMMARY | 2025-02-28 16:00 | XMS_ITS | Encounter Summary ---
Author Organization [facility] Address [address] [place] [address] Care Team Providers Care Apparel Sales Leader Name Role Phone Ziggy Garcia MD Primary Care Provider [phone] Encounter Details Date Type Department Care Team (Late Contact Info) Description 12/28/2024 Lab Requisition [facility] - Main Lab 299 [facility] [place] [address] Sandra Ulloa MD [address] [place] [address] Polyosteoarthritis, unspecified; Anemia, unspecified Social History Tobacco [...] Upcoming Encounters Date Type Department Care Team ([facility] Contact Info) Description 04/21/2025 9:00 AM EST Appointment [facility] Endoscopy [address] [place] [address] Bernie Sharp MD [address] [address] documented as of this encounter Procedures Procedure Name Priority Date/Time Associated Diagnosis Comments COMPLETE BLOOD COUNT Routine 12/29/2024 4:42 AM EDT Polyosteoarthritis, unspecified Anemia, unspecified documented in this encounter Results * (ABNORMAL) Complete blood count (12/29/2024 4:42 AM EDT) [facility] WBC 10.6 4.8 - 10.8 K/mcL LAB HEMETOLOGY METHOD 12/29/2024 8:08 AM [facility] RBC 3.50(L) 3.80 - 4.80 M/mcL LAB HEMETOLOGY METHOD 12/29/2024 8:08 AM [facility] Hemoglobin 9.4(L) 11.5 - 16.0 g/dL LAB HEMETOLOGY METHOD 12/29/2024 8:08 AM [facility] Hematocrit 31.2(L) 35.0 - 47.0 % LAB HEMETOLOGY METHOD 12/29/2024 8:08 AM [facility] MCV 90.4 79.0 - 98.0 FL LAB HEMETOLOGY METHOD 12/29/2024 8:08 AM [facility] MCH 27.2 27.0 - 32.0 pcg LAB HEMETOLOGY METHOD 12/29/2024 8:08 AM [facility] MCHC 30.1(L) 32.0 - 37.0 g/dL LAB HEMETOLOGY METHOD 12/29/2024 8:08 AM [facility] RDW 19.0(H) 11.0 - 15.0 % LAB HEMETOLOGY METHOD 12/29/2024 8:08 AM [facility] Platelets 658(H) 130 - 400 K/mcL LAB HEMETOLOGY METHOD 12/29/2024 8:08 AM EDT [facility] MPV 10.8 7.0 - 11.0 FL LAB HEMETOLOGY METHOD 12/29/2024 8:08 AM EDT [facility] NRBC 0.0 <1.0 % LAB HEMETOLOGY METHOD 12/29/2024 8:08 AM EDT [facility] NRBC Absolute 0.00 <0.10 K/mcL LAB HEMETOLOGY METHOD 12/29/2024 8:08 AM EDT [facility] Blood Venous blood specimen / Unknown Venipuncture / Unknown 12/29/2024 4:42 AM EDT 12/29/2024 8:00 AM EDT us Sandra Ulloa MD LAB BLOOD ORDERABLES Final Resul t [facility] LAB [address] [place] [address], [place] [phone] documented in this encounter Visit Diagnoses Diagnosis Polyosteoarthritis, unspecified Anemia, unspecified documented in this encounter Care Teams Apparel Sales Leader Relationship Specialty Start Date End Date Ziggy Garcia MD [address] [place] [address] Dr Milan [address] [facility] [place] [address] PCP - General Internal Medicine 03/24/17 documented as of this encounter
--- OUTSIDE RECORDS SUMMARY | 2025-02-28 16:00 | XMS_ITS | Patient Health Record ---
Author Organization [facility] Address [address] [place] [address] Care Team Providers Care Bottle Packer Name Role Phone Ziggy Garcia Primary Care Provider Ra Greenwood Unavailable [phone] Allergies Allergen (clinical drug ingredient) Drug/Non Drug [...] Duration) Notes Start Date End Date Status tiZANidine HCl Not-T aking Gabapentin Active Tamoxifen Citrate No t-Taking Vitamin B6 250 MG 1 tablet Orally Once a day; Duration: 30 day(s) Not-Taking Metoprolol Succinate 100 MG 1 capsule Or ally Once a day Active oxyCODONE-Acetaminophen PRN Active hydroCHLOROthiazide Active Pramipexole Dihydrochloride Not-Taking Lisinopril 20 MG 1 tablet Orally Once a day Active Zwllsn-Nkeodklod-QWW Complex Orally Not-Taking Synthroid 150 MCG 1 tablet in the morning on an empty stomach Orally Active Lidocaine 5 % as directed Externally Three times a day; Duration: 30 days Active Simvastatin Active Singulair 10 MG 1 tablet in the evening Orally Once a day; Duration: 30 day(s) Active Extra Depth Orthopedic Shoes (1 Pair) with Customized Heat Molded Multidensity Innersoles (3 Pair) as directed Dx: NIDDM/Polyneuropathy (E11.42), Hammertoe Foot Deformity (M20.41,M20.42), Preulcerative Skin Lesion(s) (L85.1 07/20/2024 Active Vitamin D3 Active Iron Not-Taking metFORMIN HCl Not-Ta damaris traMADol HCl Not-Luis Antonio ing Vitamin C Not-Taking Adrianne Not-Taking Advair Diskus Not-Ta damaris Fexofenadine HCl Act juan Magnesium 100 MG 1 tablet with food Orally Four times a day; Duration: 30 day(s) Not-Taking Melatonin Not-Taking Probiotic Not-Taking Horse [place]worth Activ e Albuterol Active Immunizations Vaccine Route Administration Date Status Comme nts Influenza Unknown 03/06/2015 Administered Influenza Unknown 08/07/2015 Administered Influenza Unknown 04/02/2017 Administered Influenza Unknown 02/16/2018 Administered Influenza Unknown 02/16/2021 Administered Influenza Unknown 03/03/2024 Administered Pneumococcal Unknown 03/31/2013 Administered COVID-19 Pfizer BioNTech Vaccine Unknown 01/13/2021 Administered 1st 12/23/2020 Social History Tobacco Use: Social History Observation [...] Problem Acquired hammer toe of right foot (6805302663369110 ) Other hammer toe(s) (acquired), right foot (M20.41) Active confirmed Problem Acquired hammer toe of left foot (2328788191629427 ) Other hammer toe(s) (acquired), left foot (M20.42) Active confirmed Problem Polyneuropathy due to type 2 diabetes mellitus (505699967) Type 2 diabetes mellitus with diabetic polyneuropathy (E11.42) Active confirmed Vital Signs Blood pressure diastolic 65 mm Hg 01/25/2025 Height 5 ft 4 in in 01/25/2025 Blood pressure systolic 130 mm Hg 01/25/2025 Weight 241 lbs 01/25/2025 BMI 41.36 kg/m2 01/25/2025 Procedures Procedure Date Ordered Date Performed Result Body Sit e 20956-QYYRZXV NAIL, 6 OR MORE 07/20/2024 N/A 18083-EXAI SKIN LESIONS, 2 TO 4 07/20/2024 N/A 82111-BNBCJXH NAIL, 6 OR MORE 10/26/2024 N/A 70473-IDVD SKIN LESIONS, 2 TO 4 10/26/2024 N/A 71835-YMWDSWV NAIL, 6 OR MORE 01/25/2025 N/A 07886-CMRU SKIN LESIONS, 2 TO 4 01/25/2025 N/A Encounters Encounter Location Date Provider Diagnosis [address] [address] 07/20/2024 [place] JettUriah Type 2 diabetes mellitus with diabetic polyneuropathy E11.42 ; Tinea unguium B35.1 ; Other hammer toe(s) (acquired), right foot M20.41 and Other hammer toe(s) (acquired), left foot M20.[address] [address] 10/26/2024 [place] JettUriah Type 2 diabetes mellitus with diabetic polyneuropathy E11.42 ; Tinea unguium B35.1 ; Other hammer toe(s) (acquired), right foot M20.41 and Other hammer toe(s) (acquired), left foot M20.[address] [address] 01/25/2025 Ra Kruse Type 2 diabetes mellitus with diabetic polyneuropathy E11.42 and Tinea unguium B35.1 Assessments Encounter Date Diagnosis (ICD Code) Assessment Notes Treatment Notes Treatment Clinical Notes Section Notes 07/20/2024 Type 2 diabetes mellitus with diabetic polyneuropathy (ICD-10 - E11.42) 07/20/2024 Tinea unguium (ICD-10 - B35.1) 10/26/2024 Type 2 diabetes mellitus with diabetic polyneuropathy (ICD-10 - E11.42) 10/26/2024 Tinea unguium (ICD-10 - B35.1) 01/25/2025 Type 2 diabetes mellitus with diabetic polyneuropathy (ICD-10 - E11.42) 01/25/2025 Tinea unguium (ICD-10 - B35.1) 07/20/2024 Other [...] X ray : Foot, right 3V 11/27/2012 07267-JREBHVE NAIL, 6 OR MORE 02/26/2013 38691-CQHOPBW NAIL, 6 OR MORE 08/25/2012 44526-FBZTCEF NAIL, 6 OR MORE 11/27/2012 28072-HZLTEBA NAIL, 6 OR MORE 03/03/2012 67499-HLVUVCY NAIL, 6 OR MORE 05/19/2012 81395-LEBISBF NAIL, 6 OR MORE 09/17/2011 47950-LFTPPVX NAIL, 6 OR MORE 12/17/2011 28435-TOUDBOI NAIL, 6 OR MORE 06/11/2013 91887-IAMRNVO NAIL, 6 OR MORE 09/14/2013 64051-KHKHIQF NAIL, 6 OR MORE 03/29/2014 01363-CERTMDD NAIL, 6 OR MORE 12/21/2013 46484-JNXXQVZ NAIL, 6 OR MORE 10/13/2014 64991-GPQBZHL NAIL, 6 OR MORE 02/13/2015 06160-HVIAPQI NAIL, 6 OR MORE 05/18/2015 17576-KDQBDVU NAIL, 6 OR MORE 12/25/2017 25653-EUXLUPV NAIL, 6 OR MORE 05/22/2017 38590-HUVTXFS NAIL, 6 OR MORE 09/22/2017 49768-MXQRTMG NAIL, 6 OR MORE 06/18/2011 71249-XRPPKHF NAIL, 6 OR MORE 12/11/2016 36606-IILPTBO NAIL, 6 OR MORE 03/03/2017 29475-SXCTIUO NAIL, 6 OR MORE 08/23/2015 59957-BSYFBDR NAIL, 6 OR MORE 11/27/2015 39675-VXBQELL NAIL, 6 OR MORE 04/08/2016 78891-MBYZFQW NAIL, 6 OR MORE 08/08/2016 91020-BCBGWPE NAIL, 6 OR MORE 04/06/2018 36313-WUWCMYW NAIL, 6 OR MORE 07/20/2024 21459-VLBQGWO NAIL, 6 OR MORE 10/26/2024 85969-WZVADQY NAIL, 6 OR MORE 01/25/2025 01716-Rukuafeb Plate 02/13/2015 45856-Gkenlvri Plate 10/13/2014 83847-Vqsbedjh Plate 12/21/2013 72810-Khsdolco Plate 03/29/2014 39105-Embtynpg Plate 09/14/2013 11239-Wzpoitii Plate 06/11/2013 91275-Sgsjqbis Plate 12/17/2011 76943-Odaifyaa Plate 05/19/2012 90655-Nrwegmng Plate 09/17/2011 87758-Psjcndet Plate 11/27/2012 04491-Iuqjbynm Plate 08/25/2012 80826-Jsdazqxl Plate 02/26/2013 15860-Ntijeped Plate Each Additional 02348-Ipjshllj Plate Each Additional 53592-Yjrnldll Plate Each Additional 73878-Nzaeaxxx Plate Each Additional 89336-Dczgjlsk Plate Each Additional 03/2014 93945-Wifdseqp Plate Each Additional 85404-Fnvpianx Plate Each Additional 18275-Onhsatmn Plate Each Additional 86573-NUMZ SKIN LESIONS, OVER 4 08/09/19 17 56111-VKAL SKIN LESIONS, OVER 4 04/08/20 16 79373-JAMY SKIN LESIONS, OVER 4 11/27/19 16 53077-IQHP SKIN LESIONS, OVER 4 05/22/20 17 74276-EXSV SKIN LESIONS, OVER 4 03/03/20 17 48646-BQYW SKIN LESIONS, OVER 4 12/12/19 17 10548-YEYQ SKIN LESIONS, OVER 4 09/23/19 18 93131-ULFQ SKIN LESIONS, OVER 4 04/06/20 18 27430-YQIV SKIN LESIONS, OVER 4 06/24/19 19 27911-RMSS SKIN LESIONS, OVER 4 09/24/19 19 60400-HPNU SKIN LESIONS, OVER 4 12/22/19 19 48883-HPMZ SKIN LESIONS, OVER 4 03/22/20 19 74556-UICU SKIN LESIONS, OVER 4 06/28/19 20 61133-FXCR SKIN LESIONS, OVER 4 12/22/19 20 44695-GEVR SKIN LESIONS, OVER 4 04/03/20 20 13056-KUMM SKIN LESIONS, OVER 4 08/01/19 21 02627-GWVH SKIN LESIONS, OVER 4 11/16/19 21 68314-VQXV SKIN LESIONS, OVER 4 03/29/20 21 09067-HUHP SKIN LESIONS, OVER 4 06/28/19 22 99792-ZKUS SKIN LESIONS, OVER 4 10/04/19 22 77405-RBBF SKIN LESIONS, 2 TO 4 10/27/19 25 44212-KMHA SKIN LESIONS, 2 TO 4 07/20/19 25 17586-HPNM SKIN LESIONS, 2 TO 4 01/26/20 25 20892-TJRT SKIN LESIONS, 2 TO 4 12/26/19 18 85628-YQMG SKIN LESIONS, 2 TO 4 08/23/19 16 67847-UHRW SKIN LESIONS, 2 TO 4 10/14/19 15 49212-WYDO SKIN LESIONS, 2 TO 4 02/14/20 15 51607-NUUF SKIN LESIONS, 2 TO 4 05/18/20 15 89287-NBLA SKIN LESIONS, 2 TO 4 03/29/20 14 48124,K7990-NIY TENDON SHEATH/LIGAMENT 0 12/25/2012 11671,B6246-TGZ TENDON SHEATH/LIGAMENT 0 01/12/2013 Next Appt Details Provider Name:Ra Kruse , 05/10/2025 02:45:00 PM, [address] [place], [address], Insurance Providers Payer Name Payer Address Payer Phone Subscriber Number Group Number Insured Name Patient Relationship to Insured Coverage Start Date Coverage End Date Blue[employer] 65 Medicare Preferred [address] [place] [address] [id number] Rain Martinez Self - patient is the insured Medical (General) History Medical History History ICD Code Arthritis asthma back, knee pain cancer cataracts hypertension reflux sciatica sinus conditions thyroid disorder chicken pox Type 2 Diabetes kidney stones Anemia Surgical History Surgery Date(Month/Year) breast cancer surgery 10/13/2009 back surgery 11/2008 gall bladder 1989 splenectomy 1968 kidney stones 04/2009, 04/2010 left and right meniscus [phone] kidney surgery for kidney stones 01/2012 back surgery 08/03/2013 knee replacement surgery, right 02/08/20 14 knee replacement surgery, left 08/01/2014 Palp removed from uterus 11/18/2016 cataract surgery 09/09/2016 colonoscopy 06/13/2020 endoscopy 06/13/2020 Thyroid surgery 02/21 Right Hip replacement 12/16/24 Hospitalization History Reason Date(Month/Year) [facility] 04/24/2020
--- OUTSIDE RECORDS SUMMARY | 2025-02-28 16:00 | XMS_ITS | Encounter Summary ---
Author Organization [facility] Address [address] [place] [address] Care Team Providers Care Book Binder Name Role Phone Ziggy Garcia MD Primary Care Provider [phone] Encounter Details Date Type Department Care Team (Late Contact Info) Description 12/25/2024 Lab Requisition [facility] - Main Lab 299 [facility] [place] [address] Sandra Ulloa MD [address] [place] [address] Polyosteoarthritis, unspecified; Anemia, unspecified Social History Tobacco [...] Upcoming Encounters Date Type Department Care Team ([facility] Contact Info) Description 04/21/2025 9:00 AM EST Appointment [facility] [address] [place] [address] Bernie Sharp MD [address] [address] documented as of this encounter Procedures Procedure Name Priority Date/Time Associated Diagnosis Comments COMPLETE BLOOD COUNT Routine 12/26/2024 6:11 AM EDT Polyosteoarthritis, unspecified Anemia, unspecified documented in this encounter Results * (ABNORMAL) Complete blood count (12/26/2024 6:11 AM EDT) [facility] WBC 8.7 4.8 - 10.8 K/mcL LAB HEMETOLOGY METHOD 12/26/2024 9:50 AM [facility] LAB RBC 3.00(L) 3.80 - 4.80 M/mcL LAB HEMETOLOGY METHOD 12/26/2024 9:50 AM [facility] LAB Hemoglobin 8.3(L) 11.5 - 16.0 g/dL LAB HEMETOLOGY METHOD 12/26/2024 9:50 AM [facility] LAB Hematocrit 28.1(L) 35.0 - 47.0 % LAB HEMETOLOGY METHOD 12/26/2024 9:50 AM [facility] LAB MCV 92.7 79.0 - 98.0 FL LAB HEMETOLOGY METHOD 12/26/2024 9:50 AM [facility] LAB MCH 27.4 27.0 - 32.0 pcg LAB HEMETOLOGY METHOD 12/26/2024 9:50 AM [facility] LAB MCHC 29.5(L) 32.0 - 37.0 g/dL LAB HEMETOLOGY METHOD 12/26/2024 9:50 AM [facility] LAB RDW 19.9(H) 11.0 - 15.0 % LAB HEMETOLOGY METHOD 12/26/2024 9:50 AM [facility] LAB Platelets 542(H) 130 - 400 K/mcL LAB HEMETOLOGY METHOD 12/26/2024 9:50 AM EDT [facility] LAB MPV 11.3(H) 7.0 - 11.0 FL LAB HEMETOLOGY METHOD 12/26/2024 9:50 AM EDT [facility] LAB NRBC 0.0 <1.0 % LAB HEMETOLOGY METHOD 12/26/2024 9:50 AM EDT [facility] LAB NRBC Absolute 0.00 <0.10 K/mcL LAB HEMETOLOGY METHOD 12/26/2024 9:50 AM EDT [facility] LAB Blood Venous blood specimen / Unknown Venipuncture / Unknown 12/26/2024 6:11 AM EDT 12/26/2024 9:06 AM EDT us Sandra Ulloa MD LAB BLOOD ORDERABLES Final Resul t [facility] LAB [address] [place] [address], documented in this encounter Visit Diagnoses Diagnosis Polyosteoarthritis, unspecified Anemia, unspecified documented in this encounter Care Teams Book Binder Relationship Specialty Start Date End Date Ziggy Garcia MD [address] [place] [address] Dr Milan [address] [facility] [place] [address] PCP - General Internal Medicine 03/24/17 documented as of this encounter
--- OUTSIDE RECORDS SUMMARY | 2025-02-28 16:00 | XMS_ITS | Encounter Summary ---
Author Organization [facility] Address [address] [place] [address] Care Team Providers Care Delivery Motorcycle Driver Name Role Phone Ziggy Garcia MD Primary Care Provider [phone] Encounter Details Date Type Department Care Team (Late Contact Info) Description 12/23/2024 Lab Requisition [facility] - Main Lab 299 [facility] [place] [address] Sandra Ulloa MD [address] [place] [address] Polyosteoarthritis, unspecified; Anemia, unspecified Social History Tobacco [...] Department Care Team ([facility] Contact Info) Description 04/21/2025 9:00 AM EST Appointment [facility]oscopy [address] [place] [address] Bernie Sharp MD [address] [address] documented as of this encounter Procedures Procedure Name Priority Date/Time Associated Diagnosis Comments COMPLETE BLOOD COUNT Routine 12/23/2024 7:45 AM EDT Polyosteoarthritis, unspecified Anemia, unspecified COMPREHENSIVE METABOLIC PANEL Routine 12/23/2024 7:45 AM EDT Polyosteoarthritis, unspecified Anemia, unspecified documented in this encounter Results * (ABNORMAL) Comprehensive metabolic panel (12/23/2024 7:45 AM EDT) Sodium 140 133 - 145 mmol/L LAB CHEMISTRY METHOD 12/23/2024 10:50 AM [facility] LAB Potassium 4.5 3.5 - 5.5 mmol/L LAB CHEMISTRY METHOD 12/23/2024 10:50 AM [facility] LAB Chloride 104 96 - 110 mmol/L LAB CHEMISTRY METHOD 12/23/2024 10:50 AM [facility] LAB CO2 29 21 - 32 mmol/L LAB CHEMISTRY METHOD 12/23/2024 10:50 AM [facility] LAB Anion Gap 7 3 - 11 LAB CHEMISTRY METHOD 12/23/2024 10:50 AM [facility] LAB Glucose 106(H) 70 - 100 mg/dL LAB CHEMISTRY METHOD 12/23/2024 10:50 AM [facility] LAB BUN 12 5 - 25 mg/dL LAB CHEMISTRY METHOD 12/23/2024 10:50 AM [facility] LAB Creatinine 0.69 0.50 - 1.10 mg/dL LAB CHEMISTRY METHOD 12/23/2024 10:50 AM [facility] LAB eGFR 91 >=60 mL/min/1. 73m2 LAB CHEMISTRY METHOD 12/23/2024 10:50 AM [facility] LAB Comment:Calculation based on the Chronic Kidney Disease Epidemiology Collaboration (CKD-EPI) equation refit without adjustment for race. BUN/Creatinine Ratio 17.4 LAB CHEMISTRY METHOD 12/23/2024 10:50 AM [facility] LAB Calcium 10.3 8.5 - 10.5 mg/dL LAB CHEMISTRY METHOD 12/23/2024 10:50 AM [facility] LAB AST (SGOT) 23 10 - 42 unit/L LAB CHEMISTRY METHOD 12/23/2024 10:50 AM [facility] LAB ALT (SGPT) 19 10 - 60 unit/L LAB CHEMISTRY METHOD 12/23/2024 10:50 AM [facility] LAB Alkaline Phosphatase 81 42 - 121 unit/L LAB CHEMISTRY METHOD 12/23/2024 10:50 AM [facility] LAB Total Protein 5.9(L) 6.0 - 8.0 g/dL LAB CHEMISTRY METHOD 12/23/2024 10:50 AM [facility] LAB Albumin 3.1(L) 3.2 - 5.0 g/dL LAB CHEMISTRY METHOD 12/23/2024 10:50 AM [facility] LAB Total Bilirubin 0.4 0.0 - 1.4 mg/dL LAB CHEMISTRY METHOD 12/23/2024 10:50 AM [facility] LAB Blood Venous blood specimen / Unknown Venipuncture / Unknown 12/23/2024 7:45 AM EDT 12/23/2024 9:57 AM EDT us Sandra Ulloa MD LAB BLOOD ORDERABLES Final Resul t [facility] [address] [place] [address], * (ABNORMAL) Complete blood count (12/23/2024 7:45 AM EDT) WBC 7.3 4.8 - 10.8 K/mcL LAB HEMETOLOGY METHOD 12/23/2024 10:18 AM [facility] LAB RBC 3.40(L) 3.80 - 4.80 M/[facility] LAB HEMETOLOGY METHOD 12/23/2024 10:18 AM [facility] LAB Hemoglobin 9.8(L) 11.5 - 16.0 g/dL LAB HEMETOLOGY METHOD 12/23/2024 10:18 AM [facility] LAB Hematocrit 31.4(L) 35.0 - 47.0 % LAB HEMETOLOGY METHOD 12/23/2024 10:18 AM [facility] LAB MCV 91.5 79.0 - 98.0 FL LAB HEMETOLOGY METHOD 12/23/2024 10:18 AM [facility] LAB MCH 28.6 27.0 - 32.0 pcg LAB HEMETOLOGY METHOD 12/23/2024 10:18 AM [facility] LAB MCHC 31.2(L) 32.0 - 37.0 g/dL LAB HEMETOLOGY METHOD 12/23/2024 10:18 AM [facility] LAB RDW 20.4(H) 11.0 - 15.0 % LAB HEMETOLOGY METHOD 12/23/2024 10:18 AM [facility] LAB Platelets 474(H) 130 - 400 K/mcL LAB HEMETOLOGY METHOD 12/23/2024 10:18 AM [facility] LAB MPV 11.9(H) 7.0 - 11.0 FL LAB HEMETOLOGY METHOD 12/23/2024 10:18 AM [facility] LAB NRBC 0.0 <1.0 % LAB HEMETOLOGY METHOD 12/23/2024 10:18 AM [facility] LAB NRBC Absolute 0.00 <0.10 K/mcL LAB HEMETOLOGY METHOD 12/23/2024 10:18 AM [facility] LAB Blood Venous blood specimen / Unknown Venipuncture / Unknown 12/23/2024 7:45 AM EDT 12/23/2024 9:57 AM EDT Sandra Ulloa MD LAB BLOOD ORDERABLES Final Resul t [facility] [address] [place] [address], documented in this encounter Visit Diagnoses Diagnosis Polyosteoarthritis, unspecified Anemia, unspecified documented in this encounter Care Teams Delivery Motorcycle Driver Relationship Specialty Start Date End Date Ziggy Garcia MD [address] [place] [address] Dr [address] [facility] [place] [address] PCP - General Internal Medicine 03/24/17 documented as of this encounter
--- OUTSIDE RECORDS SUMMARY | 2025-02-28 16:00 | XMS_ITS | Clinical Summary ---
Author Organization [facility] Address [address] [place] [address] Care Team Providers Care Nut Grader Name Role Phone Po, Ziggy Antunez MD Primary Care Provider [phone] Allergies Active Allergy Reactions Criticality Noted Date [...] age to complete this topic Care Teams Nut Grader Relationship Specialty Start Date End Date Ziggy Garcia MD [address] [place] [address] Dr [address] [facility] [place] [address] PCP - General Internal Medicine 03/24/17
--- OUTSIDE RECORDS SUMMARY | 2025-02-28 16:00 | XMS_ITS | Encounter Summary ---
Author Organization [facility] Address [address] [place] [address] Care Team Providers Care Temporary Receptionist Name Role Phone Ziggy Garcia MD Primary Care Provider [phone] Encounter Details Date Type Department Care Team (Late Contact Info) Description 12/23/2024 Lab Requisition [facility] - Main Lab 299 [facility] [place] [address] Sandra Ulloa MD [address] [place] [address] Polyosteoarthritis, unspecified; Anemia, unspecified Social History Tobacco [...] Upcoming Encounters Date Type Department Care Team ([facility] Contact Info) Description 04/21/2025 9:00 AM EST Appointment [facility] Endoscopy [address] [place] [address] Bernie Sharp MD [address] [address] documented as of this encounter Procedures Procedure Name Priority Date/Time Associated Diagnosis Comments COMPLETE BLOOD COUNT Routine 12/24/2024 4:59 AM EDT Polyosteoarthritis, unspecified Anemia, unspecified documented in this encounter Results * (ABNORMAL) Complete blood count (12/24/2024 4:59 AM EDT) [facility] WBC 7.7 4.8 - 10.8 K/mcL LAB HEMETOLOGY METHOD 12/24/2024 10:03 AM [facility] LAB RBC 3.00(L) 3.80 - 4.80 M/mcL LAB HEMETOLOGY METHOD 12/24/2024 10:03 AM [facility] LAB Hemoglobin 8.3(L) 11.5 - 16.0 g/dL LAB HEMETOLOGY METHOD 12/24/2024 10:03 AM [facility] LAB Hematocrit 27.7(L) 35.0 - 47.0 % LAB HEMETOLOGY METHOD 12/24/2024 10:03 AM [facility] LAB MCV 92.6 79.0 - 98.0 FL LAB HEMETOLOGY METHOD 12/24/2024 10:03 AM [facility] LAB MCH 27.8 27.0 - 32.0 pcg LAB HEMETOLOGY METHOD 12/24/2024 10:03 AM [facility] LAB MCHC 30.0(L) 32.0 - 37.0 g/dL LAB HEMETOLOGY METHOD 12/24/2024 10:03 AM [facility] LAB RDW 20.6(H) 11.0 - 15.0 % LAB HEMETOLOGY METHOD 12/24/2024 10:03 AM [facility] LAB Platelets 457(H) 130 - 400 K/mcL LAB HEMETOLOGY METHOD 12/24/2024 10:03 AM EDT [facility] LAB MPV 11.1(H) 7.0 - 11.0 FL LAB HEMETOLOGY METHOD 12/24/2024 10:03 AM EDT [facility] LAB NRBC 0.0 <1.0 % LAB HEMETOLOGY METHOD 12/24/2024 10:03 AM EDT [facility] LAB NRBC Absolute 0.00 <0.10 K/mcL LAB HEMETOLOGY METHOD 12/24/2024 10:03 AM EDT [facility] LAB Blood Venous blood specimen / Unknown Venipuncture / Unknown 12/24/2024 4:59 AM EDT 12/24/2024 9:35 AM EDT us Sandra Ulloa MD LAB BLOOD ORDERABLES Final Resul t [facility] LAB [address] [place] [address], [place] [phone] documented in this encounter Visit Diagnoses Diagnosis Polyosteoarthritis, unspecified Anemia, unspecified documented in this encounter Care Teams Temporary Receptionist Relationship Specialty Start Date End Date Ziggy Garcia MD [address] [place] [address] Dr Milan [address] [facility] [place] [address] PCP - General Internal Medicine 03/24/17 documented as of this encounter
== END 2025-02-28 15:18 | disposition home or self-care (01) ==
LOC: HO.HMCH 14:10
PROVIDERS: PCP Internal Medicine; Visit Provider Internal Medicine
DX: I10 Essential (primary) hypertension (principal); E11.65 Type 2 diabetes mellitus with hyperglycemia; E66.01 Morbid (severe) obesity due to excess calories; Z68.41 Body mass index [BMI] 40.0-44.9, adult; E78.00 Pure hypercholesterolemia, unspecified; E03.9 Hypothyroidism, unspecified; K21.9 Gastro-esophageal reflux disease without esophagitis; Z90.81 Acquired absence of spleen; M51.362 Other intervertebral disc degeneration, lumbar region with discogenic back pain and lower extremity pain; J45.20 Mild intermittent asthma, uncomplicated; K31.811 Angiodysplasia of stomach and duodenum with bleeding; Z23 Encounter for immunization

== ENCOUNTER → 2025-02-28 14:10 | Outpatient (BNVA) | payer MEDICARE, SELFPAY | PROVIDERS: PCP Internal Medicine; Visit Provider Internal Medicine | DX: E11.51 Type 2 diabetes mellitus with diabetic peripheral angiopathy without gangrene (principal); E78.00 Pure hypercholesterolemia, unspecified; I10 Essential (primary) hypertension; J45.909 Unspecified asthma, uncomplicated; E03.9 Hypothyroidism, unspecified; D64.9 Anemia, unspecified; E11.65 Type 2 diabetes mellitus with hyperglycemia; E66.01 Morbid (severe) obesity due to excess calories; K21.9 Gastro-esophageal reflux disease without esophagitis; Z90.81 Acquired absence of spleen; Z85.3 Personal history of malignant neoplasm of breast; M51.362 Other intervertebral disc degeneration, lumbar region with discogenic back pain and lower extremity pain; M51.372 Other intervertebral disc degeneration, lumbosacral region with discogenic back pain and lower extremity pain; J45.20 Mild intermittent asthma, uncomplicated; K31.811 Angiodysplasia of stomach and duodenum with bleeding; Z23 Encounter for immunization | CPT/HCPCS: 83036; 90471; 90714; 99212 ==